=== PATIENT | female | born 2000 | race Caucasian/White ===

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

== ENCOUNTER 2022-02-03 18:27 | Inpatient (IN) | payer MEDICAID, SELFPAY ==
[2022-02-03 18:35] VITALS: BP 136/103; PULSE 111; RESP 18; O2SAT 98
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
[2022-02-03 18:37] VITALS: BP 136/103; PULSE 126; RESP 22; TEMP 36.6; O2SAT 97
[2022-02-03 18:43] LABS: Basophils # 0.1 10^3/uL (0.0-0.1); Basophils % 0.7 %; Eosinophils # 0.1 10^3/uL (0.0-0.8); Eosinophils % 0.7 %; Hematocrit 43.6 % (37.0-47.0); Hemoglobin 13.9 g/dL (11.5-15.3); Lymphocytes # 4.2 10^3/uL (1.5-6.5); Lymphocytes % 43.3 %; Mean Corpuscular HGB Conc 31.9 g/dL (30.0-36.0); Mean Platelet Volume 9.8 fL (7.4-10.4); Monocytes # 0.7 10^3/uL (0.2-0.9); Neutrophils # 4.66 10^3/uL (1.8-8.0); Nucleated Red Blood Cells % 0 %; Platelet Count 353 10^3/cmm (130-400); Red Blood Count 4.64 10^6/uL (4.1-5.3); Red Cell Distribution Width 12.3 % (12.1-15.1); White Blood Count 9.7 10^3/uL (4.5-13.0)
[2022-02-03] MEDS: LORazepam 2 mg Tablet PO (18:47)
[2022-02-03 19:09] LABS: Alanine Aminotransferase 17 U/L (0-33); Albumin Level 4.4 g/dL (3.5-5.2); Alkaline Phosphatase 91 U/L (35-105); Anion Gap 27.5 (5-19); Aspartate Amino Transferase 30 U/L (0-32); Blood Urea Nitrogen 15 mg/dL (6-20); Calcium 9.4 mg/dL (8.5-10.5); Carbon Dioxide 15 mmol/L (22-29); Chloride 94 mmol/L (98-107); Globulin 3.4 g/dL (1.3-4.6); Glomerular Filtration Rate 70.7 mL/min (90-130); Glucose 83 mg/dL (65-115); Osmolality Calculated 276 mOsm/kg (285-295); Potassium 3.5 mmol/L (3.5-5.1); Sodium 133 mmol/L (136-145); Total Bilirubin 0.3 mg/dL (0.15-1.2); Total Protein 7.8 g/dL (6.6-8.7)
[2022-02-03 19:15] LABS: HIV 1 & 2 Antibody Non-Reactive (Non-Reactiv); HIV 1 & 2 Antigen Non-Reactive (Non-Reactiv)
[2022-02-03 19:18] LABS: Acetaminophen < 5.0 ug/mL (10-30); Alcohol Level < 10 mg/dL (0-10); Salicylate < 0.3 mg/dL (3-10)
[2022-02-03 21:47] LABS: Amphetamines Screen Urine Positive (Negative); Barbiturates Screen Urine Negative (Negative); Benzodiazepines Screen Urine Negative (Negative); Cocaine Screen Urine Negative (Negative); Opiate Screen Urine Negative (Negative); PCP Screen Urine Negative (Negative); THC Screen Urine Positive (Negative)
[2022-02-03 22:02] LABS: Hepatitis A Antibody IgM Non-Reactive (Nonreactive); Hepatitis B Core AB, Total Non-Reactive (Nonreactive); Hepatitis B Surface AB 3.5 (11.5-1000); Hepatitis B Surface Antigen Non-Reactive (Nonreactive); Hepatitis C Virus Antibody Non-Reactive (Nonreactive)
[2022-02-03 22:04] VITALS: BP 136/103; PULSE 126; RESP 22; O2SAT 97
[2022-02-03 22:09] VITALS: BP 125/76; PULSE 104; RESP 19; TEMP 36.8; O2SAT 99
[2022-02-03] MEDS: hyDROXYzine 25 mg Capsule 50 MG PO (23:28)
[2022-02-03] MEDS: OLANZapine 5 mg ODT PO (23:28)
--- NOTE | 2022-02-03 23:55 | PC.NURSE ---
Vistaril 50mg PO given for amxiety; Zyprexa 5mg po given for Psychosis both with good result.
[2022-02-04 06:00] VITALS: BP 138/74; PULSE 110; RESP 18; TEMP 36.6; O2SAT 99
[2022-02-04 06:51] LABS: HCG Qualitative Urine. Negative (Negative)
[2022-02-04 14:00] VITALS: BP 111/62; PULSE 91; RESP 18; TEMP 36.6; O2SAT 97
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
[2022-02-04 20:25] VITALS: BP 119/70; PULSE 92; RESP 14; O2SAT 99
[2022-02-05 06:00] VITALS: BP 116/76; PULSE 93; RESP 18; O2SAT 99
--- NOTE | 2022-02-05 08:49 | W.PM.NPUPNS ---
Subjective NPU Subjective: Patient presents today being very irritable and angry. Every question she answered with some response that was related to not being willing to stay and cursing about the boat outboard engine mechanic. She reported that she would not take any medication and it is best for everyone if she was discharged. We discussed the hold process and the likelihood for an extended hold with her approach. Mental Status Exam MSE Comments: This is a slender, short white female in hospital scrubs with limited grooming and limited eye contact. No abnormal movements except for significant psychomotor agitation. Uncooperative with exam in extreme distress. Speech was increased rate and volume. Mood still not described, affect is irritable and angry. Thought process, linear. Thought content: patient still did not answer questions of lethality or perceptual disturbances but expressed irritability and anger towards anyone related to her being in hospital. she did not endorse delusional content but there was signs of paranoia and guardedness, but she did not appear to be attending to internal stimuli. Attention and concentration fair and memory was unreliable but none were formally tested. She is alert and oriented x3. insight, judgment and impulse control are impaired. Vitals/I&O/Wt Last Vital Signs Temp 97.8 F 02/04/22 14:00 Pulse 93 02/05/22 06:00 Resp 18 02/05/22 06:00 BP 116/76 02/05/22 06:00 Pulse Ox 99 02/05/22 06:00 O2 Del Method 02/04/22 06:00 Weight last 48 hrs Weight 54.431 kg Data NPU : 02/03/22 18:40 02/03/22 18:40 A&P Assessment and plan (1) Methamphetamine abuse: (2) Psychosis: Plan This is a 22year old white female who presents in on a 96 hour hold secondary to aggression and psychosis with positive UDS for cannabis and amphetamines with history of long stays to resolve the psychosis possibly needing guardianship and or placement. 1. We will obtain collateral information and restart medication with her permission but likely need to identify a long-acting injectable for her. If she functioned well on the Zyprexa we could do Zyprexa Relprevv, but something injectable for adherence is indicated. 2. Encourage individual, group and milieu therapy 3. Continue q-15 minute check for safety 4. Encourage sober living treatment after discharge at the highest level of care to which she is willing to commit. Involuntary Hold Information 96 Hour Hold: 96 Hour Involuntary Admission: Yes 96 Hour Hold Ending Date: 02/10/22 96 Hour Hold Ending Time: 19:17 Attestations NPU Medical Necessity Statement*: Inpatient hospitalization is medically necessary and the clinically appropriate intervention at this time. We will monitor medications and make changes as indicated. Likely length of stay is 10-14 days. Coding Level of Care Code Acute Residential Carpet Installer for Loulou Campos Diagnoses Methamphetamine abuse F15.10 Psychosis F29
[2022-02-05 14:00] VITALS: BP 122/76; PULSE 79; RESP 18; TEMP 36.7; O2SAT 98
[2022-02-05 20:12] VITALS: RESP 17
[2022-02-06 06:00] VITALS: BP 124/83; PULSE 80; RESP 16; O2SAT 98
[2022-02-06 14:00] VITALS: BP 113/88; PULSE 98; RESP 18; TEMP 36.9; O2SAT 97
--- NOTE | 2022-02-06 15:54 | P.NPUPN_ITS ---
Subjective NPU Subjective: Patient presents today continuing to be quite irritable and volatile. She endorsed being able to hear my thoughts and being able to tell that I was in fact schizophrenic and needing to be on medications. She reports that she does not have any issues and that the things that she told me yesterday I was in fact fabricating. He denied saying the things she said about the police. But she continues to say that she does not need to be here and that she would not take any medication. We discussed how that would likely lead towards a total day hold and the longer stay which only made her more angry Mental Status Exam MSE Comments: This is a slender, short white female in hospital scrubs with l imited grooming and limited eye contact. No abnormal movements except for significant psychomotor agitation. Uncooperative with exam in extreme distress. Speech was increased rate and volume. Mood still not described, affect is irritable and angry. Thought process, linear. Thought content: patient still did not answer questions of lethality or perceptual disturbances but expressed irritability and anger towards anyone related to her being in hospital. she did not endorse delusional content but there was signs of paranoia and guardedness, and she reports that she was able to read this automobile and property underwriter's mind and hear my thoughts, but she did not appear to be attending to internal stimuli. Attention and concentration were fair and memory was unreliable but none were formally tested. She is alert and oriented x3. insight, judgment and impulse control are impaired. Vitals/I&O/Wt Last Vital Signs Temp 98.0 F 02/05/22 14:00 Pulse 80 02/06/22 06:00 Resp 16 02/06/22 06:00 BP 124/83 02/06/22 06:00 Pulse Ox 98 02/06/22 06:00 O2 Del Method 02/05/22 14:00 Data NPU : 02/03/22 18:40 02/03/22 18:40 A&P Assessment and plan (1) Methamphetamine abuse: (2) Psychosis: Plan This is a 22year old white female who presents in on a 96 hour hold secondary to aggression and psychosis with positive UDS for cannabis and amphetamines with history of long stays to resolve the psychosis possibly needing guardianship and or placement. 1. We will obtain collateral information and restart medication with her permission but likely need to identify a long-acting injectable for her. If she functioned well on the Zyprexa we could do Zyprexa Relprevv, but something injectable for adherence is indicated. 2. Encourage individual, group and milieu therapy 3. Continue q-15 minute check for safety 4. Encourage sober living treatment after discharge at the highest level of care to which she is willing to commit. Involuntary Hold Information 96 Hour Hold: 96 Hour Involuntary Admission: Yes 96 Hour Hold Ending Date: 02/10/22 96 Hour Hold Ending Time: 19:17 Attestations NPU Medical Necessity Statement*: Inpatient hospitalization is medically necessary and the clinically appropriate intervention at this time. We will monitor medications and make changes as indicated. Likely length of stay is 10-14 days. Coding Level of Care Code Acute Trimmer Meat for Loulou Campos Diagnoses Methamphetamine abuse F15.10 Psychosis F29
[2022-02-06 20:07] VITALS: RESP 18
[2022-02-07 06:00] VITALS: RESP 16
--- NOTE | 2022-02-07 13:37 | W.PM.NPUPNS ---
Subjective NPU Subjective: Patient was in today with no significant changes and denying having any issues. She was unwilling to have any real conversation about her addiction, her psychosis or the circumstances that brought her to the hospital. She is maybe slightly less irritable and aggressive compared to yesterday but still reported that her plan was to try to get out as soon as possible. Mental Status Exam MSE Comments: This is a slender, short white female in hospital scrubs with limited grooming and limited eye contact. No abnormal movements except for significant psychomotor agitation. Uncooperative with exam in moderate distress. Speech was increased rate and volume. Mood still not described, affect is irritable and angry. Thought process, linear. Thought content: patient still did not answer questions of lethality or perceptual disturbances but expressed irritability and anger towards anyone related to her being in hospital. she did not endorse delusional content but there was signs of paranoia and guardedness, and she reports that she was able to read this parts data writer's mind and hear my thoughts, but she did not appear to be attending to internal stimuli. Attention and concentration were fair and memory was unreliable but none were formally tested. She is alert and oriented x3. insight, judgment and impulse control are impaired. Vitals/I&O/Wt Last Vital Signs Temp 98.4 F 02/06/22 14:00 Pulse 98 02/06/22 14:00 Resp 16 02/07/22 06:00 BP 113/88 02/06/22 14:00 Pulse Ox 97 02/06/22 14:00 O2 Del Method 02/06/22 14:00 Data NPU : 02/03/22 18:40 02/03/22 18:40 A&P Assessment and plan (1) Methamphetamine abuse: (2) Psychosis: Plan This is a 22year old white female who presents in on a 96 hour hold secondary to aggression and psychosis with positive UDS for cannabis and amphetamines with history of long stays to resolve the psychosis possibly needing guardianship and or placement. 1. We will obtain collateral information and restart medication with her permission but likely need to identify a long-acting injectable for her. If she functioned well on the Zyprexa we could do Zyprexa Relprevv, but something injectable for adherence is indicated. 2. Encourage individual, group and milieu therapy 3. Continue q-15 minute check for safety 4. Encourage sober living treatment after discharge at the highest level of care to which she is willing to commit. Involuntary Hold Information 96 Hour Hold: 96 Hour Involuntary Admission: Yes 96 Hour Hold Ending Date: 02/10/22 96 Hour Hold Ending Time: 19:17 Attestations NPU Medical Necessity Statement*: Inpatient hospitalization is medically necessary and the clinically appropriate intervention at this time. We will monitor medications and make changes as indicated. Likely length of stay is 10-14 days. Coding Level of Care Code Acute Senior Customer Service Representative for Loulou Campos Diagnoses Methamphetamine abuse F15.10 Psychosis F29
[2022-02-07 14:00] VITALS: BP 119/71; PULSE 102; RESP 18; TEMP 36.6; O2SAT 99
[2022-02-07 20:06] VITALS: BP 129/88; PULSE 73; RESP 16; TEMP 36.6; O2SAT 99
[2022-02-08 06:00] VITALS: RESP 17
[2022-02-08 14:00] VITALS: BP 113/77; PULSE 87; RESP 16; TEMP 36.6; O2SAT 100
--- NOTE | 2022-02-08 14:00 | W.PM.NPUPNS ---
Subjective NPU Subjective: Patient presents today continuing to have no interest in participating in treatment. She attempted to use the excuse of plan that she will go to her doctor estimate she is discharged and use medications that she has refills for etc. But cannot explain the why she did take medication that she is not interested in taking only after she is out the hospital. She promised that she would take it. We discussed her multiple hospitalizations with the same presentation that improves with medication but the impact of her methamphetamine addiction either eludes her or she denies for purpose. Mental Status Exam MSE Comments: This is a slender, short white female in hospital scrubs with limited grooming and limited eye contact. No abnormal movements except for decreasing blood present psychomotor agitation. Uncooperative with exam in moderate distress. Speech was increased rate and volume. Mood described as I am fine, affect is irritable and angry. Thought process, linear. Thought content: patient still did not answer questions of lethality or perceptual disturbances but expressed irritability and anger towards anyone related to her being in hospital. she did not endorse delusional content but there was signs of paranoia and guardedness, there were no auditory or visual hallucinations reported, but she did not appear to be attending to internal stimuli. Attention and concentration were fair and memory was unreliable but none were formally tested. She is alert and oriented x3. insight, judgment and impulse control are impaired. Vitals/I&O/Wt Last Vital Signs Temp 97.9 F 02/07/22 20:06 Pulse 73 02/07/22 20:06 Resp 17 02/08/22 06:00 BP 129/88 02/07/22 20:06 Pulse Ox 99 02/07/22 20:06 O2 Del Method 02/07/22 14:00 Data NPU : 02/03/22 18:40 02/03/22 18:40 A&P Assessment and plan (1) Methamphetamine abuse: (2) Psychosis: Plan This is a 22year old white female who presents in on a 96 hour hold secondary to aggression and psychosis with positive UDS for cannabis and amphetamines with history of long stays to resolve the psychosis possibly needing guardianship and or placement. 1. We will obtain collateral information and restart medication with her permission but likely need to identify a long-acting injectable for her. If she functioned well on the Zyprexa we could do Zyprexa Relprevv, but something injectable for adherence is indicated. 2. Encourage individual, group and milieu therapy 3. Continue q-15 minute check for safety 4. Encourage sober living treatment after discharge at the highest level of care to which she is willing to commit. 5. Resistance to treatment appears to be making a 21-day hold inevitable. Involuntary Hold Information 96 Hour Hold: 96 Hour Involuntary Admission: Yes 96 Hour Hold Ending Date: 02/10/22 96 Hour Hold Ending Time: 19:17 Attestations NPU Medical Necessity Statement*: Inpatient hospitalization is medically necessary and the clinically appropriate intervention at this time. We will monitor medications and make changes as indicated. Likely length of stay is 10-14 days. Coding Level of Care Code Acute Customer Solutions Coordinator for Loulou Campos Diagnoses Methamphetamine abuse F15.10 Psychosis F29
[2022-02-08] MEDS: neomycin-poly-bacitracin oint 28 gm 1 APPLIC TOPICAL (18:23)
[2022-02-08] MEDS: nicotine 2 mg Gum BUCCAL (18:35)
[2022-02-08 20:20] VITALS: RESP 18
[2022-02-09 06:00] VITALS: RESP 18
[2022-02-09] MEDS: nicotine 2 mg Gum BUCCAL ×2 (11:16→17:27)
[2022-02-09 14:00] VITALS: BP 116/78; PULSE 100; RESP 18; TEMP 36.9; O2SAT 100
--- NOTE | 2022-02-09 18:10 | P.NPUPN_ITS ---
Subjective NPU Subjective: Patient presents today continuing to be quite concrete and basically answering every question with some variation of can I go home. She is having no conversation about medication other than she will start the medication once she leaves. She had no conversation about her sobriety denying that her methamphetamine issue which is now back multiple years is an active issue and continues to be disorganized. Mental Status Exam MSE Comments: This is a slender, short white female in hospital scrubs with limited grooming and limited eye contact. No abnormal movements except for decreasing mild to moderate psychomotor agitation. Uncooperative with exam in mild to moderate distress. Speech was more normal rate and volume. Mood described as I am fine, affect is irritable. Thought process, linear with clear mild underlying disorganization. Thought content: patient denies suicidal or homicidal ideations, she did not endorse delusional content but there was signs of paranoia and guardedness, there were no auditory or visual hallucinations reported, and she did not appear to be attending to internal stimuli. Attention and concentration were fair and memory was unreliable but none were formally tested. She is alert and oriented x3. insight, judgment and impulse control are impaired. Vitals/I&O/Wt Last Vital Signs Temp 98.5 F 02/09/22 22:00 Pulse 89 02/09/22 22:00 Resp 16 02/09/22 22:00 BP 117/77 02/09/22 22:00 Pulse Ox 97 02/09/22 22:00 O2 Del Method 02/09/22 22:00 Data NPU 02/03/22 18:40 02/03/22 18:40 A&P Assessment and plan (1) Methamphetamine abuse: (2) Psychosis: Plan This is a 22year old white female who presents in on a 96 hour hold secondary to aggression and psychosis with positive UDS for cannabis and amphetamines with history of long stays to resolve the psychosis possibly needing guardianship and or placement. 1. We will obtain collateral information and restart medication with her permission but likely need to identify a long-acting injectable for her. If she functioned well on the Zyprexa we could do Zyprexa Relprevv, but something injectable for adherence is indicated. 2. Encourage individual, group and milieu therapy 3. Continue q-15 minute check for safety 4. Encourage sober living treatment after discharge at the highest level of care to which she is willing to commit. 5. Resistance to treatment appears to be making a 21-day hold inevitable. Involuntary Hold Information 96 Hour Hold: 96 Hour Involuntary Admission: Yes 96 Hour Hold Ending Date: 02/10/22 96 Hour Hold Ending Time: 19:17 Attestations NPU Medical Necessity Statement*: Inpatient hospitalization is medically necessary and the clinically appropriate intervention at this time. We will monitor medications and make changes as indicated. Likely length of stay is 10-14 days. Coding Level of Care Code Acute Software Implementation Specialist for Loulou Campos Diagnoses Methamphetamine abuse F15.10 Psychosis F29
[2022-02-09 22:00] VITALS: BP 117/77; PULSE 89; RESP 16; TEMP 36.9; O2SAT 97
[2022-02-10 06:00] VITALS: BP 104/72; PULSE 90; RESP 17; TEMP 36.8; O2SAT 99
--- NOTE | 2022-02-10 13:31 | W.PM.NPUPNS ---
Subjective NPU Subjective: Patient presents today continuing to show limited to no insight surrounding her situation, her condition, her family concerns and is either unaware or being deceitful in relation to her addiction and current use pattern. We discussed the submission of a 21 day hold which upset her, but due to her lack of insight she talked about being hopeful that she will be discharged tomorrow we discussed that she would need to restart medication and a period convalescence in the hospital before we feel she would be ready for discharge. Mental Status Exam MSE Comments: This is a slender, short white female in hospital scrubs with limited grooming and limited eye contact. No abnormal movements except for decreasing mild psychomotor agitation. Uncooperative with exam in mild to moderate distress. Speech was more normal rate and volume. Mood described as there is nothing wrong, affect is irritable. Thought process, linear with clear mild underlying disorganization. Thought content: patient denies suicidal or homicidal ideations, she did not endorse delusional content but there was signs of paranoia and guardedness, there were no auditory or visual hallucinations reported, and she did not appear to be attending to internal stimuli. Attention and concentration were fair and memory was unreliable but none were formally tested. She is alert and oriented x3. insight, judgment and impulse control are impaired. Vitals/I&O/Wt Last Vital Signs Temp 98.3 F 02/10/22 06:00 Pulse 90 02/10/22 06:00 Resp 17 02/10/22 06:00 BP 104/72 02/10/22 06:00 Pulse Ox 99 02/10/22 06:00 O2 Del Method 02/10/22 06:00 Data NPU 02/03/22 18:40 02/03/22 18:40 A&P Assessment and plan (1) Methamphetamine abuse: (2) Psychosis: Plan This is a 22year old white female who presents in on a 96 hour hold secondary to aggression and psychosis with positive UDS for cannabis and amphetamines with history of long stays to resolve the psychosis possibly needing guardianship and or placement. 1. We will obtain collateral information and restart medication with her permission but likely need to identify a long-acting injectable for her. If she functioned well on the Zyprexa we could do Zyprexa Relprevv, but something injectable for adherence is indicated. 2. Encourage individual, group and milieu therapy 3. Continue q-15 minute check for safety 4. Encourage sober living treatment after discharge at the highest level of care to which she is willing to commit. 5. 21-day hold paperwork filed. Involuntary Hold Information 96 Hour Hold: 96 Hour Involuntary Admission: Yes 96 Hour Hold Ending Date: 02/10/22 96 Hour Hold Ending Time: 19:17 Attestations NPU Medical Necessity Statement*: Inpatient hospitalization is medically necessary and the clinically appropriate intervention at this time. We will monitor medications and make changes as indicated. Likely length of stay is 10-14 days. Coding Level of Care Code Acute Processing Manager for [employer] Fwd Diagnoses Methamphetamine abuse F15.10 Psychosis F29
[2022-02-10 14:00] VITALS: BP 111/72; PULSE 94; RESP 16; TEMP 36.8; O2SAT 98
[2022-02-10] MEDS: nicotine 2 mg Gum BUCCAL (14:08)
[2022-02-10] MEDS: ibuprofen 600 mg Tablet PO (20:13)
[2022-02-10] MEDS: trazodone 50 mg Tablet PO (20:14)
[2022-02-10 22:00] VITALS: BP 139/69; PULSE 87; RESP 16; TEMP 36.8; O2SAT 97
[2022-02-11 06:00] VITALS: BP 96/60; PULSE 83; RESP 16; TEMP 36.8; O2SAT 96
[2022-02-11] MEDS: nicotine 2 mg Gum BUCCAL ×3 (10:51→19:46)
--- NOTE | 2022-02-11 11:34 | P.NPUPN_ITS ---
Subjective NPU Subjective: Patient presents today reporting that she is wanting to leave. We continued to have a conversation about her circumstances and the 21-day hold being filed. She will have a hearing on Monday. After significant conversation she was able to agree to restart Zyprexa at 10 mg p.o. nightly after discussion of risks, benefits and alternatives. Mental Status Exam MSE Comments: This is a slender, short white female in hospital scrubs with limited grooming and limited eye contact. No abnormal movements except for decreasing mild psychomotor agitation. Uncooperative with exam in mild to moderate distress. Speech was more normal rate and volume. Mood described as okay, affect is irritable. Thought process, linear with clear mild underlying disorganization. Thought content: patient denies suicidal or homicidal ideations, she did not endorse delusional content but there was signs of paranoia and guardedness, there were no auditory or visual hallucinations reported, and she did not appear to be attending to internal stimuli. Attention and concentration were fair and memory was unreliable but none were formally tested. She is alert and oriented x3. insight, judgment and impulse control are impaired. Vitals/I&O/Wt Last Vital Signs Temp 98.3 F 02/11/22 06:00 Pulse 83 02/11/22 06:00 Resp 16 02/11/22 06:00 BP 96/60 02/11/22 06:00 Pulse Ox 96 02/11/22 06:00 O2 Del Method 02/11/22 06:00 Data NPU 02/03/22 18:40 02/03/22 18:40 A&P Assessment and plan (1) Methamphetamine abuse: (2) Psychosis: Plan This is a 22year old white female who presents in on a 96 hour hold secondary to aggression and psychosis with positive UDS for cannabis and amphetamines with history of long stays to resolve the psychosis possibly needing guardianship and or placement. 1. We will obtain collateral information and restart medication with her permission but likely need to identify a long-acting injectable for her. If she functioned well on the Zyprexa we could do Zyprexa Relprevv, but starting Zyprexa 10 mg p.o. nightly. 2. Encourage individual, group and milieu therapy 3. Continue q-15 minute check for safety 4. Encourage sober living treatment after discharge at the highest level of care to which she is willing to commit. 5. 21-day hold hearing Monday at 3:00 PM. Involuntary Hold Information 96 Hour Hold: 96 Hour Involuntary Admission: Yes 96 Hour Hold Ending Date: 02/10/22 96 Hour Hold Ending Time: 19:17 Attestations NPU Medical Necessity Statement*: Inpatient hospitalization is medically necessary and the clinically appropriate intervention at this time. We will monitor medications and make changes as indicated. Likely length of stay is 10-14 days. Coding Level of Care Code Acute Paint Grinder [employer] for Loulou Campos Diagnoses Methamphetamine abuse F15.10 Psychosis F29
[2022-02-11 14:00] VITALS: BP 107/62; PULSE 90; RESP 18; TEMP 36.6; O2SAT 97
[2022-02-11] MEDS: trazodone 50 mg Tablet PO ×2 (19:43→21:06)
[2022-02-11] MEDS: OLANZapine 10 mg TABLET PO (19:43)
[2022-02-11 22:00] VITALS: BP 124/77; PULSE 88; RESP 18; TEMP 36.8; O2SAT 96
[2022-02-12 06:00] VITALS: BP 100/62; PULSE 76; RESP 16; TEMP 37; O2SAT 96
--- NOTE | 2022-02-12 13:49 | P.NPUPN_ITS ---
Subjective NPU Subjective: Patient presented today reporting that she did not from medication last night. She went on a rant about not believing in medication or putting things in her body reporting that that was not God's plan for people to have medication all the time. When asked how that relates to taking metha mphetamine she did not have an answer. Mental Status Exam MSE Comments: This is a slender, short white female in hospital scrubs with limited grooming and limited eye contact. No abnormal movements except for decreasing mild psychomotor agitation. Uncooperative with exam in mild to moderate distress. Speech was more normal rate and volume. Mood described as fine, affect is irritable. Thought process, linear with clear mild underlying disorganization. Thought content: patient denies suicidal or homicidal ideations, she did not endorse delusional content but there was signs of paranoia and guardedness, there were no auditory or visual hallucinations reported, and she did not appear to be attending to internal stimuli. Attention and concentration were fair and memory was unreliable but none were formally tested. She is alert and oriented x3. insight, judgment and impulse control are impaired. Vitals/I&O/Wt Last Vital Signs Temp 98.6 F 02/12/22 06:00 Pulse 76 02/12/22 06:00 Resp 16 02/12/22 06:00 BP 100/62 02/12/22 06:00 Pulse Ox 96 02/12/22 06:00 O2 Del Method 02/12/22 06:00 Data NPU 02/03/22 18:40 02/03/22 18:40 A&P Assessment and plan (1) Methamphetamine abuse: (2) Psychosis: Plan This is a 22year old white female who presents in on a 96 hour hold secondary to aggression and psychosis with positive UDS for cannabis and amphetamines with history of long stays to resolve the psychosis possibly needing guardianship and or placement. 1. We will obtain collateral information and restart medication with her permission but likely need to identify a long-acting injectable for her. If she functioned well on the Zyprexa we could do Zyprexa Relprevv, but started Zyprexa 10 mg p.o. nightly. 2. Encourage individual, group and milieu therapy 3. Continue q-15 minute check for safety 4. Encourage sober living treatment after discharge at the highest level of care to which she is willing to commit. 5. 21-day hold hearing Monday at 3:00 PM. Involuntary Hold Information 96 Hour Hold: 96 Hour Involuntary Admission: Yes 96 Hour Hold Ending Date: 02/10/22 96 Hour Hold Ending Time: 19:17 Attestations NPU Medical Necessity Statement*: Inpatient hospitalization is medically necessary and the clinically appropriate intervention at this time. We will monitor medications and make changes as indicated. Likely length of stay is 10-14 days. Coding Level of Care Code Acute Cement And Concrete Plant Worker for Loulou Campos Diagnoses Methamphetamine abuse F15.10 Psychosis F29
[2022-02-12 14:00] VITALS: BP 119/76; PULSE 86; RESP 17; TEMP 36.7; O2SAT 100
[2022-02-12] MEDS: nicotine 4 mg lozenge MUCOUS MEM ×3 (14:46→21:26)
[2022-02-12] MEDS: trazodone 50 mg Tablet PO ×2 (19:29→21:26)
[2022-02-12] MEDS: OLANZapine 10 mg TABLET PO (19:30)
[2022-02-12 21:11] VITALS: BP 121/78; PULSE 91; RESP 16; TEMP 36.6; O2SAT 100
[2022-02-13 02:45] LABS: Amphetamines Screen Urine Negative (Negative); Barbiturates Screen Urine Negative (Negative); Benzodiazepines Screen Urine Negative (Negative); Cocaine Screen Urine Negative (Negative); Opiate Screen Urine Negative (Negative); PCP Screen Urine Negative (Negative); THC Screen Urine Negative (Negative)
[2022-02-13 06:00] VITALS: BP 121/78; PULSE 91; RESP 16; TEMP 36.6; O2SAT 100; BMI 20.5
[2022-02-13 06:37] VITALS: BP 149/95; PULSE 69; RESP 16; TEMP 36.7; O2SAT 98
--- NOTE | 2022-02-13 10:41 | W.PM.NPUPNS ---
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 Patient had stated that she felt that she was ready to return home. She continued to minimize the behavior and the problems that had initially led to her being hospitalized. She firmly denied having attacked law officers when confronted with this today. She continued to isolate herself on the milieu. She had reported that she had felt that the previous medications had made her excessively sleepy in the past and she had stopped taking those medications when she was living at home. She again minimized the use of methamphetamine and stated that she did not have any problems with methamphetamine addiction. She again had reported that she did not believe it was God's will to have everyone on medications. Mental Status Exam MSE Comments: This is a slender, short white female in hospital scrubs with limited grooming and limited eye contact. No abnormal movements except for mild psychomotor agitation. She was minimally cooperative with the exam today. Speech was more normal rate and volume. Mood described as fine, affect is irritable and mood incongruent. Thought process appeared disorganized and nonlinear.. Thought content: patient denies suicidal or homicidal ideation, she did not endorse delusional content. She continued to appear paranoid and guarded. There were no auditory or visual hallucinations reported, and she did not appear to be attending to internal stimuli. Attention and concentration were fair and memory was unreliable but none were formally tested. She is alert and oriented x3. insight, judgment and impulse control are impaired. Vitals/I&O/Wt Last Vital Signs Temp 98.0 F 02/13/22 06:37 Pulse 69 02/13/22 06:37 Resp 16 02/13/22 06:37 BP 149/95 02/13/22 06:37 Pulse Ox 98 02/13/22 06:37 O2 Del Method 02/12/22 06:00 Weight last 48 hrs Weight 54.431 kg Data NPU 02/03/22 18:40 02/03/22 18:40 A&P Assessment and plan (1) Methamphetamine abuse: (2) Psychosis: Plan This is a 22 year old white female who presents in on a 96 hour hold secondary to aggression and psychosis with positive UDS for cannabis and amphetamines with history of long hospitalizations required to resolve the psychotic symptoms. She is possibly needing guardianship and or placement. 1. We will obtain collateral information and restart medication with her permission but likely need to identify a long-acting injectable for her. If she functioned well on the Zyprexa we could do Zyprexa Relprevv, but started Zyprexa 10 mg p.o. nightly. 2. Encourage individual, group and milieu therapy 3. Continue q-15 minute check for safety 4. Encourage sober living treatment after discharge at the highest level of care to which she is willing to commit. 5. 21-day hold hearing Monday at 3:00 PM. Involuntary Hold Information 96 Hour Hold: 96 Hour Involuntary Admission: Yes 96 Hour Hold Ending Date: 02/10/22 96 Hour Hold Ending Time: 19:17 Attestations NPU Medical Necessity Statement*: Inpatient hospitalization is medically necessary and the clinically appropriate intervention at this time. We will monitor medications and make changes as indicated. Likely length of stay is 10-14 days. Coding Level of Care Code Established Pt Acute Lawn Mower Sharpener for Loulou Campos Patient Type Established History Problem Focused Exam Problem Focused Medical Decision Making Straight Forward Diagnoses Methamphetamine abuse F15.10 Psychosis F29
[2022-02-13] MEDS: nicotine 2 mg Gum BUCCAL ×2 (13:25→16:10)
[2022-02-13 14:00] VITALS: BP 116/82; PULSE 126; RESP 18; O2SAT 95
[2022-02-13] MEDS: nicotine 4 mg lozenge MUCOUS MEM (18:51)
[2022-02-13 20:09] VITALS: BP 134/84; PULSE 91; RESP 16; TEMP 36.9; O2SAT 94
[2022-02-13] MEDS: OLANZapine 10 mg TABLET PO (20:10)
[2022-02-13] MEDS: trazodone 50 mg Tablet PO (20:10)
[2022-02-14 06:00] VITALS: BP 142/92; PULSE 64; RESP 18; TEMP 37; O2SAT 97
[2022-02-14] MEDS: nicotine 2 mg Gum BUCCAL ×4 (12:15→19:17)
[2022-02-14 14:00] VITALS: BP 111/75; PULSE 89; RESP 16; TEMP 37.2; O2SAT 99
--- NOTE | 2022-02-14 14:13 | P.NPUPN_ITS ---
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 Patient continued to minimize amphetamine abuse. She reports that she has the right to return home and she believes that the surveillance video will show that she did not do anything to hurt the police. Patient had reported that she did not wish to have any disagreements with anyone and was willing to continue to take her medications. Mental Status Exam MSE Comments: This is a slender, short white female in hospital scrubs with limited grooming and limited eye contact. No abnormal movements except for mild psychomotor agitation. She was minimally cooperative with the exam today. Speech was normal in volume and rate. Mood described as good., affect is irritable and mood incongruent. Thought process appeared disorganized and nonlinear. Thought content: patient denies suicidal or homicidal ideation, she did not endorse delusional content. She continued to appear paranoid and guarded. There were no auditory or visual hallucinations reported, and she did not appear to be attending to internal stimuli. Attention and concentration were fair and memory was unreliable but none were formally tested. She is alert and oriented x3. insight, judgment and impulse control are impaired. Vitals/I&O/Wt Last Vital Signs Temp 98.6 F 02/14/22 06:00 Pulse 64 02/14/22 06:00 Resp 18 02/14/22 06:00 BP 142/92 02/14/22 06:00 Pulse Ox 97 02/14/22 06:00 O2 Del Method 02/12/22 06:00 Weight last 48 hrs Weight 54.431 kg Data NPU 02/03/22 18:40 02/03/22 18:40 A&P Assessment and plan (1) Methamphetamine abuse: (2) Psychosis: Plan This is a 22 year old white female who presents in on a 96 hour hold secondary to aggression and psychosis with positive UDS for cannabis and amphetamines with history of long hospitalizations required to resolve the psychotic symptoms. She is possibly needing guardianship and or placement. 1. We will obtain collateral information and restart medication with her permission but likely need to identify a long-acting injectable for her. If she functioned well on the Zyprexa we could do Zyprexa Relprevv, but increase zyprexa to 12.5mg at night. 2. Encourage individual, group and milieu therapy 3. Continue q-15 minute check for safety 4. Encourage sober living treatment after discharge at the highest level of care to which she is willing to commit. 5. 21-day hold hearing today at 3 PM. Involuntary Hold Information 96 Hour Hold: 96 Hour Involuntary Admission: Yes 96 Hour Hold Ending Date: 02/10/22 96 Hour Hold Ending Time: 19:17 Attestations NPU Medical Necessity Statement*: Inpatient hospitalization is medically necessary and the clinically appropriate intervention at this time. We will monitor medications and make changes as indicated. Likely length of stay is 10-14 days. Coding Level of Care Code Established Pt Acute Equal Employment Opportunity Officer for [employer] F[employer] Patient Type Established History Problem Focused Exam Problem Focused Medical Decision Making Straight Forward Diagnoses Methamphetamine abuse F15.10 Psychosis F29
[2022-02-14] MEDS: nicotine 4 mg lozenge MUCOUS MEM ×2 (18:13→20:58)
[2022-02-14 20:02] VITALS: BP 122/76; PULSE 98; RESP 16; TEMP 36.7; O2SAT 98
[2022-02-14] MEDS: OLANZapine 5 mg TABLET 12.5 MG PO (20:28)
[2022-02-14] MEDS: trazodone 50 mg Tablet PO (20:28)
[2022-02-15 06:00] VITALS: BP 126/82; PULSE 92; RESP 16; TEMP 36.6; O2SAT 98
[2022-02-15 14:00] VITALS: BP 100/62; PULSE 73; RESP 18; TEMP 36.1; O2SAT 99
--- NOTE | 2022-02-15 16:02 | W.PM.NPUPNS ---
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 The patient was placed on a 21-day hold and continued to isolate herself on the milieu. The patient stated today that she did not wish to talk to the automatic typewriter inspector of this note stating that getting angry would not help me get out of here sooner. She had remained compliant to medications and continued to minimize the significant use of amphetamines. The patient reported that she was ready to go home but continued to show no evidence of meaningful interactions with other patients or staff on the unit. Patient continued to minimize amphetamine abuse. She admits to having been found lying in a ditch and stated that she had the right to remain in the ditch as she reported that the police had unlawfully moved her from the ditch and brought her to the hospital. Mental Status Exam MSE Comments: This is a slender, short white female in hospital scrubs with poor grooming and limited eye contact. No abnormal movements except for mild psychomotor agitation. She was minimally cooperative with the exam today. Speech was normal in volume and rate. Mood described as good., affect is irritable and mood incongruent. Thought process appeared disorganized and nonlinear. Thought content: patient denies suicidal or homicidal ideation, she did not endorse delusional content. She continued to appear paranoid and guarded. There were no auditory or visual hallucinations reported, and she did not appear to be attending to internal stimuli. Attention and concentration were fair and memory was unreliable but none were formally tested. She is alert and oriented to person and place and situation. Her insight, judgment and impulse control is poor. Vitals/I&O/Wt Last Vital Signs Temp 97.8 F 02/15/22 06:00 Pulse 92 02/15/22 06:00 Resp 16 02/15/22 06:00 BP 126/82 02/15/22 06:00 Pulse Ox 98 02/15/22 06:00 O2 Del Method 02/14/22 14:00 Data NPU 02/03/22 18:40 02/03/22 18:40 A&P Assessment and plan (1) Methamphetamine abuse: (2) Psychosis: Plan This is a 22 year old white female who presents in on a 96 hour hold secondary to aggression and psychosis with positive UDS for cannabis and amphetamines with history of long hospitalizations required to resolve the psychotic symptoms. She is possibly needing guardianship and or placement. 1. We will obtain collateral information and restart medication with her permission but likely need to identify a long-acting injectable for her. If she functioned well on the Zyprexa we could do Zyprexa Relprevv, but increase zyprexa to 12.5mg at night. 2. Encourage individual, group and milieu therapy 3. Continue q-15 minute check for safety 4. Encourage sober living treatment after discharge at the highest level of care to which she is willing to commit. 5. 21-day hold hearing today at 3 PM. Involuntary Hold Information 96 Hour Hold: 96 Hour Involuntary Admission: Yes 96 Hour Hold Ending Date: 02/10/22 96 Hour Hold Ending Time: 19:17 Attestations NPU Medical Necessity Statement*: Inpatient hospitalization is medically necessary and the clinically appropriate intervention at this time. We will monitor medications and make changes as indicated. Likely length of stay is 10-14 days. Coding Level of Care Code Established Pt Acute Oil Furnace Installer for Loulou Campos Patient Type Established History Problem Focused Exam Problem Focused Medical Decision Making Straight Forward Diagnoses Methamphetamine abuse F15.10 Psychosis F29
[2022-02-15] MEDS: nicotine 4 mg lozenge MUCOUS MEM ×2 (16:58→19:22)
[2022-02-15] MEDS: OLANZapine 5 mg TABLET 12.5 MG PO (20:22)
[2022-02-15] MEDS: nicotine 2 mg Gum BUCCAL (20:22)
[2022-02-15] MEDS: trazodone 50 mg Tablet PO ×2 (20:22→21:07)
[2022-02-15] MEDS: benzocaine 20% 7 gm 1 APPLIC MUCOUS MEM (21:43)
[2022-02-15 21:45] VITALS: BP 127/89; PULSE 86; RESP 18; O2SAT 91
[2022-02-15] MEDS: ibuprofen 600 mg Tablet PO (23:32)
[2022-02-16 06:00] VITALS: RESP 16
[2022-02-16] MEDS: nicotine 4 mg lozenge MUCOUS MEM ×4 (13:19→19:52)
[2022-02-16 14:00] VITALS: BP 118/83; PULSE 121; RESP 20; TEMP 36.2; O2SAT 96
[2022-02-16] MEDS: nicotine 2 mg Gum BUCCAL (14:49)
--- NOTE | 2022-02-16 15:33 | P.NPUPN_ITS ---
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 The patient was placed on a 21-day hold and continued to isolate herself on the milieu. She appeared minimally cooperative and was continuing to engage in somewhat unusual behavior and making strange statements on the unit. The patient had reported vaguely that her boyfriend had been somehow inserting pornographic thoughts into her head through his mind. The patient continued to require significant prompting for completion of activities of daily living. She again had minimized any possibility that her methamphetamine use was contr ibuting to her behaviors and her recent hospitalization. Mental Status Exam MSE Comments: This is a slender, short white female in hospital scrubs with poor grooming and limited eye contact. She was lying in bed with her head underneath the cover. She was superficial and disinterested. She was minimally cooperative with the exam today. Speech was normal in volume and diminished in rate. Mood described as fine ., affect was irritable and mood incongruent. Thought process appeared disorganized and nonlinear. Thought content: patient denies suicidal or homicidal ideation, delusions. There was the presence of active there were no auditory or visual hallucinations reported, and she did not appear to be attending to internal stimuli. Attention and concentration were fair and memory was unreliable but none were formally tested. She is alert and oriented to person and place and situation. Her insight, judgment and impulse control is poor. Vitals/I&O/Wt Last Vital Signs Temp 97.2 F L 02/16/22 14:00 Pulse 121 H 02/16/22 14:00 Resp 20 H 02/16/22 14:00 BP 118/83 02/16/22 14:00 Pulse Ox 96 02/16/22 14:00 O2 Del Method 02/14/22 14:00 Data NPU 02/03/22 18:40 02/03/22 18:40 A&P Assessment and plan (1) Methamphetamine abuse: (2) Psychosis: Plan This is a 22 year old white female who presents in on a 96 hour hold secondary to aggression and psychosis with positive UDS for cannabis and amphetamines with history of long hospitalizations required to resolve the psychotic symptoms. She is possibly needing guardianship and or placement. 1. We will obtain collateral information and restart medication with her permission but likely need to identify a long-acting injectable for her. If she functioned well on the Zyprexa we could do Zyprexa Relprevv, but continue zyprexa at 12.5mg at night. 2. Encourage individual, group and milieu therapy 3. Continue q-15 minute check for safety 4. Encourage sober living treatment after discharge at the highest level of care to which she is willing to commit. 5. 21-day hold hearing today at 3 PM. Involuntary Hold Information 96 Hour Hold: 96 Hour Involuntary Admission: Yes 96 Hour Hold Ending Date: 02/10/22 96 Hour Hold Ending Time: 19:17 Attestations NPU Medical Necessity Statement*: Inpatient hospitalization is medically necessary and the clinically appropriate intervention at this time. We will monitor medications and make changes as indicated. Likely length of stay is 10-14 days. Coding Level of Care Code Established Pt Acute Adult Family Home Program Manager for Loulou Campos Patient Type Established History Problem Focused Exam Problem Focused Medical Decision Making Straight Forward Diagnoses Methamphetamine abuse F15.10 Psychosis F29
[2022-02-16] MEDS: OLANZapine 5 mg TABLET 12.5 MG PO (19:51)
[2022-02-16 22:00] VITALS: BP 135/84; PULSE 104; RESP 17; TEMP 36.7; O2SAT 98
[2022-02-17 06:00] VITALS: BP 101/47; PULSE 66; RESP 17; TEMP 36.4; O2SAT 93
--- NOTE | 2022-02-17 13:11 | W.PM.NPUPNS ---
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 Patient continues to isolate on the milieu. She had refused to speak outside on the unit and remained under her sheets. She had eaten food but continued to make bizarre statements while on the unit. She had reported that she had freedom to use anything she wanted and to sleep with whoever she wants without the police being involved. She continued to deny that her substance use played any role in her current hospitalization stating that others that were jealous of me wanted me here. Mental Status Exam MSE Comments: This is a slender, short white female in hospital scrubs with poor grooming and limited eye contact. She was lying in bed with her head underneath the cover only to pull her head out of the covers briefly. She was superficial and disinterested on interview. She was minimally cooperative with the exam today. Speech was normal in volume and diminished in rate. Mood described as okay , Her affect was odd and subdued. Thought process appeared disorganized with continued derailment. Thought content: patient denies suicidal or homicidal ideation, delusions. There was the presence of active there were no auditory or visual hallucinations reported, and she did not appear to be attending to internal stimuli. Attention and concentration were fair and memory was unreliable but none were formally tested. She is alert and oriented to person and place and situation. Her insight, judgment and impulse control is poor. Vitals/I&O/Wt Last Vital Signs Temp 97.6 F 02/17/22 06:00 Pulse 66 02/17/22 06:00 Resp 17 02/17/22 06:00 BP 101/47 02/17/22 06:00 Pulse Ox 93 02/17/22 06:00 O2 Del Method 02/17/22 06:00 Data NPU 02/03/22 18:40 02/03/22 18:40 A&P Assessment and plan (1) Methamphetamine abuse: (2) Psychosis: Plan This is a 22 year old white female who presents in on a 96 hour hold secondary to aggression and psychosis with positive UDS for cannabis and amphetamines with history of long hospitalizations required to resolve the psychotic symptoms. She is possibly needing guardianship and or placement. 1. We will obtain collateral information and restart medication with her permission but likely need to identify a long-acting injectable for her. If she functioned well on the Zyprexa we could do Zyprexa Relprevv, but Will reduce zyprexa to 10mg at night due to excess sedation 2. Encourage individual, group and milieu therapy 3. Continue q-15 minute check for safety 4. Encourage sober living treatment after discharge at the highest level of care to which she is willing to commit. 5. 21-day hold hearing today at 3 PM. Involuntary Hold Information 96 Hour Hold: 96 Hour Involuntary Admission: Yes 96 Hour Hold Ending Date: 02/10/22 96 Hour Hold Ending Time: 19:17 Attestations NPU Medical Necessity Statement*: Inpatient hospitalization is medically necessary and the clinically appropriate intervention at this time. We will monitor medications and make changes as indicated. Likely length of stay is 10-14 days. Coding Level of Care Code Established Pt Acute Skirt Maker for Loulou Campos Patient Type Established History Problem Focused Exam Problem Focused Medical Decision Making Straight Forward Diagnoses Methamphetamine abuse F15.10 Psychosis F29
[2022-02-17 14:00] VITALS: BP 125/87; PULSE 90; RESP 18; TEMP 36.8; O2SAT 100
[2022-02-17] MEDS: nicotine 4 mg lozenge MUCOUS MEM ×3 (14:00→20:07)
[2022-02-17] MEDS: nicotine 2 mg Gum BUCCAL (15:16)
[2022-02-17 19:40] VITALS: BP 130/87; PULSE 100; RESP 16; TEMP 36.8; O2SAT 98
[2022-02-17] MEDS: neomycin-poly-bacitracin oint 28 gm 1 APPLIC TOPICAL (19:45)
[2022-02-17] MEDS: benzocaine 20% 7 gm 1 APPLIC MUCOUS MEM (19:53)
[2022-02-17] MEDS: OLANZapine 5 mg TABLET 10 MG PO (20:07)
[2022-02-18] MEDS: nicotine 2 mg Gum BUCCAL (04:34)
[2022-02-18 05:27] VITALS: BP 121/77; PULSE 73; RESP 16; TEMP 36.7; O2SAT 98
[2022-02-18] MEDS: nicotine 4 mg lozenge MUCOUS MEM ×4 (13:07→20:35)
[2022-02-18 13:59] VITALS: BP 135/88; PULSE 120; RESP 16; TEMP 36.6; O2SAT 98
--- NOTE | 2022-02-18 16:51 | P.NPUPN_ITS ---
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 The patient had continued to isolate on the milieu. She had stated that she wishes to leave the hospital and was agreeable to returning home. She continued to minimize the need for hospitalization and minimize the use of drugs. She had stated that she has been sleeping well. She continued to endorse that the police had somehow forced her into coming into the hospital and states that she will do whatever she has to do to stay out of the hospital but reported that she would probably discontinue her medications if she were to leave. Mental Status Exam MSE Comments: This is a slender, short white female in hospital scrubs with poor grooming and limited eye contact. She was lying in bed and again seemed disinterested in discussing the nature of her problems and what had brought her to the hospital. She was superficial and disinterested on interview. She was minimally cooperative with the exam today. Speech was normal in volume and diminished in rate. Mood described as fine , Her affect was odd and subdued. Thought process appeared disorganized with continued derailment. Thought content: patient denies suicidal or homicidal ideation, She continued to show evidence of paranoia. She did not appear to be responding to internal stimuli. Attention and concentration were fair and memory was unreliable but none were formally tested. She is alert and oriented to person and place and situation. Her insight, judgment and impulse control is poor. Vitals/I&O/Wt Last Vital Signs Temp 98 F 02/18/22 13:59 Pulse 120 H 02/18/22 13:59 Resp 16 02/18/22 13:59 BP 135/88 02/18/22 13:59 Pulse Ox 98 02/18/22 13:59 O2 Del Method 02/18/22 13:59 Data NPU 02/03/22 18:40 02/03/22 18:40 A&P Assessment and plan (1) Methamphetamine abuse: (2) Psychosis: Plan This is a 22 year old white female who presents in on a 96 hour hold secondary to aggression and psychosis with positive UDS for cannabis and amphetamines with history of long hospitalizations required to resolve the psychotic symptoms. She is possibly needing guardianship and or placement. 1. We will obtain collateral information and restart medication with her permission but likely need to identify a long-acting injectable for her. Continue zyprexa 10mg at night. 2. Encourage individual, group and milieu therapy 3. Continue q-15 minute check for safety 4. Encourage sober living treatment after discharge at the highest level of care to which she is willing to commit. 5. 21-day hold hearing today at 3 PM. Involuntary Hold Information 96 Hour Hold: 96 Hour Involuntary Admission: Yes 96 Hour Hold Ending Date: 02/10/22 96 Hour Hold Ending Time: 19:17 Attestations NPU Medical Necessity Statement*: Inpatient hospitalization is medically necessary and the clinically appropriate intervention at this time. We will monitor medications and make changes as indicated. Likely length of stay is 10-14 days. Coding Level of Care Code Established Pt Acute Signal Tower Operator for Loulou Campos Patient Type Established History Problem Focused Exam Problem Focused Medical Decision Making Straight Forward Diagnoses Methamphetamine abuse F15.10 Psychosis F29
[2022-02-18] MEDS: neomycin-poly-bacitracin oint 28 gm 1 APPLIC TOPICAL (20:18)
[2022-02-18] MEDS: benzocaine 20% 7 gm 1 APPLIC MUCOUS MEM (20:18)
[2022-02-18] MEDS: OLANZapine 5 mg TABLET 10 MG PO (20:35)
[2022-02-18 20:36] VITALS: BP 128/81; PULSE 109; RESP 18; TEMP 36.8; O2SAT 96
[2022-02-19] MEDS: nicotine 4 mg lozenge MUCOUS MEM ×3 (00:14→20:01)
[2022-02-19] MEDS: ibuprofen 600 mg Tablet PO (11:37)
[2022-02-19] MEDS: benzocaine 20% 7 gm 1 APPLIC MUCOUS MEM ×2 (11:38→21:00)
--- NOTE | 2022-02-19 12:40 | P.NPUPN_ITS ---
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 The patient had continued to isolate on the milieu. She had stated that she wishes to leave the hospital and was agreeable to returning home. She continues to leave her room only to eat and continued to struggle with completing other activities of daily living. She had reported feeling tired and continued to minimize any current problems. Staff notes the patient had been at times angry and irritable but redirectable. Mental Status Exam MSE Comments: This is a slender, short white female in hospital scrubs with poor grooming and limited eye contact. She had poor hygiene and showed evidence of apathy and a motivation. Her mood was described as she was minimally cooperative with the exam today. Speech was normal in volume and di minished in rate. Mood described as good , Her affect was odd and subdued. Thought process appeared less disorganized but still showed some derailment Thought content: patient denies suicidal or homicidal ideation, She continued to show evidence of paranoia. She did not appear to be responding to internal stimuli. Attention and concentration were fair and memory was unreliable but none were formally tested. She is alert and oriented to person and place and situation. Her insight, judgment and impulse control is poor. Vitals/I&O/Wt Last Vital Signs Temp 98.3 F 02/18/22 20:36 Pulse 109 H 02/18/22 20:36 Resp 18 02/18/22 20:36 BP 128/81 02/18/22 20:36 Pulse Ox 96 02/18/22 20:36 O2 Del Method 02/18/22 20:36 Data NPU 02/03/22 18:40 02/03/22 18:40 A&P Assessment and plan (1) Methamphetamine abuse: (2) Psychosis: Plan This is a 22 year old white female who presents in on a 96 hour hold secondary to aggression and psychosis with positive UDS for cannabis and amphetamines with history of long hospitalizations required to resolve the psychotic symptoms. She is possibly needing guardianship and or placement. 1. Continue zyprexa 10mg at night. 2. Encourage individual, group and milieu therapy 3. Continue q-15 minute check for safety 4. Encourage sober living treatment after discharge at the highest level of care to which she is willing to commit. 5. 21-day hold hearing today at 3 PM. Involuntary Hold Information 96 Hour Hold: 96 Hour Involuntary Admission: Yes 96 Hour Hold Ending Date: 02/10/22 96 Hour Hold Ending Time: 19:17 Attestations NPU Medical Necessity Statement*: Inpatient hospitalization is medically necessary and the clinically appropriate intervention at this time. We will monitor medications and make changes as indicated. Likely length of stay is 5-7 days. Coding Level of Care Code Established Pt Acute Instructor Psychiatric Aide for Chg Fwd Patient Type Established History Problem Focused Exam Problem Focused Medical Decision Making Straight Forward Diagnoses Methamphetamine abuse F15.10 Psychosis F29
[2022-02-19 14:00] VITALS: BP 112/72; PULSE 72; RESP 18; TEMP 36.4; O2SAT 97
[2022-02-19] MEDS: nicotine 2 mg Gum BUCCAL (17:18)
[2022-02-19] MEDS: OLANZapine 5 mg TABLET 10 MG PO (20:00)
[2022-02-19] MEDS: hyDROXYzine 25 mg Capsule 50 MG PO (20:01)
[2022-02-19 20:41] VITALS: BP 119/80; PULSE 89; RESP 17; TEMP 36.7; O2SAT 100
[2022-02-20] MEDS: acetaminophen 325 mg Tablet 650 MG PO (02:01)
[2022-02-20] MEDS: benzocaine 20% 7 gm 1 APPLIC MUCOUS MEM (02:16)
[2022-02-20 14:00] VITALS: BP 117/71; PULSE 109; RESP 16; O2SAT 95
[2022-02-20] MEDS: nicotine 2 mg Gum BUCCAL ×2 (15:52→20:29)
--- NOTE | 2022-02-20 17:48 | W.PM.NPUPNS ---
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 The patient had been less irritable today and had been outside of her room more. She had a visit with her father that the patient reports that going well. She states that she will continue to take her medications and would be willing to live with her father upon her discharge. She reported no side effects from her medication currently. The patient had again reported less concern about her use of methamphetamine which may have been contributing to her hospitalizations as she stated that she would not use methamphetamines after she is discharged. She states she would be agreeable to receiving outpatient treatment for substance abuse as well. Mental Status Exam MSE Comments: This is a slender, short white female in hospital scrubs with some improved grooming and improved eye contact. She had fair hygiene with less signs of apathy and amotivation. Her mood was described as good. Her affect appeared brighter today. Speech was normal in volume rate and rhythm. Thought process appeared more linear with no open derailment noted. Thought content: patient denies suicidal or homicidal ideation, She was less guarded today. She did not appear to be responding to internal stimuli. Attention and concentration were fair and memory was unreliable but none were formally tested. She is alert and oriented to person and place and situation. Her insight, judgment and impulse control is poor. Vitals/I&O/Wt Last Vital Signs Temp 98.0 F 02/19/22 20:41 Pulse 109 H 02/20/22 14:00 Resp 16 02/20/22 14:00 BP 117/71 02/20/22 14:00 Pulse Ox 95 02/20/22 14:00 O2 Del Method 02/20/22 14:00 Data NPU 02/03/22 18:40 02/03/22 18:40 A&P Assessment and plan (1) Methamphetamine abuse: (2) Psychosis: Plan This is a 22 year old white female who presents in on a 96 hour hold secondary to aggression and psychosis with positive UDS for cannabis and amphetamines with history of long hospitalizations required to resolve the psychotic symptoms. She is possibly needing guardianship and or placement. 1. Continue zyprexa 10mg at night. 2. Encourage individual, group and milieu therapy 3. Continue q-15 minute check for safety 4. Encourage sober living treatment after discharge at the highest level of care to which she is willing to commit. 5. Patient remains on a 21-day old, with likely discharge plan this patient appears to be showing improvement on Zyprexa at this time. Involuntary Hold Information 96 Hour Hold: 96 Hour Involuntary Admission: Yes 96 Hour Hold Ending Date: 02/10/22 96 Hour Hold Ending Time: 19:17 Attestations NPU Medical Necessity Statement*: Inpatient hospitalization is medically necessary and the clinically appropriate intervention at this time. We will monitor medications and make changes as indicated. Likely length of stay is 4-6 days. Coding Level of Care Code Established Pt Acute Decorator Lighting Fixtures for Ginag Fwd Patient Type Established History Problem Focused Exam Problem Focused Medical Decision Making Straight Forward Diagnoses Methamphetamine abuse F15.10 Psychosis F29
[2022-02-20 20:17] VITALS: BP 114/84; PULSE 84; RESP 16; TEMP 36.7; O2SAT 98
[2022-02-20] MEDS: OLANZapine 5 mg TABLET 10 MG PO (20:29)
[2022-02-20] MEDS: hyDROXYzine 25 mg Capsule 50 MG PO (20:31)
[2022-02-21 06:00] VITALS: BP 106/60; PULSE 73; RESP 16; TEMP 36.6; O2SAT 97
[2022-02-21] MEDS: nicotine 4 mg lozenge MUCOUS MEM (13:46)
[2022-02-21 14:00] VITALS: BP 110/84; PULSE 72; RESP 16; TEMP 36.9; O2SAT 96
--- NOTE | 2022-02-21 17:31 | P.NPUPN_ITS ---
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 Patient reported having a good visit with her father today. She has been outside on the unit more and has been more redirectable and less irritable. She had reported adequate sleep at night. She denied any thoughts of hurting herself or others. She states that she is also willing to consider living with her mother in [place] if she is unable to return to live with her father. The patient had reported that she had needed some trazodone at night to help her sleep. She had endorsed being more motivated to get a job and finish high [employer] [facility] [employer] [facility]. She had continued to minimize her substance abuse and had indicated that she did not feel that it was essential for her treatment when she left the hospital. Mental Status Exam MSE Comments: This is a slender, short white female in hospital scrubs with some improved grooming and improved eye contact. She had fair hygiene with less signs of apathy and amotivation. Her mood was described as okay.. Her affect appeared brighter today. Speech was normal in volume rate and rhythm. Thought process appeared more linear with no open derailment noted. Thought content: patient denies suicidal or homicidal ideation, She was less guarded today. She did not appear to be responding to internal stimuli. Attention and concentration were fair and memory was unreliable but none were formally tested. She is alert and oriented to person and place and situation. Her insight, judgment and impulse control remained poor. Vitals/I&O/Wt Last Vital Signs Temp 98.5 F 02/21/22 14:00 Pulse 72 02/21/22 14:00 Resp 16 02/21/22 14:00 BP 110/84 02/21/22 14:00 Pulse Ox 96 02/21/22 14:00 O2 Del Method 02/21/22 14:00 Data NPU 02/03/22 18:40 02/03/22 18:40 A&P Assessment and plan (1) Methamphetamine abuse: (2) Psychosis: Plan This is a 22 year old white female who presents in on a 96 hour hold secondary to aggression and psychosis with positive UDS for cannabis and amphetamines with history of long hospitalizations required to resolve the psychotic symptoms. 1. Continue zyprexa 10mg at night. 2. Encourage individual, group and milieu therapy 3. Continue q-15 minute check for safety 4. Encourage sober living treatment after discharge at the highest level of care to which she is willing to commit. 5. Patient remains on a 21-day old, with likely discharge plan soon. this patient appears to be showing improvement on Zyprexa at this time. Involuntary Hold Information 96 Hour Hold: 96 Hour Involuntary Admission: Yes 96 Hour Hold Ending Date: 02/10/22 96 Hour Hold Ending Time: 19:17 Attestations NPU Medical Necessity Statement*: Inpatient hospitalization is medically necessary and the clinically appropriate intervention at this time. We will monitor medications and make changes as indicated. Likely length of stay is 4-6 days. Coding Level of Care Code Acute Commercial Hvac Service Technician for Loulou Cunninghamd Diagnoses Methamphetamine abuse F15.10 Psychosis F29
[2022-02-21] MEDS: hyDROXYzine 25 mg Capsule 50 MG PO (19:50)
[2022-02-21] MEDS: trazodone 50 mg Tablet PO (19:50)
[2022-02-21] MEDS: OLANZapine 5 mg TABLET 10 MG PO (19:50)
[2022-02-21 21:01] VITALS: BP 116/76; PULSE 108; RESP 18; TEMP 37; O2SAT 96
[2022-02-22] MEDS: benzocaine 20% 7 gm 1 APPLIC MUCOUS MEM (11:33)
--- NOTE | 2022-02-22 13:13 | W.PM.NPUPNS ---
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 Continued to have minimal insight regarding the nature of her problems. She states that she is bored here and wishes to go home. She stated that she did not need to be put into the hospital. She reports that she does not need a guardianship and did report that her father had mentioned something about her needing guardianship. The patient had reported that she felt like she had made adequate decisions and that she could simply return home and take medications. The patient was reminded of her previous hospitalization where she had showed evidence of unusual behavior that had landed her on the psychiatric unit here a few months ago, she reports that she had done nothing wrong and that the police had been targeting her. Mental Status Exam MSE Comments: This is a slender, short white female in hospital scrubs with some improved grooming and improved eye contact. She appeared somewhat disinterested today. She had shown signs of significant lack of motivation and appeared disinterested while lying in her bed. Her mood was described as okay. Her affect appeared restricted today. Speech was normal in volume rate and rhythm. Thought process appeared was perseverating regarding wanting to go home. Thought content: patient denies suicidal or homicidal ideation, she was superficial on interview. She did not appear to be responding to internal stimuli. Attention and concentration were fair and memory was unreliable but none were formally tested. She is alert and oriented to person and place and situation. Her insight, judgment and impulse control remained poor. Vitals/I&O/Wt Last Vital Signs Temp 98.6 F 02/21/22 21:01 Pulse 108 H 02/21/22 21:01 Resp 18 02/21/22 21:01 BP 116/76 02/21/22 21:01 Pulse Ox 96 02/21/22 21:01 O2 Del Method 02/21/22 14:00 Data NPU 02/03/22 18:40 02/03/22 18:40 A&P Assessment and plan (1) Methamphetamine abuse: (2) Psychosis: Plan This is a 22 year old white female who presents in on a 96 hour hold secondary to aggression and psychosis with positive UDS for cannabis and amphetamines with history of long hospitalizations required to resolve the psychotic symptoms. 1. Continue zyprexa 10mg at night. 2. Encourage individual, group and milieu therapy 3. Continue q-15 minute check for safety 4. Encourage sober living treatment after discharge at the highest level of care to which she is willing to commit. 5. Patient remains on a 21-day old, with likely discharge plan soon. this patient appears to be showing improvement on Zyprexa at this time. Involuntary Hold Information 96 Hour Hold: 96 Hour Involuntary Admission: Yes 96 Hour Hold Ending Date: 02/10/22 96 Hour Hold Ending Time: 19:17 Attestations NPU Medical Necessity Statement*: Inpatient hospitalization is medically necessary and the clinically appropriate intervention at this time. We will monitor medications and make changes as indicated. Likely length of stay is 4-6 days. Coding Level of Care Code Established Pt Acute Park Maintainer for Loulou Campos Patient Type Established History Problem Focused Exam Problem Focused Medical Decision Making Straight Forward Diagnoses Methamphetamine abuse F15.10 Psychosis F29
[2022-02-22 13:39] VITALS: BP 112/74; PULSE 89; RESP 16; TEMP 36.6; O2SAT 97
[2022-02-22] MEDS: OLANZapine 5 mg TABLET 10 MG PO (20:15)
[2022-02-22] MEDS: acetaminophen 325 mg Tablet 650 MG PO (20:15)
[2022-02-22] MEDS: hyDROXYzine 25 mg Capsule 50 MG PO (20:16)
[2022-02-22 22:00] VITALS: BP 109/62; PULSE 97; RESP 16; TEMP 36.8; O2SAT 98
[2022-02-23 06:00] VITALS: BP 106/71; PULSE 78; RESP 16; TEMP 36.5; O2SAT 98
[2022-02-23] MEDS: benzocaine 20% 7 gm 1 APPLIC MUCOUS MEM (11:41)
[2022-02-23 14:00] VITALS: BP 131/93; PULSE 115; RESP 18; TEMP 36.6; O2SAT 98
[2022-02-23] MEDS: clindamycin 150 mg Capsule 300 MG PO ×2 (14:52→20:33)
--- NOTE | 2022-02-23 15:50 | P.NPUPN_ITS ---
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 The patient continued to state that she felt ready to return home. She states that if her father could not take care of her that she would consider going home to her mother who lives in [place]. The patient states that if she were to return home she would be able to take her medications and remain safe. She reported that she was not using any significant amounts of methamphetamine despite reports otherwise. Staff notes the patient continue isolate on the milieu. She had been more redirectable and pleasant and cooperative. She did r equire some prompting for activities of daily living. She had expressed some motivation with wanting to return back to school as she had not graduated as of yet. Mental Status Exam MSE Comments: This is a slender, short white female in hospital scrubs with some improved grooming and improved eye contact. She had shown signs of significant lack of motivation and appeared disinterested while lying in her bed initially hidden underneath her sheets. Her mood was described as good Her affect remained somewhat subdued. Speech was normal in volume rate and rhythm. Thought process appeared was perseverating regarding wanting to go home. Thought content: patient denies suicidal or homicidal ideation, she was superficial on interview. She did not appear to be responding to internal stimuli. Attention and concentration were fair and memory was unreliable but none were formally tested. She is alert and oriented to person and place, time and situation. Her insight, judgment and impulse control remained poor. Vitals/I&O/Wt Last Vital Signs Temp 97.8 F 02/23/22 14:00 Pulse 115 H 02/23/22 14:00 Resp 18 02/23/22 14:00 BP 131/93 02/23/22 14:00 Pulse Ox 98 02/23/22 14:00 O2 Del Method 02/22/22 22:00 Data NPU 02/03/22 18:40 02/03/22 18:40 A&P Assessment and plan (1) Methamphetamine abuse: (2) Psychosis: Plan This is a 22 year old white female who presents in on a 96 hour hold secondary to aggression and psychosis with positive UDS for cannabis and amphetamines with history of long hospitalizations required to resolve the psychotic symptoms. 1. Continue zyprexa 10mg at night. 2. Encourage individual, group and milieu therapy 3. Continue q-15 minute check for safety 4. Encourage sober living treatment after discharge at the highest level of care to which she is willing to commit. 5. Patient remains on a 21-day old, with likely discharge plan soon. this patient appears to be showing improvement on Zyprexa at this time. Will contact father, discuss safety planning and potential discharge with followup at [facility]. Involuntary Hold Information 96 Hour Hold: 96 Hour Involuntary Admission: Yes 96 Hour Hold Ending Date: 02/10/22 96 Hour Hold Ending Time: 19:17 Attestations NPU Medical Necessity Statement*: Inpatient hospitalization is medically necessary and the clinically appropriate intervention at this time. We will monitor medications and make changes as indicated. Likely length of stay is 2-3 days. Coding Level of Care Code Established Pt Acute Communications Billing Analyst for Loulou Campos Patient Type Established History Problem Focused Exam Problem Focused Medical Decision Making Straight Forward Diagnoses Methamphetamine abuse F15.10 Psychosis F29
[2022-02-23] MEDS: acetaminophen 325 mg Tablet 650 MG PO (16:55)
[2022-02-23] MEDS: nicotine 4 mg lozenge MUCOUS MEM (19:24)
[2022-02-23 20:25] VITALS: BP 120/85; PULSE 100; RESP 16; TEMP 37; O2SAT 100
[2022-02-23] MEDS: OLANZapine 5 mg TABLET 10 MG PO (20:33)
[2022-02-23] MEDS: hyDROXYzine 25 mg Capsule 50 MG PO (20:33)
[2022-02-23] MEDS: trazodone 50 mg Tablet PO (20:34)
[2022-02-23] MEDS: ibuprofen 600 mg Tablet PO (21:45)
[2022-02-23] MEDS: nicotine 2 mg Gum BUCCAL (23:26)
[2022-02-24] MEDS: trazodone 50 mg Tablet PO (00:16)
[2022-02-24] MEDS: nicotine 4 mg lozenge MUCOUS MEM ×3 (00:34→21:04)
[2022-02-24] MEDS: clindamycin 150 mg Capsule 300 MG PO ×4 (00:48→21:03)
[2022-02-24] MEDS: acetaminophen 325 mg Tablet 650 MG PO (00:48)
[2022-02-24 06:00] VITALS: BP 114/78; PULSE 71; RESP 18; TEMP 36.6; O2SAT 99
[2022-02-24 14:00] VITALS: BP 110/62; PULSE 68; RESP 16; TEMP 36.6; O2SAT 98
[2022-02-24] MEDS: nicotine 2 mg Gum BUCCAL ×2 (16:50→18:50)
--- NOTE | 2022-02-24 17:04 | P.NPUPN_ITS ---
Subjective NPU Subjective: Patient is in today reporting that she wanted to go home with her mother. She was fairly insistent that we had a conversation with her mother on the phone as she was talking to her in the hallway on the patient followed. She demonstrated very limited insight into her situation ultimately continuing to deny her addiction and reported that she was just there because of walking barefoot to the store. She did acknowledge that she was crying and that she told the officers that her boyfriend wanted to watch porn prior to them being intimate and maybe during. She had not previously shared that information. We talked about if that is accurate how her being hysterical, barefoot and acting erratically likely from the methamphetamine might lead to her coming here and that her lack of insight to discontinue major challenge is why she remains in the hospital. Mental Status Exam MSE Comments: This is a slender, short white female in hospital scrubs with some improved grooming and improved eye contact. She had shown signs of significant lack of motivation and appeared disinterested while lying in her bed initially hidden underneath her sheets, but today was more active and invested in conversation. No abnormal movements. Cooperative with exam in mild distress. Speech was normal in volume, rate and rhythm. Mood described as fine, affect flat. Thought process appeared more organized but was perseverating regarding wanting to go home. Thought content: patient denies suicidal or homicidal ideation, there are no delusions reported or noted, she did not appear to be responding to internal stimuli. Attention and concentration were fair and memory was unreliable but none were formally tested. She is alert and oriented to person and place, time and situation. Her insight, judgment and impulse control remained poor. Vitals/I&O/Wt Last Vital Signs Temp 98.3 F 02/24/22 20:02 Pulse 101 H 02/24/22 20:02 Resp 18 02/24/22 20:02 BP 126/79 02/24/22 20:02 Pulse Ox 100 02/24/22 20:02 O2 Del Method 02/24/22 14:00 Data NPU 02/03/22 18:40 02/03/22 18:40 A&P Assessment and plan (1) Methamphetamine abuse: (2) Psychosis: Plan This is a 22 year old white female who presents in on a 96 hour hold secondary to aggression and psychosis with positive UDS for cannabis and amphetamines with history of long hospitalizations required to resolve the psychotic symptoms. 1. Continue zyprexa 10mg at night. We will consider increasing Zyprexa. 2. Encourage individual, group and milieu therapy 3. Continue q-15 minute check for safety 4. Encourage sober living treatment after discharge at the highest level of care to which she is willing to commit. 5. Patient remains on a 21-day old, with likely discharge plan soon. this patient appears to be showing modest improvement on Zyprexa at this time. But she has significant limitations in her insight. Will contact father, discuss safety planning and potential discharge with followup at [facility]. As well as consideration of guardianship. Involuntary Hold Information 96 Hour Hold: 96 Hour Involuntary Admission: Yes 96 Hour Hold Ending Date: 02/10/22 96 Hour Hold Ending Time: 19:17 Attestations NPU Medical Necessity Statement*: Inpatient hospitalization is medically necessary and the clinically appropriate intervention at this time. We will monitor medications and make changes as indicated. Likely length of stay is 5-7 days. Coding Level of Care Code Acute Marketing Underwriter for Loulou Campos Diagnoses Methamphetamine abuse F15.10 Psychosis F29
[2022-02-24 20:02] VITALS: BP 126/79; PULSE 101; RESP 18; TEMP 36.8; O2SAT 100
[2022-02-24] MEDS: OLANZapine 5 mg TABLET 10 MG PO (20:35)
[2022-02-24] MEDS: hyDROXYzine 25 mg Capsule 50 MG PO (21:04)
[2022-02-25] MEDS: clindamycin 150 mg Capsule 300 MG PO ×4 (02:29→21:30)
[2022-02-25] MEDS: nicotine 2 mg Gum BUCCAL ×2 (03:18→11:52)
[2022-02-25 06:00] VITALS: BP 124/88; PULSE 76; RESP 18; TEMP 36.4; O2SAT 97
[2022-02-25] MEDS: nicotine 4 mg lozenge MUCOUS MEM ×5 (07:59→21:30)
[2022-02-25 14:00] VITALS: BP 113/70; PULSE 113; RESP 16; TEMP 36.8; O2SAT 99
--- NOTE | 2022-02-25 15:33 | W.PM.NPUPNS ---
Subjective NPU Subjective: Patient presents today continuing to struggle with acceptance about the plan with forward. He continues to try to cover the plan that gets her released in the next few days with almost a Jedi attitude as if she says it somehow I would just adopt her plan. And it is done in a very perseverative fashion repeating the same thought. I was thinking you could discharge me tomorrow. And no matter how many times I explained the process she repeats a similar statement. Mental Status Exam MSE Comments: This is a slender, short white female in hospital scrubs with some improved grooming and improved eye contact. She had shown signs of significant lack of motivation and appeared disinterested while lying in her bed initially hidden underneath her sheets, but today was more active and invested in conversation. No abnormal movements. Cooperative with exam in mild distress. Speech was normal in volume, rate and rhythm. Mood described as fine, affect flat. Thought process appeared more organized but was perseverating regarding wanting to go home. Thought content: patient denies suicidal or homicidal ideation, there are no delusions reported or noted, she did not appear to be responding to internal stimuli. Attention and concentration were fair and memory was unreliable but none were formally tested. She is alert and oriented to person and place, time and situation. Her insight, judgment and impulse control remained poor. Vitals/I&O/Wt Last Vital Signs Temp 97.5 F L 02/25/22 06:00 Pulse 76 02/25/22 06:00 Resp 18 02/25/22 06:00 BP 124/88 02/25/22 06:00 Pulse Ox 97 02/25/22 06:00 O2 Del Method 02/25/22 06:00 Data NPU 02/03/22 18:40 02/03/22 18:40 A&P Assessment and plan (1) Methamphetamine abuse: (2) Psychosis: Plan This is a 22 year old white female who presents in on a 96 hour hold secondary to aggression and psychosis with positive UDS for cannabis and amphetamines with history of long hospitalizations required to resolve the psychotic symptoms. 1. Continue zyprexa 10mg at night. We will increase Zyprexa to 15 mg p.o. nightly tomorrow. 2. Encourage individual, group and milieu therapy 3. Continue q-15 minute check for safety 4. Encourage sober living treatment after discharge at the highest level of care to which she is willing to commit. 5. Patient remains on a 21-day old, with likely discharge plan soon. this patient appears to be showing modest improvement on Zyprexa at this time. But she has significant limitations in her insight. Will contact father, discuss safety planning and potential discharge with followup at [facility]. As well as consideration of guardianship. Involuntary Hold Information 96 Hour Hold: 96 Hour Involuntary Admission: Yes 96 Hour Hold Ending Date: 02/10/22 96 Hour Hold Ending Time: 19:17 Attestations NPU Medical Necessity Statement*: Inpatient hospitalization is medically necessary and the clinically appropriate intervention at this time. We will monitor medications and make changes as indicated. Likely length of stay is 5-7 days. Coding Level of Care Code Acute Comb Machine Operator for Loulou Campos Diagnoses Methamphetamine abuse F15.10 Psychosis F29
[2022-02-25 19:57] VITALS: BP 116/82; PULSE 82; RESP 17; TEMP 36.9; O2SAT 100
[2022-02-25] MEDS: trazodone 50 mg Tablet PO (21:30)
[2022-02-25] MEDS: OLANZapine 5 mg TABLET 10 MG PO (21:30)
[2022-02-25] MEDS: hyDROXYzine 25 mg Capsule 50 MG PO (21:31)
[2022-02-26] MEDS: clindamycin 150 mg Capsule 300 MG PO ×4 (03:12→20:44)
[2022-02-26 06:00] VITALS: BP 100/62; PULSE 83; RESP 16; TEMP 36.7; O2SAT 98
[2022-02-26] MEDS: nicotine 4 mg lozenge MUCOUS MEM (08:50)
--- NOTE | 2022-02-26 13:50 | W.PM.NPUPNS ---
Subjective NPU Subjective: Patient returns today reporting that she is just waiting to be discharged. Her energy was much lower today and she seemed resigned to the fact the guardianship process was going to proceed. She expressed being hopeful that the emergency guardianship granted quickly so that she can get out of the hospital. We talked about increasing the Zyprexa. Mental Status Exam MSE Comments: This is a slender, short white female in hospital scrubs with some improved grooming and improved eye contact. She had shown signs of significant lack of motivation and appeared disinterested while lying in her bed initially hidden underneath her sheets, she did sit up and participate in a conversation. No abnormal movements except for mild psychomotor retardation. Cooperative with exam in mild distress. Speech was normal in volume, rate and rhythm. Mood described as fine, affect flat. Thought process appeared more organized. Thought content: patient denies suicidal or homicidal ideation, there are no delusions reported or noted, she did not appear to be responding to internal stimuli. Attention and concentration were fair and memory was unreliable but none were formally tested. She is alert and oriented to person and place, time and situation. Her insight, judgment and impulse control remained poor. Vitals/I&O/Wt Last Vital Signs Temp 98.0 F 02/26/22 06:00 Pulse 83 02/26/22 06:00 Resp 16 02/26/22 06:00 BP 100/62 02/26/22 06:00 Pulse Ox 98 02/26/22 06:00 O2 Del Method 02/26/22 06:00 Data NPU 02/03/22 18:40 02/03/22 18:40 A&P Assessment and plan (1) Methamphetamine abuse: (2) Psychosis: Plan This is a 22 year old white female who presents in on a 96 hour hold secondary to aggression and psychosis with positive UDS for cannabis and amphetamines with history of long hospitalizations required to resolve the psychotic symptoms. 1. Continue zyprexa 10mg at night. We will increase Zyprexa to 15 mg p.o. nightly tomorrow. 2. Encourage individual, group and milieu therapy 3. Continue q-15 minute check for safety 4. Encourage sober living treatment after discharge at the highest level of care to which she is willing to commit. 5. Patient remains on a 21-day old, with likely discharge plan soon. this patient appears to be showing modest improvement on Zyprexa at this time. But she has significant limitations in her insight. Will contact father, discuss safety planning and potential discharge with followup at [facility]. As well as consideration of guardianship. Involuntary Hold Information 96 Hour Hold: 96 Hour Involuntary Admission: Yes 96 Hour Hold Ending Date: 02/10/22 96 Hour Hold Ending Time: 19:17 Attestations NPU Medical Necessity Statement*: Inpatient hospitalization is medically necessary and the clinically appropriate intervention at this time. We will monitor medications and make changes as indicated. Likely length of stay is 5-7 days. Will be impacted by guardianship process. Coding Level of Care Code Acute Veterinary Livestock Inspector for Loulou Fwchristopher Diagnoses Methamphetamine abuse F15.10 Psychosis F29
[2022-02-26 14:00] VITALS: BP 112/71; PULSE 97; RESP 16; TEMP 36.6; O2SAT 97
[2022-02-26 19:42] VITALS: BP 111/62; PULSE 112; RESP 17; TEMP 36.6; O2SAT 93
[2022-02-26] MEDS: trazodone 50 mg Tablet PO (20:33)
[2022-02-26] MEDS: OLANZapine 5 mg TABLET 10 MG PO (20:33)
[2022-02-26] MEDS: nicotine 2 mg Gum BUCCAL (20:34)
[2022-02-27] MEDS: clindamycin 150 mg Capsule 300 MG PO ×4 (05:33→19:34)
[2022-02-27 06:00] VITALS: BP 115/76; PULSE 89; RESP 18; TEMP 36.6; O2SAT 97
--- NOTE | 2022-02-27 10:57 | P.NPUPN_ITS ---
Subjective NPU Subjective: Patient presented today lying in bed as usual but she did sit up for the conversation. We continued to discuss the plan moving forward including guardianship and thoughts about hopeful rehab. She was clear that she does not think anything is wrong with her and that there is no need for rehab or guardianship. We discussed the guardianship process and that we would continue to work with her daily in hopes of continued improvement. Mental Status Exam MSE Comments: This is a slender, short white female in hospital scrubs with some improved grooming and improved eye contact. She had shown signs of significant lack of motivation and appeared disinterested while lying in her bed initially hidden underneath her sheets, she did sit up and participate in a conversation. No abnormal movements except for mild psychomotor retardation. Cooperative with exam in mild distress. Speech was decreased volume, rate with normal rhythm. Mood described as okay, affect flat. Thought process appeared more organized. Thought content: patient denies suicidal or homicidal ideation, there are no delusions reported or noted, she did not appear to be responding to internal stimuli. Attention and concentration were fair and memory was unreliable but none were formally tested. She is alert and oriented to person and place, time and situation. Her insight, judgment and impulse control remained poor. Vitals/I&O/Wt Last Vital Signs Temp 97.8 F 02/27/22 06:00 Pulse 89 02/27/22 06:00 Resp 18 02/27/22 06:00 BP 115/76 02/27/22 06:00 Pulse Ox 97 02/27/22 06:00 O2 Del Method 02/27/22 06:00 Weight last 48 hrs Weight 56.88 kg Data NPU 02/03/22 18:40 02/03/22 18:40 A&P Assessment and plan (1) Methamphetamine abuse: (2) Psychosis: Plan This is a 22 year old white female who presents in on a 96 hour hold secondary to aggression and psychosis with positive UDS for cannabis and amphetamines with history of long hospitalizations required to resolve the psychotic symptoms. 1. Continue zyprexa 10mg at night. Increase Zyprexa to 15 mg p.o. nightly. 2. Encourage individual, group and milieu therapy 3. Continue q-15 minute check for safety 4. Encourage sober living treatment after discharge at the highest level of care to which she is willing to commit. 5. Patient remains on a 21-day old, with likely discharge plan soon. this patient appears to be showing modest improvement on Zyprexa at this time. But she has significant limitations in her insight. Will contact father, discuss safety planning as well as discharge planning. Father pursuing guardianship. Involuntary Hold Information 96 Hour Hold: 96 Hour Involuntary Admission: Yes 96 Hour Hold Ending Date: 02/10/22 96 Hour Hold Ending Time: 19:17 Attestations NPU Medical Necessity Statement*: Inpatient hospitalization is medically necessary and the clinically appropriate intervention at this time. We will monitor medications and make changes as indicated. Likely length of stay is 5-7 days. Will be impacted by guardianship process. Coding Level of Care Code Acute Art Department Head for Loulou Campos Diagnoses Methamphetamine abuse F15.10 Psychosis F29
[2022-02-27 14:00] VITALS: BP 110/70; PULSE 77; RESP 16; TEMP 36.6; O2SAT 97
[2022-02-27] MEDS: acetaminophen 325 mg Tablet 650 MG PO (14:35)
[2022-02-27] MEDS: nicotine 4 mg lozenge MUCOUS MEM ×2 (14:35→16:39)
[2022-02-27] MEDS: hyDROXYzine 25 mg Capsule 50 MG PO (19:34)
[2022-02-27] MEDS: OLANZapine 5 mg TABLET 15 MG PO (19:34)
[2022-02-27 20:43] VITALS: BP 113/80; PULSE 98; RESP 16; TEMP 36.8; O2SAT 100
[2022-02-28] MEDS: clindamycin 150 mg Capsule 300 MG PO ×4 (03:53→20:27)
[2022-02-28 06:00] VITALS: BP 104/71; PULSE 75; RESP 16; TEMP 36.7; O2SAT 99
--- NOTE | 2022-02-28 13:29 | P.NPUPN_ITS ---
Subjective NPU Subjective: Patient presented today with the first rumor that she might get better. She seemed more calm and identified feeling better after the Zyprexa was increased to 15 mg p.o. nightly though she did not recall what the change was on reported feeling better and knowing that she had different pills last night. She was less perseverative about discharge though was able to reasonably discuss the possibility. Mental Status Exam MSE Comments: This is a slender, short white female in hospital scrubs with s ome improved grooming and improved eye contact. She had notable increase in engagement and apparent motivation as she was out of her room and started out of bed. No abnormal movements except for mild psychomotor retardation. Cooperative with exam in no acute distress. Speech was more spontaneous and more normal volume, rate and prosody. Mood described as feeling better, affect congruent and less flat. Thought process appeared more organized. Thought content: patient denies suicidal or homicidal ideation, there are no delusions reported or noted, she did not appear to be responding to internal stimuli. Attention and concentration were improving and memory was more reliable but none were formally tested. She is alert and oriented to person and place, time and situation. Her insight, judgment and impulse control appeared improving. Vitals/I&O/Wt Last Vital Signs Temp 98.0 F 02/28/22 06:00 Pulse 75 02/28/22 06:00 Resp 16 02/28/22 06:00 BP 104/71 02/28/22 06:00 Pulse Ox 99 02/28/22 06:00 O2 Del Method 02/27/22 14:00 Weight last 48 hrs Weight 56.88 kg Data NPU 02/03/22 18:40 02/03/22 18:40 A&P Assessment and plan (1) Methamphetamine abuse: (2) Psychosis: Plan This is a 22 year old white female who presents in on a 96 hour hold secondary to aggression and psychosis with positive UDS for cannabis and amphetamines with history of long hospitalizations required to resolve the psychotic symptoms. 1. Continue current medication. Increased Zyprexa to 15 mg p.o. nightly. With signs of clear improvement may want to reexplore Zyprexa Relprevv. 2. Encourage individual, group and milieu therapy 3. Continue q-15 minute check for safety 4. Encourage sober living treatment after discharge at the [facility] level of care to which she is willing to commit. 5. Patient remains on a 21-day old, with likely discharge plan soon. this patient appears to be showing modest improvement on Zyprexa at this time. But she has significant limitations in her insight. Will contact father, discuss safety planning as well as discharge planning. Father pursuing guardianship. Involuntary Hold Information 96 Hour Hold: 96 Hour Involuntary Admission: Yes 96 Hour Hold Ending Date: 02/10/22 96 Hour Hold Ending Time: 19:17 Attestations NPU Medical Necessity Statement*: Inpatient hospitalization is medically necessary and the clinically appropriate intervention at this time. We will monitor medications and make changes as indicated. Likely length of stay is 5-7 days. Will be impacted by guardianship process. Coding Level of Care Code Acute Hassock Maker for Loulou Campos Diagnoses Methamphetamine abuse F15.10 Psychosis F29
[2022-02-28 14:00] VITALS: BP 107/64; PULSE 110; RESP 18; O2SAT 96
[2022-02-28] MEDS: nicotine 2 mg Gum BUCCAL (14:08)
[2022-02-28] MEDS: nicotine 4 mg lozenge MUCOUS MEM ×4 (16:18→22:55)
[2022-02-28 20:14] VITALS: BP 116/82; PULSE 110; RESP 16; TEMP 36.8; O2SAT 100
[2022-02-28] MEDS: OLANZapine 5 mg TABLET 15 MG PO (20:27)
[2022-03-01 00:18] VITALS: BP 114/76; PULSE 101; RESP 18; TEMP 36.6; O2SAT 97
[2022-03-01] MEDS: clindamycin 150 mg Capsule 300 MG PO ×4 (01:43→18:49)
[2022-03-01] MEDS: hyDROXYzine 25 mg Capsule 50 MG PO (01:43)
[2022-03-01 06:00] VITALS: BP 103/70; PULSE 99; RESP 16; TEMP 36.5; O2SAT 98
[2022-03-01] MEDS: nicotine 4 mg lozenge MUCOUS MEM (13:48)
[2022-03-01 14:00] VITALS: BP 111/80; PULSE 110; RESP 17; TEMP 36.6; O2SAT 99
--- NOTE | 2022-03-01 18:03 | P.NPUPN_ITS ---
Subjective NPU Subjective: Patient presented today continuing to show improvement slowly. She is more focused on discharge today with no perseveration. We continue to discuss the guardianship process as she continues to be hopeful that she can get out of hospital sooner. Mental Status Exam MSE Comments: This is a slender, short white female in hospital scrubs with some improved grooming and improved eye contact. She had notable increase in engagement and apparent motivation as she was out of her room and started out of bed. No abnormal movements except for mild psychomotor retardation. Cooperative with exam in no acute distress. Speech was more spontaneous and more normal volume, rate and prosody. Mood described as feeling better, affect congruent and less flat. Thought process appeared more organized. Thought content: patient denies suicidal or homicidal ideation, there are no delusions reported or noted, she did not appear to be responding to internal stimuli. Attention and concentration were improving and memory was more reliable but none were formally tested. She is alert and oriented to person and place, time and situation. Her insight, judgment and impulse control appeared improving. Vitals/I&O/Wt Last Vital Signs Temp 98.2 F 03/01/22 22:00 Pulse 94 03/01/22 22:00 Resp 18 03/01/22 22:00 BP 126/87 03/01/22 22:00 Pulse Ox 100 03/01/22 22:00 O2 Del Method 03/01/22 22:00 Data NPU 02/03/22 18:40 02/03/22 18:40 A&P Assessment and plan (1) Methamphetamine abuse: (2) Psychosis: Plan This is a 22 year old white female who presents in on a 96 hour hold secondary to aggression and psychosis with positive UDS for cannabis and amphetamines with history of long hospitalizations required to resolve the psychotic symptoms. 1. Continue current medication. Increased Zyprexa to 15 mg p.o. nightly. With signs of clear improvement may want to reexplore Zyprexa Relprevv. 2. Encourage individual, group and milieu therapy 3. Continue q-15 minute check for safety 4. Encourage sober living treatment after discharge at the highest level of care to which she is willing to commit. 5. Patient remains on a 21-day old, with likely discharge plan soon. this patient appears to be showing modest improvement on Zyprexa at this time. But she has significant limitations in her insight. Will contact father, discuss safety planning as well as discharge planning. Father pursuing g uardianship. Involuntary Hold Information 96 Hour Hold: 96 Hour Involuntary Admission: Yes 96 Hour Hold Ending Date: 02/10/22 96 Hour Hold Ending Time: 19:17 Attestations NPU Medical Necessity Statement*: Inpatient hospitalization is medically necessary and the clinically appropriate intervention at this time. We will monitor medications and make changes as indicated. Likely length of stay is 10-14 days. Will be impacted by guardianship process. Coding Level of Care Code Acute Graphic Design Intern for Loulou Campos Diagnoses Methamphetamine abuse F15.10 Psychosis F29
[2022-03-01] MEDS: nicotine 2 mg Gum BUCCAL (18:49)
[2022-03-01] MEDS: OLANZapine 5 mg TABLET 15 MG PO (18:49)
[2022-03-01 22:00] VITALS: BP 126/87; PULSE 94; RESP 18; TEMP 36.8; O2SAT 100
[2022-03-02] MEDS: clindamycin 150 mg Capsule 300 MG PO ×2 (02:18→08:25)
[2022-03-02 06:00] VITALS: BP 109/74; PULSE 85; RESP 15; TEMP 36.4; O2SAT 97
--- NOTE | 2022-03-02 11:51 | W.PM.NPUPNS ---
Subjective NPU Subjective: Patient presents today reporting that she would like to leave as soon as possible. She seems to be getting anxious about the idea that she may still be here on [place]. We discussed the importance of her continue to take her medication and us trying to make sure that the process is smooth and as quick as possible. We continue to discuss the guardianship process. Mental Status Exam MSE Comments: This is a slender, short white female in hospital scrubs with some improved grooming and improved eye contact. She had notable increase in engagement and apparent motivation as she was out of her room and started out of bed. No abnormal movements except for mild psychomotor retardation. Cooperative with exam in no acute distress. Speech was more spontaneous and more normal volume, rate and prosody. Mood described as okay, affect congruent and less flat. Thought process appeared more organized. Thought content: patient denies suicidal or homicidal ideation, there are no delusions reported or noted, she did not appear to be responding to internal stimuli. Attention and concentration were improving and memory was more reliable but none were formally tested. She is alert and oriented to person and place, time and situation. Her insight, judgment and impulse control appeared improving. Vitals/I&O/Wt Last Vital Signs Temp 97.6 F 03/02/22 06:00 Pulse 85 03/02/22 06:00 Resp 15 03/02/22 06:00 BP 109/74 03/02/22 06:00 Pulse Ox 97 03/02/22 06:00 O2 Del Method 03/02/22 06:00 Data NPU 02/03/22 18:40 02/03/22 18:40 A&P Assessment and plan (1) Methamphetamine abuse: (2) Psychosis: Plan This is a 22 year old white female who presents in on a 96 hour hold secondary to aggression and psychosis with positive UDS for cannabis and amphetamines with history of long hospitalizations required to resolve the psychotic symptoms. 1. Continue current medication. Increased Zyprexa to 15 mg p.o. nightly. With signs of clear improvement may want to reexplore Zyprexa Relprevv. 2. Encourage individual, group and milieu therapy 3. Continue q-15 minute check for safety 4. Encourage sober living treatment after discharge at the highest level of care to which she is willing to commit. 5. Patient remains on a 21-day old, with likely discharge plan soon. this patient appears to be showing modest improvement on Zyprexa at this time. But she has significant limitations in her insight. Will contact father, discuss safety planning as well as discharge planning. Father pursuing guardianship. Involuntary Hold Information 96 Hour Hold: 96 Hour Involuntary Admission: Yes 96 Hour Hold Ending Date: 02/10/22 96 Hour Hold Ending Time: 19:17 Attestations NPU Medical Necessity Statement*: Inpatient hospitalization is medically necessary and the clinically appropriate intervention at this time. We will monitor medications and make changes as indicated. Likely length of stay is 10-14 days. Will be impacted by guardianship process. Coding Level of Care Code Acute Army Helicopter Pilot for Loulou Fwd Diagnoses Methamphetamine abuse F15.10 Psychosis F29
[2022-03-02 14:00] VITALS: BP 148/90; PULSE 102; RESP 18; TEMP 36.6; O2SAT 100
[2022-03-02] MEDS: nicotine 2 mg Gum BUCCAL (14:58)
[2022-03-02] MEDS: nicotine 4 mg lozenge MUCOUS MEM ×5 (16:28→22:04)
[2022-03-02] MEDS: trazodone 50 mg Tablet PO (20:01)
[2022-03-02] MEDS: OLANZapine 5 mg TABLET 15 MG PO (20:01)
[2022-03-02 20:21] VITALS: BP 122/84; PULSE 112; RESP 16; TEMP 37.1; O2SAT 99
[2022-03-02] MEDS: hyDROXYzine 25 mg Capsule 50 MG PO (23:37)
[2022-03-03 06:00] VITALS: BP 118/78; PULSE 81; RESP 16; TEMP 36.9; O2SAT 98
[2022-03-03 14:00] VITALS: BP 110/64; PULSE 104; RESP 18; O2SAT 97
[2022-03-03] MEDS: nicotine 4 mg lozenge MUCOUS MEM ×3 (15:26→20:34)
--- NOTE | 2022-03-03 18:14 | P.NPUPN_ITS ---
Subjective NPU Subjective: Patient presented today continuing to feel some angst about the possibility of being here on [facility]. We continued to discuss the fact that our goals are for her entire future and not for the next several weeks. We discussed the likelihood of initiating a 90-day hold before Monday as her father is appointment with a shredding specialist to initiate a guardianship hold would not be for 2 weeks unless there is a cancellation. She was not very receptive to that information. Mental Status Exam MSE Comments: This is a slender, short white female in hospital scrubs with some improved grooming and improved eye contact. No abnormal movements except for mild psychomotor retardation. Cooperative with exam in mild distress. Speech was more spontaneous and more normal volume, rate and prosody. Mood described as better, affect congruent and less flat, but flat nonetheless. Thought process appeared more organized. Thought content: patient denies suicidal or homicidal ideation, there are no delusions reported or noted, she did not appear to be responding to internal stimuli. Attention and concentrat ion were improving and memory was more reliable but none were formally tested. She is alert and oriented to person and place, time and situation. Her insight, judgment and impulse control appeared improving but still impaired. Vitals/I&O/Wt Last Vital Signs Temp 98.1 F 03/03/22 20:12 Pulse 99 03/03/22 20:12 Resp 18 03/03/22 20:12 BP 115/81 03/03/22 20:12 Pulse Ox 99 03/03/22 20:12 O2 Del Method 03/03/22 06:00 Data NPU 02/03/22 18:40 02/03/22 18:40 A&P Assessment and plan (1) Methamphetamine abuse: (2) Psychosis: Plan This is a 22 year old white female who presents in on a 96 hour hold secondary to aggression and psychosis with positive UDS for cannabis and amphetamines with history of long hospitalizations required to resolve the psychotic symptoms. 1. Continue current medication. Increased Zyprexa to 15 mg p.o. nightly. With signs of clear improvement may want to reexplore Zyprexa Relprevv. 2. Encourage individual, group and milieu therapy 3. Continue q-15 minute check for safety 4. Encourage sober living treatment after discharge at the highest level of care to which she is willing to commit. 5. Patient remains on a 21-day old, with likely discharge plan s oon. this patient appears to be showing modest improvement on Zyprexa at this time. But she has significant limitations in her insight. Will contact father, discuss safety planning as well as discharge planning. Father pursuing guardianship. Involuntary Hold Information 96 Hour Hold: 96 Hour Involuntary Admission: Yes 96 Hour Hold Ending Date: 02/10/22 96 Hour Hold Ending Time: 19:17 Attestations NPU Medical Necessity Statement*: Inpatient hospitalization is medically necessary and the clinically appropriate intervention at this time. We will monitor medications and make changes as indicated. Likely length of stay is 10-14 days. Will be impacted by guardianship process. Coding Level of Care Code Acute Engineer Specialist for Loulou Fwd Diagnoses Methamphetamine abuse F15.10 Psychosis F29
[2022-03-03 20:12] VITALS: BP 115/81; PULSE 99; RESP 18; TEMP 36.7; O2SAT 99
[2022-03-03] MEDS: OLANZapine 5 mg TABLET 15 MG PO (20:33)
[2022-03-03] MEDS: hyDROXYzine 25 mg Capsule 50 MG PO (20:33)
[2022-03-04 06:00] VITALS: RESP 16
--- NOTE | 2022-03-04 12:59 | P.NPUPN_ITS ---
Subjective NPU Subjective: Patient presented today clearly gaining irritability about still being in the hospital. The entirety of the conversation hands upon discharge and why is she still there, and when will the hearing to be and why will not we call the set up / operator to have the hearing date changed. She denies understanding of the explanation about why guardianship is needed and the process. Mental Status Exam MSE Comments: This is a slender, short white female in hospital scrubs with some improved grooming and improved eye contact. No abnormal movements except for mild psychomotor retardation. Cooperative with exam in mild to moderate distress. Speech was more spontaneous and more normal volume, rate and prosody. Mood described as upset, affect congruent, irritable but less flat, but flat nonetheless. Thought process appeared more organized. Thought content: patient denies suicidal or homicidal ideation, there are no delusions reported or noted, she did not appear to be responding to internal stimuli. Attention and concentration were improving and memory was more reliable but none were formally tested. She is alert and oriented to person and place, time and situation. Her insight, judgment and impulse control appeared improving but still impaired. Vitals/I&O/Wt Last Vital Signs Temp 98.1 F 03/03/22 20:12 Pulse 99 03/03/22 20:12 Resp 16 03/04/22 06:00 BP 115/81 03/03/22 20:12 Pulse Ox 99 03/03/22 20:12 O2 Del Method 03/03/22 06:00 Data NPU 02/03/22 18:40 02/03/22 18:40 A&P Assessment and plan (1) Methamphetamine abuse: (2) Psychosis: Plan This is a 22 year old white female who presents in on a 96 hour hold secondary to aggression and psychosis with positive UDS for cannabis and amphetamines with history of long hospitalizations required to resolve the psychotic symptoms. 1. Continue current medication. Increased Zyprexa to 15 mg p.o. nightly. With signs of clear improvement may want to reexplore Zyprexa Relprevv. 2. Encourage individual, group and milieu therapy 3. Continue q-15 minute check for safety 4. Encourage sober living treatment after discharge at the highest level of care to which she is willing to commit. 5. Patient remains on a 21-day old, with likely discharge plan soon. this patient appears to be showing modest improvement on Zyprexa at this time. But she has significant limitations in her insight. Will contact father, discuss safety planning as well as discharge planning. Father pursuing guardianship. Involuntary Hold Information 96 Hour Hold: 96 Hour Involuntary Admission: Yes 96 Hour Hold Ending Date: 02/10/22 96 Hour Hold Ending Time: 19:17 Attestations NPU Medical Necessity Statement*: Inpatient hospitalization is medically necessary and the clinically appropriate intervention at this time. We will monitor medications and make changes as indicated. Likely length of stay is 10-14 days. Will be impacted by guardianship process. Coding Level of Care Code Acute Butt Trimmer for [employer] Fwd Diagnoses Methamphetamine abuse F15.10 Psychosis F29
[2022-03-04 14:00] VITALS: BP 104/68; PULSE 85; RESP 16; TEMP 36.7; O2SAT 97
[2022-03-04] MEDS: nicotine 2 mg Gum BUCCAL ×2 (15:44→20:05)
[2022-03-04] MEDS: OLANZapine 5 mg TABLET 15 MG PO (20:36)
[2022-03-04] MEDS: hyDROXYzine 25 mg Capsule 50 MG PO (20:37)
[2022-03-04 20:56] VITALS: BP 118/71; PULSE 83; RESP 14; O2SAT 99
[2022-03-05 06:00] VITALS: RESP 15
--- NOTE | 2022-03-05 13:39 | P.NPUPN_ITS ---
Subjective NPU Subjective: Patient presented today reporting that things are going okay. We discussed the improvement that she felt when we had increased her medication for and we discussed the risks, benefits and alternatives of increasing her Zyprexa to 20 mg p.o. every morning and she understood and agreed to proceed as is documented in this note. Otherwise we talked about her nutrition and her wanting to avoid any dairy as well as a couple of other items which were passed along to the nurse. Mental Status Exam MSE Comments: This is a slender, short white female in hospital scrubs with some improved grooming and improved eye contact. No abnormal movements except for mild psychomotor retardation. Cooperative with exam in mild to distress. Speech was more spontaneous and more normal volume, rate and prosody. Mood described as a little better, affect congruent, irritable but less flat, but flat nonetheless. Thought process appeared more organized. Thought content: patient denies suicidal or homicidal ideation, there are no delusions reported or noted, she did not appear to be responding to internal stimuli. Attention and concentration were improving and memory was more reliable but none were formally tested. She is alert and oriented to person and place, time and situation. Her insight, judgment and impulse control appeared improving but still impaired. Vitals/I&O/Wt Last Vital Signs Temp 98.1 F 03/04/22 14:00 Pulse 83 03/04/22 20:56 Resp 15 03/05/22 06:00 BP 118/71 03/04/22 20:56 Pulse Ox 99 03/04/22 20:56 O2 Del Method 03/04/22 14:00 Data NPU 02/03/22 18:40 02/03/22 18:40 A&P Assessment and plan (1) Methamphetamine abuse: (2) Psychosis: Plan This is a 22 year old white female who presents in on a 96 hour hold secondary to aggression and psychosis with positive UDS for cannabis and amphetamines with history of long hospitalizations required to resolve the psychotic symptoms. 1. Continue current medication. Increased Zyprexa to 20 mg p.o. nightly. With signs of clear improvement may want to reexplore Zyprexa Relprevv. 2. Encourage individual, group and milieu therapy 3. Continue q-15 minute check for safety 4. Encourage sober living treatment after discharge at the [facility] to which she is willing to commit. 5. Patient remains on a 21-day old, with likely discharge plan soon. this patient appears to be showing modest improvement on Zyprexa at this time. But she has significant limitations in her insight. Will contact father, discuss safety planning as well as discharge planning. Father pursuing guardianship. Involuntary Hold Information 96 Hour Hold: 96 Hour Involuntary Admission: Yes 96 Hour Hold Ending Date: 02/10/22 96 Hour Hold Ending Time: 19:17 Attestations NPU Medical Necessity Statement*: Inpatient hospitalization is medically necessary and the clinically appropriate intervention at this time. We will monitor medications and make changes as indicated. Likely length of stay is 10-14 days. Will be impacted by guardianship process. Coding Level of Care Code Acute Internet Salesperson for Loulou Campos Diagnoses Methamphetamine abuse F15.10 Psychosis F29
[2022-03-05 14:00] VITALS: BP 108/68; PULSE 86; RESP 16; TEMP 36.6; O2SAT 98
[2022-03-05] MEDS: nicotine 2 mg Gum BUCCAL (18:19)
[2022-03-05 21:08] VITALS: BP 109/69; PULSE 101; RESP 16; TEMP 36.3; O2SAT 100
[2022-03-05] MEDS: OLANZapine 10 mg TABLET 20 MG PO (21:13)
[2022-03-05] MEDS: nicotine 4 mg lozenge MUCOUS MEM (22:34)
[2022-03-06 06:00] VITALS: RESP 16; BMI 21.5
--- NOTE | 2022-03-06 08:48 | PC.NURSE ---
SHIFT ASSESSMENT DENIES SI/HI/AVH CURRENTLY. PLEASANT WITH STAFF INTERACTION, PT REFUSED TO EAT BREAKFAST AT THIS TIME
--- NOTE | 2022-03-06 11:09 | P.NPUPN_ITS ---
Subjective NPU Subjective: Patient presented today reporting that she is feeling better after the increase in her Zyprexa last night. The notable decrease in her irritability was significant. She endorsed feeling better and we talked about possibly adding a daytime dose in the morning in the next few days to see if she tolerates that or whether it makes her too sleepy which she reports she does not think it well. Otherwise we talked about her desire to get out of here before [facility] and that we would do everything in our power to release her in accordance with the guardianship hearing which is the rate limiting step. Mental Status Exam MSE Comments: This is a slender, short white female in hospital scrubs with i mproved grooming and eye contact. No abnormal movements except for mild psychomotor retardation. Cooperative with exam in no acute distress. Speech was more spontaneous and more normal volume, rate and prosody. Mood described as a little better, affect congruent and less flat. Thought process appeared more organized. Thought content: patient denies suicidal or homicidal ideation, there are no delusions reported or noted, she did not appear to be responding to internal stimuli. Attention and concentration were improving and memory was more reliable but none were formally tested. She is alert and oriented to person and place, time and situation. Her insight, judgment and impulse control appeared improving. Vitals/I&O/Wt Last Vital Signs Temp 97.4 F L 03/05/22 21:08 Pulse 101 H 03/05/22 21:08 Resp 16 03/06/22 06:00 BP 109/69 03/05/22 21:08 Pulse Ox 100 03/05/22 21:08 O2 Del Method 03/05/22 14:00 Weight last 48 hrs Weight 56.88 kg Data NPU 02/03/22 18:40 02/03/22 18:40 A&P Assessment and plan (1) Methamphetamine abuse: (2) Psychosis: Plan This is a 22 year old white female who presents in on a 96 hour hold secondary to aggression and psychosis with positive UDS for cannabis and amphetamines with history of long hospitalizations required to resolve the psychotic symptoms. 1. Continue current medication. Increased Zyprexa to 20 mg p.o. nightly. With signs of clear improvement may want to reexplore Zyprexa Relprevv. We will consider morning dose of Zyprexa in the next few days. 2. Encourage individual, group and milieu therapy 3. Continue q-15 minute check for safety 4. Encourage sober living treatment after discharge at the highest level of care to which she is willing to commit. 5. Patient remains on a 21-day old, with likely discharge plan soon. this patient appears to be showing modest improvement on Zyprexa at this time. But she has significant limitations in her insight. Will contact father, discuss safety planning as well as discharge planning. Father pursuing guardianship. Involuntary Hold Information 96 Hour Hold: 96 Hour Involuntary Admission: Yes 96 Hour Hold Ending Date: 02/10/22 96 Hour Hold Ending Time: 19:17 Attestations NPU Medical Necessity Statement*: Inpatient hospitalization is medically necessary and the clinically appropriate intervention at this time. We will monitor medications and make changes as indicated. Likely length of stay is 10-14 days. Will be impacted by guardianship process. Coding Level of Care Code Acute Food Safety Scientist for Loulou Campos Diagnoses Methamphetamine abuse F15.10 Psychosis F29
[2022-03-06 14:00] VITALS: BP 115/73; PULSE 111; RESP 16; TEMP 36.6; O2SAT 96
[2022-03-06] MEDS: nicotine 4 mg lozenge MUCOUS MEM ×4 (16:00→23:19)
[2022-03-06] MEDS: OLANZapine 10 mg TABLET 20 MG PO (20:51)
[2022-03-06 21:17] VITALS: BP 132/76; PULSE 100; RESP 16; TEMP 36.9; O2SAT 98
[2022-03-07 06:00] VITALS: RESP 16
--- NOTE | 2022-03-07 08:18 | PC.NURSE ---
SHIFT ASSESSMENT LIMITED ASSESSMENT PERFORMED, PT RESTING IN BED, REFUSED TO GET UP AND EAT BREAKFAST, SHOOK HEAD NO TO QUESTIONS ASKED OF HER....DENIES SI/HI/AVH CURRENTLY...RESP EVEN ET UNLABORED, NO S/S OF DISTRESS NOTED
[2022-03-07 14:00] VITALS: BP 116/54; PULSE 106; RESP 17; TEMP 36.8; O2SAT 98
[2022-03-07] MEDS: nicotine 4 mg lozenge MUCOUS MEM ×3 (16:02→20:14)
--- NOTE | 2022-03-07 16:59 | W.PM.NPUPNS ---
Subjective NPU Subjective: Patient presents today reporting that she is feeling okay. We discussed the fact that there were no reports from the court about any guardianship hearings or announcements. She reports that her dad visited and had seemed to suggest that he did not think guardianship was necessary. We agreed that we will reach out to come and make sure there is no confusion about his position and its alignment with our position. We discussed the risk benefits alternatives of starting a 5 mg dose of Zyprexa in the morning. And she understood and agreed proceed as documented in this note. Mental Status Exam MSE Comments: This is a slender, short white female in hospital scrubs with improved grooming and eye contact. No abnormal movements except for mild psychomotor retardation. Cooperative with exam in no acute distress. Speech was more spontaneous and more normal volume, rate and prosody. Mood described as a little better, affect congruent and less flat. Thought process appeared more organized. Thought content: patient denies suicidal or homicidal ideation, there are no delusions reported or noted, she did not appear to be responding to internal stimuli. Attention and concentration were improving and memory was more reliable but none were formally tested. She is alert and oriented to person and place, time and situation. Her insight, judgment and impulse control appeared improving. Vitals/I&O/Wt Last Vital Signs Temp 98.0 F 03/07/22 20:43 Pulse 99 03/07/22 20:43 Resp 16 03/07/22 20:43 BP 126/81 03/07/22 20:43 Pulse Ox 98 03/07/22 20:43 O2 Del Method 03/06/22 21:17 Data NPU 02/03/22 18:40 02/03/22 18:40 A&P Assessment and plan (1) Methamphetamine abuse: (2) Psychosis: Plan This is a 22 year old white female who presents in on a 96 hour hold secondary to aggression and psychosis with positive UDS for cannabis and amphetamines with history of long hospitalizations required to resolve the psychotic symptoms. 1. Continue current medication. Increased Zyprexa to 20 mg p.o. nightly. With signs of clear improvement may want to reexplore Zyprexa Relprevv. We will consider morning dose of 5 mg Zyprexa. 2. Encourage individual, group and milieu therapy 3. Continue q-15 minute check for safety 4. Encourage sober living treatment after discharge at the highest level of care to which she is willing to commit. 5. Patient remains on a 21-day old, with likely discharge plan soon. this patient appears to be showing modest improvement on Zyprexa at this time. But she has significant limitations in her insight. Will contact father, discuss safety planning as well as discharge planning. Father pursuing guardianship. Involuntary Hold Information 96 Hour Hold: 96 Hour Involuntary Admission: Yes 96 Hour Hold Ending Date: 02/10/22 96 Hour Hold Ending Time: 19:17 Attestations NPU Medical Necessity Statement*: Inpatient hospitalization is medically necessary and the clinically appropriate intervention at this time. We will monitor medications and make changes as indicated. Likely length of stay is 10-14 days. Will be impacted by guardianship process. Coding Level of Care Code Acute Recreation Therapy Aides Teacher for Loulou Campos Diagnoses Methamphetamine abuse F15.10 Psychosis F29
[2022-03-07] MEDS: OLANZapine 10 mg TABLET 20 MG PO (20:13)
[2022-03-07 20:43] VITALS: BP 126/81; PULSE 99; RESP 16; TEMP 36.7; O2SAT 98
[2022-03-08 06:00] VITALS: RESP 16
[2022-03-08] MEDS: OLANZapine 5 mg TABLET PO (09:11)
[2022-03-08 14:00] VITALS: BP 116/76; PULSE 104; RESP 16; TEMP 36.6; O2SAT 96
--- NOTE | 2022-03-08 14:48 | P.NPUPN_ITS ---
Subjective NPU Subjective: Patient presented today continuing to report that she is doing fine and that her dad does not want to do guardianship. Agree conversation with the treatment team has identified that he does have some reticence to at least the timing. Discussed with Emmy a plan to possibly have a family meeting if possible before her hearing is scheduled to make sure we are on the same page given the great efforts are being made to keep her safe. She reports some adjustment to the morning Zyprexa dose. We agreed to try for few days and consider moving to nighttime if she cannot adjust. Mental Status Exam MSE Comments: This is a slender, short white female in hospital scrubs with improved grooming and eye contact. No abnormal movements except for mild psychomotor retardation. Cooperative with exam in no acute distress. Speech was more spontaneous and more normal volume, rate and prosody. Mood described as a little better, affect congruent and less flat. Thought process appeared more organized. Thought content: patient denies suicidal or homicidal ideation, there are no delusions reported or noted, she did not appear to be responding to internal stimuli. Attention and concentration were improving and memory was more reliable but none were formally tested. She is alert and oriented to person and place, time and situation. Her insight, judgment and impulse control appeared improving. Vitals/I&O/Wt Last Vital Signs Temp 97.8 F 03/08/22 14:00 Pulse 104 H 03/08/22 14:00 Resp 16 03/08/22 14:00 BP 116/76 03/08/22 14:00 Pulse Ox 96 03/08/22 14:00 O2 Del Method 03/08/22 14:00 Data NPU 02/03/22 18:40 02/03/22 18:40 A&P Assessment and plan (1) Methamphetamine abuse: (2) Psychosis: Plan This is a 22 year old white female who presents in on a 96 hour hold secondary to aggression and psychosis with positive UDS for cannabis and amphetamines with history of long hospitalizations required to resolve the psychotic symptoms. 1. Continue current medication. Increased Zyprexa to 20 mg p.o. nightly. W ith signs of clear improvement may want to reexplore Zyprexa Relprevv. We initiated a morning dose of 5 mg Zyprexa. 2. Encourage individual, group and milieu therapy 3. Continue q-15 minute check for safety 4. Encourage sober living treatment after discharge at the highest level of care to which she is willing to commit. 5. Patient remains on a 21-day old, with likely discharge plan soon. this patient appears to be showing modest improvement on Zyprexa at this time. But she has significant limitations in her insight. Will contact father, discuss safety planning as well as discharge planning. Father pursuing guardianship. We will have a meeting to ensure we are still the same page. Involuntary Hold Information 96 Hour Hold: 96 Hour Involuntary Admission: Yes 96 Hour Hold Ending Date: 02/10/22 96 Hour Hold Ending Time: 19:17 Attestations NPU Medical Necessity Statement*: Inpatient hospitalization is medically necessary and the clinically appropriate intervention at this time. We will monitor medications and make changes as indicated. Likely length of stay is 10-14 days. Will be impacted by guardianship process. Coding Level of Care Code Acute Rn Coronary Care Unit for Loulou Campos Diagnoses Methamphetamine abuse F15.10 Psychosis F29
[2022-03-08] MEDS: nicotine 4 mg lozenge MUCOUS MEM ×3 (17:28→22:41)
[2022-03-08] MEDS: OLANZapine 10 mg TABLET 20 MG PO (20:29)
[2022-03-08 22:00] VITALS: BP 110/71; PULSE 106; RESP 18; TEMP 36.7; O2SAT 98
[2022-03-08] MEDS: hyDROXYzine 25 mg Capsule 50 MG PO (22:19)
[2022-03-08] MEDS: trazodone 50 mg Tablet PO (23:17)
[2022-03-09 06:00] VITALS: BP 110/73; PULSE 98; RESP 18; TEMP 36.7; O2SAT 100
[2022-03-09] MEDS: OLANZapine 5 mg TABLET PO (08:13)
[2022-03-09 14:00] VITALS: BP 110/70; PULSE 74; RESP 16; TEMP 36.6; O2SAT 98
--- NOTE | 2022-03-09 15:13 | P.NPUPN_ITS ---
Subjective NPU Subjective: Patient presented today still somewhat frustrated about the situation here and not wanting to be here on [facility] and not believing she needs a guardian and not believing she has any real problems. We had opportunity to speak to her father who is prescribing prescription and were able to clarify his concerns and he is in absolutely treatment with the treatment team about her needs and the dangers exists if she were to be left for independent decision-making. She denied any problems with the Zyprexa morning dose today feeling that she is adjusted to it. Mental Status Exam MSE Comments: This is a slender, short white female in hospital scrubs with improved grooming and eye contact. No abnormal movements except for mild psychomotor retardation. Cooperative with exam in mild distress. Speech was more spontaneous and more normal volume, rate and prosody. Mood described as a little better, affect congruent and less flat. Thought process appeared more organized. Thought content: patient denies suicidal or homicidal ideation, there are no delusions reported or noted, she did not appear to be responding to internal stimuli. Attention and concentration were improving and memory was more reliable but none were formally tested. She is alert and oriented to person and place, time and situation. Her insight, judgment and impulse control appeared improving, but very limited. Vitals/I&O/Wt Last Vital Signs Temp 98 F 03/09/22 14:00 Pulse 74 03/09/22 14:00 Resp 16 03/09/22 14:00 BP 110/70 03/09/22 14:00 Pulse Ox 98 03/09/22 14:00 O2 Del Method 03/09/22 14:00 Data NPU 02/03/22 18:40 02/03/22 18:40 A&P Assessment and plan (1) Methamphetamine abuse: (2) Psychosis: Plan This is a 22 year old white female who presents in on a 96 hour hold secondary to aggression and psychosis with positive UDS for cannabis and amphetamines with history of long hospitalizations required to resolve the psychotic symptoms. 1. Continue current medication. Increased Zyprexa to 20 mg p.o. nightly. With signs of clear improvement may want to reexplore Zyprexa Relprevv. We initiated a morning dose of 5 mg Zyprexa. 2. Encourage individual, group and milieu therapy 3. Continue q-15 minute check for safety 4. Encourage sober living treatment after discharge at the highest level of care to which she is willing to commit. 5. Patient remains on a 21-day old, with 90-day hold hearing tomorrow at 3 PM. Father pursuing guardianship. Involuntary Hold Information 96 Hour Hold: 96 Hour Involuntary Admission: Yes 96 Hour Hold Ending Date: 02/10/22 96 Hour Hold Ending Time: 19:17 Attestations NPU Medical Necessity Statement*: Inpatient hospitalization is medically necessary and the clinically appropriate intervention at this time. We will monitor medications and make changes as indicated. Likely length of stay is 10-14 days. Will be impacted by guardianship process. Coding Level of Care Code Acute Lighting Engineering Technician for Loulou Campos Diagnoses Methamphetamine abuse F15.10 Psychosis F29
[2022-03-09] MEDS: nicotine 4 mg lozenge MUCOUS MEM (20:11)
[2022-03-09] MEDS: hyDROXYzine 25 mg Capsule 50 MG PO (20:12)
[2022-03-09] MEDS: OLANZapine 10 mg TABLET 20 MG PO (20:12)
[2022-03-09 22:00] VITALS: BP 107/73; PULSE 73; RESP 18; TEMP 36.6; O2SAT 97
[2022-03-10 06:00] VITALS: BP 116/75; PULSE 88; RESP 18; TEMP 36.8; O2SAT 97
[2022-03-10] MEDS: OLANZapine 5 mg TABLET PO (08:12)
--- NOTE | 2022-03-10 10:10 | PC.NURSE ---
discussed anxiety and zyprexa with pt at time med given. Pt denied anxiety, depression, anger, pain, SI/HI/AVH. Said her sleep and appetite were okay. Pt typically sleeps in the AM but was awake when staff entered the pt's room. Asked pt if her bowels had moved recently, she indicated they had. When asked if it was yesterday, she responded, Whatever. Staff asked pt to clarify as it seem like the pt was simply giving an answer she thought the staff wanted to hear. Pt said yesterday. Affect remains guarded. discussed pt's complaint about not getting enough food she can eat. Offered to have dietary come talk to her. Pt has food interances. She declined this saying she was getting enough food.
--- NOTE | 2022-03-10 13:24 | W.PM.NPUPNS ---
Subjective NPU Subjective: Patient presented today reporting that she is wanting to go to the hearing. She reports that her dad is supportive of the idea of her being discharged, not needing a rehab or treatment and not needing a guardian. We discussed the fact that she has had 3 hospitalizations this year each worsening in her difficulties coming out of the psychosis. She continued to focus on wanting to be out by [facility]. Mental Status Exam MSE Comments: This is a slender, short white female in hospital scrubs with improved grooming and eye contact. No abnormal movements except for mild psychomotor retardation. Cooperative with exam in mild distress. Speech was more spontaneous and more normal volume, rate and prosody. Mood described as fine, want to leave, affect congruent and less flat. Thought process appeared more organized. Thought content: patient denies suicidal or homicidal ideation, there are no delusions reported or noted, she did not appear to be responding to internal stimuli. Attention and concentration were improving and memory was more reliable but none were formally tested. She is alert and oriented to person and place, time and situation. Her insight, judgment and impulse control appeared improving, but very limited. Vitals/I&O/Wt Last Vital Signs Temp 98.2 F 03/10/22 06:00 Pulse 88 03/10/22 06:00 Resp 18 03/10/22 06:00 BP 116/75 03/10/22 06:00 Pulse Ox 97 03/10/22 06:00 O2 Del Method 03/09/22 22:00 Data NPU 02/03/22 18:40 02/03/22 18:40 A&P Assessment and plan (1) Methamphetamine abuse: (2) Psychosis: Plan This is a 22 year old white female who presents in on a 96 hour hold secondary to aggression and psychosis with positive UDS for cannabis and amphetamines with history of long hospitalizations required to resolve the psychotic symptoms. 1. Continue current medication. Increased Zyprexa to 20 mg p.o. nightly. With signs of clear improvement may want to reexplore Zyprexa Relprevv. We initiated a morning dose of 5 mg Zyprexa. 2. Encourage individual, group and milieu therapy 3. Continue q-15 minute check for safety 4. Encourage sober living treatment after discharge at the highest level of care to which she is willing to commit. 5. Patient remains on a 21-day old, with 90-day hold hearing today at 3 PM. Father pursuing guardianship. Involuntary Hold Information 96 Hour Hold: 96 Hour Involuntary Admission: Yes 96 Hour Hold Ending Date: 02/10/22 96 Hour Hold Ending Time: 19:17 Attestations NPU Medical Necessity Statement*: Inpatient hospitalization is medically necessary and the clinically appropriate intervention at this time. We will monitor medications and make changes as indicated. Likely length of stay is 10-14 days. Will be impacted by guardianship process. Coding Level of Care Code Acute Storage Management Consultant for Loulou Cunninghamd Diagnoses Methamphetamine abuse F15.10 Psychosis F29
[2022-03-10 14:00] VITALS: BP 113/74; PULSE 109; RESP 18; TEMP 36.6; O2SAT 97
[2022-03-10] MEDS: nicotine 4 mg lozenge MUCOUS MEM ×3 (14:33→21:17)
[2022-03-10] MEDS: acetaminophen 325 mg Tablet 650 MG PO (14:47)
--- NOTE | 2022-03-10 15:06 | PC.NURSE ---
Pt left the facility under police escort for hearing. Left at 1455. Pt offered blanket to use for warmth as pt reported she didn't have a coat. Pt declined to use it and left the unit in her scrubs.
--- NOTE | 2022-03-10 16:04 | PC.NURSE ---
Pt returned from hearing escorted by law enforcement. Pt stated her back pain had improved.
[2022-03-10] MEDS: OLANZapine 10 mg TABLET 20 MG PO (21:17)
[2022-03-10 22:00] VITALS: BP 121/84; PULSE 99; RESP 18; TEMP 36.8; O2SAT 98
[2022-03-11 06:00] VITALS: BP 108/74; PULSE 100; RESP 18; TEMP 36.8; O2SAT 98
[2022-03-11] MEDS: nicotine 4 mg lozenge MUCOUS MEM ×2 (08:50→20:55)
[2022-03-11] MEDS: OLANZapine 5 mg TABLET PO (08:50)
--- NOTE | 2022-03-11 13:35 | P.NPUPN_ITS ---
Subjective NPU Subjective: Patient presented today reported being frustrated at yesterday's hearing. We discussed the treatment team's concern about her safety and wellbeing and her continued resistant to the idea that she even has a problem. She denies any issue with the medication and continues to discuss hopes of d ischarge sooner rather than later. Mental Status Exam MSE Comments: This is a slender, short white female in hospital scrubs with improved grooming and eye contact. No abnormal movements except for mild psychomotor retardation. Cooperative with exam in mild distress. Speech was more spontaneous and more normal volume, rate and prosody. Mood described as fine, I just want to leave, affect irritable. Thought process appeared more organized. Thought content: patient denies suicidal or homicidal ideation, there are no delusions reported or noted, she did not appear to be responding to internal stimuli. Attention and concentration were improving and memory was more reliable but none were formally tested. She is alert and oriented to person and place, time and situation. Her insight, judgment and impulse control appeared improving, but very limited. Vitals/I&O/Wt Last Vital Signs Temp 98.2 F 03/11/22 06:00 Pulse 100 03/11/22 06:00 Resp 18 03/11/22 06:00 BP 108/74 03/11/22 06:00 Pulse Ox 98 03/11/22 06:00 O2 Del Method 03/11/22 06:00 Data NPU 02/03/22 18:40 02/03/22 18:40 A&P Assessment and plan (1) Methamphetamine abuse: (2) Psychosis: Plan This is a 22 year old white female who presents in on a 96 hour hold secondary to aggression and psychosis with positive UDS for cannabis and amphetamines with history of long hospitalizations required to resolve the psychotic symptoms. 1. Continue current medication. Increased Zyprexa to 20 mg p.o. nightly. With signs of clear improvement may want to reexplore Zyprexa Relprevv. We initiated a morning dose of 5 mg Zyprexa. 2. Encourage individual, group and milieu therapy 3. Continue q-15 minute check for safety 4. Encourage sober living treatment after discharge at the highest level of care to which she is willing to commit. 5. Patient now on a 90-day hold and secondary to father's inconsistency we will pursue guardianship. Involuntary Hold Information 96 Hour Hold: 96 Hour Involuntary Admission: Yes 96 Hour Hold Ending Date: 02/10/22 96 Hour Hold Ending Time: 19:17 Attestations NPU Medical Necessity Statement*: Inpatient hospitalization is medically necessary and the clinically appropriate intervention at this time. We will monitor medications and make changes as indicated. Likely length of stay is 10-14 days. Will be impacted by guardianship process. Coding Level of Care Code Acute Acrylic Fabricator for Loulou Campos Diagnoses Methamphetamine abuse F15.10 Psychosis F29
[2022-03-11 14:00] VITALS: BP 107/72; PULSE 107; RESP 20; TEMP 36.6; O2SAT 98
[2022-03-11 19:35] VITALS: BP 113/76; PULSE 63; RESP 17; TEMP 36.9; O2SAT 97
[2022-03-11] MEDS: OLANZapine 10 mg TABLET 20 MG PO (20:55)
[2022-03-11] MEDS: nicotine 2 mg Gum BUCCAL (22:13)
[2022-03-11] MEDS: hyDROXYzine 25 mg Capsule 50 MG PO (23:51)
[2022-03-12 05:59] VITALS: BP 118/82; PULSE 116; RESP 17; TEMP 36.9; O2SAT 96
--- NOTE | 2022-03-12 07:30 | W.PM.NPUPNS ---
Subjective NPU Subjective: Patient presented today still appearing frustrated about the 90 day hold hearing. We continued to discuss safety concerns and she continued to resist the idea that she even has a problem. She denies any issue with the medication and continues to discuss hopes of discharge sooner rather than later.She fermin not feel intensive drug and alcohol treatment is necessary. Mental Status Exam MSE Comments: This is a slender, short white female in hospital scrubs with improved grooming and eye contact. No abnormal movements except for mild psychomotor retardation. Cooperative with exam in mild distress. Speech was more spontaneous and more normal volume, rate and prosody. Mood described as fine, affect irritable. Thought process appeared more organized. Thought content: patient denies suicidal or homicidal ideation, there are no delusions reported or noted, she did not appear to be responding to internal stimuli. Attention and concentration were improving and memory was more reliable but none were formally tested. She is alert and oriented to person and place, time and situation. Her insight, judgment and impulse control appeared improving, but very limited. Vitals/I&O/Wt Last Vital Signs Temp 98.4 F 03/12/22 05:59 Pulse 116 H 03/12/22 05:59 Resp 17 03/12/22 05:59 BP 118/82 03/12/22 05:59 Pulse Ox 96 03/12/22 05:59 O2 Del Method 03/12/22 05:59 Data NPU 02/03/22 18:40 02/03/22 18:40 A&P Assessment and plan (1) Methamphetamine abuse: (2) Psychosis: Plan This is a 22 year old white female who presents in on a 96 hour hold secondary to aggression and psychosis with positive UDS for cannabis and amphetamines with history of long hospitalizations required to resolve the psychotic symptoms. 1. Continue current medication. Increased Zyprexa to 20 mg p.o. nightly. With signs of clear improvement we should initiate Zyprexa Relprevv. We initiated a morning dose of 5 mg Zyprexa. 2. Encourage individual, group and milieu therapy 3. Continue q-15 minute check for safety 4. Encourage sober living treatment after discharge at the highest level of care to which she is willing to commit. 5. Patient now on a 90-day hold and secondary to father's inconsistency we will pursue guardianship. Involuntary Hold Information 96 Hour Hold: 96 Hour Involuntary Admission: Yes 96 Hour Hold Ending Date: 02/10/22 96 Hour Hold Ending Time: 19:17 Attestations NPU Medical Necessity Statement*: Inpatient hospitalization is medically necessary and the clinically appropriate intervention at this time. We will monitor medications and make changes as indicated. Likely length of stay is 10-14 days. Will be impacted by guardianship process. Coding Level of Care Code Acute Electrician Helper Automotive for Loulou Fwd Diagnoses Methamphetamine abuse F15.10 Psychosis F29
[2022-03-12] MEDS: OLANZapine 5 mg TABLET PO (08:46)
[2022-03-12] MEDS: nicotine 4 mg lozenge MUCOUS MEM (08:46)
[2022-03-12 14:00] VITALS: BP 117/73; PULSE 94; RESP 20; TEMP 36.7; O2SAT 96
[2022-03-12 20:03] VITALS: BP 111/79; PULSE 106; RESP 17; TEMP 36.9; O2SAT 99
[2022-03-12] MEDS: OLANZapine 10 mg TABLET 20 MG PO (20:24)
[2022-03-12] MEDS: nicotine 2 mg Gum BUCCAL (23:28)
[2022-03-13 06:00] VITALS: BP 94/76; PULSE 98; RESP 16; TEMP 36.5; O2SAT 98
[2022-03-13] MEDS: OLANZapine 5 mg TABLET PO (07:59)
[2022-03-13 14:00] VITALS: BP 103/70; PULSE 62; RESP 16; TEMP 36.6; O2SAT 98
[2022-03-13] MEDS: nicotine 2 mg Gum BUCCAL (16:07)
--- NOTE | 2022-03-13 17:10 | W.PM.NPUPNS ---
Subjective NPU Subjective: Patient is a 22-year-old single white female with a history of psychosis likely exacerbated by continued amphetamine abuse currently involuntarily hospitalized on Zyprexa. Continue to report frustration with having to be hospitalized and was informed that guardianship was being pursued at this time. She continued to minimize any need for acquiring outpatient substance abuse treatment. She had hoped that she could be discharged sooner but appeared to show little ability to acknowledge having problems that had led to her previous hospitalizations. She continued to isolate herself on the mileu. Mental Status Exam MSE Comments: This is a slender, short white female in hospital scrubs with improved grooming and eye contact. No abnormal movements except for mild psychomotor retardation. Cooperative with exam in mild distress. Speech was spontaneous and with normal volume, rate and prosody. Mood described as okay, Her affect was irritable. Thought process appeared superficial but fairly organized. Thought content: patient denies suicidal or homicidal ideation, there are no delusions reported or noted, she did not appear to be responding to internal stimuli. Attention and concentration were improving and memory was more reliable but none were formally tested. She is alert and oriented to person and place, time and situation. Her insight was poor. Her judgment and impulse control appeared limited. Vitals/I&O/Wt Last Vital Signs Temp 98 F 03/13/22 14:00 Pulse 62 03/13/22 14:00 Resp 16 03/13/22 14:00 BP 103/70 03/13/22 14:00 Pulse Ox 98 03/13/22 14:00 O2 Del Method 03/13/22 14:00 Weight last 48 hrs Weight 56.518 kg Data NPU 02/03/22 18:40 02/03/22 18:40 A&P Assessment and plan (1) Psychosis: (2) Methamphetamine abuse: Plan This is a 22 year old white female who presents in on a 96 hour hold secondary to aggression and psychosis with positive UDS for cannabis and amphetamines with history of long hospitalizations required to resolve the psychotic symptoms. 1. Continue current medication. Continue Zyprexa to 20mg in pm, 5mg at am. . With signs of clear improvement we should initiate Zyprexa Relprevv. 2. Encourage individual, group and milieu therapy 3. Continue q-15 minute check for safety 4. Encourage sober living treatment after discharge at the highest level of care to which she is willing to commit. 5. Patient now on a 90-day hold and secondary to father's inconsistency we will pursue guardianship. Involuntary Hold Information 96 Hour Hold: 96 Hour Involuntary Admission: Yes 96 Hour Hold Ending Date: 02/10/22 96 Hour Hold Ending Time: 19:17 Attestations NPU Medical Necessity Statement*: Inpatient hospitalization is medically necessary and the clinically appropriate intervention at this time. We will monitor medications and make changes as indicated. Likely length of stay is 10-14 days. Will be impacted by guardianship process. Coding Level of Care Code Established Pt Acute Pot Lining Supervisor for Ginag Fwd Patient Type Established History Problem Focused Exam Problem Focused Medical Decision Making Straight Forward Diagnoses Psychosis F29 Methamphetamine abuse F15.10
[2022-03-13 20:12] VITALS: BP 107/75; PULSE 101; RESP 16; TEMP 36.8; O2SAT 99
[2022-03-13] MEDS: OLANZapine 10 mg TABLET 20 MG PO (20:17)
[2022-03-13] MEDS: hyDROXYzine 25 mg Capsule 50 MG PO (22:18)
--- NOTE | 2022-03-13 22:18 | PC.NURSE ---
Pt came to desk requesting my vistaril . when pt was asked what had her anxiety up, pt stated i don't know . Vistaril 50mg po given.
[2022-03-13] MEDS: trazodone 50 mg Tablet PO (23:09)
[2022-03-14] MEDS: OLANZapine 5 mg TABLET PO (07:59)
[2022-03-14 14:00] VITALS: BP 115/73; PULSE 99; RESP 18; TEMP 36.8; O2SAT 99
[2022-03-14] MEDS: nicotine 2 mg Gum BUCCAL (16:47)
[2022-03-14] MEDS: nicotine 4 mg lozenge MUCOUS MEM (18:39)
--- NOTE | 2022-03-14 19:25 | P.NPUPN_ITS ---
Subjective NPU Subjective: Patient is a 22-year-old single white female with a history of psychosis likely exacerbated by continued amphetamine abuse currently involuntarily hospitalized on Zyprexa. She had minimized any problems that led to her hospitalization and stated that her father had indicated to her that she did not need guardianship. Patient was informed that the state would be pursuing guardianship given her lack of good decision-making and potentially lethal use of illicit substances that had been continuing to exacerbate her psychosis over the past year. Patient was able to attend groups on the basis. She was able to engage in appropriate self-care. Mental Status Exam MSE Comments: This is a slender, short white female in hospital scrubs with improved grooming and eye contact. No abnormal movements except for mild psychomotor retardation. Cooperative with exam in mild distress. Speech was spontaneous and with normal volume, rate and prosody. Mood described as all right., Her affect was restricted in range. Thought process appeared superficial but fairly organized. Thought content: patient denies suicidal or homicidal ideation, there are no delusions reported or noted, she did not appear to be responding to internal stimuli. Attention and concentration were improving and memory was more reliable but none were formally tested. She is alert and oriented to person and place, time and situation. Her insight was poor. Her judgment and impulse control appeared limited. Vitals/I&O/Wt Last Vital Signs Temp 98.2 F 03/14/22 14:00 Pulse 99 03/14/22 14:00 Resp 18 03/14/22 14:00 BP 115/73 03/14/22 14:00 Pulse Ox 99 03/14/22 14:00 O2 Del Method 03/13/22 14:00 Weight last 48 hrs Weight 56.518 kg Data NPU 02/03/22 18:40 02/03/22 18:40 A&P Assessment and plan (1) Psychosis: (2) Methamphetamine abuse: Plan This is a 22 year old white female who presents in on a 96 hour hold secondary to aggression and psychosis with positive UDS for cannabis and amphetamines with history of long hospitalizations required to resolve the psychotic symptoms. 1. Continue current medication. Continue Zyprexa to 20mg in pm, 5mg at am. 2. Encourage individual, group and milieu therapy 3. Continue q-15 minute check for safety 4. Encourage sober living treatment after discharge at the highest level of care to which she is willing to commit. 5. Patient now on a 90-day hold and secondary to father's inconsistency we will pursue guardianship. Involuntary Hold Information 96 Hour Hold: 96 Hour Involuntary Admission: Yes 96 Hour Hold Ending Date: 02/10/22 96 Hour Hold Ending Time: 19:17 Attestations NPU Medical Necessity Statement*: Inpatient hospitalization is medically necessary and the clinically appropriate intervention at this time. We will monitor medications and make changes as indicated. Likely length of stay is 10-14 days. Will be impacted by guardianship process. Coding Level of Care Code Established Pt Acute Director Global Development for Ginag Fwd Patient Type Established History Problem Focused Exam Problem Focused Medical Decision Making Straight Forward Diagnoses Psychosis F29 Methamphetamine abuse F15.10
[2022-03-14] MEDS: hyDROXYzine 25 mg Capsule 50 MG PO (20:02)
[2022-03-14] MEDS: OLANZapine 10 mg TABLET 20 MG PO (20:02)
[2022-03-14 20:55] VITALS: BP 115/73; PULSE 99; RESP 16; TEMP 36.8; O2SAT 95
[2022-03-15 05:54] VITALS: RESP 16
[2022-03-15] MEDS: magnesium hydroxide 30 mL UDC PO (08:17)
[2022-03-15] MEDS: OLANZapine 5 mg TABLET PO (08:17)
[2022-03-15] MEDS: nicotine 2 mg Gum BUCCAL ×2 (13:33→20:28)
[2022-03-15 13:36] VITALS: BP 116/66; PULSE 93; RESP 18; TEMP 36.4; O2SAT 99
--- NOTE | 2022-03-15 15:23 | P.NPUPN_ITS ---
Subjective NPU Subjective: Patient is a 22-year-old single white female with a history of psychosis likely exacerbated by continued amphetamine abuse currently involuntarily hospitalized on Zyprexa. She had engaged in appropriate self-care on the milieu. She continued to report that she did not need guardianship at th is time despite her having clear evidence of being unable to manage her mental health needs appropriately in the external environment. She continued to show little understanding regarding the significance of her drug use leading to her psychotic symptoms and potentially dangerous behavior requiring acute stabilization for multiple weeks inside a hospital facility. Mental Status Exam MSE Comments: This is a slender, short white female in hospital scrubs with improved grooming and eye contact. No abnormal movements except for mild psychomotor retardation. Cooperative with exam in mild distress. Speech was spontaneous and with normal volume, rate and prosody. Mood described as fine. Her affect was subdued. Thought process appeared superficial but fairly organized. Thought content: patient denies suicidal or homicidal ideation. there are no delusions reported or noted, she did not appear to be responding to internal stimuli. Attention and concentration were improving and memory was more reliable but none were formally tested. She is alert and oriented to person and place, time and situation. Her insight was poor. Her judgment and impulse control appeared limited. Vitals/I&O/Wt Last Vital Signs Temp 97.6 F 03/15/22 13:36 Pulse 93 03/15/22 13:36 Resp 18 03/15/22 13:36 BP 116/66 03/15/22 13:36 Pulse Ox 99 03/15/22 13:36 O2 Del Method 03/13/22 14:00 Data NPU 02/03/22 18:40 02/03/22 18:40 A&P Assessment and plan (1) Psychosis: (2) Methamphetamine abuse: Plan This is a 22 year old white female who presents in on a 96 hour hold secondary to aggression and psychosis with positive UDS for cannabis and amphetamines with history of long hospitalizations required to resolve the psychotic symptoms. 1. Continue current medication. Move zyprexa to strictly nighttime dosing secondary to sedation. 2. Encourage individual, group and milieu therapy 3. Continue q-15 minute check for safety 4. Encourage sober living treatment after discharge at the highest level of care to which she is willing to commit. 5. Patient now on a 90-day hold and secondary to father's inconsistency we will pursue guardianship. Involuntary Hold Information 96 Hour Hold: 96 Hour Involuntary Admission: Yes 96 Hour Hold Ending Date: 02/10/22 96 Hour Hold Ending Time: 19:17 Attestations NPU Medical Necessity Statement*: Inpatient hospitalization is medically necessary and the clinically appropriate intervention at this time. We will monitor medications and make changes as indicated. Likely length of stay is 10-14 days. Will be impacted by guardianship process. 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
[2022-03-15] MEDS: nicotine 4 mg lozenge MUCOUS MEM ×2 (15:27→17:52)
[2022-03-15] MEDS: OLANZapine 10 mg TABLET 20 MG PO (19:45)
[2022-03-15] MEDS: hyDROXYzine 25 mg Capsule 50 MG PO (19:46)
[2022-03-15 20:45] VITALS: BP 120/81; PULSE 100; RESP 16; O2SAT 100
[2022-03-16 06:00] VITALS: RESP 15
[2022-03-16 14:00] VITALS: BP 118/84; PULSE 100; RESP 16; TEMP 36.8; O2SAT 98
[2022-03-16] MEDS: benzocaine 20% 7 gm 1 APPLIC MUCOUS MEM (17:03)
--- NOTE | 2022-03-16 17:07 | P.NPUPN_ITS ---
Subjective NPU Subjective: Patient is a 22-year-old single white female with a history of psychosis likely exacerbated by continued amphetamine abuse currently involuntarily hospitalized on Zyprexa. The patient had appeared less sedated after the Zyprexa was moved to a nighttime dose. She reported no side effects from her medication. The patient had reported that her mother wished to be considered for guardianship of her. The patient reports that she feels that she does not need guardianship despite the poor decisions that she has made leading to multiple inpatient hospitalizations. She continue to minimize any significance to stimulant abuse as to how it may be contributing to her mental illness. She was compliant on the milieu and was able to attend groups today without issues. Mental Status Exam MSE Comments: This is a slender, short white female in hospital scrubs with improved grooming and eye contact. No abnormal movements except for mild psychomotor retardation. Cooperative with exam in mild distress. Speech was spontaneous and with normal volume, rate and prosody. Mood described as okay. Her affect was subdued and mood incongruent. Thought process appeared linear but superficial. Thought content: patient denies suicidal or homicidal ideation. there are no delusions reported or noted, she did not appear to be responding to internal stimuli. Attention and concentration were improving and memory was more reliable but none were formally tested. She is alert and oriented to person and place, time and situation. Her insight was poor. Her judgment and impulse control appeared limited. Vitals/I&O/Wt Last Vital Signs Temp 98.3 F 03/16/22 14:00 Pulse 100 03/16/22 14:00 Resp 16 03/16/22 14:00 BP 118/84 03/16/22 14:00 Pulse Ox 98 03/16/22 14:00 O2 Del Method 03/16/22 14:00 Data NPU 02/03/22 18:40 02/03/22 18:40 A&P Assessment and plan (1) Psychosis: (2) Methamphetamine abuse: Plan This is a 22 year old white female who presents in on a 96 hour hold secondary to aggression and psychosis with positive UDS for cannabis and amphetamines with history of long hospitalizations required to resolve the psychotic symptoms. 1. Zyprexa 25mg at night. 2. Encourage individual, group and milieu therapy 3. Continue q-15 minute check for safety 4. Encourage sober living treatment after discharge at the highest level of care to which she is willing to commit. 5. Patient now on a 90-day hold and secondary to father's inconsistency we will pursue guardianship. Involuntary Hold Information 96 Hour Hold: 96 Hour Involuntary Admission: Yes 96 Hour Hold Ending Date: 02/10/22 96 Hour Hold Ending Time: 19:17 Attestations NPU Medical Necessity Statement*: Inpatient hospitalization is medically necessary and the clinically appropriate intervention at this time. We will monitor medications and make changes as indicated. Likely length of stay is 10-14 days. Will be impacted by guardianship process. 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
[2022-03-16 20:05] VITALS: BP 116/75; PULSE 88; RESP 14; O2SAT 98
[2022-03-16] MEDS: OLANZapine 10 mg TABLET 20 MG PO (20:27)
[2022-03-16] MEDS: OLANZapine 5 mg TABLET PO (20:27)
[2022-03-17 06:00] VITALS: RESP 14
[2022-03-17 14:00] VITALS: RESP 18
[2022-03-17] MEDS: magnesium hydroxide 30 mL UDC PO (14:32)
--- NOTE | 2022-03-17 17:26 | P.NPUPN_ITS ---
Subjective NPU Subjective: Patient is a 22-year-old single white female with a history of psychosis likely exacerbated by continued amphetamine abuse currently involuntarily hospitalized on Zyprexa. The patient reported feeling less tired on the milieu when taking her Zyprexa at night. She reported no auditory or visual hallucinations. She continued to minimize the need for acute hospitalization as she stated that she would be safe if she were to return home. The patient reported that she felt that she did not need to be receiving help through her legal guardianship. She minimized any consequences of her substance use and the continued reason for her multiple hospitalizations. She had acknowledged a history of noncompliance with her psychotropic medications. Mental Status Exam MSE Comments: This is a slender, short white female in hospital scrubs with improved grooming and eye contact. No abnormal movements except for mild psychomotor retardation. Cooperative with exam in no acute distress. Speech w as spontaneous and with normal volume, rate and prosody. Mood described as okay. Her affect was subdued and mood incongruent. Thought process appeared linear but superficial. Thought content: patient denies suicidal or homicidal ideation. there are no delusions reported or noted, she did not appear to be responding to internal stimuli. Attention and concentration were improving and memory was more reliable but none were formally tested. She is alert and oriented to person and place, time and situation. Her insight was poor. Her judgment and impulse control appeared limited. Vitals/I&O/Wt Last Vital Signs Temp 98.3 F 03/16/22 14:00 Pulse 88 03/16/22 20:05 Resp 14 03/17/22 06:00 BP 116/75 03/16/22 20:05 Pulse Ox 98 03/16/22 20:05 O2 Del Method 03/16/22 14:00 Data NPU 02/03/22 18:40 02/03/22 18:40 A&P Assessment and plan (1) Psychosis: (2) Methamphetamine abuse: Plan This is a 22 year old white female who presents in on a 96 hour hold secondary to aggression and psychosis with positive UDS for cannabis and amphetamines with history of long hospitalizations required to resolve the psychotic symptoms. 1. Zyprexa 25mg at night. 2. Encourage individual, group and milieu therapy 3. Continue q-15 minute check for safety 4. Encourage sober living treatment after discharge at the highest level of care to which she is willing to commit. 5. Patient now on a 90-day hold and secondary to father's inconsistency we will pursue guardianship. Involuntary Hold Information 96 Hour Hold: 96 Hour Involuntary Admission: Yes 96 Hour Hold Ending Date: 02/10/22 96 Hour Hold Ending Time: 19:17 Attestations NPU Medical Necessity Statement*: Inpatient hospitalization is medically necessary and the clinically appropriate intervention at this time. We will monitor medications and make changes as indicated. Likely length of stay is 10-14 days. Will be impacted by guardianship process. 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
[2022-03-17] MEDS: acetaminophen 325 mg Tablet 650 MG PO (19:14)
[2022-03-17] MEDS: OLANZapine 10 mg TABLET 20 MG PO (19:15)
[2022-03-17] MEDS: OLANZapine 5 mg TABLET PO (19:16)
[2022-03-17 19:53] VITALS: BP 117/80; PULSE 95; RESP 16; TEMP 36.6; O2SAT 93
[2022-03-18 14:00] VITALS: RESP 18
[2022-03-18 16:34] LABS: Glucose Point of Care 91 mg/dL (70-110)
--- NOTE | 2022-03-18 18:03 | P.NPUPN_ITS ---
Subjective NPU Subjective: Patient is a 22-year-old single white female with a history of psychosis likely exacerbated by continued amphetamine abuse currently involuntarily hospitalized on Zyprexa. The patient had reported feeling better today. She was seen on the milieu engaging with others. She reported no auditory or visual hallucinations. She reports that her mother will be coming to visit soon. Staff notes the patient had been able to attend groups today. She reported no side effects from her medications. She reported no cravings for any illicit drugs or alcohol. Mental Status Exam MSE Comments: This is a slender, short white female in hospital scrubs with improved grooming and eye contact. No abnormal movements except for mild psychomotor retardation. Cooperative with exam in no acute distress. Speech was spontaneous and with normal volume, rate and prosody. Mood described as allright. Her affect was subdued and mood incongruent. Thought process appeared linear but superficial. Thought content: patient denies suicidal or homicidal ideation. there were no delusions reported noted. She did not appear to be responding to internal stimuli. Attention and concentration were improving and memory was more reliable but none were formally tested. She is alert and oriented to person and place, time and situation. Her insight was poor. Her judgment and impulse control appeared limited. Vitals/I&O/Wt Last Vital Signs Temp 97.9 F 03/17/22 19:53 Pulse 95 03/17/22 19:53 Resp 16 03/17/22 19:53 BP 117/80 03/17/22 19:53 Pulse Ox 93 03/17/22 19:53 O2 Del Method 03/17/22 19:53 Data NPU 02/03/22 18:40 02/03/22 18:40 A&P Assessment and plan (1) Psychosis: (2) Methamphetamine abuse: Plan This is a 22 year old white female who presents in on a 96 hour hold secondary to aggression and psychosis with positive UDS for cannabis and amphetamines with history of long hospitalizations required to resolve the psychotic symptoms. 1. Zyprexa 25mg at night. 2. Encourage individual, group and milieu therapy 3. Continue q-15 minute check for safety 4. Encourage sober living treatment after discharge at the highest level of care to which she is willing to commit. 5. Patient now on a 90-day hold and secondary to father's inconsistency we will pursue guardianship. 6. Interrogatory completed today regarding guardianship. Involuntary Hold Information 96 Hour Hold: 96 Hour Involuntary Admission: Yes 96 Hour Hold Ending Date: 02/10/22 96 Hour Hold Ending Time: 19:17 Attestations NPU Medical Necessity Statement*: Inpatient hospitalization is medically necessary and the clinically appropriate intervention at this time. We will monitor medications and make changes as indicated. Likely length of stay is 10-14 days. Will be impacted by guardianship process. 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
[2022-03-18 20:28] VITALS: BP 122/85; PULSE 101; RESP 16; TEMP 36.8; O2SAT 99
[2022-03-18] MEDS: OLANZapine 10 mg TABLET 20 MG PO (20:29)
[2022-03-18] MEDS: OLANZapine 5 mg TABLET PO (20:29)
[2022-03-19 06:00] VITALS: BP 108/69; PULSE 89; RESP 16; TEMP 36.4; O2SAT 96
[2022-03-19 14:00] VITALS: TEMP 36.7
[2022-03-19] MEDS: blistex lip oint 7 gm Tube 1 APPLIC TOPICAL (16:17)
--- NOTE | 2022-03-19 19:36 | W.PM.NPUPNS ---
Subjective NPU Subjective: Patient presented today continuing to try to calculate how to get discharge sooner rather than later. She is very focused on if she completed her currently application if she could be discharged by [facility]. We discussed the fact that [facility] was in less than 24 hours. She then turned her focus to next week before . She began discussing the possibility of moving to [place] with her mother and signing up for food stamps. Mental Status Exam MSE Comments: This is a slender, short white female in hospital scrubs with improved grooming and eye contact. No abnormal movements except for mild psychomotor retardation. Cooperative with exam in no acute distress. Speech was spontaneous and with normal rate and volume. Mood described as fine. Her affect was subdued and less irritable thought process appeared linear but superficial. Thought content: patient denies suicidal or homicidal ideation. there were no delusions reported noted. She did not appear to be responding to internal stimuli. She denied auditory or visual hallucinations. She continues to be highly focused on when she can discharge with inability to appreciate the circumstances related to guardianship and discharge. Attention and concentration were improving and memory was more reliable but none were formally tested. She is alert and oriented to person and place, time and situation. Her insight was poor. Her judgment and impulse control appeared limited. Vitals/I&O/Wt Last Vital Signs Temp 98.6 F 03/19/22 20:12 Pulse 115 H 03/19/22 20:12 Resp 18 03/19/22 20:12 BP 122/75 03/19/22 20:12 Pulse Ox 96 03/19/22 20:12 O2 Del Method 03/19/22 20:12 Weight last 48 hrs Weight 56.971 kg Data NPU 02/03/22 18:40 02/03/22 18:40 A&P Assessment and plan (1) Psychosis: (2) Methamphetamine abuse: Plan This is a 22 year old white female who presents in on a 96 hour hold secondary to aggression and psychosis with positive UDS for cannabis and amphetamines with history of long hospitalizations required to resolve the psychotic symptoms. 1. Zyprexa 25mg at night. 2. Encourage individual, group and milieu therapy 3. Continue q-15 minute check for safety 4. Encourage sober living treatment after discharge at the highest level of care to which she is willing to commit. 5. Patient now on a 90-day hold and secondary to father's inconsistency we will pursue guardianship. 6. Interrogatory completed. Involuntary Hold Information 96 Hour Hold: 96 Hour Involuntary Admission: Yes 96 Hour Hold Ending Date: 02/10/22 96 Hour Hold Ending Time: 19:17 Attestations NPU Medical Necessity Statement*: Inpatient hospitalization is medically necessary and the clinically appropriate intervention at this time. We will monitor medications and make changes as indicated. Likely length of stay is 10-14 days. Will be impacted by guardianship process. 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
[2022-03-19 20:12] VITALS: BP 122/75; PULSE 115; RESP 18; TEMP 37; O2SAT 96
[2022-03-19] MEDS: OLANZapine 10 mg TABLET 20 MG PO (21:22)
[2022-03-19] MEDS: OLANZapine 5 mg TABLET PO (21:22)
[2022-03-20 06:00] VITALS: RESP 16
--- NOTE | 2022-03-20 11:51 | W.PM.NPUPNS ---
Subjective NPU Subjective: Patient presented today with some clear frustration, but holding it together. She certainly conversed about her mother in [place] and the possibility of going there. She was accepting of the fact that today was [place] that she was not leaving, but that did not make her happy. We continued to discuss the guardianship process and the need for that to manifest prior to her going to what ever is next. Mental Status Exam MSE Comments: This is a slender, short white female in hospital scrubs with improved grooming and eye contact. No abnormal movements except for mild psychomotor retardation. Cooperative with exam in no acute distress. Speech was spontaneous and with normal rate and volume. Mood described as fine. Her affect was subdued and less irritable thought process appeared linear but superficial. Thought content: patient denies suicidal or homicidal ideation. there were no delusions reported or noted. She did not appear to be responding to internal stimuli. She denied auditory or visual hallucinations. She continues to be highly focused on when she can discharge with inability to appreciate the circumstances related to guardianship and discharge. Attention and concentration were improving and memory was more reliable but none were formally tested. She is alert and oriented to person and place, time and situation. Her insight was poor. Her judgment and impulse control appeared limited. Vitals/I&O/Wt Last Vital Signs Temp 98.6 F 03/19/22 20:12 Pulse 115 H 03/19/22 20:12 Resp 16 03/20/22 06:00 BP 122/75 03/19/22 20:12 Pulse Ox 96 03/19/22 20:12 O2 Del Method 03/19/22 20:12 Weight last 48 hrs Weight 56.971 kg Data NPU 02/03/22 18:40 02/03/22 18:40 A&P Assessment and plan (1) Psychosis: (2) Methamphetamine abuse: Plan This is a 22 year old white female who presents in on a 96 hour hold secondary to aggression and psychosis with positive UDS for cannabis and amphetamines with history of long hospitalizations required to resolve the psychotic symptoms. 1. Zyprexa 25mg at night. 2. Encourage individual, group and milieu therapy 3. Continue q-15 minute check for safety 4. Encourage sober living treatment after discharge at the highest level of care to which she is willing to commit. 5. Patient now on a 90-day hold and secondary to father's inconsistency we will pursue guardianship. 6. Interrogatory completed. Involuntary Hold Information 96 Hour Hold: 96 Hour Involuntary Admission: Yes 96 Hour Hold Ending Date: 02/10/22 96 Hour Hold Ending Time: 19:17 Attestations NPU Medical Necessity Statement*: Inpatient hospitalization is medically necessary and the clinically appropriate intervention at this time. We will monitor medications and make changes as indicated. Likely length of stay is 10-14 days. Will be impacted by guardianship process. 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
[2022-03-20 14:00] VITALS: BP 108/74; PULSE 96; RESP 16; TEMP 37.2; O2SAT 97
[2022-03-20] MEDS: OLANZapine 5 mg TABLET PO (19:41)
[2022-03-20] MEDS: OLANZapine 10 mg TABLET 20 MG PO (19:41)
[2022-03-20 19:57] VITALS: BP 117/86; PULSE 100; RESP 16; TEMP 36.9; O2SAT 95
[2022-03-20] MEDS: nicotine 4 mg lozenge MUCOUS MEM (21:44)
[2022-03-21 06:00] VITALS: BP 117/76; PULSE 96; RESP 16; TEMP 36.6; O2SAT 97
[2022-03-21 14:00] VITALS: BP 124/78; PULSE 87; RESP 17; TEMP 36.4; O2SAT 100
--- NOTE | 2022-03-21 17:00 | W.PM.NPUPNS ---
Subjective NPU Subjective: Patient presented today with continued frustration about being here. She has begun to focus on a reported emisis episode wherein she heard something pop. She endorses feeling something leaking. We discussed following her symptoms and getting some imaging or a consult if symptoms persist. We continued to discuss the guardianship process and the need for that to manifest prior to her going to what ever is next. Mental Status Exam MSE Comments: This is a slender, short white female in hospital scrubs with improved grooming and eye contact. No abnormal movements except for mild psychomotor retardation. Cooperative with exam in no acute distress. Speech was spontaneous and with normal rate and volume. Mood described as fine. Her affect was subdued and less irritable thought process appeared linear but superficial. Thought content: patient denies suicidal or homicidal ideation. there were no delusions reported or noted. She did not appear to be responding to internal stimuli. She denied auditory or visual hallucinations. She continues to be highly focused on when she can discharge with inability to appreciate the circumstances related to guardianship and discharge. Also seems to be perseverating on possible GI issue. Attention and concentration were improving and memory was more reliable but none were formally tested. She is alert and oriented to person and place, time and situation. Her insight was poor. Her judgment and impulse control appeared limited. Vitals/I&O/Wt Last Vital Signs Temp 97.4 F L 03/21/22 20:27 Pulse 88 03/21/22 20:27 Resp 18 03/21/22 20:27 BP 113/79 03/21/22 20:27 Pulse Ox 100 03/21/22 20:27 O2 Del Method 03/20/22 14:00 Data NPU 02/03/22 18:40 02/03/22 18:40 A&P Assessment and plan (1) Psychosis: (2) Methamphetamine abuse: Plan This is a 22 year old white female who presents in on a 96 hour hold secondary to aggression and psychosis with positive UDS for cannabis and amphetamines with history of long hospitalizations required to resolve the psychotic symptoms. 1. Zyprexa 25mg at night. 2. Encourage individual, group and milieu therapy 3. Continue q-15 minute check for safety 4. Encourage sober living treatment after discharge at the highest level of care to which she is willing to commit. 5. Patient now on a 90-day hold and secondary to father's inconsistency we will pursue guardianship. 6. Interrogatory completed. Involuntary Hold Information 96 Hour Hold: 96 Hour Involuntary Admission: Yes 96 Hour Hold Ending Date: 02/10/22 96 Hour Hold Ending Time: 19:17 Attestations NPU Medical Necessity Statement*: Inpatient hospitalization is medically necessary and the clinically appropriate intervention at this time. We will monitor medications and make changes as indicated. Likely length of stay is 10-14 days. Will be impacted by guardianship process. 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
[2022-03-21] MEDS: OLANZapine 10 mg TABLET 20 MG PO (19:13)
[2022-03-21] MEDS: OLANZapine 5 mg TABLET PO (19:14)
[2022-03-21 20:27] VITALS: BP 113/79; PULSE 88; RESP 18; TEMP 36.3; O2SAT 100
[2022-03-21] MEDS: magnesium hydroxide 30 mL UDC PO (20:55)
[2022-03-22 06:00] VITALS: RESP 16
--- NOTE | 2022-03-22 12:38 | PC.NURSE ---
Addendum entered by Marielena Guajardo RN 03/22/22 12:42: Bowel sounds were present throughout pt's abdomen. Original Note: Pt awake for lunch. Pt still believes something popped in her abdomen the other day and said she thought she needed to be evaluated. She denied having a bowel movement recently and denies passing flatus. Pt was assessed with her permission. Her lungs were clear; abdomen is soft, slightly rounded. Pt offered no complaints of discomfort when staff palpated her abdomen. Pt's affect flat and pt guarded with her interactions with staff.
--- NOTE | 2022-03-22 13:11 | US_ITS ---
WS: [id number] Gallbladder and right upper quadrant ultrasound, 03/22/2022 Clinical Data: abdominal popping; discomfort Comparison: None. Findings: The gallbladder shows no sludge or stone. The wall measures 0.2 cm with no pericholecystic fluid. The common bile duct is 0.5 cm and there are no intrahepatic ductal abnormalities. Liver shows no cysts, masses or dilated intrahepatic ducts. The portal vein shows normal flow. The li gokul measures 13.37 cm with normal echotexture. The pancreas is not obscured by overlying bowel gas and no cyst, pseudocyst, or evidence of pancreati tis is noted. The pancreatic head measures 2.28 cm, the body 1.23 cm and the tail 1.16 cm. Right kidney measures 10.9 cm and no cyst, masses or hydronephrosis can be seen. The aorta measures 1.83 cm in largest diameter and the inferior vena cava measures 1.14 cm. US/US abdomen limited [id number] Impression: Negative right upper quadrant ultrasound.
--- NOTE | 2022-03-22 13:19 | PC.NURSE ---
Received order from for US of pt's abdomen. Contacted US and pt is to be NPO x 6 hours. Pt informed of this and verbalized her understanding. Staff also informed.
[2022-03-22 14:00] VITALS: BP 116/75; PULSE 99; RESP 17; TEMP 36.8; O2SAT 98
--- NOTE | 2022-03-22 15:09 | PC.NURSE ---
Pt requesting nicotine lozenge. Contacted US to clarify. Permission given for pt to have lozenge. US staff said she would need a bed that can move up or down. Will have her use bed in room 151.
[2022-03-22] MEDS: nicotine 4 mg lozenge MUCOUS MEM ×4 (15:11→22:13)
--- NOTE | 2022-03-22 18:17 | W.PM.NPUPNS ---
Subjective NPU Subjective: Patient is a 22-year-old white female with a history of psychotic disorder unspecified along with polysubstance abuse. She continued to report having issues with constipation and stated that her stomach was in pain. She reports that she had vomited yesterday and had felt that her intestines had exploded shortly afterwards. She continued to report no problems here despite the evidence that she reported to remain here due to her inability to the able to make good decisions on the outside leading to extended stays here in the hospital. Patient reported no suicidal thoughts. She continued to isolate herself on the milieu. Mental Status Exam MSE Comments: This is a slender, short white female in hospital scrubs with improved grooming and eye contact. No abnormal movements except for mild psychomotor retardation. Cooperative with exam in no acute distress. Speech was spontaneous and with normal rate and volume. Mood described as fine. Her affect was subdued and mood incongruent. Her thought process appeared linear but superficial. Thought content: patient denies suicidal or homicidal ideation. there were no delusions reported or noted. She did not appear to be responding to internal stimuli. She denied auditory or visual hallucinations. She continues to be highly focused on when she can discharge with inability to appreciate the circumstances related to guardianship and discharge. Also seems to be perseverating on possible GI issue. Attention and concentration were improving and memory was more reliable but none were formally tested. She is alert and oriented to person and place, time and situation. Her insight was poor. Her judgment and impulse control appeared limited. Vitals/I&O/Wt Last Vital Signs Temp 98.3 F 03/22/22 14:00 Pulse 99 03/22/22 14:00 Resp 17 03/22/22 14:00 BP 116/75 03/22/22 14:00 Pulse Ox 98 03/22/22 14:00 O2 Del Method 03/20/22 14:00 Data NPU 02/03/22 18:40 02/03/22 18:40 A&P Assessment and plan (1) Psychosis: (2) Methamphetamine abuse: Plan This is a 22 year old white female who presents in on a 96 hour hold secondary to aggression and psychosis with positive UDS for cannabis and amphetamines with history of long hospitalizations required to resolve the psychotic symptoms. 1. Zyprexa 25mg at night., Ultrasound ordered of abdomen. 2. Encourage individual, group and milieu therapy 3. Continue q-15 minute check for safety 4. Encourage sober living treatment after discharge at the highest level of care to which she is willing to commit. 5. Patient now on a 90-day hold and secondary to father's inconsistency we will pursue guardianship. 6. Interrogatory completed. Involuntary Hold Information 96 Hour Hold: 96 Hour Involuntary Admission: Yes 96 Hour Hold Ending Date: 02/10/22 96 Hour Hold Ending Time: 19:17 Attestations NPU Medical Necessity Statement*: Inpatient hospitalization is medically necessary and the clinically appropriate intervention at this time. We will monitor medications and make changes as indicated. Likely length of stay is 10-14 days. Will be impacted by guardianship process. Coding Level of Care Code Established Pt Acute Manager Exchange for Loulou Campos Patient Type Established History Problem Focused Exam Problem Focused Medical Decision Making Straight Forward Diagnoses Psychosis F29 Methamphetamine abuse F15.10
[2022-03-22] MEDS: OLANZapine 10 mg TABLET 20 MG PO (19:40)
[2022-03-22] MEDS: OLANZapine 5 mg TABLET PO (19:40)
--- NOTE | 2022-03-22 19:45 | PC.NURSE ---
Contacted US as had not arrived yet. Emergency Veterinary Assistant said they just finished a case and there was one more ahead of her, and they'd be up. Staff and pt informed.
[2022-03-22 20:25] VITALS: BP 105/71; PULSE 87; RESP 16; TEMP 36.7; O2SAT 100
[2022-03-23 06:00] VITALS: RESP 18
[2022-03-23] MEDS: nicotine 2 mg Gum BUCCAL ×2 (13:21→19:21)
[2022-03-23 14:00] VITALS: BP 123/82; PULSE 93; RESP 18; TEMP 36.9; O2SAT 99
[2022-03-23] MEDS: saline nasal spray 44mL Btl 1 SPRAY NASAL ×3 (14:37→21:19)
[2022-03-23] MEDS: magnesium hydroxide 30 mL UDC PO (14:50)
--- NOTE | 2022-03-23 14:57 | W.PM.NPUPNS ---
Subjective NPU Subjective: Patient is a 22-year-old white female with a history of psychotic disorder unspecified along with polysubstance abuse. The patient had endorsed feeling more tired with low energy. She reports that she wishes to simply consider outpatient treatment instead of being under someone else's guardianship. She continued to minimize any possibility that the substance use could have been causing her symptoms that had led to extended hospitalizations here at the neuropsychiatric unit. She had reported low motivation and stated that she felt tired throughout much of the day. Staff notes the patient has been somewhat isolative on the milieu. She reports no feelings of hopelessness or worthlessness. She did not report any somatic complaints today. Mental Status Exam MSE Comments: This is a slender, short white female in hospital scrubs with improved grooming and eye contact. No abnormal movements except for mild psychomotor retardation. Cooperative with exam in no acute distress. Speech was spontaneous and with normal rate and volume. Mood described as tired Her affect was subdued and blunted. Her thought process appeared linear but superficial. Thought content: patient denies suicidal or homicidal ideation. There were no delusions reported or noted. She did not appear to be responding to internal stimuli. She denied auditory or visual hallucinations. She continues to be highly focused on when she can discharge with inability to appreciate the circumstances related to guardianship and discharge. Also seems to be perseverating on possible GI issue. Attention and concentration were improving and memory was more reliable but none were formally tested. She is alert and oriented to person and place, time and situation. Her insight was poor. Her judgment and impulse control appeared limited. Vitals/I&O/Wt Last Vital Signs Temp 98.0 F 03/22/22 20:25 Pulse 87 03/22/22 20:25 Resp 18 03/23/22 06:00 BP 105/71 03/22/22 20:25 Pulse Ox 100 03/22/22 20:25 O2 Del Method 03/20/22 14:00 Data NPU 02/03/22 18:40 02/03/22 18:40 A&P Assessment and plan (1) Psychosis: (2) Methamphetamine abuse: Plan This is a 22 year old white female who presents in on a 96 hour hold secondary to aggression and psychosis with positive UDS for cannabis and amphetamines with history of long hospitalizations required to resolve the psychotic symptoms. 1. Reduce Zyprexa to 20mg at night., Add Wellbutrin xl 150mg in am 2. Encourage individual, group and milieu therapy 3. Continue q-15 minute check for safety 4. Encourage sober living treatment after discharge at the highest level of care to which she is willing to commit. 5. Patient now on a 90-day hold and secondary to father's inconsistency we will pursue guardianship. 6. Interrogatory completed. Involuntary Hold Information 96 Hour Hold: 96 Hour Involuntary Admission: Yes 96 Hour Hold Ending Date: 02/10/22 96 Hour Hold Ending Time: 19:17 Attestations NPU Medical Necessity Statement*: Inpatient hospitalization is medically necessary and the clinically appropriate intervention at this time. We will monitor medications and make changes as indicated. Likely length of stay is 10-14 days. Will be impacted by guardianship process. Coding Level of Care Code Established Pt Acute Dip Guider Stoves for Loulou Campos Patient Type Established History Problem Focused Exam Problem Focused Medical Decision Making Straight Forward Diagnoses Psychosis F29 Methamphetamine abuse F15.10
[2022-03-23] MEDS: nicotine 4 mg lozenge MUCOUS MEM ×2 (15:20→17:21)
--- NOTE | 2022-03-23 19:22 | PC.NURSE ---
Pt asked for nicotine gum rather than a lozenge. Clarified with pt if she was chewing gum and using lozenges. Pt admitted she had been. Pt instructed not to do this as she could get too much nicotine and it could make her sick. Reviewed with pt some of the side effects of having too much nicotine. Pt verbalized her understanding.
[2022-03-23] MEDS: OLANZapine 10 mg TABLET 20 MG PO (20:13)
[2022-03-23] MEDS: benzocaine 20% 7 gm 1 APPLIC MUCOUS MEM (21:19)
[2022-03-23 22:00] VITALS: BP 120/86; PULSE 89; RESP 17; TEMP 36.6; O2SAT 100
[2022-03-24] MEDS: acetaminophen 325 mg Tablet 650 MG PO (01:30)
[2022-03-24] MEDS: benzocaine 20% 7 gm 1 APPLIC MUCOUS MEM (01:37)
[2022-03-24 06:00] VITALS: RESP 18
[2022-03-24] MEDS: buPROPion XL (24 HR) 150 mg Tablet PO (10:04)
[2022-03-24] MEDS: nicotine 2 mg Gum BUCCAL ×2 (12:56→16:38)
[2022-03-24 14:00] VITALS: RESP 18
[2022-03-24] MEDS: ibuprofen 600 mg Tablet PO (15:39)
--- NOTE | 2022-03-24 16:33 | P.NPUPN_ITS ---
Subjective NPU Subjective: Patient is a 22-year-old white female with a history of psychotic disorder unspecified along with polysubstance abuse. The patient had been less isolative on the milieu. She reported no side effects from her medication. She reported that she simply wished to return home. She reported that she felt the guardianship was unnecessary. The patient continued to appear minimally involved on the milieu although she had been attending groups. She did not endorse any somatic complaints today. Mental Status Exam MSE Comments: This is a slender, short white female in hospital scrubs with improved grooming and eye contact. No abnormal movements except for mild psychomotor retardation. Cooperative with exam in no acute distress. Speech was spontaneous and with normal rate and volume. Mood described as okay Her affect was subdued and blunted. Her thought process appeared linear but superficial. Thought content: patient denies suicidal or homicidal ideation. There were no delusions reported or noted. She did not appear to be responding to internal stimuli. She denied auditory or visual hallucinations. She continues to be highly focused on when she can discharge with inability to appreciate the circumstances related to guardianship and discharge. She was less somatic today. Attention and concentration were improving and memory was more reliable but none were formally tested. She is alert and oriented to person and place, time and situation. Her insight was poor. Her judgment and impulse control appeared limited. Vitals/I&O/Wt Last Vital Signs Temp 97.9 F 03/23/22 22:00 Pulse 89 03/23/22 22:00 Resp 18 03/24/22 14:00 BP 120/86 03/23/22 22:00 Pulse Ox 100 03/23/22 22:00 O2 Del Method 03/23/22 22:00 Data NPU 02/03/22 18:40 02/03/22 18:40 A&P Assessment and plan (1) Psychosis: (2) Methamphetamine abuse: Plan This is a 22 year old white female who presents in on a 96 hour hold secondary to aggression and psychosis with positive UDS for cannabis and amphetamines with history of long hospitalizations required to resolve the psychotic symptoms. 1. continue Zyprexa at 20mg at night., Contnue Wellbutrin xl 150mg in am 2. Encourage individual, group and milieu therapy 3. Continue q-15 minute check for safety 4. Encourage sober living treatment after discharge at the highest level of care to which she is willing to commit. 5. Patient now on a 90-day hold and secondary to father's inconsistency we will pursue guardianship. 6. Interrogatory completed. Involuntary Hold Information 96 Hour Hold: 96 Hour Involuntary Admission: Yes 96 Hour Hold Ending Date: 02/10/22 96 Hour Hold Ending Time: 19:17 Attestations NPU Medical Necessity Statement*: Inpatient hospitalization is medically necessary and the clinically appropriate intervention at this time. We will monitor medications and make changes as indicated. Likely length of stay is 10-14 days. Will be impacted by guardianship process. 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
[2022-03-24] MEDS: OLANZapine 10 mg TABLET 20 MG PO (20:13)
[2022-03-24] MEDS: magnesium hydroxide 30 mL UDC PO (20:55)
[2022-03-24] MEDS: saline nasal spray 44mL Btl 1 SPRAY NASAL (21:19)
[2022-03-24 22:00] VITALS: BP 119/86; PULSE 115; RESP 18; TEMP 36.7; O2SAT 97
[2022-03-25 06:00] VITALS: BP 112/83; PULSE 105; RESP 16; TEMP 36.6; O2SAT 95
[2022-03-25] MEDS: buPROPion XL (24 HR) 150 mg Tablet PO (09:17)
--- NOTE | 2022-03-25 12:58 | PC.NURSE ---
Pt discussed at IDT meeting. said pt reporting no bowel movement for several days. Received order for Miralax daily. He later agreed for pt to try probiotics as that is reportedly effective for lactose intolerant people. Pt refused Miralax because it has lemon flavoring and she can't have any fruit. She verbalized she knew what probiotics were and she declined to take that as well. Pt is of the belief her bowels aren't moving because there is something wrong with her since she experienced a pop in her abdomen. Pt had an US of her abdomen, RUQ, on 03/22/22 and it was negative. Pt said she would just continue taking milk of magnesia. Pt reminded it didn't seem to be working. She continued to decline offered meds. informed.
[2022-03-25 14:00] VITALS: BP 112/83; PULSE 105; RESP 16; TEMP 36.6; O2SAT 95
[2022-03-25] MEDS: nicotine 4 mg lozenge MUCOUS MEM ×2 (14:25→18:00)
--- NOTE | 2022-03-25 17:28 | P.NPUPN_ITS ---
Subjective NPU Subjective: Patient is a 22-year-old white female with a history of psychotic disorder unspecified along with polysubstance abuse. The patient had reported that she is hopeful about going back to the care of her mother even if it meant that her mother would be the guardian. She continued to show minimal insight in regards to her problems as she had isolated herself on the milieu and stated that she felt bored and tired. The patient had again showed limited ability to consider that her poor choices including active stimulant abuse had contributed to her problems with her thoughts. Patient had once again asked if she could return home but stated having no particular plans of how to maintain sobriety or any desire to continue to take medications to target her symptoms of psychotic symptoms. She reports constant and chronic constipation but reports that she was allergic to any fruits or citrus products she had reported some abdominal discomfort today. Mental Status Exam MSE Comments: This is a slender, short white female in hospital scrubs with improved grooming and eye contact. No abnormal movements except for mild psychomotor retardation. Cooperative with exam in no acute distress. Speech was spontaneous and with normal rate and volume. Mood described as good Her affect was subdued and blunted. Her thought process appeared linear but superficial. Thought content: patient denies suicidal or homicidal ideation. There were no delusions reported or noted. She did not appear to be responding to internal stimuli. She denied auditory or visual hallucinations. She continues to be highly focused on when she can discharge with inability to appreciate the circumstances related to guardianship and discharge. She reported abdominal discomfort. Attention and concentration were improving and memory was more reliable but none were formally tested. She is alert and oriented to person and place, time and situation. Her insight was poor. Her judgment and impulse control appeared limited. Vitals/I&O/Wt Last Vital Signs Temp 97.9 F 03/25/22 14:00 Pulse 105 H 03/25/22 14:00 Resp 16 03/25/22 14:00 BP 112/83 03/25/22 14:00 Pulse Ox 95 03/25/22 14:00 O2 Del Method 03/25/22 14:00 Data NPU 02/03/22 18:40 02/03/22 18:40 A&P Assessment and plan (1) Psychosis: (2) Methamphetamine abuse: Plan This is a 22 year old white female who presents in on a 96 hour hold secondary to aggression and psychosis with positive UDS for cannabis and amphetamines with history of long hospitalizations required to resolve the psychotic symptoms. 1. continue Zyprexa at 20mg at night., Contnue Wellbutrin xl 150mg in am 2. Encourage individual, group and milieu therapy 3. Continue q-15 minute check for safety 4. Encourage sober living treatment after discharge at the highest level of care to which she is willing to commit. 5. Patient now on a 90-day hold and secondary to father's inconsistency we will pursue guardianship. 6. Interrogatory completed. Involuntary Hold Information 96 Hour Hold: 96 Hour Involuntary Admission: Yes 96 Hour Hold Ending Date: 02/10/22 96 Hour Hold Ending Time: 19:17 Attestations NPU Medical Necessity Statement*: Inpatient hospitalization is medically necessary and the clinically appropriate intervention at this time. We will monitor medications and make changes as indicated. Likely length of stay is 10-14 days. Will be impacted by guardianship process. Coding Level of Care Code Established Pt Acute Soda Dialyzer for Luolou Campos Patient Type Established History Problem Focused Exam Problem Focused Medical Decision Making Straight Forward Diagnoses Psychosis F29 Methamphetamine abuse F15.10
[2022-03-25] MEDS: sennosides-docusate Tablet 2 TAB PO (19:41)
[2022-03-25] MEDS: OLANZapine 10 mg TABLET 20 MG PO (19:41)
[2022-03-25] MEDS: magnesium hydroxide 30 mL UDC PO (19:42)
[2022-03-25 21:40] VITALS: BP 118/79; PULSE 104; RESP 17; TEMP 36.5; O2SAT 99
[2022-03-26 06:00] VITALS: RESP 16
[2022-03-26] MEDS: buPROPion XL (24 HR) 150 mg Tablet PO (09:43)
[2022-03-26] MEDS: nicotine 4 mg lozenge MUCOUS MEM ×5 (12:53→22:03)
[2022-03-26] MEDS: saline nasal spray 44mL Btl 1 SPRAY NASAL ×3 (12:55→22:14)
[2022-03-26 14:00] VITALS: BP 128/74; PULSE 89; RESP 17; TEMP 36.8; O2SAT 99
--- NOTE | 2022-03-26 14:40 | W.PM.NPUPNS ---
Subjective NPU Subjective: Patient is a 22-year-old white female with a history of psychotic disorder unspecified along with polysubstance abuse. The patient reported some abdominal pain at this time and continue to report constipation. She was agreeable to taking medications for constipation but later refused these. Patient remained somewhat apathetic in regards to her treatment as she stated that she simply needed to go home. On interview, she continued to endorse her problems using drugs unrelated to her current mood symptoms.. Mental Status Exam MSE Comments: This is a slender, short white female in hospital scrubs with improved grooming and eye contact. No abnormal movements except for mild psychomotor retardation. Cooperative with exam in no acute distress. Speech was spontaneous and with normal rate and diminished volume today. Mood described as okay Her affect was subdued. Her thought process appeared linear but superficial. Thought content: patient denies suicidal or homicidal ideation. There were no delusions reported or noted. She did not appear to be responding to internal stimuli. She denied auditory or visual hallucinations. She continues to be highly focused on when she can discharge with inability to appreciate the circumstances related to guardianship and discharge. She reported abdominal discomfort again today. Attention and concentration were improving and memory was more reliable but none were formally tested. She is alert and oriented to person and place, time and situation. Her insight was poor. Her judgment and impulse control appeared limited. Vitals/I&O/Wt Last Vital Signs Temp 98.2 F 03/26/22 14:00 Pulse 89 03/26/22 14:00 Resp 17 03/26/22 14:00 BP 128/74 03/26/22 14:00 Pulse Ox 99 03/26/22 14:00 O2 Del Method 03/25/22 21:40 Data NPU 02/03/22 18:40 02/03/22 18:40 A&P Assessment and plan (1) Psychosis: (2) Methamphetamine abuse: Plan This is a 22 year old white female who presents in on a 96 hour hold secondary to aggression and psychosis with positive UDS for cannabis and amphetamines with history of long hospitalizations required to resolve the psychotic symptoms. 1. continue Zyprexa at 20mg at night., Contnue Wellbutrin xl 150mg in am 2. Encourage individual, group and milieu therapy 3. Continue q-15 minute check for safety 4. Encourage sober living treatment after discharge at the highest level of care to which she is willing to commit. 5. Patient now on a 90-day hold and secondary to father's inconsistency we will pursue guardianship. 6. Interrogatory completed. Involuntary Hold Information 96 Hour Hold: 96 Hour Involuntary Admission: Yes 96 Hour Hold Ending Date: 02/10/22 96 Hour Hold Ending Time: 19:17 Attestations NPU Medical Necessity Statement*: Inpatient hospitalization is medically necessary and the clinically appropriate intervention at this time. We will monitor medications and make changes as indicated. Likely length of stay is 10-14 days. Will be impacted by guardianship process. 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
[2022-03-26] MEDS: sennosides-docusate Tablet 2 TAB PO (19:50)
[2022-03-26] MEDS: OLANZapine 10 mg TABLET 20 MG PO (19:51)
[2022-03-26 20:00] VITALS: BP 124/74; PULSE 114; RESP 18; TEMP 37.1; O2SAT 100
[2022-03-27] MEDS: nicotine 4 mg lozenge MUCOUS MEM ×3 (00:19→21:16)
[2022-03-27] MEDS: buPROPion XL (24 HR) 150 mg Tablet PO (08:24)
--- NOTE | 2022-03-27 13:55 | PC.NURSE ---
contacted dietary to let them know pt was reporting she was allergic to fruit. Entered citrus into the computer and informed dietary what the pt had said. Fruit is too broad of a selection for the system. Pt also reported she was allergic to peanuts. Will consult with MD about use of Ibuprofen as notice came up.
[2022-03-27 14:00] VITALS: BP 120/76; PULSE 81; RESP 18; TEMP 36.8; O2SAT 100
--- NOTE | 2022-03-27 14:06 | PC.NURSE ---
When entering pt's reported allergy to peanuts, an alert presented about a conflict with ibuprofen. The MD said to discontinue the order for iburprofen. This was done.
--- NOTE | 2022-03-27 17:02 | W.PM.NPUPNS ---
Subjective NPU Subjective: Patient is a 22-year-old white female with a history of psychotic disorder unspecified along with polysubstance abuse. Patient had remained in her room throughout much of the day. She continued to report having no bowel movements in several days. She had made complaints about being allergic to all fruits and now peanuts that were not at clearly substantiated particularly regarding peanuts. Patient had reported that she did not need to be during the hospital. She continue to minimize the significance of her substance use that had led to her repeated hospitalizations this year. Mental Status Exam MSE Comments: This is a slender, short white female in hospital scrubs with adequate grooming and fair eye contact. No abnormal movements except for mild psychomotor retardation. Cooperative with exam in no acute distress. Speech was spontaneous and with normal rate and diminished volume today. Mood described as okay Her affect was subdued and mood incongruent. Her thought process appeared linear but superficial. Thought content: patient denies suicidal or homicidal ideation. There were no delusions reported or noted. She did not appear to be responding to internal stimuli. She denied auditory or visual hallucinations. She continues to be highly focused on when she can discharge with inability to appreciate the circumstances related to guardianship and discharge. She reported abdominal discomfort again today. Attention and concentration were improving and memory was more reliable but none were formally tested. She is alert and oriented to person and place, time and situation. Her insight was poor. Her judgment and impulse control appeared limited. Continued evidence of APATHY and AMOTIVATION Vitals/I&O/Wt Last Vital Signs Temp 98.7 F 03/26/22 20:00 Pulse 114 H 03/26/22 20:00 Resp 18 03/26/22 20:00 BP 124/74 03/26/22 20:00 Pulse Ox 100 03/26/22 20:00 O2 Del Method 03/25/22 21:40 Data NPU 02/03/22 18:40 02/03/22 18:40 A&P Assessment and plan (1) Psychosis: (2) Methamphetamine abuse: Plan This is a 22 year old white female who presents in on a 96 hour hold secondary to aggression and psychosis with positive UDS for cannabis and amphetamines with history of long hospitalizations required to resolve the psychotic symptoms. 1. continue Zyprexa at 20mg at night., Contnue Wellbutrin xl 150mg in am 2. Encourage individual, group and milieu therapy 3. Continue q-15 minute check for safety 4. Encourage sober living treatment after discharge at the highest level of care to which she is willing to commit. 5. Patient now on a 90-day hold and secondary to father's inconsistency we will pursue guardianship. 6. Interrogatory completed. Involuntary Hold Information 96 Hour Hold: 96 Hour Involuntary Admission: Yes 96 Hour Hold Ending Date: 02/10/22 96 Hour Hold Ending Time: 19:17 Attestations NPU Medical Necessity Statement*: Inpatient hospitalization is medically necessary and the clinically appropriate intervention at this time. We will monitor medications and make changes as indicated. Likely length of stay is 10-14 days. Will be impacted by guardianship process. 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
[2022-03-27] MEDS: sennosides-docusate Tablet 2 TAB PO (19:58)
[2022-03-27] MEDS: OLANZapine 10 mg TABLET 20 MG PO (19:58)
[2022-03-27 20:28] VITALS: BP 115/77; PULSE 129; RESP 16; TEMP 36.9; O2SAT 96
[2022-03-28] MEDS: nicotine 4 mg lozenge MUCOUS MEM ×2 (00:02→18:36)
[2022-03-28 05:49] VITALS: BP 98/68; PULSE 67; RESP 16; TEMP 36.5; O2SAT 99
[2022-03-28] MEDS: buPROPion XL (24 HR) 150 mg Tablet PO (09:37)
--- NOTE | 2022-03-28 12:28 | P.NPUPN_ITS ---
Subjective NPU Subjective: Patient presented today continuing to focus on the guardianship process suggesting that her mother and her father were now still discussing in getting guardianship. We discussed the fact that given their interaction we are proceeding forward and the machine oiler likely have to determine who gets appointed. She reports that she does not feel as functional on less of the Zyprexa and requested it be returned to 25 mg at night. Mental Status Exam MSE Comments: This is a slender, short white female in hospital scrubs with adequate grooming and fair eye contact. No abnormal movements except for mild psychomotor retardation. Cooperative with exam in no acute distress. Speech was spontaneous and with normal rate and diminished volume remained monotone with limited prosody. Mood described as okay Her affect was subdued and flat. Her thought process appeared linear but superficial. Thought content: patient denies suicidal or homicidal ideation. There were no delusions reported or noted. She did not appear to be responding to internal stimuli. She denied auditory or visual hallucinations. She continues to be highly focused on when she can discharge with inability to appreciate the circumstances related to guardianship and discharge. Attention and concentration were improving and memory was more reliable but none were formally tested. She is alert and oriented to person and place, time and situation. Her insight was poor. Her judgment and impulse control appeared limited. Continued evidence of APATHY and AMOTIVATION Vitals/I&O/Wt Last Vital Signs Temp 97.7 F 03/28/22 05:49 Pulse 67 03/28/22 05:49 Resp 16 03/28/22 05:49 BP 98/68 03/28/22 05:49 Pulse Ox 99 03/28/22 05:49 O2 Del Method 03/25/22 21:40 Weight last 48 hrs Weight 57.425 kg Data NPU 02/03/22 18:40 02/03/22 18:40 A&P Assessment and plan (1) Psychosis: (2) Methamphetamine abuse: Plan This is a 22 year old white female who presents in on a 96 hour hold secondary to aggression and psychosis with positive UDS for cannabis and amphetamines with history of long hospitalizations required to resolve the psychotic symptoms. 1. Increase Zyprexa back to 25mg at night., Contnue Wellbutrin xl 150mg in am 2. Encourage individual, group and milieu therapy 3. Continue q-15 minute check for safety 4. Encourage sober living treatment after discharge at the highest level of care to which she is willing to commit. 5. Patient now on a 90-day hold and secondary to father's inconsistency we will pursue guardianship. 6. Interrogatory completed. And paperwork submitted for guardianship. Involuntary Hold Information 96 Hour Hold: 96 Hour Involuntary Admission: Yes 96 Hour Hold Ending Date: 02/10/22 96 Hour Hold Ending Time: 19:17 Attestations NPU Medical Necessity Statement*: Inpatient hospitalization is medically necessary and the clinically appropriate intervention at this time. We will monitor medications and make changes as indicated. Likely length of stay is 10-14 days. Will be impacted by guardianship process. Coding Level of Care Code Acute Metal Mine Inspector for Loulou Campos Diagnoses Psychosis F29 Methamphetamine abuse F15.10
[2022-03-28 14:00] VITALS: RESP 18
[2022-03-28] MEDS: nicotine 2 mg Gum BUCCAL ×2 (14:10→16:31)
[2022-03-28 19:34] VITALS: BP 104/70; PULSE 84; RESP 16; TEMP 36.6; O2SAT 100
[2022-03-28] MEDS: OLANZapine 10 mg TABLET 25 MG PO (20:08)
[2022-03-28] MEDS: sennosides-docusate Tablet 2 TAB PO (20:08)
[2022-03-28] MEDS: hyDROXYzine 25 mg Capsule 50 MG PO (22:38)
[2022-03-29 06:00] VITALS: BP 101/57; PULSE 81; RESP 14; TEMP 36.6; O2SAT 97
[2022-03-29] MEDS: buPROPion XL (24 HR) 150 mg Tablet PO (10:31)
[2022-03-29] MEDS: nicotine 4 mg lozenge MUCOUS MEM ×3 (13:32→22:54)
[2022-03-29 14:00] VITALS: RESP 17
--- NOTE | 2022-03-29 15:31 | P.NPUPN_ITS ---
Subjective NPU Subjective: Patient presented today reporting that she feels like she does better on the higher dose of Zyprexa. We discussed the risks, benefits and alternatives of increasing Zyprexa to 30 mg p.o. nightly and she understood and agreed to proceed as is documented in this note. We also discussed increasing her Wellbutrin XL to 300 mg p.o. every morning in the morning. She continued to be focused on the possibility discharge sooner rather than later and we discussed where we are in the guardianship process. Mental Status Exam MSE Comments: This is a slender, short white female in hospital scrubs with a dequate grooming and fair eye contact. No abnormal movements except for mild psychomotor retardation. Cooperative with exam in no acute distress. Speech was spontaneous and with normal rate and diminished volume remained monotone with limited prosody. Mood described as okay Her affect was subdued and flat. Her thought process appeared linear but superficial. Thought content: patient denies suicidal or homicidal ideation. There were no delusions reported or noted. She did not appear to be responding to internal stimuli. She denied auditory or visual hallucinations. She continues to be highly focused on when she can discharge with inability to appreciate the circumstances related to guardianship and discharge. Attention and concentration were improving and memory was more reliable but none were formally tested. She is alert and oriented to person and place, time and situation. Her insight was poor. Her judgment and impulse control appeared limited. Continued evidence of APATHY and AMOTIVATION Vitals/I&O/Wt Last Vital Signs Temp 99.1 F 03/29/22 22:00 Pulse 112 H 03/29/22 22:00 Resp 20 H 03/29/22 22:00 BP 117/81 03/29/22 22:00 Pulse Ox 98 03/29/22 22:00 O2 Del Method 03/29/22 22:00 Data NPU 02/03/22 18:40 02/03/22 18:40 A&P Assessment and plan (1) Psychosis: (2) Methamphetamine abuse: Plan This is a 22 year old white female who presents in on a 96 hour hold secondary to aggression and psychosis with positive UDS for cannabis and amphetamines with history of long hospitalizations required to resolve the psychotic symptoms. 1. Continue current medication. Except increase Zyprexa to 30mg at night, and increase Wellbutrin xl to 300mg in am 2. Encourage individual, group and milieu therapy 3. Continue q-15 minute check for safety 4. Encourage sober living treatment after discharge at the highest level of care to which she is willing to commit. 5. Patient now on a 90-day hold and secondary to father's inconsistency we will pursue guardianship. 6. Interrogatory completed. And paperwork submitted for guardianship. Involuntary Hold Information 96 Hour Hold: 96 Hour Involuntary Admission: Yes 96 Hour Hold Ending Date: 02/10/22 96 Hour Hold Ending Time: 19:17 Attestations NPU Medical Necessity Statement*: Inpatient hospitalization is medically necessary and the clinically appropriate intervention at this time. We will monitor medications and make changes as indicated. Likely length of stay is 10-14 days. Will be impacted by guardianship process. Coding Level of Care Code Acute Cut To Length Operator for Loulou Campos Diagnoses Psychosis F29 Methamphetamine abuse F15.10
[2022-03-29] MEDS: acetaminophen 325 mg Tablet 650 MG PO (18:30)
[2022-03-29] MEDS: benzocaine 20% 7 gm 1 APPLIC MUCOUS MEM (18:31)
[2022-03-29] MEDS: OLANZapine 10 mg TABLET 30 MG PO (19:24)
[2022-03-29] MEDS: sennosides-docusate Tablet 2 TAB PO (19:25)
[2022-03-29] MEDS: hyDROXYzine 25 mg Capsule 50 MG PO (20:37)
[2022-03-29 22:00] VITALS: BP 117/81; PULSE 112; RESP 20; TEMP 37.3; O2SAT 98
[2022-03-29] MEDS: trazodone 50 mg Tablet PO (22:30)
[2022-03-30 06:00] VITALS: RESP 18
[2022-03-30] MEDS: buPROPion XL (24 HR) 300 mg Tablet PO (08:08)
[2022-03-30] MEDS: acetaminophen 325 mg Tablet 650 MG PO ×2 (13:44→17:47)
[2022-03-30 14:00] VITALS: BP 114/73; PULSE 88; RESP 16; TEMP 36.6; O2SAT 98
--- NOTE | 2022-03-30 17:10 | P.NPUPN_ITS ---
Subjective NPU Subjective: Patient presented today reporting that she felt it was possible that Wellbutrin was making her feel more depressed. She is agreeable however to give it a couple more days to make sure that she was not being premature and her choice. We continued to talk about guardianship and the fact that a day for the hearing had not been given. We did identify however that her mother had submitted her paperwork. Mental Status Exam MSE Comments: This is a slender, short white female in hospital scrubs with adequate grooming and fair eye contact. No abnormal movements except for mild psychomotor retardation. Cooperative with exam in no acute distress. Speech was spontaneous and with normal rate and diminished volume remained monotone with limited prosody. Mood described as okay, I am just ready to get out of here. Her affect was subdued and flat. Her thought process appeared linear but superficial. Thought content: patient denies suicidal or homicidal ideation. There were no delusions reported or noted. She did not appear to be responding to internal stimuli. She denied auditory or visual hallucinations. She continues to be highly focused on when she can discharge with inability to appreciate the circumstances related to guardianship and discharge. Attention and concentration were improving and memory was more reliable but none were formally tested. She is alert and oriented to person and place, time and situation. Her insight was poor. Her judgment and impulse control appeared limited. Continued evidence of APATHY and AMOTIVATION Vitals/I&O/Wt Last Vital Signs Temp 98.9 F 03/30/22 19:51 Pulse 91 03/30/22 19:51 Resp 17 03/30/22 19:51 BP 129/84 03/30/22 19:51 Pulse Ox 97 03/30/22 19:51 O2 Del Method 03/30/22 19:51 Data NPU 02/03/22 18:40 02/03/22 18:40 A&P Assessment and plan (1) Psychosis: (2) Methamphetamine abuse: Plan This is a 22 year old white female who presents in on a 96 hour hold secondary to aggression and psychosis with positive UDS for cannabis and amphetamines with history of long hospitalizations required to resolve the psychotic symptoms. 1. Continue current medication. Except increased Zyprexa to 30mg at night, and Wellbutrin xl to 300mg in am 2. Encourage individual, group and milieu therapy 3. Continue q-15 minute check for safety 4. Encourage sober living treatment after discharge at the highest level of care to which she is willing to commit. 5. Patient now on a 90-day hold and secondary to father's in consistency we will pursue guardianship. 6. Interrogatory completed. And paperwork submitted for guardianship. Involuntary Hold Information 96 Hour Hold: 96 Hour Involuntary Admission: Yes 96 Hour Hold Ending Date: 02/10/22 96 Hour Hold Ending Time: 19:17 Attestations NPU Medical Necessity Statement*: Inpatient hospitalization is medically necessary and the clinically appropriate intervention at this time. We will monitor medications and make changes as indicated. Likely length of stay is 10-14 days. Will be impacted by guardianship process. Coding Level of Care Code Acute Senior Branch Manager for Loulou Fwd Diagnoses Psychosis F29 Methamphetamine abuse F15.10
[2022-03-30 19:51] VITALS: BP 129/84; PULSE 91; RESP 17; TEMP 37.2; O2SAT 97
[2022-03-30] MEDS: sennosides-docusate Tablet 2 TAB PO (21:06)
[2022-03-30] MEDS: OLANZapine 10 mg TABLET 30 MG PO (21:06)
[2022-03-30] MEDS: nicotine 4 mg lozenge MUCOUS MEM (21:07)
[2022-03-31] MEDS: buPROPion XL (24 HR) 300 mg Tablet PO (08:41)
[2022-03-31 14:00] VITALS: BP 100/74; PULSE 72; RESP 16; TEMP 36.9; O2SAT 98
[2022-03-31] MEDS: magnesium hydroxide 30 mL UDC PO (15:31)
[2022-03-31] MEDS: saline nasal spray 44mL Btl 1 SPRAY NASAL (15:32)
[2022-03-31] MEDS: ondansetron 4 MG Tablet PO (17:53)
[2022-03-31] MEDS: nicotine 4 mg lozenge MUCOUS MEM ×2 (18:22→20:54)
--- NOTE | 2022-03-31 19:39 | P.NPUPN_ITS ---
Subjective NPU Subjective: Patient presented today continuing to suggest that she possibly feels worse since the addition of the Wellbutrin. We agreed to give it 1 more day and then consider discontinuation. Otherwise she continues to be focused on her guardianship situation. We identify that her mother had submitted her documentation and that we continue to wait for court date. We discussed the fact that once the court date occurs that things should move quite swiftly. Overall she seemed more pleasant and less pressured from a discharge standpoint. She denied any problems with her medication otherwise. Mental Status Exam MSE Comments: This is a slender, short white female in hospital scrubs with adequate grooming and fair eye contact. No abnormal movements except for mild psychomotor retardation. Cooperative with exam in no acute distress. Speech was spontaneous and with normal rate and diminished volume and remained monotone with limited prosody. Mood described as I am okay and her affect was less subdued and flat. Her thought process appeared linear but superficial. Thought content: patient denies suicidal or homicidal ideation. There were no delusions reported or noted. She did not appear to be responding to internal stimuli. She denied auditory or visual hallucinations. She continues to be highly focused on when she can discharge with inability to appreciate the circumstances related to guardianship and discharge but seemed less annoyed by that. Attention and concentration were improving and memory was more reliable but none were formally tested. She is alert and oriented to person and place, time and situation. Her insight was poor. Her judgment and impulse control drew eared limited. Continued evidence of APATHY and AMOTIVATION Vitals/I&O/Wt Last Vital Signs Temp 98.5 F 03/31/22 14:00 Pulse 72 03/31/22 14:00 Resp 16 03/31/22 14:00 BP 100/74 03/31/22 14:00 Pulse Ox 98 03/31/22 14:00 O2 Del Method 03/31/22 14:00 Data NPU 02/03/22 18:40 02/03/22 18:40 A&P Assessment and plan (1) Psychosis: (2) Methamphetamine abuse: Plan This is a 22 year old white female who presents in on a 96 hour hold secondary to aggression and psychosis with positive UDS for cannabis and amphetamines with history of long hospitalizations required to resolve the psychotic symptoms. 1. Continue current medication. Except increased Zyprexa to 30mg at night, and we will decrease Wellbutrin XL to 150 mg every morning and consider discontinuation if she continues to report feeling worse. 2. Encourage individual, group and milieu therapy 3. Continue q-15 minute check for safety 4. Encourage sober living treatment after discharge at the highest level of care to which she is willing to commit. 5. Patient now on a 90-day hold and secondary to father's inconsistency we will pursue guardianship. 6. Interrogatory completed. And paperwork submitted for guardianship. Involuntary Hold Information 96 Hour Hold: 96 Hour Involuntary Admission: Yes 96 Hour Hold Ending Date: 02/10/22 96 Hour Hold Ending Time: 19:17 Attestations NPU Medical Necessity Statement*: Inpatient hospitalization is medically necessary and the clinically appropriate intervention at this time. We will monitor medications and make changes as indicated. Likely length of stay is 10-14 days. Will be impacted by guardianship process. Coding Level of Care Code Acute Planning Management It Specialist for Loulou Campos Diagnoses Psychosis F29 Methamphetamine abuse F15.10
[2022-03-31 20:12] VITALS: BP 123/84; PULSE 87; RESP 16; TEMP 36.8; O2SAT 99
[2022-03-31] MEDS: OLANZapine 10 mg TABLET 30 MG PO (20:52)
[2022-03-31] MEDS: sennosides-docusate Tablet 2 TAB PO (20:52)
[2022-04-01] MEDS: hyDROXYzine 25 mg Capsule 50 MG PO (00:02)
[2022-04-01] MEDS: nicotine 2 mg Gum BUCCAL ×3 (00:02→23:22)
[2022-04-01 06:00] VITALS: RESP 18
[2022-04-01] MEDS: buPROPion XL (24 HR) 300 mg Tablet PO (09:32)
--- NOTE | 2022-04-01 13:35 | P.NPUPN_ITS ---
Subjective NPU Subjective: Today reporting that she is doing okay with the decreased Wellbutrin and her other medications. She was ecstatic at the idea that her guardianship hearing is likely going to be on of next week. We discussed the possibilities for what discharge might look like after the guardianship hearing which she also was happy about. Otherwise she had no concerns. Mental Status Exam MSE Comments: This is a slender, short white female in hospital scrubs with adequate grooming and fair eye contact. No abnormal movements except for mild psychomotor retardation. Cooperative with exam in no acute distress. Speech was spontaneous and with normal rate and diminished volume and remained monotone with limited prosody. Mood described as happy I have a likely court date and her affect was congruent. Her thought process appeared linear but superficial. Thought content: patient denies suicidal or homicidal ideation. There were no delusions reported or noted. She did not appear to be responding to internal stimuli. She denied auditory or visual hallucinations. She continues to be highly focused on when she can discharge with inability to appreciate the circumstances related to guardianship and discharge but seemed less annoyed by that. Attention and concentration were improving and memory was more reliable but none were formally tested. She is alert and oriented to person and place, time and situation. Her insight was poor. Her judgment and impulse control appeared limited. Continued evidence of APATHY and AMOTIVATION Vitals/I&O/Wt Last Vital Signs Temp 98.2 F 03/31/22 20:12 Pulse 87 03/31/22 20:12 Resp 16 03/31/22 20:12 BP 123/84 03/31/22 20:12 Pulse Ox 99 03/31/22 20:12 O2 Del Method 03/31/22 14:00 Data NPU 02/03/22 18:40 02/03/22 18:40 A&P Assessment and plan (1) Psychosis: (2) Methamphetamine abuse: Plan This is a 22 year old white female who presents in on a 96 hour hold secondary to aggression and psychosis with positive UDS for cannabis and amphetamines with history of long hospitalizations required to resolve the psychotic symptoms. 1. Continue current medication. Except increased Zyprexa to 30mg at night, and we decreased Wellbutrin XL to 150 mg every morning and consider discontinuation if she continues to report feeling worse. 2. Encourage individual, group and milieu therapy 3. Continue q-15 minute check for safety 4. Encourage sober living treatment after discharge at the highest level of care to which she is willing to commit. 5. Patient now on a 90-day hold and secondary to father's inconsistency we will pursue guardianship. 6. Interrogatory completed. And paperwork submitted for guardianship. Involuntary Hold Information 96 Hour Hold: 96 Hour Involuntary Admission: Yes 96 Hour Hold Ending Date: 02/10/22 96 Hour Hold Ending Time: 19:17 Attestations NPU Medical Necessity Statement*: Inpatient hospitalization is medically necessary and the clinically appropriate intervention at this time. We will monitor medications and make changes as indicated. Likely length of stay is 6 to 8 days. Will be impacted by guardianship process. Coding Level of Care Code Acute Dredge Operator Supervisor for [facility] Fwd Diagnoses Psychosis F29 Methamphetamine abuse F15.10
[2022-04-01 14:00] VITALS: BP 120/83; PULSE 68; RESP 16; TEMP 36.6; O2SAT 99
[2022-04-01] MEDS: nicotine 4 mg lozenge MUCOUS MEM (17:59)
[2022-04-01] MEDS: acetaminophen 325 mg Tablet 650 MG PO (18:52)
[2022-04-01 20:01] VITALS: BP 117/84; PULSE 112; RESP 17; TEMP 36.9; O2SAT 97
[2022-04-01] MEDS: sennosides-docusate Tablet 2 TAB PO (20:02)
[2022-04-01] MEDS: OLANZapine 10 mg TABLET 30 MG PO (20:02)
[2022-04-01] MEDS: trazodone 50 mg Tablet PO (23:30)
[2022-04-02] MEDS: acetaminophen 325 mg Tablet 650 MG PO ×3 (01:13→12:36)
[2022-04-02] MEDS: buPROPion XL (24 HR) 150 mg Tablet PO (08:29)
[2022-04-02] MEDS: saline nasal spray 44mL Btl 1 SPRAY NASAL ×2 (08:30→17:59)
[2022-04-02] MEDS: nicotine 2 mg Gum BUCCAL (10:27)
[2022-04-02] MEDS: benzocaine 20% 7 gm 1 APPLIC MUCOUS MEM ×2 (12:37→13:14)
--- NOTE | 2022-04-02 12:50 | W.PM.NPUPNS ---
Subjective NPU Subjective: Patient presented today reporting that she still does not feel great on the Wellbutrin. We agreed to discontinue the medication and give her a few days before considering something for her depression. We talked about how her mother might be able to participate in the hearing on hopefully in person but whether a virtual feed could be arranged. Otherwise she is optimistic about this likely being over soon. Mental Status Exam MSE Comments: This is a slender, short white female in hospital scrubs with adequate grooming and fair eye contact. No abnormal movements except for mild psychomotor retardation. Cooperative with exam in no acute distress. Speech was spontaneous and with normal rate and diminished volume and remained monotone with limited prosody. Mood described as a little depressed on the medication but glad I have a likely court date and her affect was congruent. Her thought process appeared linear but superficial. Thought content: patient denies suicidal or homicidal ideation. There were no delusions reported or noted. She did not appear to be responding to internal stimuli. She denied auditory or visual hallucinations. She continues to be highly focused on when she can discharge with inability to appreciate the circumstances related to guardianship and discharge but seemed less annoyed by that. Attention and concentration were improving and memory was more reliable but none were formally tested. She is alert and oriented to person and place, time and situation. Her insight was poor. Her judgment and impulse control appeared limited. Continued evidence of APATHY and AMOTIVATION Vitals/I&O/Wt Last Vital Signs Temp 98.5 F 04/01/22 20:01 Pulse 112 H 04/01/22 20:01 Resp 17 04/01/22 20:01 BP 117/84 04/01/22 20:01 Pulse Ox 97 04/01/22 20:01 O2 Del Method 04/01/22 14:00 Data NPU 02/03/22 18:40 02/03/22 18:40 A&P Assessment and plan (1) Psychosis: (2) Methamphetamine abuse: Plan This is a 22 year old white female who presents in on a 96 hour hold secondary to aggression and psychosis with positive UDS for cannabis and amphetamines with history of long hospitalizations required to resolve the psychotic symptoms. 1. Continue current medication. Except increased Zyprexa to 30mg at night, and discontinued Wellbutrin XL. 2. Encourage individual, group and milieu therapy 3. Continue q-15 minute check for safety 4. Encourage sober living treatment after discharge at the highest level of care to which she is willing to commit. 5. Patient now on a 90-day hold and secondary to father's inconsistency we will pursue guardianship. 6. Interrogatory completed. And paperwork submitted for guardianship. Involuntary Hold Information 96 Hour Hold: 96 Hour Involuntary Admission: Yes 96 Hour Hold Ending Date: 02/10/22 96 Hour Hold Ending Time: 19:17 Attestations NPU Medical Necessity Statement*: Inpatient hospitalization is medically necessary and the clinically appropriate intervention at this time. We will monitor medications and make changes as indicated. Likely length of stay is 5-7 days. Will be impacted by guardianship process. Coding Level of Care Code Acute Manager Massage Department for Loulou Cunninghamd Diagnoses Psychosis F29 Methamphetamine abuse F15.10
[2022-04-02 13:59] VITALS: BP 112/78; PULSE 70; RESP 16; TEMP 36.6; O2SAT 99
[2022-04-02] MEDS: nicotine 4 mg lozenge MUCOUS MEM ×2 (14:39→21:31)
[2022-04-02] MEDS: sennosides-docusate Tablet 2 TAB PO (20:34)
[2022-04-02] MEDS: OLANZapine 10 mg TABLET 30 MG PO (20:34)
[2022-04-02 20:35] VITALS: BP 132/92; PULSE 85; RESP 17; O2SAT 100
--- NOTE | 2022-04-03 09:31 | P.NPUPN_ITS ---
Subjective NPU Subjective: Patient presents today reporting that she still feels a little down. She denies any problems with the discontinuation. We discussed waiting a couple days before starting something new. We continued to review the hearing on and her desire that her mother be present in some form. We discussed connecting with the court to make sure a virtual option was available if her mother could not come to [place]. Mental Status Exam MSE Comments: This is a slender, short white female in hospital scrubs with adequate grooming and fair eye contact. No abnormal movements except for mild psychomotor retardation. Cooperative with exam in no acute distress. Speech was spontaneous and with normal rate and diminished volume and remained monotone with limited prosody. Mood described as a little depressed on the medication but glad I have a likely court date and her affect was congruent. Her thought process appeared linear but superficial. Thought content: patient denies suicidal or homicidal ideation. There were no delusions reported or noted. She did not appear to be responding to internal stimuli. She denied auditory or visual hallucinations. She continues to be highly focused on when she can discharge with inability to appreciate the circumstances related to guardianship and discharge but seemed less annoyed by that. Attention and concentration were improving and memory was more reliable but none were formally tested. She is alert and oriented to person and place, time and situation. Her insight was poor. Her judgment and impulse control appeared limited. Continued evidence of APATHY and AMOTIVATION Vitals/I&O/Wt Last Vital Signs Temp 98 F 04/02/22 13:59 Pulse 85 04/02/22 20:35 Resp 17 04/02/22 20:35 BP 132/92 04/02/22 20:35 Pulse Ox 100 04/02/22 20:35 O2 Del Method 04/02/22 13:59 Weight last 48 hrs Weight 58.423 kg Data NPU 02/03/22 18:40 02/03/22 18:40 A&P Assessment and plan (1) Psychosis: (2) Methamphetamine abuse: Plan This is a 22 year old white female who presents in on a 96 hour hold secondary to aggression and psychosis with positive UDS for cannabis and amphetamines with history of long hospitalizations required to resolve the psychotic symptoms. 1. Continue current medication. Except increased Zyprexa to 30mg at night, and discontinued Wellbutrin XL. We will consider alternative antidepressant 2. Encourage individual, group and milieu therapy 3. Continue q-15 minute check for safety 4. Encourage sober living treatment after discharge at the highest level of care to which she is willing to commit. 5. Patient now on a 90-day hold and secondary to father's inconsistency we will pursue guardianship. 6. Court date for guardianship , 04/07/2022. Involuntary Hold Information 96 Hour Hold: 96 Hour Involuntary Admission: Yes 96 Hour Hold Ending Date: 02/10/22 96 Hour Hold Ending Time: 19:17 Attestations NPU Medical Necessity Statement*: Inpatient hospitalization is medically necessary and the clinically appropriate intervention at this time. We will monitor medications and make changes as indicated. Likely length of stay is 4-6 days. Will be impacted by guardianship process. Coding Level of Care Code Acute Fine Grade Bulldozer Operator for Loulou Campos Diagnoses Psychosis F29 Methamphetamine abuse F15.10
[2022-04-03 14:00] VITALS: BP 104/68; PULSE 106; RESP 18; TEMP 36.9; O2SAT 97
[2022-04-03] MEDS: nicotine 4 mg lozenge MUCOUS MEM ×3 (17:01→20:28)
[2022-04-03] MEDS: OLANZapine 10 mg TABLET 30 MG PO (19:25)
[2022-04-03] MEDS: sennosides-docusate Tablet 2 TAB PO (19:26)
[2022-04-03 19:27] VITALS: BP 114/75; PULSE 111; RESP 16; TEMP 36.7; O2SAT 98
[2022-04-04 06:00] VITALS: RESP 16
[2022-04-04 14:00] VITALS: BP 112/80; PULSE 130; RESP 17; TEMP 37.7; O2SAT 96
[2022-04-04] MEDS: nicotine 4 mg lozenge MUCOUS MEM ×4 (14:37→22:11)
--- NOTE | 2022-04-04 18:59 | P.NPUPN_ITS ---
Subjective NPU Subjective: Patient presented today reporting that she is still feeling a little depressed. We continued to discuss the possibility of adding an antidepressant but agreed we would wait a day or so to allow the Wellbutrin to begin to clear. She continues to be focused on whether her mother will be present or not and the possibility of virtual attendance at the guardianship. Though she wants to be present in person. She denied any other issues. Mental Status Exam MSE Comments: This is a slender, short white female in hospital scrubs with adequate grooming and fair eye contact. No abnormal movements except for mild psychomotor retardation. Cooperative with exam in no acute distress. Speech was spontaneous and with normal rate and diminished volume and remained monotone with limited prosody. Mood described as a little depressed and her affect was congruent. Her thought process appeared linear but superficial. Thought content: patient denies suicidal or homicidal ideation. There were no delusions reported or noted. She did not appear to be responding to internal stimuli. She denied auditory or visual hallucinations. Attention and concentration were improving and memory was more reliable but none were formally tested. She is alert and oriented to person and place, time and situation. Her insight was poor. Her judgment and impulse control appeared limited. Continued evidence of APATHY and AMOTIVATION Vitals/I&O/Wt Last Vital Signs Temp 97.9 F 04/04/22 20:44 Pulse 86 04/04/22 20:44 Resp 16 04/04/22 20:44 BP 110/78 04/04/22 20:44 Pulse Ox 97 04/04/22 20:44 O2 Del Method 04/02/22 13:59 Data NPU 02/03/22 18:40 02/03/22 18:40 A&P Assessment and plan (1) Psychosis: (2) Methamphetamine abuse: Plan This is a 22 year old white female who presents in on a 96 hour hold secondary to aggression and psychosis with positive UDS for cannabis and amphetamines with history of long hospitalizations required to resolve the psychotic symptoms. 1. Continue current medication. Except increased Zyprexa to 30mg at night, and discontinued Wellbutrin XL. We will consider alternative antidepressant 2. Encourage individual, group and milieu therapy 3. Continue q-15 minute check for safety 4. Encourage sober living treatment after discharge at the highest level of care to which she is willing to commit. 5. Patient now on a 90-day hold and secondary to father's incons istency we will pursue guardianship. 6. Court date for guardianship , 04/07/2022. Involuntary Hold Information 96 Hour Hold: 96 Hour Involuntary Admission: Yes 96 Hour Hold Ending Date: 02/10/22 96 Hour Hold Ending Time: 19:17 Attestations NPU Medical Necessity Statement*: Inpatient hospitalization is medically necessary and the clinically appropriate intervention at this time. We will monitor medications and make changes as indicated. Likely length of stay is 3-5 days. Coding Level of Care Code Acute Geology Faculty Member for [facility] Fwd Diagnoses Psychosis F29 Methamphetamine abuse F15.10
[2022-04-04] MEDS: sennosides-docusate Tablet 2 TAB PO (19:47)
[2022-04-04] MEDS: OLANZapine 10 mg TABLET 30 MG PO (19:47)
[2022-04-04 20:44] VITALS: BP 110/78; PULSE 86; RESP 16; TEMP 36.6; O2SAT 97
[2022-04-04] MEDS: hyDROXYzine 25 mg Capsule 50 MG PO (22:20)
[2022-04-04] MEDS: trazodone 50 mg Tablet PO (22:51)
[2022-04-05 05:58] VITALS: RESP 18
[2022-04-05] MEDS: neomycin-poly-bacitracin oint 28 gm 1 APPLIC TOPICAL (13:15)
[2022-04-05] MEDS: nicotine 2 mg Gum BUCCAL (13:24)
[2022-04-05] MEDS: magnesium hydroxide 30 mL UDC PO (13:56)
[2022-04-05 14:00] VITALS: BP 109/72; PULSE 103; RESP 16; TEMP 36.6; O2SAT 97
--- NOTE | 2022-04-05 14:56 | P.NPUPN_ITS ---
Subjective NPU Subjective: Patient presented today reporting that things are going okay. She reports still feeling some depression and we discussed the risks, benefits and alternatives of initiating Prozac or some other SSRI and she understood and agreed to consider that addition. She reports feeling excited about her guardianship hearing on and the likelihood of discharge on or Monday. She thinks the idea of going to [place] is a great chance for her to have a fresh start. She denies any side effects to her other medications and is eating and sleeping well. Mental Status Exam MSE Comments: This is a slender, short white female in hospital scrubs with adequate grooming and fair eye contact. No abnormal movements except for mild psychomotor retardation. Cooperative with exam in no acute distress. Speech was spontaneous and with normal rate and diminished volume and remained monotone with limited prosody. Mood described as a little depressed and her affect was congruent. Her thought process appeared linear but superficial. Thought content: patient denies suicidal or homicidal ideation. There were no delusions reported or noted. She did not appear to be responding to internal stimuli. She denied auditory or visual hallucinations. Attention and concentration were improving and memory was more reliable but none were formally tested. She is alert and oriented to person and place, time and situation. Her insight was poor. Her judgment and impulse control appeared limited. Continued evidence of APATHY and AMOTIVATION Vitals/I&O/Wt Last Vital Signs Temp 98 F 04/05/22 14:00 Pulse 103 H 04/05/22 14:00 Resp 16 04/05/22 14:00 BP 109/72 04/05/22 14:00 Pulse Ox 97 04/05/22 14:00 O2 Del Method 04/05/22 14:00 Data NPU 02/03/22 18:40 02/03/22 18:40 A&P Assessment and plan (1) Psychosis: (2) Methamphetamine abuse: Plan This is a 22 year old white female who presents in on a 96 hour hold secondary to aggression and psychosis with positive UDS for cannabis and amphetamines with history of long hospitalizations required to resolve the psychotic symptoms. 1. Continue current medication. Except increased Zyprexa to 30mg at night, and discontinued Wellbutrin XL. We will consider alternative antidepressant 2. Encourage individual, group and milieu therapy 3. Continue q-15 minute check for safety 4. Encourage sober living treatment after discharge at the highest level of care to which she is willing to commit. 5. Patient now on a 90-day hold and secondary to father's inconsistency we will pursue guardianship. 6. Court date for guardianship , 04/07/2022. Involuntary Hold Information 96 Hour Hold: 96 Hour Involuntary Admission: Yes 96 Hour Hold Ending Date: 02/10/22 96 Hour Hold Ending Time: 19:17 Attestations NPU Medical Necessity Statement*: Inpatient hospitalization is medically necessary and the clinically appropriate intervention at this time. We will monitor medications and make changes as indicated. Likely length of stay is 2-3 days. Coding Level of Care Code Acute Microcomputer Support Specialist for [facility] Campos Diagnoses Psychosis F29 Methamphetamine abuse F15.10
[2022-04-05] MEDS: nicotine 4 mg lozenge MUCOUS MEM ×4 (17:30→23:49)
[2022-04-05 20:19] VITALS: BP 118/77; PULSE 105; RESP 17; TEMP 36.8; O2SAT 98
[2022-04-05] MEDS: OLANZapine 10 mg TABLET 30 MG PO (20:43)
[2022-04-05] MEDS: sennosides-docusate Tablet 2 TAB PO (20:43)
[2022-04-05] MEDS: hyDROXYzine 25 mg Capsule 50 MG PO (21:05)
[2022-04-05] MEDS: trazodone 50 mg Tablet PO ×2 (22:29→23:49)
[2022-04-06 06:00] VITALS: RESP 16
[2022-04-06] MEDS: nicotine 4 mg lozenge MUCOUS MEM ×4 (11:44→23:42)
[2022-04-06 14:00] VITALS: BP 112/78; PULSE 103; RESP 16; TEMP 36.6; O2SAT 98
--- NOTE | 2022-04-06 18:22 | P.NPUPN_ITS ---
Subjective NPU Subjective: Patient presented today reporting that she is getting more excited about the prospect of going to [place] with her mother. She is reporting anxiety that things are going to get messed up somehow. Her hearing is tomorrow and we agreed that we would be preparing for her mother to come pick her up on Monday if all goes as we believe it will. She reports having a little depression still but not being necessarily ready to start something else continue to talk about different antidepressants for her to consider. Mental Status Exam MSE Comments: This is a slender, short white female in hospital scrubs with adequate grooming and fair eye contact. No abnormal movements except for mild psychomotor retardation. Cooperative with exam in no acute distress. Speech was spontaneous and with normal rate and diminished volume and remained monotone with limited prosody. Mood described as a little depressed and her affect was congruent. Her thought process appeared linear but superficial. Thought content: patient denies suicidal or homicidal ideation. There were no delusions reported or noted. She did not appear to be responding to internal stimuli. She denied auditory or visual hallucinations. Attention and concentration were improving and memory was more reliable but none were formally tested. She is alert and oriented to person and place, time and situation. Her insight was poor. Her judgment and impulse control appeared limited. Continued evidence of APATHY and AMOTIVATION Vitals/I&O/Wt Last Vital Signs Temp 97.6 F 04/06/22 22:00 Pulse 97 04/06/22 22:00 Resp 16 04/06/22 22:00 BP 108/77 04/06/22 22:00 Pulse Ox 93 04/06/22 22:00 O2 Del Method 04/06/22 22:00 Data NPU 02/03/22 18:40 02/03/22 18:40 A&P Assessment and plan (1) Psychosis: (2) Methamphetamine abuse: Plan This is a 22 year old white female who presents in on a 96 hour hold secondary to aggression and psychosis with positive UDS for cannabis and amphetamines with history of long hospitalizations required to resolve the psychotic symptoms. 1. Continue current medication. Except increased Zyprexa to 30mg at night, and discontinued Wellbutrin XL. We will consider alternative antidepressant 2. Encourage individual, group and milieu therapy 3. Continue q-15 minute check for safety 4. Encourage sober living treatment after discharge at the highest level of care to which she is willing to commit. 5. Patient now on a 90-day hold and secondary to father's inconsistency we will pursue guardianship. 6. Court date for guardianship tomorrow, 04/07/2022. Involuntary Hold Information 96 Hour Hold: 96 Hour Involuntary Admission: Yes 96 Hour Hold Ending Date: 02/10/22 96 Hour Hold Ending Time: 19:17 Attestations NPU Medical Necessity Statement*: Inpatient hospitalization is medically necessary and the clinically appropriate intervention at this time. We will monitor medications and make changes as indicated. Likely length of stay is 1-2 days. Coding Level of Care Code Acute Powertrain Design Engineer for [facility] F[facility] Diagnoses Psychosis F29 Methamphetamine abuse F15.10
[2022-04-06] MEDS: sennosides-docusate Tablet 2 TAB PO (20:15)
[2022-04-06] MEDS: OLANZapine 10 mg TABLET 30 MG PO (20:16)
[2022-04-06] MEDS: trazodone 50 mg Tablet PO (21:45)
[2022-04-06 22:00] VITALS: BP 108/77; PULSE 97; RESP 16; TEMP 36.4; O2SAT 93
[2022-04-07 06:00] VITALS: RESP 16
--- NOTE | 2022-04-07 08:25 | W.PM.NPUPNS ---
Subjective NPU Subjective: Patient presents today excited about guardianship hearing later today and with a tentative plan to be discharged with her mother tomorrow. She continues to report that she feels optimistic about going to [place] and having a fresh start. We discussed the importance of her taking her medication. We discussed the possibility of the Zyprexa Relprevv but not knowing what her insurance situation will be we agreed that the shots should be worked out by her new providers. Mental Status Exam MSE Comments: This is a slender, short white female in hospital scrubs with adequate grooming and fair eye contact. No abnormal movements except for mild psychomotor retardation. Cooperative with exam in no acute distress. Speech was spontaneous and with normal rate and diminished volume and remained monotone with limited prosody. Mood described as happy to be leaving hopefully, and her affect was congruent. Her thought process appeared linear but superficial. Thought content: patient denies suicidal or homicidal ideation. There were no delusions reported or noted. She did not appear to be responding to internal stimuli. She denied auditory or visual hallucinations. Attention and concentration were improving and memory was more reliable but none were formally tested. She is alert and oriented to person and place, time and situation. Her insight was poor. Her judgment and impulse control appeared limited. Continued evidence of APATHY and AMOTIVATION Vitals/I&O/Wt Last Vital Signs Temp 97.6 F 04/06/22 22:00 Pulse 97 04/06/22 22:00 Resp 16 04/07/22 06:00 BP 108/77 04/06/22 22:00 Pulse Ox 93 04/06/22 22:00 O2 Del Method 04/06/22 22:00 Data NPU 02/03/22 18:40 02/03/22 18:40 A&P Assessment and plan (1) Psychosis: (2) Methamphetamine abuse: Plan This is a 22 year old white female who presents in on a 96 hour hold secondary to aggression and psychosis with positive UDS for cannabis and amphetamines with history of long hospitalizations required to resolve the psychotic symptoms. 1. Continue current medication. Except increased Zyprexa to 30mg at night, and discontinued Wellbutrin XL. We will consider alternative antidepressant 2. Encourage individual, group and milieu therapy 3. Continue q-15 minute check for safety 4. Encourage sober living treatment after discharge at the highest level of care to which she is willing to commit. 5. Patient now on a 90-day hold and secondary to father's inconsistency we will pursue guardianship. 6. Court date for guardianship later today Involuntary Hold Information 96 Hour Hold: 96 Hour Involuntary Admission: Yes 96 Hour Hold Ending Date: 02/10/22 96 Hour Hold Ending Time: 19:17 Attestations NPU Medical Necessity Statement*: Inpatient hospitalization is medically necessary and the clinically appropriate intervention at this time. We will monitor medications and make changes as indicated. Likely length of stay is 1-2 days. Coding Level of Care Code Acute Code for g Fwd Diagnoses Psychosis F29 Methamphetamine abuse F15.10
[2022-04-07] MEDS: nicotine 4 mg lozenge MUCOUS MEM ×6 (10:59→23:10)
[2022-04-07 14:00] VITALS: BP 113/75; PULSE 95; RESP 16; TEMP 36.6; O2SAT 99
[2022-04-07] MEDS: hyDROXYzine 25 mg Capsule 50 MG PO (21:04)
[2022-04-07] MEDS: sennosides-docusate Tablet 2 TAB PO (21:04)
[2022-04-07] MEDS: OLANZapine 10 mg TABLET 30 MG PO (21:04)
[2022-04-07 22:00] VITALS: BP 118/74; PULSE 97; RESP 16; TEMP 36.8; O2SAT 99
[2022-04-07] MEDS: trazodone 50 mg Tablet PO (23:10)
[2022-04-08] MEDS: acetaminophen 325 mg Tablet 650 MG PO (00:25)
[2022-04-08] MEDS: trazodone 50 mg Tablet PO (00:25)
[2022-04-08] MEDS: nicotine 4 mg lozenge MUCOUS MEM ×2 (01:17→12:42)
[2022-04-08 06:00] VITALS: RESP 16
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
[2022-04-08 12:26] VITALS: BP 106/69; PULSE 96; RESP 16; TEMP 36.6; O2SAT 96
== END 2022-04-08 13:27 | disposition home or self-care (01) | DRG 885 ==
LOC: ER 18:40 → NP 19:46
PROVIDERS: Admitting Provider Psychiatry & Neurology Psychiatry; Emergency Provider Emergency Medicine; PCP Family Medicine; Visit Provider Psychiatry & Neurology Psychiatry
DX: F20.9 Schizophrenia, unspecified (principal); R45.851 Suicidal ideations; F15.10 Other stimulant abuse, uncomplicated; F12.90 Cannabis use, unspecified, uncomplicated; F17.200 Nicotine dependence, unspecified, uncomplicated; K59.00 Constipation, unspecified; R10.11 Right upper quadrant pain
CPT/HCPCS: 36416; 76700; 76705; 80053; 80306; 80307; 81025; 82962; 85025; 86705; 86706; 86709; 86803; 87340; 87806; 97150; 97165; 99285; Q0162

== ENCOUNTER 2022-08-04 20:52 | Emergency (ER) | payer MEDICAID, SELFPAY ==
[2022-08-04 20:58] VITALS: BP 123/79; PULSE 101; RESP 18; TEMP 36.7; O2SAT 98
--- NOTE | 2022-08-04 21:11 | ED.C_ITS ---
HPI - Psych General: Chief Complaint: Psychiatric Symptoms Stated Complaint: MHE Time Seen by Provider: 08/04/22 20:56 Source: patient Mode of arrival: ambulatory Limitations: no limitations History of Present Illness: 22-year-old female states that she has been under a lot of stress lately having some anxiety she states she had difficulty sleeping and is feels like she just needs to rest she denies any suicidal thoughts denies any suicidality or homicidality. She states she is to see [facility] but she has not been seeing them and has not been taking her meds. She does not want any refills at this time. She states she feels like she does need something to sleep for the night. Associated symptoms: Deny depression, homicidal ideation or suicidal ideation Review of Systems Const: Denies: fever(s) ENMT: Denies: throat pain Card: Denies: chest pain Resp: Denies: dyspnea GI: Denies: abdominal pain Musc: Denies: back pain Skin/Breast: Denies: rash Neuro: Denies: headache(s) Psych: Reports: anxiety and sleeping less; Denies: depression, suicidal ideation or homicidal ideation [facility] ED PFSH: Medical History Depression with suicidal ideation Methamphetamine abuse Psychiatric care Surgical History History of placement of ear tubes No significant past surgical history Family History (Updated 07/13/22 @ 13:48 by Campbell Barillas) Father Cancer brain Diabetes Grandfather Diabetes paternal Mother Hypertension Heart disease Grandmother Ovarian cancer maternal Other Dementia Lung disease Psychiatric illness Denies family history of Colon cancer Breast cancer Uterine cancer Thyroid disease Stroke Social History Substance/Drug Use: former Physical Exam Const: COMMON NORMALS: no acute distress and patient oriented x3 HENMT: COMMON NORMALS: normocephalic and atraumatic HEAD & SCALP: normocephalic and atraumatic Eye: COMMON NORMALS: conjunctivae normal CONJUNCTIVA: Yes conjunctivae normal Chest: COMMONS NORMALS: normal inspection of the chest Resp: COMMON NORMALS: normal respiratory effort Cardio: COMMON NORMALS: regular rate RATE: regular rate GI: INSPECTION: Yes normal to inspection Extremity: COMMON NORMALS: normal to inspection Neuro: COMMON NORMALS: patient oriented x3 Psych: ATTITUDE: Yes calm and No Withdrawn affect present MOOD & AFFECT: No depressed mood THOUGHT CONTENT: No Suicidality present and No Homicidality present Course Vital Signs: Vital signs: Vital Signs Temperature 98.1 F 08/04/22 20:58 Pulse Rate 101 H 08/04/22 20:58 Respiratory Rate 18 08/04/22 20:58 Blood Pressure 123/79 08/04/22 20:58 Pulse Oximetry 98 08/04/22 20:58 Oxygen Delivery Me thod Room Air 08/04/22 20:58 MDM - Psych Medical Decision Making Patient presents here with stress and anxiety she is adamant she is not suicidal or homicidal she states that she feels like she does need something to help her sleep tonight she has not been seeing behavioral health has not been taking her meds she does not require inpatient admission she is not a threat to herself or others and is not suicidal or homicidal we will give her Ativan here prescribe her hydroxyzine and get her referral back into behavioral health she is return if worsening she understands agrees plan. Discharge Plan Discharge Patient Disposition: Home Clinical Impression: Acute anxiety Condition: Stable Prescriptions: New hydroxyzine HCl 25 mg tablet 25 mg PO TID PRN (Reason: anxiety) Qty: 20 0RF No Action albuterol sulfate 90 mcg/actuation HFA aerosol inhaler 1 inh inhalation QID PRN (Reason: shortness of breath or wheezing) Qty: 8.5 0RF epinephrine 0.1 mg/0.1 mL auto-injector 0.1 ml IM ONCE PRN (Reason: hypersensitivity reaction) Qty: 2 0RF trazodone 50 mg Tablet 50 mg PO BEDTIME PRN (Reason: Sleep) 30 Days Qty: 30 1RF olanzapine 20 mg tablet 30 mg PO BEDTIME 30 Days Qty: 45 1RF hydroxyzine pamoate 25 mg Capsule 50 mg PO Q6H PRN (Reason: Anxiety) 30 Days Qty: 120 1RF Discharge Orders: Discharge ED (Routine); Ordered 08/04/22 Ordered By: Michael Kennedy Referrals[facility], [Staff Physician] - 1-3 days Discharge Diet: Advance as tolerated Discharge Activity: Resume usual activity Patient Instructions: Anxiety (ED) Coding Level of Care Code ED Local Sales Associate for Loulou Campso
--- NOTE | 2022-08-05 11:33 | PC.NURSE ---
Patient seen in the ED on 08/04/22. Patient referred for [facility] follow up. She was admitted to [facility] on 08/05/22 no needs from ED CM at this time.
--- NOTE | 2022-08-12 08:00 | DCPLANNER ---
TCM called patient due to no primary care physician - no answer at this time.
== END 2022-08-04 21:33 | disposition home or self-care (01) ==
PROVIDERS: Emergency Provider Emergency Medicine
DX: F41.9 Anxiety disorder, unspecified (principal)
CPT/HCPCS: 99283

== ENCOUNTER 2022-08-04 22:11 | Inpatient (IN) | payer MEDICAID, SELFPAY ==
[2022-08-04 22:15] VITALS: BP 120/78; PULSE 102; RESP 16; TEMP 36.8; O2SAT 97; BMI 21.1
[2022-08-04 22:32] VITALS: BP 130/85; PULSE 100; RESP 16; O2SAT 97
--- NOTE | 2022-08-04 22:32 | ED.C_ITS ---
HPI - Psych General: Chief Complaint: Psychiatric Symptoms Stated Complaint: Hasnt slep in Days, MHE Time Seen by Provider: 08/04/22 22:18 Source: patient Mode of arrival: ambulatory Limitations: no limitations History of Present Illness: 22-year-old female who was just seen here earlier tonight for stress she refused to take the Ativan she has been refusing to take all her meds at home she checked back and she states that she just needs to relax try to question her further she will not really give me any answers she denies being SI or HI denies any worsening improving factors. Associated symptoms: Deny depression, homicidal ideation or suicidal ideation Review of Systems Const: Denies: fever(s), chills, body aches or change in appetite ENMT: Denies: throat pain or dental pain Card: Denies: chest pain Resp: Denies: dyspnea GI: Denies: abdominal pain, nausea, vomiting or diarrhea : Denies: dysuria Musc: Denies: neck pain or back pain Skin/Breast: Denies: rash Neuro: Denies: headache(s) Psych: Denies: depression, suicidal ideation or homicidal ideation Carlos/Lymph: Denies: easy bruising All/Imm: Denies: urticaria PFSH ED PFSH: Medical History Depression with suicidal ideation Methamphetamine abuse Psychiatric care Surgical History History of placement of ear tubes No significant past surgical history Family History Father Cancer brain Diabetes Grandfather Diabetes paternal Mother Hypertension Heart disease Grandmother Ovarian cancer maternal Other Dementia Lung disease Psychiatric illness Denies family history of Colon cancer Breast cancer Uterine cancer Thyroid disease Stroke Social History Substance/Drug Use: former Physical Exam Const: COMMON NORMALS: no acute distress, patient oriented x3 and healthy appearing HENMT: COMMON NORMALS: normocephalic and atraumatic HEAD & SCALP: normocephalic and atraumatic Eye: COMMON NORMALS: Equal, round and reactive pupils present and EOMs intact bilaterally PUPIL: Yes Equal, round and reactive pupils present Neck/C-Spine: COMMON NORMALS: full ROM and supple Chest: COMMONS NORMALS: normal inspection of the chest and normal palpation of entire chest wall Resp: COMMON NORMALS: normal respiratory effort, No retractions, No use of accessory muscles and clear to auscultation bilaterally AUSCULTATION: clear to auscultation bilaterally Cardio: COMMON NORMALS: regular rate, regular rhythm and No murmurs present (Cardio) RATE: regular rate RHYTHM: regular rhythm GI: COMMON NORMALS: Normal to inspection, nondistended, normoactive bowel sounds present, Soft to palpation, non-tender and no masses PALPATION: Yes Soft to palpation Extremity: COMMON NORMALS: normal to inspection and full ROM Neuro: COMMON NORMALS: patient oriented x3, moves all extremities and no focal motor deficits Psych: COMMON NORMALS: mental status grossly normal, Normal thought process present and cooperative THOUGHT PROCESS: Normal thought process present Skin: COMMON NORMALS: no rashes or lesions noted and no wounds GENERAL SKIN EXAM: no rashes or lesions noted Course Vital Signs: Vital signs: Vital Signs Temperature 98.3 F 08/04/22 22:15 Pulse Rate 100 08/04/22 22:32 Respiratory Rate 16 08/04/22 22:32 Blood Pressure 130/85 08/04/22 22:32 Pulse Oximetry 97 08/04/22 22:32 Oxygen Delivery Me thod Room Air 08/04/22 22:32 MDM - Psych Medical Decision Making Patient presents here with acute anxiety patient was evaluated Dr. Muller and she agrees to be admitted voluntarily at this time for anxiety she is not suicidal not homicidal she is not on a 96-hour hold. Medical Records I reviewed the patient's medical records. Lab Data I reviewed the patient's lab results. 08/05/22 00:28 08/05/22 00:28 Laboratory Results HCG, Qual Negative (Negative) 08/04/22 23:41 Urine Opiates Screen Negative ng/mL (Negative) 08/04/22 23:41 Ur Barbiturates Screen Negative ng/mL (Negative) 08/04/22 23:41 Ur Phencyclidine Scrn Negative ng/mL (Negative) 08/04/22 23:41 Ur Amphetamines Screen Negative ng/mL (Negative) 08/04/22 23:41 U Benzodiazepines Scrn Negative ng/mL (Negative) 05/11/23 23:41 Urine Cocaine Screen Negative ng/mL (Negative) 08/04/22 23:41 U Marijuana (THC) Screen Positive ng/mL (Negative) H 08/04/22 23:41 Discharge Plan Discharge Patient Disposition: Admitted As Inpatient Admit Provider: Michael Muller Clinical Impression: Acute anxiety Condition: Stable Coding Level of Care Code ED Criminal Intelligence Analyst for Loulou Campos
[2022-08-04 23:57] LABS: HCG Qualitative Urine. Negative (Negative)
[2022-08-05 00:33] LABS: Basophils # 0.1 10^3/uL (0.0-0.1); Basophils % 0.9 %; Eosinophils # 0.1 10^3/uL (0.0-0.8); Eosinophils % 1.3 %; Hematocrit 42.3 % (37.0-47.0); Hemoglobin 13.7 g/dL (11.5-15.3); Lymphocytes # 2.3 10^3/uL (1.5-6.5); Lymphocytes % 27.2 %; Mean Corpuscular HGB Conc 32.4 g/dL (30.0-36.0); Mean Corpuscular Hemoglobin 29.4 pg (28.0-34.0); Mean Corpuscular Volume 90.8 fl (81-99); Mean Platelet Volume 10.3 fL (7.4-10.4); Monocytes # 0.7 10^3/uL (0.2-0.9); Monocytes % 7.9 %; Neutrophils # 5.29 10^3/uL (1.8-8.0); Neutrophils % 62.5 %; Nucleated Red Blood Cells % 0 %; Platelet Count 301 10^3/cmm (130-400); Red Blood Count 4.66 10^6/uL (4.1-5.3); Red Cell Distribution Width 12.8 % (12.1-15.1); White Blood Count 8.5 10^3/uL (4.5-13.0)
[2022-08-05 00:55] LABS: Alanine Aminotransferase 15 U/L (0-33); Albumin Level 4.3 g/dL (3.5-5.2); Alkaline Phosphatase 79 U/L (35-105); Anion Gap 14.9 (5-19); Aspartate Amino Transferase 16 U/L (0-32); Blood Urea Nitrogen 5 mg/dL (6-20); Calcium 9.2 mg/dL (8.5-10.5); Carbon Dioxide 24 mmol/L (22-29); Chloride 100 mmol/L (98-107); Globulin 2.9 g/dL (1.3-4.6); Glomerular Filtration Rate 106.7 mL/min (90-130); Glucose 100 mg/dL (65-115); Osmolality Calculated 277 mOsm/kg (285-295); Potassium 3.9 mmol/L (3.5-5.1); Sodium 135 mmol/L (136-145); Total Bilirubin 0.3 mg/dL (0.15-1.2); Total Protein 7.2 g/dL (6.6-8.7)
[2022-08-05 00:58] LABS: Acetaminophen < 5.0 ug/mL (10-30); Alcohol Level < 10 mg/dL (0-10); Salicylate < 0.3 mg/dL (3-10)
[2022-08-05 01:22] LABS: Amphetamines Screen Urine Negative (Negative); Barbiturates Screen Urine Negative (Negative); Benzodiazepines Screen Urine Negative (Negative); Cocaine Screen Urine Negative (Negative); Opiate Screen Urine Negative (Negative); PCP Screen Urine Negative (Negative); THC Screen Urine Positive (Negative)
[2022-08-05 01:26] VITALS: BP 125/88; PULSE 101; RESP 16; TEMP 36.4; O2SAT 100
[2022-08-05 06:00] VITALS: RESP 14
[2022-08-05 06:20] LABS: Amphetamines Screen Urine Negative (Negative); Barbiturates Screen Urine Negative (Negative); Benzodiazepines Screen Urine Negative (Negative); Cocaine Screen Urine Negative (Negative); Opiate Screen Urine Negative (Negative); PCP Screen Urine Negative (Negative); THC Screen Urine Positive (Negative)
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
[2022-08-05 14:00] VITALS: BP 100/72; PULSE 92; RESP 16; TEMP 36.6; O2SAT 95
--- NOTE | 2022-08-05 16:35 | PC.NURSE ---
Pt has been pacing the halls alot today, nurse felt that pt was watching the doors open and close. Pt was moved to the [facility] for possible elopement issues.
--- NOTE | 2022-08-05 23:41 | PC.NURSE ---
Patient presented to nurses desk asking to leave. Dr Klein notified, patient informed she would need to speak with AM for assessment or be placed on a hold. Patient agreed to wait until the morning. patient appears annoyed, short, juliana, answers. Asked if she would like something to help her sleep and she declined
--- NOTE | 2022-08-06 14:07 | P.NPUPN_ITS ---
Subjective NPU Subjective: 22-year-old white female with a history of polysubstance dependence and psychotic disorder not otherwise specified. She was admitted through the emergency department stating that she needed to get rest for a few days. 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 Patient stated that she had a place to live and stated that she had a loan. She had been eating and showering on the unit appropriately. She had remained isolative but did not engage in any unusual behavior or any dangerous behavior here. She had refused her Zyprexa yesterday and stated that she had not taken her medications in several months. The pat johnny had reported adequate sleep and had not been noted to have abnormal sleep either on the unit. Mental Status Exam MSE Comments: This is a slender, short white female in hospital scrubs with fair grooming today and fleeting eye contact. There is no evidence of any abnormal involuntary motor movements tics or tremors appreciated. She was alert and oriented to person place and month and year along with situation. She was superficial in regards to conversation with no evidence of any bizarre thinking. Her mood was described as good. Her affect was mood incongruent and somewhat blunted. She denied any homicidal or suicidal ideation. She did at times appear to be responding to internal stimuli although she denied any auditory or visual hallucinations. Her insight remained poor. Her judgment appeared adequate. Her impulse control appeared at baseline. Vitals/I&O/Wt Last Vital Signs Temp 98 F 08/05/22 14:00 Pulse 92 08/05/22 14:00 Resp 16 08/05/22 14:00 BP 100/72 08/05/22 14:00 Pulse Ox 95 08/05/22 14:00 O2 Del Method Room Air 08/05/22 14:00 Weight last 48 hrs Weight 55.792 kg Data NPU 08/05/22 00:28 08/05/22 00:28 A&P Assessment and plan (1) Psychosis: (2) Methamphetamine abuse: Plan This is a 22 year old white female who presents voluntarily with positive UDS for cannabis and who has been noncompliant with psychotropic medications with evidence of continued psychosis. The patient is wishing to leave AGAINST MEDICAL ADVICE. She does not appear to be engaging in any kind of behavior that would lend itself to placing the patient on an involuntary hold at this time. She has been refusing her psychotropic medications but will be allowed to leave AMA.. Involuntary Hold Information 96 Hour Hold: 96 Hour Involuntary Admission: No 96 Hour Hold Ending Date: 02/10/22 96 Hour Hold Ending Time: 19:17 Attestations NPU Medical Necessity Statement*: AMA discharge. Coding Level of Care Code Acute Code for g Fwd Diagnoses Psychosis F29 Methamphetamine abuse F15.10
--- NOTE | 2022-08-06 14:20 | PC.NURSE ---
AMA Patient requesting to leave AMA. This RN discussed in detail with the doctor about the patient's status. Dr. Orona and this RN could not identify any factors that would constitute filing paperwork for a 96 hour hold on the patient as there was no evidence that she was a threat to herself or anyone else. Dr. Orona requested this nurse fill out AMA paperwork with the patient. tufting supervisor was also notified.
[2022-08-06 14:30] VITALS: BP 100/72; PULSE 92; RESP 16; TEMP 36.6; O2SAT 95
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
== END 2022-08-06 14:25 | disposition left against medical advice (07) | DRG 885 ==
LOC: ER 22:35 → NP 08-05 00:09
PROVIDERS: Psychiatry & Neurology Psychiatry; Admitting Provider Psychiatry & Neurology Psychiatry; Emergency Provider Emergency Medicine; Visit Provider Psychiatry & Neurology Psychiatry
DX: F29 Unspecified psychosis not due to a substance or known physiological condition (principal); F20.81 Schizophreniform disorder; F15.10 Other stimulant abuse, uncomplicated; F41.9 Anxiety disorder, unspecified; T43.596A Underdosing of other antipsychotics and neuroleptics, initial encounter; Z91.148 Patient's other noncompliance with medication regimen for other reason; Z53.29 Procedure and treatment not carried out because of patient's decision for other reasons; Z87.891 Personal history of nicotine dependence; Z65.3 Problems related to other legal circumstances; Y92.019 Unspecified place in single-family (private) house as the place of occurrence of the external cause
CPT/HCPCS: 36415; 80053; 80306; 80307; 81025; 85025; 97165; 99238; 99285

== ENCOUNTER 2022-08-11 23:28 | Emergency (ER) | payer MEDICAID, SELFPAY ==
[2022-08-11 23:30] VITALS: BP 121/85; PULSE 77; RESP 15; TEMP 36.6; O2SAT 99
[2022-08-11 23:31] VITALS: PULSE 80; RESP 14; O2SAT 99
[2022-08-12] MEDS: hydrocortisone 1% cream 28 gm 1 APPLIC TOPICAL (00:01)
--- NOTE | 2022-08-12 00:14 | ED_ITS ---
HPI - Skin/Abscess/Foreign Bdy General: Chief complaint: Skin/Abscess/Foreign Body Stated complaint: poison sy Time Seen by Provider: 08/11/22 23:33 History of Present Illness: Patient is in today for poison sy. Patient is a poor historian. States that she has had itching on both hands, her hips, back for couple of weeks and she thinks the poison sy is under her skin staining the area. She denies any possibility of . She denies any shortness of breath or other symptoms. Associated symptoms: Deny chills, fever(s), nausea or vomiting Review of Systems Const: Denies: fever(s) or chills Card: Denies: chest pain or palpitations Resp: Denies: dyspnea, productive cough, non-productive cough or wheezing GI: Denies: abdominal pain, nausea or vomiting Skin/Breast: Reports: rash and pruritus PFS ED PFSH: Medical History Depression with suicidal ideation Methamphetamine abuse Psychiatric care Surgical History History of placement of ear tubes No significant past surgical history Family History Father Cancer brain Diabetes Grandfather Diabetes paternal Mother Hypertension Heart disease Grandmother Ovarian cancer maternal Other Dementia Lung disease Psychiatric illness Denies family history of Colon cancer Breast cancer Uterine cancer Thyroid disease Stroke Social History Substance/Drug Use: former Physical Exam Const: OTHER: She is in no acute distress. She is sitting in the bed. thought processes appear slow. When asked her question she is slow to respond, but does respond appropriately. Patient appears to be under the influence of drugs or alcohol. Eye: COMMON NORMALS: Equal, round and reactive pupils present PUPIL: Yes Equal, round and reactive pupils present Neck/C-Spine: COMMON NORMALS: no JVD Resp: COMMON NORMALS: normal respiratory effort, No use of accessory muscles and clear to auscultation bilaterally AUSCULTATION: clear to auscultation bilaterally Cardio: COMMON NORMALS: no JVD, regular rate, regular rhythm, S1 normal heart sound present and S2 normal heart sound present RATE: regular rate RHYTHM: regular rhythm HEART SOUNDS: S1 normal heart sound present and S2 normal heart sound present Skin: NARRATIVE SKIN EXAM: Red chapping skin across the knuckles bilateral hands slight red chapping skin on the left hip. Patient is scratching at these areas continuously. Skin changes are consistent with dermatitis likely atopic dermatitis Course Vital Signs: Vital signs: Vital Signs Temperature 97.9 F 08/11/22 23:30 Pulse Rate 77 08/11/22 23:30 Respiratory Rate 15 08/11/22 23:30 Blood Pressure 121/85 08/11/22 23:30 Pulse Oximetry 99 08/11/22 23:30 Oxygen Delivery Me thod Room Air 08/11/22 23:30 MDM - Skin/Abscess/Foreign Bdy Medicial Decision Making Patient is in today for poison sy. She reports that poison ys has been staining under her skin for the past 2 to 3 weeks. It is just on her hands and her left hip. She is using poison sy cream with no benefit. Patient is alert and oriented x3; however, she is slow to respond and answer questions. She acts as if she is under the influence of drugs and/or alcohol. She is minimally willing to answer HPI questioning. Patient is unsure of status. Topical hydrocortisone cream given. Advised patient to follow-up with primary care provider. Return to the ER as needed for new or worsening symptoms Discharge Plan Discharge Patient Disposition: Home Clinical Impression: Dermatitis Condition: Stable Prescriptions: New hydrocortisone 1 % cream 1 applic topical BID PRN (Reason: itching) 4 Days Qty: 28.35 0RF Rx Instructions: Do not apply to the face No Action hydroxyzine HCl 25 mg tablet 25 mg PO TID PRN (Reason: anxiety) Qty: 20 0RF trazodone 50 mg Tablet 50 mg PO BEDTIME PRN (Reason: Sleep) 30 Days Qty: 30 1RF ProAir HFA 90 mcg/actuation HFA aerosol inhaler 1 inh inhalation QID PRN (Reason: shortness of breath or wheezing) Vistaril 25 mg capsule 50 mg PO Q6H PRN (Reason: Anxiety) Zyprexa 20 mg tablet 30 mg PO BEDTIME Discharge Orders: Discharge ED (Routine); Ordered 08/11/22 Ordered By: Pamela Keith Discharge Diet: Usual diet Discharge Activity: Resume usual activity Patient Instructions: Dermatitis (ED) Activity Restrictions/Additional Instructions: Use hydrocortisone as needed to the hands. Do not apply to the face. Follow-up with your primary care provider as needed. Return to the ER for new or worsening symptoms Coding Level of Care Code ED Communications Instructor for Loulou Campos
[2022-08-12 00:37] VITALS: PULSE 75; RESP 14; O2SAT 99
== END 2022-08-12 00:04 | disposition home or self-care (01) ==
LOC: ER 23:52
PROVIDERS: Emergency Provider Nurse Practitioner Family
DX: L30.9 Dermatitis, unspecified (principal)
CPT/HCPCS: 99282

== ENCOUNTER 2022-08-15 18:59 | Inpatient (IN) | payer MEDICAID, SELFPAY ==
[2022-08-15 19:07] VITALS: BMI 21.2
[2022-08-15 19:09] VITALS: BP 114/76; PULSE 77; RESP 16; TEMP 37.1; O2SAT 98
--- NOTE | 2022-08-15 19:14 | ED.C_ITS ---
HPI - Psych General: Chief Complaint: Psychiatric Symptoms Stated Complaint: 96 HOUR HOLD Time Seen by Provider: 08/15/22 19:01 Source: police Mode of arrival: other (police) Limitations: no limitations History of Present Illness: 22-year-old female has a history of schizophrenia patient is brought in 96-hour hold by police her cousin filled a 96-hour states she has not been acting herself she been extremely paranoid refusing to go home she feels like people are out to get her states that she is just been wandering the streets. Here patient does have flight of ideas very difficult to get a real history from her due to her flight of ideas she denies SI or HI. Associated symptoms: Deny depression Review of Systems Const: Denies: fever(s), chills or body aches ENMT: Denies: throat pain or dental pain Card: Denies: chest pain Resp: Denies: dyspnea GI: Denies: abdominal pain, nausea, vomiting or diarrhea : Denies: dysuria Musc: Denies: neck pain or back pain Skin/Breast: Denies: rash Neuro: Denies: headache(s) Psych: Reports: paranoia; Denies: depression PFSH ED PFSH: Medical History Depression with suicidal ideation Methamphetamine abuse Psychiatric care Surgical History History of placement of ear tubes No significant past surgical history Family History Father Cancer brain Diabetes Grandfather Diabetes paternal Mother Hypertension Heart disease Grandmother Ovarian cancer maternal Other Dementia Lung disease Psychiatric illness Denies family history of Colon cancer Breast cancer Uterine cancer Thyroid disease Stroke Social History Substance/Drug Use: former Physical Exam Const: COMMON NORMALS: no acute distress, patient oriented x3 and healthy appearing HENMT: COMMON NORMALS: normocephalic and atraumatic HEAD & SCALP: normocephalic and atraumatic Eye: COMMON NORMALS: conjunctivae normal CONJUNCTIVA: Yes conjunctivae normal Neck/C-Spine: COMMON NORMALS: full ROM and supple Chest: COMMONS NORMALS: normal inspection of the chest Resp: COMMON NORMALS: normal respiratory effort Cardio: COMMON NORMALS: regular rate, regular rhythm and No murmurs present (Cardio) RATE: regular rate RHYTHM: regular rhythm GI: INSPECTION: Yes normal to inspection Extremity: COMMON NORMALS: normal to inspection and full ROM Neuro: COMMON NORMALS: patient oriented x3, moves all extremities and no focal motor deficits Psych: COMMON NORMALS: mental status grossly normal and cooperative ATTITUDE: Yes bizarre THOUGHT PROCESS: Circumstantial thought process present and disorganized Skin: COMMON NORMALS: no rashes or lesions noted and no wounds GENERAL SKIN EXAM: no rashes or lesions noted MDM - Psych Medical Decision Making Patient presents here with acute psychosis she has paranoia here she is under 96-hour hold I spoke to Dr. Muller and will admit at this time. Discharge Plan Discharge Patient Disposition: Admitted As Inpatient Clinical Impression: Acute psychosis Condition: Stable Prescriptions: No Action hydroxyzine HCl 25 mg tablet 25 mg PO TID PRN (Reason: anxiety) Qty: 20 0RF trazodone 50 mg Tablet 50 mg PO BEDTIME PRN (Reason: Sleep) 30 Days Qty: 30 1RF ProAir HFA 90 mcg/actuation HFA aerosol inhaler 1 inh inhalation QID PRN (Reason: shortness of breath or wheezing) Vistaril 25 mg capsule 50 mg PO Q6H PRN (Reason: Anxiety) Zyprexa 20 mg tablet 30 mg PO BEDTIME Coding Level of Care Code ED Validation Consultant for Loulou Campos
[2022-08-15 19:35] LABS: HCG Qualitative Urine. Negative (Negative)
[2022-08-15 20:31] LABS: Basophils # 0.1 10^3/uL (0.0-0.1); Basophils % 0.8 %; Eosinophils # 0.2 10^3/uL (0.0-0.8); Eosinophils % 1.8 %; Hematocrit 42.9 % (37.0-47.0); Hemoglobin 13.8 g/dL (11.5-15.3); Lymphocytes # 3.2 10^3/uL (1.5-6.5); Lymphocytes % 34.1 %; Mean Corpuscular HGB Conc 32.2 g/dL (30.0-36.0); Mean Corpuscular Hemoglobin 29.5 pg (28.0-34.0); Mean Corpuscular Volume 91.7 fl (81-99); Mean Platelet Volume 10.1 fL (7.4-10.4); Monocytes # 0.6 10^3/uL (0.2-0.9); Monocytes % 6.4 %; Neutrophils # 5.26 10^3/uL (1.8-8.0); Neutrophils % 56.8 %; Nucleated Red Blood Cells % 0 %; Platelet Count 301 10^3/cmm (130-400); Red Blood Count 4.68 10^6/uL (4.1-5.3); Red Cell Distribution Width 13.1 % (12.1-15.1); White Blood Count 9.3 10^3/uL (4.5-13.0)
[2022-08-15 20:49] LABS: Alanine Aminotransferase 30 U/L (0-33); Albumin Level 4.4 g/dL (3.5-5.2); Alkaline Phosphatase 74 U/L (35-105); Aspartate Amino Transferase 27 U/L (0-32); Blood Urea Nitrogen 9 mg/dL (6-20); Calcium 9.1 mg/dL (8.5-10.5); Carbon Dioxide 21 mmol/L (22-29); Chloride 101 mmol/L (98-107); Globulin 3.1 g/dL (1.3-4.6); Glomerular Filtration Rate 127.5 mL/min (90-130); Glucose 76 mg/dL (65-115); Osmolality Calculated 281 mOsm/kg (285-295); Sodium 137 mmol/L (136-145); Total Bilirubin 0.4 mg/dL (0.15-1.2); Total Protein 7.5 g/dL (6.6-8.7)
[2022-08-15 20:52] LABS: Acetaminophen < 5.0 ug/mL (10-30); Alcohol Level < 10 mg/dL (0-10); Salicylate < 0.3 mg/dL (3-10)
[2022-08-15 20:53] LABS: Anion Gap 19.2 (5-19); Potassium 4.2 mmol/L (3.5-5.1)
[2022-08-15 21:04] LABS: Amphetamines Screen Urine Positive (Negative); Barbiturates Screen Urine Negative (Negative); Benzodiazepines Screen Urine Negative (Negative); Cocaine Screen Urine Negative (Negative); Opiate Screen Urine Negative (Negative); PCP Screen Urine Negative (Negative); THC Screen Urine Positive (Negative)
[2022-08-15 21:07] VITALS: BP 121/83; PULSE 97; RESP 18; TEMP 36.8; O2SAT 100
[2022-08-15 22:00] VITALS: BP 121/83; PULSE 97; RESP 18; TEMP 36.8; O2SAT 100
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
[2022-08-16 14:00] VITALS: BP 104/62; PULSE 74; RESP 16; TEMP 36.8; O2SAT 98
[2022-08-16 19:56] VITALS: BP 116/73; PULSE 68; RESP 16; TEMP 36.2; O2SAT 100
--- NOTE | 2022-08-17 07:30 | W.PM.NPUPNS ---
Subjective NPU Subjective: Patient presented today reporting that she is doing okay. She tried to downplay her need to be here and deny drug use but we discussed that her urine drug screen was positive. We discussed the previous discharge in March leading to her going to [place] and how that did not carter out. She tried to endorse that she had been taking her medications but then identified that she had not but reported she was not interested in medications at this time. We discussed the fact that we would probably expedite the process and move towards a hold as well as guardianship proceedings. Mental Status Exam MSE Comments: This is a slender, short white female in hospital scrubs with poor grooming and limited eye contact with eyes rolling back as she tries to stay awake. No abnormal movements except for psychomotor retardation. Somewhat cooperative with exam in mild to moderate distress. Speech was limited with decreased rate and diminished volume remained monotone with limited prosody. Mood described as okay Her affect was subdued and flat, but multiple moments of inappropriate smiles and laughter with no explanation. Her thought process appeared linear. Thought content: patient denies suicidal or homicidal ideation. There were no delusions reported but she seemed guarded. She did not appear to be responding to internal stimuli. She was focused on discharge and not needing to be in the hospital. Attention, concentration and memory were impaired, but none were formally tested. She is alert and oriented to person and place. Her insight was poor. Her judgment and impulse control appeared impaired. Vitals/I&O/Wt Last Vital Signs Temp 97.2 F L 08/16/22 19:56 Pulse 68 08/16/22 19:56 Resp 16 08/16/22 19:56 BP 116/73 08/16/22 19:56 Pulse Ox 100 08/16/22 19:56 O2 Del Method Room Air 08/16/22 19:56 Weight last 48 hrs Weight 54.431 kg Data NPU 08/15/22 20:24 08/15/22 20:24 A&P Assessment and plan (1) Psychosis: (2) Methamphetamine abuse: Plan This is a 22 year old white female who presents in on a 96 hour hold secondary to psychosis with positive UDS fo amphetamines with history of long hospitalizations required to resolve the psychotic symptoms. 1. Restart previous medications with a plan to get on long-acting injectable. 2. Encourage individual, group and milieu therapy 3. Continue q-15 minute check for safety 4. Encourage sober living treatment after discharge at the highest level of care to which she is willing to commit. 5. We will plan for long stay. Involuntary Hold Information 96 Hour Hold: 96 Hour Involuntary Admission: Yes 96 Hour Hold Ending Date: 08/19/22 96 Hour Hold Ending Time: 19:13 Attestations NPU Medical Necessity Statement*: Inpatient hospitalization is medically necessary and the clinically appropriate intervention at this time. We will monitor medications and make changes as indicated. Likely length of stay is 10-14 days. Coding Level of Care Code Acute Code for g Fwd Diagnoses Psychosis F29 Methamphetamine abuse F15.10
--- NOTE | 2022-08-17 09:18 | PC.NURSE ---
KOJO came to me stating that pt was throwing up in the sink. pt requested her toothbrush after eating. when asked if pt wasnt feeling well pt responded with im fine. this nurse asked why pt was vomiting if she felt fine pt stated who said that im fine. will continue to monitor situation and monitor pt with tooth brush.
[2022-08-17 14:00] VITALS: BP 129/73; PULSE 76; RESP 16; TEMP 36.7; O2SAT 100
--- NOTE | 2022-08-17 17:42 | PC.NURSE ---
PT HAD aircraft machinist helper WITH HER FOR 30 MINUTES AFTER LUNCH. PT DID NOT ATTEMPT TO FORCE HERSELF TO VOMIT DURING THIS TIME. PT HANDLED MEAL WELL.
--- NOTE | 2022-08-17 18:20 | PC.NURSE ---
[employer] DEVELOPER MONITORED PT FOR 30 MINUTES AFTER MEAL. PT TOLERATED MEAL WELL.
[2022-08-17 21:14] VITALS: BP 117/84; PULSE 85; RESP 17; TEMP 37; O2SAT 97
[2022-08-18 06:00] VITALS: RESP 15
[2022-08-18 14:00] VITALS: BP 112/73; PULSE 84; RESP 18; TEMP 36.6; O2SAT 97
--- NOTE | 2022-08-18 17:50 | P.NPUPN_ITS ---
Subjective NPU Subjective: Patient presented today reporting that she is doing okay but continues to demonstrate limited insight into the fact that she has returned back to a place of significant psychiatric impairment. When her father visited today she kept pacing around away from him reporting she did not know what to say seeming internally preoccupied at times but getting very anxious even to sit down with him. She cannot explain what was going on or was going through her mind and continue to report that she was okay. We discussed the fact that we were going to proceed with 21-day hold and the guardianship process. Mental Status Exam MSE Comments: This is a slender, short white female in hospital scrubs with poor grooming and limited eye contact. No abnormal movements except for resolving psychomotor retardation. Somewhat cooperative with exam in mild to moderate distress. Speech was limited with decreased rate and diminished volume remainimg monotone with limited prosody. Mood described as fine, her affect was subdued and flat, but multiple moments of inappropriate smiles and laughter with no explanation. Her thought process appeared linear. Thought content: patient denies suicidal or homicidal ideation. There were no delusions reported but she seemed guarded. She occasionally appeared to be responding to internal stimuli. Attention, concentration and memory were impaired, but none were formally tested. She is alert and oriented to person and place. Her insight was poor. Her judgment and impulse control appeared impaired. Vitals/I&O/Wt Last Vital Signs Temp 98.7 F 08/18/22 20:29 Pulse 85 08/18/22 20:29 Resp 18 08/18/22 20:29 BP 116/78 08/18/22 20:29 Pulse Ox 97 08/18/22 20:29 O2 Del Method Room Air 08/18/22 20:29 Data NPU 08/15/22 20:24 08/15/22 20:24 A&P Assessment and plan (1) Psychosis: (2) Methamphetamine abuse: Plan This is a 22 year old white female who presents in on a 96 hour hold secondary to psychosis with positive UDS fo amphetamines with history of long hospitalizat ions required to resolve the psychotic symptoms. 1. Restart previous medications with a plan to get on long-acting injectable. Start Zyprexa 10 mg p.o. nightly. 2. Encourage individual, group and milieu therapy 3. Continue q-15 minute check for safety 4. Encourage sober living treatment after discharge at the highest level of care to which she is willing to commit. 5. We will plan for long stay. Initiated 21-day hold paperwork. Involuntary Hold Information 96 Hour Hold: 96 Hour Involuntary Admission: Yes 96 Hour Hold Ending Date: 08/19/22 96 Hour Hold Ending Time: 19:13 Attestations NPU Medical Necessity Statement*: Inpatient hospitalization is medically necessary and the clinically appropriate intervention at this time. We will monitor medications and make changes as indicated. Likely length of stay is 10-14 days. Coding Level of Care Code Acute Code for g Fwd Diagnoses Psychosis F29 Methamphetamine abuse F15.10
[2022-08-18] MEDS: OLANZapine 10 mg TABLET PO (20:19)
[2022-08-18 20:29] VITALS: BP 116/78; PULSE 85; RESP 18; TEMP 37.1; O2SAT 97
[2022-08-19 06:00] VITALS: RESP 16
--- NOTE | 2022-08-19 12:53 | W.PM.NPUPNS ---
Subjective NPU Subjective: Patient presented today reporting that she is doing okay. She continued to seem fairly dull and with limited spontaneity of affect and behavior. She went to the court house for the 21-day hold hearing and did not interact or talk essentially at all. She was seeming lethargic and somewhat nodding during that time. She did not seem to react to any of the issues discussed on the stand. She was placed on a 21-day hold. We also discussed guardianship and filing by Monday given Monday is a holiday. Mental Status Exam MSE Comments: This is a slender, short white female in hospital scrubs with poor grooming and limited eye contact. No abnormal movements except for psychomotor retardation. Somewhat cooperative with exam in mild to moderate distress. Speech was limited with decreased rate and diminished volume remaining monotone with limited prosody. Mood described as I am fine , her affect was subdued and flat. Her thought process appeared linear and disorganized. Thought content: patient denies suicidal or homicidal ideation. There were no delusions reported but she seemed guarded. She occasionally appeared to be responding to internal stimuli. Attention, concentration and memory were impaired, but none were formally tested. She is alert and oriented to person and place. Her insight was poor. Her judgment and impulse control appeared impaired. Vitals/I&O/Wt Last Vital Signs Temp 98.7 F 08/18/22 20:29 Pulse 85 08/18/22 20:29 Resp 16 08/19/22 06:00 BP 116/78 08/18/22 20:29 Pulse Ox 97 08/18/22 20:29 O2 Del Method Room Air 08/18/22 20:29 Data NPU 08/15/22 20:24 08/15/22 20:24 A&P Assessment and plan (1) Psychosis: (2) Methamphetamine abuse: Plan This is a 22 year old white female who presents in on a 96 hour hold secondary to psychosis with positive UDS fo amphetamines with history of long hospitalizations required to resolve the psychotic symptoms. 1. Restart previous medications with a plan to get on long-acting injectable. Started Zyprexa 10 mg p.o. nightly. 2. Encourage individual, group and milieu therapy 3. Continue q-15 minute check for safety 4. Encourage sober living treatment after discharge at the highest level of care to which she is willing to commit. 5. 21-day hold started today 08/19/2022. Involuntary Hold Information 96 Hour Hold: 96 Hour Involuntary Admission: Yes 96 Hour Hold Ending Date: 08/19/22 96 Hour Hold Ending Time: 19:13 Attestations NPU Medical Necessity Statement*: Inpatient hospitalization is medically necessary and the clinically appropriate intervention at this time. We will monitor medications and make changes as indicated. Likely length of stay is 10-14 days. Coding Level of Care Code Acute Code for [facility] Fwd Diagnoses Psychosis F29 Methamphetamine abuse F15.10
[2022-08-19 14:00] VITALS: BP 115/78; PULSE 93; RESP 16; TEMP 36.3; O2SAT 92
[2022-08-19] MEDS: OLANZapine 10 mg TABLET PO (21:17)
[2022-08-19 22:00] VITALS: BP 129/80; PULSE 93; RESP 18; O2SAT 98
[2022-08-20 06:00] VITALS: BP 136/78; PULSE 85; RESP 18; O2SAT 99
--- NOTE | 2022-08-20 09:18 | W.PM.NPUPNS ---
Subjective NPU Subjective: Patient presented today back on a very common theme for her hospitalizations which is that she just be allowed to go home. We notified that she had no sick place to go and that her drug use puts her in a very precarious situation and now with psychosis discharge will be challenging. We talked about the 21-day hold and guardianship. Mental Status Exam MSE Comments: This is a slender, short white female in hospital scrubs with poor grooming and limited eye contact. No abnormal movements except for psychomotor retardation. Somewhat cooperative with exam in mild to moderate distress. Speech was limited with decreased rate and diminished volume remaining monotone with limited prosody. Mood described as I am fine , her affect was subdued and flat. Her thought process appeared linear and disorganized. Thought content: patient denies suicidal or homicidal ideation. There were no delusions reported but she seemed guarded. She occasionally appeared to be responding to internal stimuli. Attention, concentration and memory were impaired, but none were formally tested. She is alert and oriented to person and place. Her insight was poor. Her judgment and impulse control appeared impaired. Vitals/I&O/Wt Last Vital Signs Temp 97.4 F L 08/19/22 14:00 Pulse 85 08/20/22 06:00 Resp 18 08/20/22 06:00 BP 136/78 08/20/22 06:00 Pulse Ox 99 08/20/22 06:00 O2 Del Method Room Air 08/20/22 06:00 Data NPU 08/15/22 20:24 08/15/22 20:24 A&P Assessment and plan (1) Psychosis: (2) Methamphetamine abuse: Plan This is a 22 year old white female who presents in on a 96 hour hold secondary to psychosis with positive UDS fo amphetamines with history of long hospitalizations required to resolve the psychotic symptoms. 1. Restart previous medications with a plan to get on long-acting injectable. Started Zyprexa 10 mg p.o. nightly. 2. Encourage individual, group and milieu therapy 3. Continue q-15 minute check for safety 4. Encourage sober living treatment after discharge at the highest level of care to which she is willing to commit. 5. 21-day hold started 08/19/2022. Involuntary Hold Information 96 Hour Hold: 96 Hour Involuntary Admission: Yes 96 Hour Hold Ending Date: 05/26/23 96 Hour Hold Ending Time: 19:13 Attestations NPU Medical Necessity Statement*: Inpatient hospitalization is medically necessary and the clinically appropriate intervention at this time. We will monitor medications and make changes as indicated. Likely length of stay is 10-14 days. Coding Level of Care Code Acute Code for [facility] Fwd Diagnoses Psychosis F29 Methamphetamine abuse F15.10
[2022-08-20 14:00] VITALS: BP 117/80; PULSE 105; RESP 20; TEMP 36.8; O2SAT 97
--- NOTE | 2022-08-20 18:11 | PC.NURSE ---
PT WAS MONITORED AFTER LUNCH AND DINNER FOR 30 MINUTES. PT TOLERATED MEALS WELL.
[2022-08-20] MEDS: OLANZapine 10 mg TABLET PO (20:10)
[2022-08-20 22:00] VITALS: BP 122/82; PULSE 75; RESP 16; TEMP 36.6; O2SAT 99
[2022-08-21 05:58] VITALS: RESP 18
[2022-08-21 06:00] VITALS: BMI 21.2
--- NOTE | 2022-08-21 08:41 | P.NPUPN_ITS ---
Subjective NPU Subjective: Patient presented today unchanged. She continues to exhibit no insight in relation to her current situation. Suggested that she not sure why she needs to stay in line we can just discharged her. She displays somewhat laissez-faire attitude about the discussion of guardianship. Though she does voice that she is not wanting to have guardianship but she has no answer to how she is going to avoid the challenges that have plagued her for the last year and a half or so. She continues to deny drug use in the face of the positive UDS. Mental Status Exam MSE Comments: This is a slender, short white female in hospital scrubs with poor grooming and limited eye contact. No abnormal movements except for psychomotor retardation. Somewhat cooperative with exam in mild distress. At times having a fairly laissez-faire attitude about her drug use etc. Speech was more spontaneous with more normal rate and volume. Mood described as I am fine , her affect was subdued and flat. Her thought process appeared linear and disorganized. Thought content: patient denies suicidal or homicidal ideation. There were no delusions reported but she seemed guarded. She occasionally appeared to be r esponding to internal stimuli. Attention, concentration and memory were impaired, but none were formally tested. She is alert and oriented to person and place. Her insight was poor. Her judgment and impulse control appeared impaired. Vitals/I&O/Wt Last Vital Signs Temp 97.8 F 08/20/22 22:00 Pulse 75 08/20/22 22:00 Resp 18 08/21/22 05:58 BP 122/82 08/20/22 22:00 Pulse Ox 99 08/20/22 22:00 O2 Del Method Room Air 08/20/22 22:00 Data NPU 08/15/22 20:24 08/15/22 20:24 A&P Assessment and plan (1) Psychosis: (2) Methamphetamine abuse: Plan This is a 22 year old white female who presents in on a 96 hour hold secondary to psychosis with positive UDS fo amphetamines with history of long hospitalizations required to resolve the psychotic symptoms. 1. Restart previous medications with a plan to get on long-acting injectable. Started Zyprexa 10 mg p.o. nightly. 2. Encourage individual, group and milieu therapy 3. Continue q-15 minute check for safety 4. Encourage sober living treatment after discharge at the highest level of care to which she is willing to commit. 5. 21-day hold started 08/19/2022. Involuntary Hold Information 96 Hour Hold: 96 Hour Involuntary Admission: Yes 96 Hour Hold Ending Date: 08/19/22 96 Hour Hold Ending Time: 19:13 Attestations NPU Medical Necessity Statement*: Inpatient hospitalization is medically necessary and the clinically appropriate intervention at this time. We will monitor medications and make changes as indicated. Likely length of stay is 10-14 days. Coding Level of Care Code Acute Code for [facility] Fwd Diagnoses Psychosis F29 Methamphetamine abuse F15.10
[2022-08-21 14:00] VITALS: BP 117/79; PULSE 80; RESP 16; TEMP 36.6; O2SAT 100
[2022-08-21 20:15] VITALS: BP 113/74; PULSE 83; RESP 16; TEMP 36.8; O2SAT 99
[2022-08-21] MEDS: OLANZapine 10 mg TABLET PO (20:19)
--- NOTE | 2022-08-22 08:28 | W.PM.NPUPNS ---
Subjective NPU Subjective: Patient presented today reporting that she feels that she is fine. 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 She reported that she felt she is got housing and got her food stamps back that she would be fine. She had no answer for the solution to her drug use which generally drives all the difficulties. Mental Status Exam MSE Comments: This is a slender, short white female in hospital scrubs with poor grooming and limited eye contact. No abnormal movements except for psychomotor retardation. Somewhat cooperative with exam in mild distress. At times having a fairly laissez-faire attitude about her drug use etc. Speech was more spontaneous with more normal rate and volume. Mood described as I am fine , her affect was subdued and flat. Her thought process appeared linear and less disorganized. Thought content: patient denies suicidal or homicidal ideation. There were no delusions reported but she seemed guarded. She occasionally appeared to be responding to internal stimuli. Attention, concentration and memory were impaired, but none were formally tested. She is alert and oriented to person and place. Her insight was poor. Her judgment and impulse control appeared impaired. Vitals/I&O/Wt Last Vital Signs Temp 98.2 F 08/21/22 20:15 Pulse 83 08/21/22 20:15 Resp 16 08/21/22 20:15 BP 113/74 08/21/22 20:15 Pulse Ox 99 08/21/22 20:15 O2 Del Method Room Air 08/21/22 20:15 Weight last 48 hrs Weight 54.431 kg Data NPU 08/15/22 20:24 08/15/22 20:24 A&P Assessment and plan (1) Psychosis: (2) Methamphetamine abuse: Plan This is a 22 year old white female who presents in on a 96 hour hold secondary to psychosis with positive UDS fo amphetamines with history of long hospitalizations required to resolve the psychotic symptoms. 1. Restart previous medications with a plan to get on long-acting injectable. Started Zyprexa 10 mg p.o. nightly. 2. Encourage individual, group and milieu therapy 3. Continue q-15 minute check for safety 4. Encourage sober living treatment after discharge at the highest level of care to which she is willing to commit. 5. 21-day hold started 08/19/2022. Involuntary Hold Information 96 Hour Hold: 96 Hour Involuntary Admission: Yes 96 Hour Hold Ending Date: 08/19/22 96 Hour Hold Ending Time: 19:13 Attestations NPU Medical Necessity Statement*: Inpatient hospitalization is medically necessary and the clinically appropriate intervention at this time. We will monitor medications and make changes as indicated. Likely length of stay is 10-14 days. Coding Level of Care Code Acute Code for [facility] Fwd Diagnoses Psychosis F29 Methamphetamine abuse F15.10
[2022-08-22 14:00] VITALS: BP 122/76; PULSE 97; RESP 16; TEMP 36.8; O2SAT 97
[2022-08-22 20:31] VITALS: BP 125/83; PULSE 83; RESP 16; TEMP 36.8; O2SAT 97
[2022-08-22] MEDS: OLANZapine 10 mg TABLET PO (21:08)
[2022-08-23 14:00] VITALS: BP 111/72; PULSE 96; RESP 16; TEMP 37.1; O2SAT 95
--- NOTE | 2022-08-23 14:33 | W.PM.NPUPNS ---
Subjective NPU Subjective: Patient presents today continuing to struggle with her insight relating to her situation here. We continue to discussed the likelihood of guardianship and she continues to believe that addiction and need for oversight are not true needs or issues. She denies any issues with the medication and continues to be quite isolative. Mental Status Exam MSE Comments: This is a slender, short white female in hospital scrubs with poor grooming and limited eye contact. No abnormal movements except for psychomotor retardation. Somewhat cooperative with exam in mild distress. At times having a fairly laissez-faire attitude about her drug use etc. Speech was more spontaneous with more normal rate and volume. Mood described as I am fine , her affect was subdued and flat. Her thought process appeared linear and less disorganized. Thought content: patient denies suicidal or homicidal ideation. There were no delusions reported but she seemed guarded. She occasionally appeared to be responding to internal stimuli. Attention, concentration and memory were impaired, but none were formally tested. She is alert and oriented to person and place. Her insight was poor. Her judgment and impulse control appeared impaired. Vitals/I&O/Wt Last Vital Signs Temp 98.7 F 08/23/22 14:00 Pulse 96 08/23/22 14:00 Resp 16 08/23/22 14:00 BP 111/72 08/23/22 14:00 Pulse Ox 95 08/23/22 14:00 O2 Del Method Room Air 08/23/22 14:00 Data NPU 08/15/22 20:24 08/15/22 20:24 A&P Assessment and plan (1) Psychosis: (2) Methamphetamine abuse: Plan This is a 22 year old white female who presents in on a 96 hour hold secondary to psychosis with positive UDS fo amphetamines with history of long hospitalizations required to resolve the psychotic symptoms. 1. Restart previous medications with a plan to get on long-acting injectable. Started Zyprexa 10 mg p.o. nightly. 2. Encourage individual, group and milieu therapy 3. Continue q-15 minute check for safety 4. Encourage sober living treatment after discharge at the highest level of care to which she is willing to commit. 5. 21-day hold started 08/19/2022. Involuntary Hold Information 96 Hour Hold: 96 Hour Involuntary Admission: Yes 96 Hour Hold Ending Date: 08/19/22 96 Hour Hold Ending Time: 19:13 Attestations NPU Medical Necessity Statement*: Inpatient hospitalization is medically necessary and the clinically appropriate intervention at this time. We will monitor medications and make changes as indicated. Likely length of stay is 10-14 days. Coding Level of Care Code Acute Code for [facility] Fwd Diagnoses Psychosis F29 Methamphetamine abuse F15.10
[2022-08-23] MEDS: OLANZapine 10 mg TABLET PO (20:24)
[2022-08-23 22:00] VITALS: BP 121/88; PULSE 82; RESP 16; O2SAT 96
[2022-08-24 06:00] VITALS: BP 117/74; PULSE 86; RESP 16; TEMP 36.5; O2SAT 96
--- NOTE | 2022-08-24 11:46 | W.PM.NPUPNS ---
Subjective NPU Subjective: Patient presented today reporting that she is doing fine. She continues to be isolative on the unit often sitting in 1 spot staring off into space without movement or action. She continues to report that she is fine but in conversation it is unclear if she is not reporting how she feels or is having significant negative symptoms which is most likely. We discussed that we should continue to move the dose of her Zyprexa up in keeping with the dose that had success in previous stays. We continue to discuss a plan to explore guardianship. Mental Status Exam MSE Comments: This is a slender, short white female in hospital scrubs with poor grooming and limited eye contact. No abnormal movements except for psychomotor retardation. Somewhat cooperative with exam in mild distress. At times having a fairly laissez-faire attitude about her drug use etc. Speech was more spontaneous with more normal rate and volume. Mood described as I am fine , her affect was subdued and flat. Her thought process appeared linear and less disorganized. Thought content: patient denies suicidal or homicidal ideation. There were no delusions reported but she seemed guarded. She occasionally appeared to be responding to internal stimuli. Attention, concentration and memory were impaired, but none were formally tested. She is alert and oriented to person and place. Her insight was poor. Her judgment and impulse control appeared impaired. Vitals/I&O/Wt Last Vital Signs Temp 97.7 F 08/24/22 06:00 Pulse 86 08/24/22 06:00 Resp 16 08/24/22 06:00 BP 117/74 08/24/22 06:00 Pulse Ox 96 08/24/22 06:00 O2 Del Method Room Air 08/24/22 06:00 Data NPU 08/15/22 20:24 08/15/22 20:24 A&P Assessment and plan (1) Psychosis: (2) Methamphetamine abuse: Plan This is a 22 year old white female who presents in on a 96 hour hold secondary to psychosis with positive UDS fo amphetamines with history of long hospitalizations required to resolve the psychotic symptoms. 1. Restart previous medications with a plan to get on long-acting injectable. Started Zyprexa 10 mg p.o. nightly. Increase to 15 mg p.o. nightly 2. Encourage individual, group and milieu therapy 3. Continue q-15 minute check for safety 4. Encourage sober living treatment after discharge at the highest level of care to which she is willing to commit. 5. 21-day hold started 08/19/2022. Involuntary Hold Information 96 Hour Hold: 96 Hour Involuntary Admission: Yes 96 Hour Hold Ending Date: 08/19/22 96 Hour Hold Ending Time: 19:13 Attestations NPU Medical Necessity Statement*: Inpatient hospitalization is medically necessary and the clinically appropriate intervention at this time. We will monitor medications and make changes as indicated. Likely length of stay is 10-14 days. Coding Level of Care Code Acute Code for [facility] Fwd Diagnoses Psychosis F29 Methamphetamine abuse F15.10
[2022-08-24 14:00] VITALS: BP 113/79; PULSE 98; RESP 16; TEMP 36.6; O2SAT 97
--- NOTE | 2022-08-24 18:22 | PC.NURSE ---
PT HAS BEEN MONITORED FOR 30 MINUTES AFTER EACH MEAL. PT TOLERATED MEAL WELL AND HAS NOT HAD TROUBLES WITH [facility].
[2022-08-24] MEDS: OLANZapine 10 mg TABLET PO (20:17)
[2022-08-24 21:40] VITALS: BP 123/83; PULSE 91; RESP 18; TEMP 36.9; O2SAT 98
[2022-08-25 06:00] VITALS: BP 113/64; PULSE 76; RESP 16; TEMP 36.4; O2SAT 95
[2022-08-25 14:00] VITALS: BP 113/78; PULSE 95; RESP 16; TEMP 36.6; O2SAT 99
--- NOTE | 2022-08-25 15:15 | P.NPUPN_ITS ---
Subjective NPU Subjective: Patient presented today reporting that she was doing okay. We had a conversation about her vision for going to get housing etc. For moment she seems to have some insight into how something more structured like [facility] might be helpful. But then she really started focusing on believing she can get a job and be good at a job and became very focused on when discharge would occur. Mental Status Exam MSE Comments: This is a slender, short white female in hospital scrubs with poor grooming and limited eye contact. No abnormal movements except for psychomotor retardation. Somewhat cooperative with exam in mild distress. At times having a fairly laissez-faire attitude about her drug use etc. Speech was more spontaneous with more normal rate and volume. Mood described as I am fine , her affect was subdued and flat. Her thought process appeared linear and less disorganized. Thought content: patient denies suicidal or homicidal ideation. There were no delusions reported but she seemed guarded. She occasionally appeared to be responding to internal stimuli. Attention, concentration and memory were impaired, but none were formally tested. She is alert and oriented to person a nd place. Her insight was poor. Her judgment and impulse control appeared impaired. Vitals/I&O/Wt Last Vital Signs Temp 98 F 08/25/22 14:00 Pulse 95 08/25/22 14:00 Resp 16 08/25/22 14:00 BP 113/78 08/25/22 14:00 Pulse Ox 99 08/25/22 14:00 O2 Del Method Room Air 08/25/22 14:00 Data NPU 08/15/22 20:24 08/15/22 20:24 A&P Assessment and plan (1) Psychosis: (2) Methamphetamine abuse: Plan This is a 22 year old white female who presents in on a 96 hour hold secondary to psychosis with positive UDS fo amphetamines with history of long hospitalizations required to resolve the psychotic symptoms. 1. Restart previous medications with a plan to get on long-acting injectable. Started Zyprexa 10 mg p.o. nightly. Increase to 15 mg p.o. nightly. We discussed the long-acting injectable and we will pursue what it would take to get it available. 2. Encourage individual, group and milieu therapy 3. Continue q-15 minute check for safety 4. Encourage sober living treatment after discharge at the [facility] level of care to which she is willing to commit. 5. 21-day hold started 08/19/2022. We will submit interrogatories for guardianship tomorrow. Involuntary Hold Information 96 Hour Hold: 96 Hour Involuntary Admission: Yes 96 Hour Hold Ending Date: 08/19/22 96 Hour Hold Ending Time: 19:13 Attestations NPU Medical Necessity Statement*: Inpatient hospitalization is medically necessary and the clinically appropriate intervention at this time. We will monitor medications and make changes as indicated. Likely length of stay is 10-14 days. Coding Level of Care Code Acute Code for [facility] Fwd Diagnoses Psychosis F29 Methamphetamine abuse F15.10
[2022-08-25] MEDS: OLANZapine 10 mg TABLET PO (22:00)
[2022-08-25 22:29] VITALS: BP 124/84; PULSE 73; RESP 16; TEMP 37.1; O2SAT 100
[2022-08-26 06:15] VITALS: BP 114/79; PULSE 110; RESP 14; TEMP 36.4; O2SAT 98
[2022-08-26 14:00] VITALS: BP 120/75; PULSE 115; RESP 20; TEMP 36.9; O2SAT 95
--- NOTE | 2022-08-26 17:50 | P.NPUPN_ITS ---
Subjective NPU Subjective: Patient presented today appearing more pleasant. We discussed her recovery moving quickly and our plan to proceed with guardianship to assist her in stabilization in the community. She continues to be resistant to the idea of needing continued services here. We discussed taking the long view of the situation and is wanting to create a situation where she can flourish not just something that allows her to make a quick decision now. Mental Status Exam MSE Comments: This is a slender, short white female in hospital scrubs with poor grooming and limited eye contact. No abnormal movements except for psychomotor retardation. Somewhat cooperative with exam in mild distress. At times having a fairly laissez-faire attitude about her drug use etc. Speech was more spontaneous with more normal rate and volume. Mood described as I am fine , her affect was subdued and flat. Her thought process appeared linear and less disorganized. Thought content: patient denies suicidal or homicidal ideation. There were no delusions reported but she seemed guarded. She occasionally appeared to be responding to internal stimuli. Attention, concentration and memory were impaired, but none were formally tested. She is alert and oriented to person and place. Her insight was poor. Her judgment and impulse control appeared impaired. Vitals/I&O/Wt Last Vital Signs Temp 98 F 08/26/22 20:18 Pulse 82 08/26/22 20:18 Resp 18 08/26/22 20:18 BP 122/75 08/26/22 20:18 Pulse Ox 100 08/26/22 20:18 O2 Del Method Room Air 08/26/22 20:18 Data NPU 08/15/22 20:24 08/15/22 20:24 A&P Assessment and plan (1) Psychosis: (2) Methamphetamine abuse: Plan This is a 22 year old white female who presents in on a 96 hour hold secondary to psychosis with positive UDS fo amphetamines with history of long hospitalizations required to resolve the psychotic symptoms. 1. Restart previous medications with a plan to get on long-acting injectable. Started Zyprexa 10 mg p.o. nightly. Increased to 15 mg p.o. nightly. We di scussed the long-acting injectable and we will pursue what it would take to get it available. 2. Encourage individual, group and milieu therapy 3. Continue q-15 minute check for safety 4. Encourage sober living treatment after discharge at the highest level of care to which she is willing to commit. 5. 21-day hold started 08/19/2022. We will submit interrogatories for guardianship tomorrow. Involuntary Hold Information 96 Hour Hold: 96 Hour Involuntary Admission: Yes 96 Hour Hold Ending Date: 08/19/22 96 Hour Hold Ending Time: 19:13 Attestations NPU Medical Necessity Statement*: Inpatient hospitalization is medically necessary and the clinically appropriate intervention at this time. We will monitor medications and make changes as indicated. Likely length of stay is 9-13 days. Coding Level of Care Code Acute Code for [facility] Fwd Diagnoses Psychosis F29 Methamphetamine abuse F15.10
[2022-08-26 20:18] VITALS: BP 122/75; PULSE 82; RESP 18; TEMP 36.6; O2SAT 100
[2022-08-26] MEDS: OLANZapine 5 mg TABLET 15 MG PO (21:04)
--- NOTE | 2022-08-27 05:57 | P.NPUPN_ITS ---
Subjective NPU Subjective: Patient presents this morning reporting that she is doing okay. She denies any issues overnight or any issues with the increase in the Zyprexa. We discussed Dr. Orona return tomorrow and making decisions about the guardianship likely progressing. Mental Status Exam MSE Comments: This is a slender, short white female in hospital scrubs with poor grooming and limited eye contact. No abnormal movements except for psychomotor retardation. Somewhat cooperative with exam in mild distress. At times having a fairly laissez-faire attitude about her drug use etc. Speech was more spontaneous with more normal rate and volume. Mood described as I am fine , her affect was subdued and flat. Her thought process appeared linear and less disorganized. Thought content: patient denies suicidal or homicidal ideation. There were no delusions reported but she seemed guarded. She occasionally appeared to be responding to internal stimuli. Attention, concentration and memory were impaired, but none were formally tested. She is alert and oriented to person and place. Her insight was poor. Her judgment and impulse control appeared impaired. Vitals/I&O/Wt Last Vital Signs Temp 98 F 08/26/22 20:18 Pulse 82 08/26/22 20:18 Resp 18 08/26/22 20:18 BP 122/75 08/26/22 20:18 Pulse Ox 100 08/26/22 20:18 O2 Del Method Room Air 08/26/22 20:18 Data NPU 08/15/22 20:24 08/15/22 20:24 A&P Assessment and plan (1) Psychosis: (2) Methamphetamine abuse: Plan This is a 22 year old white female who presents in on a 96 hour hold secondary to psychosis with positive UDS fo amphetamines with history of long hospital izations required to resolve the psychotic symptoms. 1. Restart previous medications with a plan to get on long-acting injectable. Started Zyprexa 10 mg p.o. nightly. Increased to 15 mg p.o. nightly. We discussed the long-acting injectable and we will pursue what it would take to get it available. 2. Encourage individual, group and milieu therapy 3. Continue q-15 minute check for safety 4. Encourage sober living treatment after discharge at the highest level of care to which she is willing to commit. 5. 21-day hold started 08/19/2022. [facility]. Involuntary Hold Information 96 Hour Hold: 96 Hour Involuntary Admission: Yes 96 Hour Hold Ending Date: 08/19/22 96 Hour Hold Ending Time: 19:13 Attestations NPU Medical Necessity Statement*: Inpatient hospitalization is medically necessary and the clinically appropriate intervention at this time. We will monitor medications and make changes as indicated. Likely length of stay is 9-13 days. Coding Level of Care Code Acute Code for [facility] Fwd Diagnoses Psychosis F29 Methamphetamine abuse F15.10
[2022-08-27 06:34] VITALS: RESP 17
[2022-08-27 14:00] VITALS: BP 117/82; PULSE 93; RESP 16; O2SAT 98
[2022-08-27] MEDS: OLANZapine 5 mg TABLET 15 MG PO (20:44)
[2022-08-27 20:52] VITALS: BP 118/82; PULSE 84; RESP 16; TEMP 36.8; O2SAT 97
[2022-08-28 06:00] VITALS: BP 106/69; PULSE 86; RESP 16; TEMP 36.5; O2SAT 97
[2022-08-28] MEDS: blistex lip oint 7 gm Tube 1 APPLIC TOPICAL (12:40)
[2022-08-28 13:51] VITALS: BP 119/81; PULSE 80; RESP 16; TEMP 36.9; O2SAT 98
[2022-08-28] MEDS: docusate sodium 100 mg Capsule PO (14:24)
--- NOTE | 2022-08-28 17:31 | P.NPUPN_ITS ---
Subjective NPU Subjective: Patient is a 22-year-old white female with a history of psychotic disorder not otherwise specified along with methamphetamine abuse. Patient continued to appear minimally insightful regarding her hospitalization. She states that she is here just to get some rest. She had reported being uncertain as to why she had been placed in the hospital. She reported that she was planning on returni ng home to live with her father. She had required less prompting for completion of activities of daily living. She had reported that she would not likely need medication when she returned home. Mental Status Exam MSE Comments: This is a slender, short white female in hospital scrubs with poor grooming and limited eye contact. No abnormal movements except for psychomotor retardation. She was superficially cooperative with exam in no acute distress. Speech was more spontaneous with more normal rate and volume. Mood described as good , her affect was subdued and mood incongruent. Her thought process appeared linear and less disorganized. Thought content: patient denies suicidal or ho micidal ideation. There were no delusions reported but she seemed guarded. She occasionally appeared to be responding to internal stimuli. Attention, concentration and memory were impaired, but none were formally tested. She is alert and oriented to person and place. Her insight was poor. Her judgment and impulse control appeared impaired. Vitals/I&O/Wt Last Vital Signs Temp 98.4 F 08/28/22 13:51 Pulse 80 08/28/22 13:51 Resp 16 08/28/22 13:51 BP 119/81 08/28/22 13:51 Pulse Ox 98 08/28/22 13:51 O2 Del Method Room Air 08/28/22 06:00 Weight last 48 hrs Weight 59.511 kg Data NPU 08/15/22 20:24 08/15/22 20:24 A&P Assessment and plan (1) Psychosis: (2) Methamphetamine abuse: Plan This is a 22 year old white female who presents in on a 96 hour hold secondary to psychosis with positive UDS fo amphetamines with history of long h ospitalizations required to resolve the psychotic symptoms. 1. Restart previous medications with a plan to get on long-acting injectable. Continue zyprexa 15mg at night. Long acting zyprexa IM? 2. Encourage individual, group and milieu therapy 3. Continue q-15 minute check for safety 4. Encourage sober living treatment after discharge at the highest level of care to which she is willing to commit. 5. 21-day hold started 08/19/2022. We will submit callie brar for guardianship tomorrow. Involuntary Hold Information 96 Hour Hold: 96 Hour Involuntary Admission: Yes 96 Hour Hold Ending Date: 08/19/22 96 Hour Hold Ending Time: 19:13 Attestations NPU Medical Necessity Statement*: Inpatient hospitalization is medically necessary and the clinically appropriate intervention at this time. We will monitor medications and make changes as indicated. Likely length of stay is 9-13 days. Coding Level of Care Code Acute Code for [facility] Fwd Diagnoses Psychosis F29 Methamphetamine abuse F15.10
[2022-08-28] MEDS: OLANZapine 5 mg TABLET 15 MG PO (20:27)
[2022-08-28 22:00] VITALS: BP 115/77; PULSE 92; RESP 16; TEMP 36.4; O2SAT 97
[2022-08-29 06:00] VITALS: BP 116/73; PULSE 72; RESP 16; TEMP 36.6; O2SAT 98
[2022-08-29 14:00] VITALS: BP 122/81; PULSE 78; RESP 16; TEMP 36.5; O2SAT 96
--- NOTE | 2022-08-29 19:32 | W.PM.NPUPNS ---
Subjective NPU Subjective: Patient is a 22-year-old white female with a history of psychotic disorder not otherwise specified along with methamphetamine abuse. Patient had reported that she had never been informed about the plan for the hospital to proceed with guardianship. She reported that she is could simply go home. She continued to minimize the multiple episodes and inability for the patient to currently make good decisions regarding her own care. She had minimized the effects of her drug use on her state of mind. She continued to superficially attend groups with minimal cooperation and interaction with her peers. She reported that she was doing well. Mental Status Exam MSE Comments: This is a slender, short white female in hospital scrubs with poor grooming and limited eye contact. No abnormal movements except for psychomotor retardation. She was superficially cooperative with exam in no acute distress. Speech was more spontaneous with more normal rate and volume. Mood described as good , her affect was subdued and mood incongruent. Her thought process appeared linear and less disorganized. Thought content: patient denies suicidal or homicidal ideation. There were no delusions reported but she seemed guarded. She occasionally appeared to be responding to internal stimuli. Attention, concentration and memory were impaired, but none were formally tested. She is alert and oriented to person and place. Her insight is feeble. Her judgment is poor and impulse control appeared impaired. Vitals/I&O/Wt Last Vital Signs Temp 97.7 F 08/29/22 14:00 Pulse 78 08/29/22 14:00 Resp 16 08/29/22 14:00 BP 122/81 08/29/22 14:00 Pulse Ox 96 08/29/22 14:00 O2 Del Method Room Air 08/28/22 22:00 Weight last 48 hrs Weight 59.511 kg Data NPU 08/15/22 20:24 08/15/22 20:24 A&P Assessment and plan (1) Psychosis: (2) Methamphetamine abuse: Plan This is a 22 year old white female who presents in on a 96 hour hold secondary to psychosis with positive UDS fo amphetamines with history of long hospitalizations required to resolve the psychotic symptoms. 1. Restart previous medications with a plan to get on long-acting injectable. Continue zyprexa 15mg at night. Long acting zyprexa IM? 2. Encourage individual, group and milieu therapy 3. Continue q-15 minute check for safety 4. Encourage sober living treatment after discharge at the highest level of care to which she is willing to commit. 5. Interrogatories submitted for guardianship tomorrow. Involuntary Hold Information 96 Hour Hold: 96 Hour Involuntary Admission: Yes 96 Hour Hold Ending Date: 08/19/22 96 Hour Hold Ending Time: 19:13 Attestations NPU Medical Necessity Statement*: Inpatient hospitalization is medically necessary and the clinically appropriate intervention at this time. We will monitor medications and make changes as indicated. Likely length of stay is likely dependent upon her guardianship hearing as we will begin seeking placement for patient. Coding Level of Care Code Acute Code for [facility] Fwd Diagnoses Psychosis F29 Methamphetamine abuse F15.10
[2022-08-29] MEDS: OLANZapine 5 mg TABLET 15 MG PO (20:17)
[2022-08-29 20:47] VITALS: BP 115/75; PULSE 94; RESP 16; TEMP 36.7; O2SAT 97
[2022-08-29] MEDS: docusate sodium 100 mg Capsule PO (22:10)
[2022-08-30 06:00] VITALS: BP 107/70; PULSE 78; RESP 16; TEMP 36.7; O2SAT 97
[2022-08-30 13:33] VITALS: BP 199/78; PULSE 77; RESP 12; TEMP 36.7; O2SAT 98
--- NOTE | 2022-08-30 19:05 | W.PM.NPUPNS ---
Subjective NPU Subjective: Patient is a 22-year-old white female with a history of psychotic disorder not otherwise specified along with methamphetamine abuse. Patient continued to have limited interactions with her peers. She had stated that she was feeling fine. Patient was informed once again that she was being placed under guardianship due to repeated problems and failure to remain safe outside of the hospital. She continued to minimize the significance of her substance use. She reported that she had been sleeping well with the olanzapine with no reported side effects. Mental Status Exam MSE Comments: This is a slender, short white female in hospital scrubs with poor grooming and limited eye contact. No abnormal movements except for psychomotor retardation. She was superficially cooperative with exam in no acute distress. Speech was more spontaneous with more normal rate and volume. Mood described as fine , her affect was subdued and mood incongruent. Her thought process appeared linear and but superficial. Thought content: patient denies suicidal or homicidal ideation. There were no delusions reported but she seemed guarded. She occasionally appeared to be responding to internal stimuli. Attention, concentration and memory were impaired, but none were formally tested. She is alert and oriented to person and place. Her insight is feeble. Her judgment is poor and impulse control appeared impaired. Vitals/I&O/Wt Last Vital Signs Temp 98.1 F 08/30/22 13:33 Pulse 77 08/30/22 13:33 Resp 12 08/30/22 13:33 BP 199/78 08/30/22 13:33 Pulse Ox 98 08/30/22 13:33 O2 Del Method Room Air 08/30/22 13:33 Data NPU 08/15/22 20:24 08/15/22 20:24 A&P Assessment and plan (1) Psychosis: (2) Methamphetamine abuse: Plan This is a 22 year old white female who presents in on a 96 hour hold secondary to psychosis with positive UDS fo amphetamines with history of long hospitalizations required to resolve the psychotic symptoms. 1. Will obtain authorization for Zyprexa Relprevv Continue zyprexa 15mg at night. 2. Encourage individual, group and milieu therapy 3. Continue q-15 minute check for safety 4. Encourage sober living treatment after discharge at the highest level of care to which she is willing to commit. 5. Guardianship filed. Involuntary Hold Information 96 Hour Hold: 96 Hour Involuntary Admission: Yes 96 Hour Hold Ending Date: 08/19/22 96 Hour Hold Ending Time: 19:13 Attestations NPU Medical Necessity Statement*: Inpatient hospitalization is medically necessary and the clinically appropriate intervention at this time. We will monitor medications and make changes as indicated. Likely length of stay is likely dependent upon her guardianship hearing as we will begin seeking placement for patient. Length of stay 10-15 days. Coding Level of Care Code Acute Code for [facility] Fwd Diagnoses Psychosis F29 Methamphetamine abuse F15.10
[2022-08-30] MEDS: OLANZapine 5 mg TABLET 15 MG PO (20:04)
[2022-08-30 22:00] VITALS: BP 116/78; PULSE 85; RESP 17; TEMP 36.7; O2SAT 98
[2022-08-31 06:00] VITALS: BP 107/70; PULSE 84; RESP 18; TEMP 36.7; O2SAT 96
--- NOTE | 2022-08-31 12:05 | W.PM.NPUPNS ---
Subjective NPU Subjective: Patient is a 22-year-old white female with a history of psychotic disorder not otherwise specified along with methamphetamine abuse. Patient remains isolative on the unit. Patient continued to report no side effects from medication. She continued to stay in room, reporting everything is fine. She reports no mood symptoms Mental Status Exam MSE Comments: This is a slender, short white female in hospital scrubs with poor grooming and limited eye contact. No abnormal movements except for psychomotor retardation. She was superficially cooperative with exam in no acute distress. Speech was more spontaneous with more normal rate and volume. Mood described as fine , her affect was subdued and mood incongruent. Her thought process appeared linear and but superficial. Thought content: patient denies suicidal or homicidal ideation. There were no delusions reported but she seemed guarded. She did appear to be responding to internal stimuli. Continued evidence of apathy and avolition. Attention, concentration and memory were impaired, but none were formally tested. She is alert and oriented to person and place. Her insight is feeble. Her judgment is poor and impulse control appeared impaired. Vitals/I&O/Wt Last Vital Signs Temp 98.3 F 09/21/22 12:51 Pulse 90 09/21/22 12:51 Resp 18 09/21/22 12:51 BP 97/63 09/21/22 12:51 Pulse Ox 97 09/21/22 12:51 O2 Del Method Room Air 09/21/22 06:00 Data NPU 08/15/22 20:24 08/15/22 20:24 A&P Assessment and plan (1) Psychosis: (2) Methamphetamine abuse: Plan This is a 22 year old white female who presents in on a 96 hour hold secondary to psychosis with positive UDS fo amphetamines with history of long hospitalizations required to resolve the psychotic symptoms. 1. Will obtain authorization for Zyprexa Relprevv Continue zyprexa 15mg at night. 2. Encourage individual, group and milieu therapy 3. Continue q-15 minute check for safety 4. Encourage sober living treatment after discharge at the highest level of care to which she is willing to commit. 5. Guardianship filed. Date pending. Involuntary Hold Information 96 Hour Hold: 96 Hour Involuntary Admission: Yes 96 Hour Hold Ending Date: 08/19/22 96 Hour Hold Ending Time: 19:13 Attestations NPU Medical Necessity Statement*: Inpatient hospitalization is medically necessary and the clinically appropriate intervention at this time. We will monitor medications and make changes as indicated. Likely length of stay is likely dependent upon her guardianship hearing as we will begin seeking placement for patient. Her likely length of stay 7-10 days. Will discharge as soon as placement obtained. Coding Level of Care Code Acute Code for [facility] Fwd Diagnoses Psychosis F29 Methamphetamine abuse F15.10
[2022-08-31 14:00] VITALS: BP 111/78; PULSE 104; RESP 16; TEMP 36.7; O2SAT 96
[2022-08-31] MEDS: OLANZapine 5 mg TABLET 15 MG PO (20:22)
[2022-08-31 20:59] VITALS: BP 113/74; PULSE 91; RESP 16; TEMP 36.7; O2SAT 96
[2022-08-31] MEDS: docusate sodium 100 mg Capsule PO (21:53)
[2022-09-01] MEDS: trazodone 50 mg Tablet PO ×2 (01:01→20:25)
[2022-09-01 06:00] VITALS: RESP 16
[2022-09-01 14:00] VITALS: BP 123/83; PULSE 81; RESP 16; TEMP 36.3; O2SAT 99
--- NOTE | 2022-09-01 15:49 | P.NPUPN_ITS ---
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 She continued to show evidence of lack of motivation. She had been walking on the unit and reported feeling bored. She had little desire to engage in any activit ies as she avoided attending group. She had reported no side effects from her medication. Staff notes the patient had been minimally cooperative but had been attending some basic groups but remained quiet. She had reported normal appetite. She had stated that she was fine and again was unable to describe anything that had led to her stay at the NPU. She had reported having visits with her father. Mental Status Exam MSE Comments: This is a slender, short white female in hospital scrubs with poor grooming and limited eye contact. No abnormal movements except for psychomotor retardation with avolition and anhedonia noted. She was superficially cooperative with exam in no acute distress. Speech was more spontaneous with more normal rate and volume. Mood described as good , her affect was subdued and mood incongruent. Her thought process appeared linear and but superficial. Thought content: patient denies suicidal or homicidal ideation. There were no delusions reported but she seemed guarded. She occasionally appeared to be responding to internal stimuli. Attention, concentration and memory were impaired, but none were formally tested. She is alert and oriented to person and place. Her insight is feeble. Her judgment is poor and impulse control appeared impaired. Vitals/I&O/Wt Last Vital Signs Temp 97.3 F L 09/01/22 14:00 Pulse 81 09/01/22 14:00 Resp 16 09/01/22 14:00 BP 123/83 09/01/22 14:00 Pulse Ox 99 09/01/22 14:00 O2 Del Method Room Air 09/01/22 14:00 Data NPU 08/15/22 20:24 08/15/22 20:24 A&P Assessment and plan (1) Psychosis: (2) Methamphetamine abuse: Plan This is a 22 year old white female who presents in on a 96 hour hold secondary to psychosis with positive UDS fo amphetamines with history of long hospitalizations required to resolve the psychotic symptoms. 1. Continue zyprexa 15mg at night. 2. Encourage individual, group and milieu therapy 3. Continue q-15 minute check for safety 4. Encourage sober living treatment after discharge at the highest level of care to which she is willing to commit. 5. Guardianship filed. Involuntary Hold Information 96 Hour Hold: 96 Hour Involuntary Admission: Yes 96 Hour Hold Ending Date: 08/19/22 96 Hour Hold Ending Time: 19:13 Attestations NPU Medical Necessity Statement*: Inpatient hospitalization is medically necessary and the clinically appropriate intervention at this time. We will monitor medications and make changes as indicated. Likely length of stay is likely dependent upon her guardianship hearing as we will begin seeking placement for patient. Her likely length of stay 10-15 days. Coding Level of Care Code Acute Code for [facility] Fwd Diagnoses Psychosis F29 Methamphetamine abuse F15.10
[2022-09-01] MEDS: OLANZapine 5 mg TABLET 15 MG PO (20:25)
[2022-09-01] MEDS: docusate sodium 100 mg Capsule PO (20:26)
[2022-09-01 22:00] VITALS: BP 133/86; PULSE 88; RESP 17; TEMP 36.4; O2SAT 98
[2022-09-02 14:00] VITALS: BP 119/86; PULSE 101; RESP 20; TEMP 36.5; O2SAT 97
--- NOTE | 2022-09-02 14:28 | W.PM.NPUPNS ---
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 The patient had continued to show relative apathy on the unit. She had minimal attendance in groups. She had engaged in some appropriate self-care including showering recently. She had continued to report that she needed to go home. She had no clear plan of how to successfully manage her situation as she had informed the residential mortgage underwriter that she was uncertain as to where she would live if she were to leave the hospital. She had acknowledged past history of substance use but again showed minimal insight into how it may have affected her wellbeing. She had reported improved sleep. Mental Status Exam MSE Comments: This is a slender, short white female in hospital scrubs with poor grooming and limited eye contact. No abnormal movements except for psychomotor retardation with avolition and anhedonia noted. She was superficially cooperative with exam in no acute distress. Speech was more spontaneous but still impoverished regarding content with more normal rate and volume. Mood described as fine , her affect was subdued and mood incongruent. Her thought process appeared linear and but superficial. Thought content: patient denies suicidal or homicidal ideation. There were no delusions reported but she seemed guarded. She occasionally appeared to be responding to internal stimuli. Attention, concentration and memory were impaired, but none were formally tested. She is alert and oriented to person and place. Her insight is feeble. Her judgment is poor and impulse control appeared impaired. Vitals/I&O/Wt Last Vital Signs Temp 97.7 F 09/02/22 14:00 Pulse 101 H 09/02/22 14:00 Resp 20 H 09/02/22 14:00 BP 119/86 09/02/22 14:00 Pulse Ox 97 09/02/22 14:00 O2 Del Method Room Air 09/01/22 22:00 Data NPU 08/15/22 20:24 08/15/22 20:24 A&P Assessment and plan (1) Psychosis: (2) Methamphetamine abuse: Plan This is a 22 year old white female who presents in on a 96 hour hold secondary to psychosis with positive UDS fo amphetamines with history of long hospitalizations required to resolve the psychotic symptoms. 1. Reduce zyprexa to 10mg at night and begin Invega oral 3mg at night with plan for IM invega once stabilized (will taper zyprexa as well) 2. Encourage individual, group and milieu therapy 3. Continue q-15 minute check for safety 4. Encourage sober living treatment after discharge at the highest level of care to which she is willing to commit. 5. Guardianship filed, awaiting court date..Seeking placement. Involuntary Hold Information 96 Hour Hold: 96 Hour Involuntary Admission: Yes 96 Hour Hold Ending Date: 08/19/22 96 Hour Hold Ending Time: 19:13 Attestations NPU Medical Necessity Statement*: Inpatient hospitalization is medically necessary and the clinically appropriate intervention at this time. We will monitor medications and make changes as indicated. Likely length of stay is likely dependent upon her guardianship hearing as we will begin seeking placement for patient. Her likely length of stay 10-15 days. Coding Level of Care Code Acute Code for [facility] Fwd Diagnoses Psychosis F29 Methamphetamine abuse F15.10
[2022-09-02] MEDS: docusate sodium 100 mg Capsule PO (16:53)
[2022-09-02 21:09] VITALS: BP 131/89; PULSE 81; RESP 15; TEMP 36.5; O2SAT 99
[2022-09-02] MEDS: paliperidone ER 3 mg Tablet PO (21:11)
[2022-09-02] MEDS: OLANZapine 10 mg TABLET PO (21:11)
[2022-09-03 06:00] VITALS: BP 122/83; PULSE 100; RESP 16; TEMP 36.5; O2SAT 98
--- NOTE | 2022-09-03 12:19 | P.NPUPN_ITS ---
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 She continues to show evidence of paranoia and remained unmotivated with significant lack of self-care and desire to engage with others. She continued to show rel ative apathy on the unit. She had minimal attendance in groups. She had completed some activities of daily living with prompting. She continued to report everything as being fine . She had reiterated to me that she did not need a guardian. She had reported visits from family members. She had reported feeling less sedated with the reduction in olanzapine and the initiation of Invega. Mental Status Exam MSE Comments: This is a slender, short white female in hospital scrubs with poor grooming and limited eye contact. No abnormal movements except for psychomotor retardation with avolition and anhedonia noted. She was minimally cooperative with exam in no acute distress. Speech was more spontaneous but still impoverished regarding content with more normal rate and volume. Mood described as fine , her affect was subdued and mood incongruent. Her thought process appeared linear and but superficial. Thought content: patient denies suicidal or homicidal ideation. There were no delusions reported but she seemed guarded. She occasionally appeared to be responding to internal stimuli. Attention, concentration and memory were impaired, but none were formally tested. She is alert and oriented to person and place. Her insight is feeble. Her judgment is poor and impulse control appeared impaired. Vitals/I&O/Wt Last Vital Signs Temp 97.7 F 09/03/22 06:00 Pulse 100 09/03/22 06:00 Resp 16 09/03/22 06:00 BP 122/83 09/03/22 06:00 Pulse Ox 98 09/03/22 06:00 O2 Del Method Room Air 09/01/22 22:00 Data NPU 08/15/22 20:24 08/15/22 20:24 A&P Assessment and plan (1) Psychosis: (2) Methamphetamine abuse: Plan This is a 22 year old white female who presents in on a 96 hour hold secondary to psychosis with positive UDS fo amphetamines with history of long hospitalizations required to resolve the psychotic symptoms. 1. Will reduce zyprexa to 5mg at night tommorow and increase Invega oral to 6mg at night with plan for IM invega once stabilized (will taper zyprexa as well) 2. Encourage individual, group and milieu therapy 3. Continue q-15 minute check for safety 4. Encourage sober living treatment after discharge at the highest level of care to which she is willing to commit. 5. Guardianship filed, awaiting court date..Seeking placement. Involuntary Hold Information 96 Hour Hold: 96 Hour Involuntary Admission: Yes 96 Hour Hold Ending Date: 08/19/22 96 Hour Hold Ending Time: 19:13 Attestations NPU Medical Necessity Statement*: Inpatient hospitalization is medically necessary and the clinically appropriate intervention at this time. We will monitor medications and make changes as indicated. Likely length of stay is likely dependent upon her guardianship hearing as we will begin seeking placement for patient. Her likely length of stay 10-15 days. Coding Level of Care Code Acute Code for g Fwd Diagnoses Psychosis F29 Methamphetamine abuse F15.10
[2022-09-03 14:00] VITALS: BP 110/75; PULSE 100; RESP 16; TEMP 36.6; O2SAT 99
[2022-09-03] MEDS: docusate sodium 100 mg Capsule PO (14:35)
[2022-09-03] MEDS: acetaminophen 325 mg Tablet 650 MG PO (17:56)
[2022-09-03] MEDS: paliperidone ER 3 mg Tablet PO (19:23)
[2022-09-03] MEDS: OLANZapine 10 mg TABLET PO (19:23)
[2022-09-03 20:14] VITALS: BP 110/77; PULSE 92; RESP 18; TEMP 36.7; O2SAT 96
--- NOTE | 2022-09-03 22:45 | PC.NURSE ---
pt up to desk at approximately 2345 to get snack. bag of cheetoes given. pt came back to desk 5 minutes later got a straw from the desk area and went back to her room. pt was then noted to be in the bathroom vomiting. pt came to desk several times after asking for food and drink, but pt was told that since her vomiting episode, she needed to wait for breakfast. pt stated but i'm hungry . pt was then told if she was able to not make herself vomit after eating, she wouldn't be hungry.
[2022-09-04] MEDS: acetaminophen 325 mg Tablet 650 MG PO ×3 (03:47→22:20)
[2022-09-04 06:00] VITALS: BP 109/69; PULSE 90; RESP 16; TEMP 36.6; O2SAT 98
--- NOTE | 2022-09-04 12:15 | W.PM.NPUPNS ---
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 She continues to show a lack of motivation on the milieu. She had required some redirection for completion of activities of daily living. She reported no change in sleep. She had continue to spend extensive amount of time in her bed. She had shown evidence of lack of motivation and lack of desire to complete anything. She had required prompting to attend groups on a limited basis. She had reported no difficulties with falling asleep. Mental Status Exam MSE Comments: This is a slender, short white female in hospital scrubs with poor grooming and limited eye contact. No abnormal movements except for psychomotor retardation with avolition and anhedonia noted. She was superficially cooperative with exam in no acute distress. Speech was was sporadic and normal in regards to volume and prosody but diminished in regards to rate. Her mood described as good. , her affect was subdued and mood incongruent. Her thought process appeared linear and but superficial. Thought content: patient denies suicidal or homicidal ideation. There were no delusions reported but she seemed guarded. She occasionally appeared to be responding to internal stimuli. Recent and remote memory appeared at baseline. She is alert and oriented to person and place and time. Her insight is feeble. Her judgment is poor and impulse control appeared impaired. Vitals/I&O/Wt Last Vital Signs Temp 97.9 F 09/04/22 06:00 Pulse 90 09/04/22 06:00 Resp 16 09/04/22 06:00 BP 109/69 09/04/22 06:00 Pulse Ox 98 09/04/22 06:00 O2 Del Method Room Air 09/04/22 06:00 Weight last 48 hrs Weight 60.146 kg Data NPU 08/15/22 20:24 08/15/22 20:24 A&P Assessment and plan (1) Psychosis: (2) Methamphetamine abuse: Plan This is a 22 year old white female who presents in on a 96 hour hold secondary to psychosis with positive UDS fo amphetamines with history of long hospitalizations required to resolve the psychotic symptoms. 1. Will reduce zyprexa to 2.5mg at night and continue Invega oral to 6mg at night with plan for IM invega once stabilized (will taper and d/c zyprexa as well) 2. Encourage individual, group and milieu therapy 3. Continue q-15 minute check for safety 4. Encourage sober living treatment after discharge at the highest level of care to which she is willing to commit. 5. Guardianship filed, awaiting court date..Seeking placement. 6. Neno's evaluation of living skills-OT assessment sought. Involuntary Hold Information 96 Hour Hold: 96 Hour Involuntary Admission: Yes 96 Hour Hold Ending Date: 08/19/22 96 Hour Hold Ending Time: 19:13 Attestations NPU Medical Necessity Statement*: Inpatient hospitalization is medically necessary and the clinically appropriate intervention at this time. We will monitor medications and make changes as indicated. Likely length of stay is likely dependent upon her guardianship hearing as we will begin seeking placement for patient. Her likely length of stay 10-15 days. Coding Level of Care Code Acute Code for g Fwd Diagnoses Psychosis F29 Methamphetamine abuse F15.10
[2022-09-04 14:00] VITALS: BP 96/68; PULSE 96; RESP 16; TEMP 37; O2SAT 97
--- NOTE | 2022-09-04 16:10 | PC.NURSE ---
Pt slamming bathroom doors x3 very loudly, after visit from pt's father. Staff inquired what was wrong and pt just replied that the door slipped. Pt was encouraged to please stop slamming doors.
[2022-09-04] MEDS: OLANZapine 5 mg TABLET 2.5 MG PO (19:48)
[2022-09-04] MEDS: cetylpyridinium Lozenge 1 EACH MUCOUS MEM (19:48)
[2022-09-04] MEDS: paliperidone ER 6 mg Tablet PO (19:48)
[2022-09-04] MEDS: docusate sodium 100 mg Capsule PO (19:48)
[2022-09-04 20:57] VITALS: BP 111/79; PULSE 100; RESP 18; TEMP 37.1; O2SAT 97
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
[2022-09-04] MEDS: trazodone 50 mg Tablet PO (22:19)
[2022-09-05 06:00] VITALS: RESP 16
[2022-09-05 09:00] VITALS: BP 102/66; PULSE 99; RESP 16; TEMP 36.7; O2SAT 96
[2022-09-05 13:08] VITALS: BP 106/70; PULSE 106; RESP 16; TEMP 36.8; O2SAT 95
[2022-09-05] MEDS: acetaminophen 325 mg Tablet 650 MG PO (15:23)
--- NOTE | 2022-09-05 16:20 | W.PM.NPUPNS ---
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 Patient had reported some improvement in energy. She had reported that she felt better on this medication. Staff notes the patient was more social. She appeared to show increased anxiety including daily activities. She stated that she was less tired on reported no sleep continuity disruption in the absence of taking her previous dose of olanzapine. She reported having a good visit with her family members. She had stated that she has been hopeful about continuing to eventually return home although she did not confirm her living situation and understands that temporary guardianship was being sought. Mental Status Exam MSE Comments: This is a slender, short white female in hospital scrubs with poor grooming and limited eye contact. No abnormal involuntary motor movements with decrease in psychomotor retardation noted. She was more cooperative with exam in no acute distress. Speech was more productive and spontaneous while normal in regards to volume and prosody. Her mood was described as better. , her affect was brighter. Her thought process appeared linear and logical. Thought content: patient denies suicidal or homicidal ideation. There was no evidence of delusional thinking. She did not appear to be responding to internal stimuli. Recent and remote memory appeared at baseline. She is alert and oriented to person and place and time. Her insight is poor. Her judgment is poor and impulse control appeared impaired. Vitals/I&O/Wt Last Vital Signs Temp 98.3 F 09/05/22 13:08 Pulse 106 H 09/05/22 13:08 Resp 16 09/05/22 13:08 BP 106/70 09/05/22 13:08 Pulse Ox 95 09/05/22 13:08 O2 Del Method Room Air 09/04/22 14:00 Weight last 48 hrs Weight 60.146 kg Data NPU 08/15/22 20:24 08/15/22 20:24 A&P Assessment and plan (1) Psychosis: (2) Methamphetamine abuse: Plan This is a 22 year old white female who presents in on a 96 hour hold secondary to psychosis with positive UDS fo amphetamines with history of long hospitalizations required to resolve the psychotic symptoms. 1. D/C Zyprexa and continue Invega oral to 6mg at night with plan for IM invega once stabilized. 2. Encourage individual, group and milieu therapy 3. Continue q-15 minute check for safety 4. Encourage sober living treatment after discharge at the highest level of care to which she is willing to commit. 5. Guardianship filed, awaiting court date..Seeking placement. 6. Neno's evaluation of living skills-OT assessment sought. Involuntary Hold Information 96 Hour Hold: 96 Hour Involuntary Admission: Yes 96 Hour Hold Ending Date: 08/19/22 96 Hour Hold Ending Time: 19:13 Attestations NPU Medical Necessity Statement*: Inpatient hospitalization is medically necessary and the clinically appropriate intervention at this time. We will monitor medications and make changes as indicated. Likely length of stay is likely dependent upon her guardianship hearing as we will begin seeking placement for patient. Her likely length of stay 10-15 days. Seeking placement currently. Coding Level of Care Code Acute Code for Chg Fwd Diagnoses Psychosis F29 Methamphetamine abuse F15.10
[2022-09-05] MEDS: blistex lip oint 7 gm Tube 1 APPLIC TOPICAL ×2 (16:30→18:13)
[2022-09-05] MEDS: docusate sodium 100 mg Capsule PO (16:30)
[2022-09-05] MEDS: cetylpyridinium Lozenge 1 EACH MUCOUS MEM (18:11)
[2022-09-05] MEDS: trazodone 50 mg Tablet PO (20:20)
[2022-09-05] MEDS: paliperidone ER 6 mg Tablet PO (20:20)
[2022-09-05 20:29] VITALS: BP 105/72; PULSE 102; RESP 16; TEMP 36.8; O2SAT 94
[2022-09-05] MEDS: magnesium hydroxide 30 mL UDC PO (21:52)
[2022-09-06 06:00] VITALS: BP 106/77; PULSE 93; RESP 16; TEMP 36.3; O2SAT 97
[2022-09-06] MEDS: cetylpyridinium Lozenge 1 EACH MUCOUS MEM ×2 (12:11→18:31)
[2022-09-06 14:00] VITALS: BP 103/69; PULSE 106; RESP 16; TEMP 36.8; O2SAT 97
--- NOTE | 2022-09-06 15:06 | W.PM.NPUPNS ---
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 The patient had appeared more interactive on the milieu. She had reported some difficulties falling asleep but stated that she had received trazodone which had been helpful. She reported no side effects from her Invega at this time. She reported adequate motivation and stated that she was hopeful about going home but appeared to understand that guardianship was being sought due to her unsafe behavior that is led to repeated hospitalizations with emerging psychosis. Patient had not required prompting for showering today. She had stated feeling a little tired. Mental Status Exam MSE Comments: This is a slender, short white female in hospital scrubs with poor grooming and limited eye contact. No abnormal involuntary motor movements with decrease in psychomotor retardation noted. She was more cooperative with exam in no acute distress. Speech was more productive and spontaneous while normal in regards to volume and prosody. Her mood was described as allright , her affect was blunted with some roberts affect appreciated. Her thought process appeared linear and logical. Thought content: patient denies suicidal or homicidal ideation. There was no evidence of delusional thinking. She did not appear to be responding to internal stimuli. Recent and remote memory appeared at baseline. She is alert and oriented to person and place and time. Her insight is poor. Her judgment is poor and impulse control appeared impaired. Vitals/I&O/Wt Last Vital Signs Temp 98.3 F 09/06/22 14:00 Pulse 106 H 09/06/22 14:00 Resp 16 09/06/22 14:00 BP 103/69 09/06/22 14:00 Pulse Ox 97 09/06/22 14:00 O2 Del Method Room Air 09/06/22 14:00 Data NPU 08/15/22 20:24 08/15/22 20:24 A&P Assessment and plan (1) Psychosis: (2) Methamphetamine abuse: Plan This is a 22 year old white female who presents in on a 96 hour hold secondary to psychosis with positive UDS fo amphetamines with history of long hospitalizations required to resolve the psychotic symptoms. 1. continue Invega oral to 6mg at night with plan for IM invega once stabilized. 2. Encourage individual, group and milieu therapy 3. Continue q-15 minute check for safety 4. Encourage sober living treatment after discharge at the highest level of care to which she is willing to commit. 5. Guardianship filed, awaiting court date..Seeking placement. 6. Neno's evaluation of living skills-OT assessment sought. Involuntary Hold Information 96 Hour Hold: 96 Hour Involuntary Admission: Yes 96 Hour Hold Ending Date: 08/19/22 96 Hour Hold Ending Time: 19:13 Attestations NPU Medical Necessity Statement*: Inpatient hospitalization is medically necessary and the clinically appropriate intervention at this time. We will monitor medications and make changes as indicated. Likely length of stay is likely dependent upon her guardianship hearing as we will begin seeking placement for patient. Her likely length of stay 10-15 days. Seeking placement currently. Coding Level of Care Code Acute Code for g Fwd Diagnoses Psychosis F29 Methamphetamine abuse F15.10
[2022-09-06] MEDS: OLANZapine 5 mg ODT PO (18:14)
[2022-09-06] MEDS: paliperidone ER 6 mg Tablet PO (20:30)
[2022-09-06 21:08] VITALS: BP 115/85; PULSE 104; RESP 16; TEMP 36.4; O2SAT 100
[2022-09-07 06:00] VITALS: RESP 17
[2022-09-07] MEDS: cetylpyridinium Lozenge 1 EACH MUCOUS MEM ×4 (11:09→19:10)
--- NOTE | 2022-09-07 11:11 | PC.NURSE ---
administered cepacol lozenge to patient for sore throat. patient rates discomfort at 1/10.
[2022-09-07 14:00] VITALS: BP 115/80; PULSE 97; RESP 15; TEMP 36.6; O2SAT 100
--- NOTE | 2022-09-07 14:18 | P.NPUPN_ITS ---
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 Patient had continue to report feeling bored. She had reported that she did not ask for any medications for sleep and did have some difficulties with falling asleep in the absence of medication. She had reported that she had been feeling better. She had been isolative in her room. She reported continued plan to work when she returned home. She had shown evidence with struggling with planning and execution as per Occupational Therapy evaluation. She had continued to express the idea that she would be able to find a place to live and be able to manage her self-care. She had minimized the concern of reemerging herself into continued drug use particularly methamphetamines and stated that it would not happen this time. Mental Status Exam MSE Comments: This is a slender, short white female in hospital scrubs with poor grooming and limited eye contact. No abnormal involuntary motor movements with mild psychomotor retardation appreciated. She was more cooperative with exam in no acute distress. Speech was more productive and spontaneous while normal in regards to volume and prosody. Her mood was described as allright , her affect remained blunted today. Her thought process appeared linear and logical. Thought content: patient denies suicidal or homicidal ideation. There was no evidence of delusional thinking. She did not appear to be responding to internal stimuli. Recent and remote memory appeared at baseline. She is alert and oriented to person and place and time. Her insight is poor. Her judgment is poor and impulse control appeared impaired. Vitals/I&O/Wt Last Vital Signs Temp 97.6 F 09/06/22 21:08 Pulse 104 H 09/06/22 21:08 Resp 17 09/07/22 06:00 BP 115/85 09/06/22 21:08 Pulse Ox 100 09/06/22 21:08 O2 Del Method Room Air 09/06/22 21:08 Data NPU 08/15/22 20:24 08/15/22 20:24 A&P Assessment and plan (1) Psychosis: (2) Methamphetamine abuse: Plan This is a 22 year old white female who presents in on a 96 hour hold secondary t o psychosis with positive UDS fo amphetamines with history of long hospitalizations required to resolve the psychotic symptoms. 1. continue Invega oral to 6mg at night with initiation of Invega IM 234mg tommorow. 2. Encourage individual, group and milieu therapy 3. Continue q-15 minute check for safety 4. Encourage sober living treatment after discharge at the highest level of care to which she is willing to commit. 5. Guardianship filed, awaiting court date scheduled for 09/09/22. 6. OT evaluation from 08/29/22 suggested continued needs in several areas of managing her home environment independently. Involuntary Hold Information 96 Hour Hold: 96 Hour Involuntary Admission: Yes 96 Hour Hold Ending Date: 08/19/22 96 Hour Hold Ending Time: 19:13 Attestations NPU Medical Necessity Statement*: Inpatient hospitalization is medically necessary and the clinically appropriate intervention at this time. We will monitor medications and make changes as indicated. Likely length of stay is likely dependent upon her guardianship hearing as we will begin seeking placement for patient. Her likely length of stay 10-15 days. Seeking placement currently. Coding Level of Care Code Acute Code for [facility] Fwd Diagnoses Psychosis F29 Methamphetamine abuse F15.10
[2022-09-07] MEDS: paliperidone palmitate 234 mg Syringe IM (16:16)
--- NOTE | 2022-09-07 16:26 | PC.NURSE ---
Administered Invega sustenna injection to patient's right deltoid muscle. No distress noted. 234mg/1.5mL. EXP: 12/18 Lot: [id number]
[2022-09-07] MEDS: paliperidone ER 6 mg Tablet PO (20:06)
[2022-09-07] MEDS: docusate sodium 100 mg Capsule PO (20:49)
[2022-09-07 21:19] VITALS: BP 121/78; PULSE 84; RESP 16; TEMP 36.4; O2SAT 98
[2022-09-07] MEDS: trazodone 100 mg Tablet PO (22:33)
[2022-09-08 06:00] VITALS: BP 111/77; PULSE 99; RESP 15; TEMP 36.4; O2SAT 97
[2022-09-08] MEDS: cetylpyridinium Lozenge 1 EACH MUCOUS MEM ×4 (12:55→21:23)
[2022-09-08 14:00] VITALS: BP 123/85; PULSE 111; RESP 18; TEMP 36.7; O2SAT 99
--- NOTE | 2022-09-08 15:48 | W.PM.NPUPNS ---
Subjective NPU Subjective: Patient presented today reporting that she was doing okay. She was aware of her meeting tomorrow which is her guardianship hearing. We had a lengthy discussion about the paperwork she received and guardianship versus conservatorship. We also discussed her possible living arrangements after the hearing tomorrow is probably at noon. She seemed to be thoughtful about what the possibilities were and we also talked about disability and different adjacent issues. Mental Status Exam MSE Comments: This is a slender, short white female in hospital scrubs with limited grooming and improving eye contact. No abnormal involuntary motor movements with resolving mild psychomotor retardation appreciated. She was cooperative with exam in no acute distress. Speech was more productive and spontaneous while normal in regards to rate, volume and prosody. Her mood was described as pretty good, her affect remained blunted today, though appearing more bright. Her thought process appeared linear and logical. Thought content: patient denies suicidal or homicidal ideation. There was no evidence of delusional thinking. She did not appear to be responding to internal stimuli. Recent and remote memory appeared at baseline. She is alert and oriented to person and place and time. Her insight is improving but limited. Her judgment is limited and impulse control appeared limited. Vitals/I&O/Wt Last Vital Signs Temp 98.1 F 09/08/22 14:00 Pulse 111 H 09/08/22 14:00 Resp 18 09/08/22 14:00 BP 123/85 09/08/22 14:00 Pulse Ox 99 09/08/22 14:00 O2 Del Method Room Air 09/08/22 06:00 Data NPU 08/15/22 20:24 08/15/22 20:24 A&P Assessment and plan (1) Psychosis: (2) Methamphetamine abuse: Plan This is a 22 year old white female who presents in on a 96 hour hold secondary to psychosis with positive UDS fo amphetamines with history of long hospitalizations required to resolve the psychotic symptoms. 1. continue Invega oral to 6mg at night with initiation of Invega IM 234mg, loading dose, given 09/07/2022. 2. Encourage individual, group and milieu therapy 3. Continue q-15 minute check for safety 4. Encourage sober living treatment after discharge at the highest level of care to which she is willing to commit. 5. Guardianship filed, awaiting court date scheduled for 09/09/22. 6. OT evaluation from 08/29/22 [place] suggested continued needs in several areas of managing her home environment independently. Involuntary Hold Information 96 Hour Hold: 96 Hour Involuntary Admission: Yes 96 Hour Hold Ending Date: 08/19/22 96 Hour Hold Ending Time: 19:13 Attestations NPU Medical Necessity Statement*: Inpatient hospitalization is medically necessary and the clinically appropriate intervention at this time. We will monitor medications and make changes as indicated. Likely length of stay is likely dependent upon her guardianship hearing as we will begin seeking placement for patient. Her likely length of stay 10-15 days. Coding Level of Care Code Acute Code for g Fwd Diagnoses Psychosis F29 Methamphetamine abuse F15.10
[2022-09-08] MEDS: blistex lip oint 7 gm Tube 1 APPLIC TOPICAL (16:47)
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
[2022-09-08] MEDS: paliperidone ER 6 mg Tablet PO (19:51)
[2022-09-08 21:44] VITALS: BP 114/78; PULSE 105; RESP 16; TEMP 36.6; O2SAT 99
[2022-09-09 06:00] VITALS: BP 114/75; PULSE 95; RESP 16; O2SAT 97
[2022-09-09] MEDS: docusate sodium 100 mg Capsule PO (08:16)
[2022-09-09] MEDS: cetylpyridinium Lozenge 1 EACH MUCOUS MEM ×6 (08:16→20:55)
[2022-09-09] MEDS: acetaminophen 325 mg Tablet 650 MG PO ×2 (13:40→17:47)
--- NOTE | 2022-09-09 13:52 | P.NPUPN_ITS ---
Subjective NPU Subjective: Patient presented today reporting that she was doing fine. Had hearing and says guardianship was assigned. Mostly had questions about placement and how quickly it could happen. We discussed her needing Level II interview before someone will take her and hoping that this could be done in the beginning of next week. No problems with medications or other issues reported. Mental Status Exam MSE Comments: This is a slender, short white female in hospital scrubs with limited grooming and improving eye contact. No abnormal involuntary motor movements with resolving mild psychomotor retardation appreciated. She was cooperative with exam in no acute distress. Speech was more productive and spontaneous while normal in regards to rate, volume and prosody. Her mood was described as pretty good, her affect remained blunted today, though appearing more bright. Her thought process appeared linear and logical. Thought content: patient denies suicidal or homicidal ideation. There was no evidence of delusional thinking. She did not appear to be responding to internal stimuli. Recent and remote memory appeared at baseline. She is alert and oriented to person and place and time. Her insight is improving but limited. Her judgment is limited and impulse control appeared limited. Vitals/I&O/Wt Last Vital Signs Temp 97.9 F 09/08/22 21:44 Pulse 95 09/09/22 06:00 Resp 16 09/09/22 06:00 BP 114/75 09/09/22 06:00 Pulse Ox 97 09/09/22 06:00 O2 Del Method Room Air 09/09/22 06:00 Data NPU 08/15/22 20:24 08/15/22 20:24 A&P Assessment and plan (1) Psychosis: (2) Methamphetamine abuse: Plan This is a 22 year old white female who presents in on a 96 hour hold secondary to psychosis with positive UDS fo amphetamines with history of long hospitalizations required to resolve the psychotic symptoms. 1. continue Invega oral to 6mg at night with initiation of Invega IM 234mg, loading dose, given 09/07/2022. 2. Encourage individual, group and milieu therapy 3. Continue q-15 minute check for safety 4. Encourage sober living treatment after discharge at the highest level of care to which she is willing to commit. 5. Guardianship filed, court date, today, 09/09/22. Will await the doll wigs hackler decree. 6. OT evaluation from 08/29/22 Flynn suggested continued needs in several areas of managing her home environment independently. Involuntary Hold Information 96 Hour Hold: 96 Hour Involuntary Admission: Yes 96 Hour Hold Ending Date: 08/19/22 96 Hour Hold Ending Time: 19:13 Attestations NPU Medical Necessity Statement*: Inpatient hospitalization is medically necessary and the clinically appropriate intervention at this time. We will monitor medications and make changes as indicated. Likely length of stay is likely dependent upon her guardianship hearing as we will begin seeking placement for patient. Her likely length of stay 3-7 days. Coding Level of Care Code Acute Code for [facility] Fwd Diagnoses Psychosis F29 Methamphetamine abuse F15.10
[2022-09-09 14:00] VITALS: BP 119/82; PULSE 103; RESP 16; TEMP 36.6; O2SAT 97
[2022-09-09 19:04] LABS: HIV 1 & 2 Antibody Non-Reactive (Non-Reactiv); HIV 1 & 2 Antigen Non-Reactive (Non-Reactiv)
[2022-09-09] MEDS: magnesium hydroxide 30 mL UDC PO (19:27)
[2022-09-09] MEDS: paliperidone ER 6 mg Tablet PO (20:43)
[2022-09-09 21:04] VITALS: BP 123/87; PULSE 112; RESP 18; TEMP 36.7; O2SAT 99
[2022-09-10 06:00] VITALS: BP 104/70; PULSE 105; RESP 15; TEMP 36.6; O2SAT 98
--- NOTE | 2022-09-10 11:46 | P.NPUPN_ITS ---
Subjective NPU Subjective: Patient presented today reporting that she was feeling okay. There was some report of burning with urination and it is unclear whether this is some somatic focus or clear symptoms STD panel was run. She continues to be excited about things moving forward next week and denies any side effects of the medication. Mental Status Exam MSE Comments: This is a slender, short white female in hospital scrubs with limited grooming and improving eye contact. No abnormal involuntary motor movements with resolving mild psychomotor retardation appreciated. She was cooperative with exam in no acute distress. Speech was more productive and spontaneous while normal in regards to rate, volume and prosody. Her mood was described as pretty good, her affect remained blunted today, though appearing more bright. Her thought process appeared linear and logical. Thought content: patient denies suicidal or homicidal ideation. There was no evidence of delusional thinking. She did not appear to be responding to internal stimuli. Recent and remote memory appeared at baseline. She is alert and oriented to person and place and time. Her insight is improving but limited. Her judgment is limited and impulse control appeared limited. Vitals/I&O/Wt Last Vital Signs Temp 97.8 F 09/10/22 06:00 Pulse 105 H 09/10/22 06:00 Resp 15 09/10/22 06:00 BP 104/70 09/10/22 06:00 Pulse Ox 98 09/10/22 06:00 O2 Del Method Room Air 09/10/22 06:00 Data NPU 08/15/22 20:24 08/15/22 20:24 A&P Assessment and plan (1) Psychosis: (2) Methamphetamine abuse: Plan This is a 22 year old white female who presents in on a 96 hour hold secondary to psychosis with positive UDS fo amphetamines with history of long hospitalizations required to resolve the psychotic symptoms. 1. continue Invega oral to 6mg at night with initiation of Invega IM 234mg, loading dose, given 09/07/2022. 2. Encourage individual, group and milieu therapy 3. Continue q-15 minute check for safety 4. Encourage sober living treatment after discharge at the highest level of care to which she is willing to commit. 5. Guardianship filed, court date, 09/09/22. Will await the optical engineering technician decree, but guardianship was granted. 6. OT evaluation from 08/29/22 Flynn suggested continued needs in several areas of managing her home environment independently. Involuntary Hold Information 96 Hour Hold: 96 Hour Involuntary Admission: Yes 96 Hour Hold Ending Date: 08/19/22 96 Hour Hold Ending Time: 19:13 Attestations NPU Medical Necessity Statement*: Inpatient hospitalization is medically necessary and the clinically appropriate intervention at this time. We will monitor medications and make changes as indicated. Likely length of stay is likely dependent upon her guardianship hearing as we will begin seeking placement for patient. Her likely length of stay 3-7 days. Coding Level of Care Code Acute Code for g Fwd Diagnoses Psychosis F29 Methamphetamine abuse F15.10
[2022-09-10 14:00] VITALS: BP 105/71; PULSE 100; RESP 18; TEMP 36.7; O2SAT 98
[2022-09-10] MEDS: acetaminophen 325 mg Tablet 650 MG PO (14:35)
[2022-09-10 15:38] LABS: Bilirubin Urine Neg (Negative); Blood Urine Neg (Negative); Glucose Urine UA Norm (Normal); Ketones Urine Negative (Negative); Leukocyte Esterase Urine Negative (Negative); Nitrate Urine Negative (Negative); Protein Urine Neg (Negative); RBC Urine 0-4 /hpf (0-2); Specific Gravity, Urine 1.005 (1.005-1.030); Urine Appearance Clear (CLEAR); Urine Color Yellow (Yellow); Urobilinogen Urine Norm (Negative); pH Urine 7 (5-7)
[2022-09-10 15:39] LABS: Add Urine Culture? No; Bacteria Urine TRACE /hpf; Squamous Epithelial Cell Urine 0-4 /hpf (0-5); WBC Urine 0-4 /hpf (0-5)
[2022-09-10 20:08] VITALS: BP 112/76; PULSE 96; RESP 18; TEMP 36.7; O2SAT 97
[2022-09-10] MEDS: paliperidone ER 6 mg Tablet PO (20:28)
[2022-09-10] MEDS: hydrocortisone 1% cream 28 gm 1 APPLIC TOPICAL (21:11)
[2022-09-10] MEDS: trazodone 100 mg Tablet PO (23:04)
[2022-09-11 06:00] VITALS: BP 107/73; PULSE 109; RESP 16; TEMP 36.7; O2SAT 95
--- NOTE | 2022-09-11 11:25 | P.NPUPN_ITS ---
Subjective NPU Subjective: Patient presented today reporting that she is feeling focused on discharging soon as possible. We will again reviewed the process of getting her level to hearing. She is also somewhat somatically preoccupied and surprised by the fact that thus far her STD panel was negative. We discussed her urinalysis and the possibility of considering antibiotic treatment. Awaiting results. Otherwise she denies side effects of the medication and reports looking forward to the next leg of her journey. Mental Status Exam MSE Comments: This is a slender, short white female in hospital scrubs with limited grooming and improving eye contact. No abnormal involuntary motor movements with resolving mild psychomotor retardation appreciated. She was cooperative with exam in no acute distress. Speech was more productive and spontaneous while normal in regards to rate, volume and prosody. Her mood was described as pretty good, her affect remained blunted today, though appearing more bright. Her thought process appeared linear and logical. Thought content: patient denies suicidal or homicidal ideation. There was no evidence of delusional thinking. She did not appear to be responding to internal stimuli. Recent and remote memory appeared at baseline. She is alert and oriented to person and place and time. Her insight is improving but limited. Her judgment is limited and impulse control appeared limited. Vitals/I&O/Wt Last Vital Signs Temp 98.1 F 09/11/22 06:00 Pulse 109 H 09/11/22 06:00 Resp 16 09/11/22 06:00 BP 107/73 09/11/22 06:00 Pulse Ox 95 09/11/22 06:00 O2 Del Method Room Air 09/11/22 06:00 Weight last 48 hrs Weight 60.6 kg Data NPU 08/15/22 20:24 08/15/22 20:24 Micro: Microbiology 09/09/22 18:36 Chlamydia trachomatis (GRACIELA) - Final Urine Random Neisseria gonorrhoeae (GRACIELA) - Final Trichomonas vaginalis (GRACIELA - Final Microbiology 09/09/22 18:36 Urine Random Chlamydia trachomatis (GRACIELA) - Final 09/09/22 18:36 Urine Random Neisseria gonorrhoeae (GRACIELA) - Final 09/09/22 18:36 Urine Random Trichomonas vaginalis (GRACIELA - Final A&P Assessment and plan (1) Psychosis: (2) Methamphetamine abuse: Plan This is a 22 year old white female who presents in on a 96 hour hold secondary to psychosis with positive UDS fo amphetamines with history of long hospitalizations required to resolve the psychotic symptoms. 1. continue Invega oral to 6mg at night with initiation of Invega IM 234mg, loading dose, given 09/07/2022. 2. Encourage individual, group and milieu therapy 3. Continue q-15 minute check for safety 4. Encourage sober living treatment after discharge at the highest level of care to which she is willing to commit. 5. Guardianship filed, court date, 09/09/22. Will await the conservator artifacts decree, but guardianship was granted. 6. OT evaluation from 08/29/22 Flynn suggested continued needs in several areas of managing her home environment independently. Involuntary Hold Information 96 Hour Hold: 96 Hour Involuntary Admission: Yes 96 Hour Hold Ending Date: 08/19/22 96 Hour Hold Ending Time: 19:13 Attestations NPU Medical Necessity Statement*: Inpatient hospitalization is medically necessary and the clinically appropriate intervention at this time. We will monitor medications and make changes as indicated. Likely length of stay is likely dependent upon her guardianship hearing as we will begin seeking placement for patient. Her likely length of stay 2-6 days. Coding Level of Care Code Acute Code for [facility] Fwd Diagnoses Psychosis F29 Methamphetamine abuse F15.10
[2022-09-11] MEDS: docusate sodium 100 mg Capsule PO (13:19)
--- NOTE | 2022-09-11 13:19 | PC.NURSE ---
PRN COLACE 100 MG GIVEN PO PER PT C/O CONSTIPATION
[2022-09-11] MEDS: cetylpyridinium Lozenge 1 EACH MUCOUS MEM ×3 (13:32→20:52)
--- NOTE | 2022-09-11 13:33 | PC.NURSE ---
PRN CEPACOL 1 LOZENGE GIVEN PO PER PT C/O COUGH/SORE THROAT
[2022-09-11 14:00] VITALS: BP 122/83; PULSE 99; RESP 18; TEMP 36.6; O2SAT 98
[2022-09-11] MEDS: paliperidone ER 6 mg Tablet PO (20:52)
[2022-09-11 21:00] VITALS: BP 122/83; PULSE 101; RESP 18; TEMP 36.8; O2SAT 94
[2022-09-11] MEDS: acetaminophen 325 mg Tablet 650 MG PO (21:21)
[2022-09-11] MEDS: trazodone 100 mg Tablet PO (23:40)
[2022-09-12 06:00] VITALS: BP 96/71; PULSE 88; RESP 16; TEMP 36.7; O2SAT 96
--- NOTE | 2022-09-12 11:59 | W.PM.NPUPNS ---
Subjective NPU Subjective: Patient presented today reporting that she is still having some kind of congestion issue. It is unclear whether this is actual symptom or she is being somatically preoccupied right now. We discussed her not having her interview for level 2 today likely because of the holiday and that the social work team will work on the possibility of that hearing the next 2 days. Otherwise she is tolerating the medication without side effects. Mental Status Exam MSE Comments: This is a slender, short white female in hospital scrubs with limited grooming and improving eye contact. No abnormal involuntary motor movements with resolving mild psychomotor retardation appreciated. She was cooperative with exam in no acute distress. Speech was more productive and spontaneous while normal in regards to rate, volume and prosody. Her mood was described as pretty good, her affect remained blunted today, though appearing more bright during engagement. Her thought process appeared linear and logical. Thought content: patient denies suicidal or homicidal ideation. There was no evidence of delusional thinking. She did not appear to be responding to internal stimuli. Recent and remote memory appeared at baseline. She is alert and oriented to person and place and time. Her insight is improving but limited. Her judgment is limited and impulse control appeared limited. Vitals/I&O/Wt Last Vital Signs Temp 98.1 F 09/12/22 06:00 Pulse 88 09/12/22 06:00 Resp 16 09/12/22 06:00 BP 96/71 09/12/22 06:00 Pulse Ox 96 09/12/22 06:00 O2 Del Method Room Air 09/11/22 21:00 Weight last 48 hrs Weight 60.6 kg Data NPU 08/15/22 20:24 08/15/22 20:24 A&P Assessment and plan (1) Psychosis: (2) Methamphetamine abuse: Plan This is a 22 year old white female who presents in on a 96 hour hold secondary to psychosis with positive UDS fo amphetamines with history of long hospitalizations required to resolve the psychotic symptoms. 1. continue Invega oral to 6mg at night with initiation of Invega IM 234mg, loading dose, given 09/07/2022. 2. Encourage individual, group and milieu therapy 3. Continue q-15 minute check for safety 4. Encourage sober living treatment after discharge at the highest level of care to which she is willing to commit. 5. Guardianship filed, court date, 09/09/22. Will await the emergency management system director decree, but guardianship was granted. 6. OT evaluation from 08/29/22 Flynn suggested continued needs in several areas of managing her home environment independently. Involuntary Hold Information 96 Hour Hold: 96 Hour Involuntary Admission: Yes 96 Hour Hold Ending Date: 08/19/22 96 Hour Hold Ending Time: 19:13 Attestations NPU Medical Necessity Statement*: Inpatient hospitalization is medically necessary and the clinically appropriate intervention at this time. We will monitor medications and make changes as indicated. Likely length of stay is likely dependent upon her guardianship hearing as we will begin seeking placement for patient. Her likely length of stay 2-5 days. Coding Level of Care Code Acute Code for [facility] Fwd Diagnoses Psychosis F29 Methamphetamine abuse F15.10
[2022-09-12] MEDS: docusate sodium 100 mg Capsule PO (12:31)
[2022-09-12 14:00] VITALS: BP 113/76; PULSE 101; RESP 17; TEMP 36.4; O2SAT 98
[2022-09-12] MEDS: hydrocortisone 1% cream 28 gm 1 APPLIC TOPICAL (16:23)
[2022-09-12] MEDS: nicotine 2 mg Gum BUCCAL ×3 (18:11→22:59)
[2022-09-12] MEDS: acetaminophen 325 mg Tablet 650 MG PO (18:34)
[2022-09-12] MEDS: paliperidone ER 6 mg Tablet PO ×2 (20:05→20:09)
[2022-09-12] MEDS: trazodone 100 mg Tablet PO (20:05)
[2022-09-12] MEDS: cetylpyridinium Lozenge 1 EACH MUCOUS MEM (20:12)
[2022-09-12 20:38] VITALS: BP 113/75; PULSE 92; RESP 16; TEMP 36.8; O2SAT 100
[2022-09-13 06:00] VITALS: BP 106/71; PULSE 90; RESP 14; TEMP 36.5; O2SAT 96
[2022-09-13] MEDS: nicotine 2 mg Gum BUCCAL ×4 (08:37→17:54)
[2022-09-13] MEDS: docusate sodium 100 mg Capsule PO (08:50)
[2022-09-13] MEDS: acetaminophen 325 mg Tablet 650 MG PO (09:26)
[2022-09-13 13:55] VITALS: BP 119/80; PULSE 95; RESP 16; TEMP 36.9; O2SAT 99
[2022-09-13 14:00] VITALS: BP 119/80; PULSE 95; RESP 16; TEMP 36.9; O2SAT 99
--- NOTE | 2022-09-13 17:43 | W.PM.NPUPNS ---
Subjective NPU Subjective: Patient presents today reporting that she is feeling a little cabin Fever and hoping to get out of here sooner rather than later. She is excited about the fact that she did get word that she would have her level to interview tomorrow and is hopeful for discharge to some facility thereafter. Otherwise she had some continued somatic complaints but mostly endorsed positive feelings about pending discharge. Mental Status Exam MSE Comments: This is a slender, short white female in hospital scrubs with limited grooming and improving eye contact. No abnormal involuntary motor movements with resolving mild psychomotor retardation appreciated. She was cooperative with exam in no acute distress. Speech was more productive and spontaneous while normal in regards to rate, volume and prosody. Her mood was described as pretty good, her affect remained blunted today, though appearing more bright during engagement. Her thought process appeared linear and logical. Thought content: patient denies suicidal or homicidal ideation. There was no evidence of delusional thinking. She did not appear to be responding to internal stimuli. Recent and remote memory appeared at baseline. She is alert and oriented to person and place and time. Her insight is improving but limited. Her judgment is limited and impulse control appeared limited. Vitals/I&O/Wt Last Vital Signs Temp 98.0 F 09/13/22 22:00 Pulse 87 09/13/22 22:00 Resp 15 09/13/22 22:00 BP 125/83 09/13/22 22:00 Pulse Ox 99 09/13/22 22:00 O2 Del Method Room Air 09/13/22 22:00 Data NPU 08/15/22 20:24 08/15/22 20:24 A&P Assessment and plan (1) Psychosis: (2) Methamphetamine abuse: Plan This is a 22 year old white female who presents in on a 96 hour hold secondary to psychosis with positive UDS fo amphetamines with history of long hospitalizations required to resolve the psychotic symptoms. 1. continue Invega oral to 6mg at night with initiation of Invega IM 234mg, loading dose, given 09/07/2022. 2. Encourage individual, group and milieu therapy 3. Continue q-15 minute check for safety 4. Encourage sober living treatment after discharge at the highest level of care to which she is willing to commit. 5. Guardianship filed, court date, 09/09/22. Will await the assistant grocery store manager decree, but guardianship was granted. 6. OT evaluation from 08/29/22 Flynn suggested continued needs in several areas of managing her home environment independently. Involuntary Hold Information 96 Hour Hold: 96 Hour Involuntary Admission: Yes 96 Hour Hold Ending Date: 08/19/22 96 Hour Hold Ending Time: 19:13 Attestations NPU Medical Necessity Statement*: Inpatient hospitalization is medically necessary and the clinically appropriate intervention at this time. We will monitor medications and make changes as indicated. Likely length of stay is likely dependent upon her guardianship hearing as we will begin seeking placement for patient. Her likely length of stay 2-4 days. Will discharge as soon as placement obtained. Coding Level of Care Code Acute Code for [facility] Fwd Diagnoses Psychosis F29 Methamphetamine abuse F15.10
[2022-09-13] MEDS: magnesium hydroxide 30 mL UDC PO (20:27)
[2022-09-13] MEDS: paliperidone ER 6 mg Tablet PO (21:40)
[2022-09-13] MEDS: trazodone 100 mg Tablet PO (21:40)
[2022-09-13 22:00] VITALS: BP 125/83; PULSE 87; RESP 15; TEMP 36.7; O2SAT 99
[2022-09-14 06:00] VITALS: BP 97/64; PULSE 84; RESP 15; O2SAT 97
[2022-09-14] MEDS: cetylpyridinium Lozenge 1 EACH MUCOUS MEM (12:49)
[2022-09-14 14:00] VITALS: BP 100/66; PULSE 89; RESP 20; TEMP 36.9; O2SAT 98
--- NOTE | 2022-09-14 17:10 | W.PM.NPUPNS ---
Subjective NPU Subjective: Patient presents today reporting that she is feeling okay. She continues to be focused on her discharge with optimism. She had her level 2 interview today and in the findings about she is awaiting word that she has been excepted for discharge. She denies any side effects of the medications and is reported anxious anticipation about leaving. Mental Status Exam MSE Comments: This is a slender, short white female in hospital scrubs with limited grooming and improving eye contact. No abnormal involuntary motor movements with resolving mild psychomotor retardation appreciated. She was cooperative with exam in no acute distress. Speech was more productive and spontaneous while normal in regards to rate, volume and prosody. Her mood was described as pretty good, her affect remained blunted today, though appearing more bright during engagement. Her thought process appeared linear and logical. Thought content: patient denies suicidal or homicidal ideation. There was no evidence of delusional thinking. She did not appear to be responding to internal stimuli. Recent and remote memory appeared at baseline. She is alert and oriented to person and place and time. Her insight is improving but limited. Her judgment is limited and impulse control appeared limited. Vitals/I&O/Wt Last Vital Signs Temp 98.4 F 09/14/22 14:00 Pulse 89 09/14/22 14:00 Resp 20 H 09/14/22 14:00 BP 100/66 09/14/22 14:00 Pulse Ox 98 09/14/22 14:00 O2 Del Method Room Air 09/14/22 14:00 Data NPU 08/15/22 20:24 08/15/22 20:24 A&P Assessment and plan (1) Psychosis: (2) Methamphetamine abuse: Plan This is a 22 year old white female who presents in on a 96 hour hold secondary to psychosis with positive UDS fo amphetamines with history of long hospitalizations required to resolve the psychotic symptoms. 1. continue Invega oral to 6mg at night with initiation of Invega IM 234mg, loading dose, given 09/07/2022. Second loading dose of Invega 156 mg IM to the deltoid due. 2. Encourage individual, group and milieu therapy 3. Continue q-15 minute check for safety 4. Encourage sober living treatment after discharge at the highest level of care to which she is willing to commit. 5. Guardianship filed, court date, 09/09/22. Will await the mixer lever operator decree, but guardianship was granted. 6. OT evaluation from 08/29/22 Flynn suggested continued needs in several areas of managing her home environment independently. Involuntary Hold Information 96 Hour Hold: 96 Hour Involuntary Admission: Yes 96 Hour Hold Ending Date: 08/19/22 96 Hour Hold Ending Time: 19:13 Attestations NPU Medical Necessity Statement*: Inpatient hospitalization is medically necessary and the clinically appropriate intervention at this time. We will monitor medications and make changes as indicated. Likely length of stay is likely dependent upon her guardianship hearing as we will begin seeking placement for patient. Her likely length of stay 1-3 days. Will discharge as soon as placement obtained. Coding Level of Care Code Acute Code for g Fwd Diagnoses Psychosis F29 Methamphetamine abuse F15.10
[2022-09-14] MEDS: nicotine 2 mg Gum BUCCAL (19:21)
[2022-09-14] MEDS: paliperidone ER 6 mg Tablet PO (19:34)
[2022-09-14] MEDS: trazodone 100 mg Tablet PO (19:35)
[2022-09-14] MEDS: acetaminophen 325 mg Tablet 650 MG PO (20:14)
[2022-09-14 21:24] VITALS: BP 122/82; PULSE 96; RESP 16; TEMP 36.8; O2SAT 98
[2022-09-15 06:00] VITALS: BP 103/68; PULSE 88; RESP 12; TEMP 36.6; O2SAT 98
[2022-09-15] MEDS: paliperidone palmitate 156 mg Syringe IM (10:49)
[2022-09-15] MEDS: acetaminophen 325 mg Tablet 650 MG PO (13:32)
[2022-09-15] MEDS: benzocaine 20% 7 gm 1 APPLIC MUCOUS MEM (13:33)
[2022-09-15] MEDS: nicotine 2 mg Gum BUCCAL ×4 (13:56→20:31)
[2022-09-15 14:00] VITALS: BP 101/74; PULSE 68; RESP 18; TEMP 36.9; O2SAT 98
--- NOTE | 2022-09-15 15:43 | W.PM.NPUPNS ---
Subjective NPU Subjective: Patient returns today reporting that she is feeling fine. She reports she is trying to patiently await the acceptance to some facility but she is excited about the idea of having some additional space to roam in instead of these hallways. She denies any problems or side effects of the medications. Mental Status Exam MSE Comments: This is a slender, short white female in hospital scrubs with limited grooming and improving eye contact. No abnormal involuntary motor movements with resolving mild psychomotor retardation appreciated. She was cooperative with exam in no acute distress. Speech was more productive and spontaneous while normal in regards to rate, volume and prosody. Her mood was described as pretty good, just wanting to get out of here, her affect remained blunted today, though appearing more bright during engagement. Her thought process appeared linear and logical. Thought content: patient denies suicidal or homicidal ideation. There was no evidence of delusional thinking. She did not appear to be responding to internal stimuli. Recent and remote memory appeared at baseline. She is alert and oriented to person and place and time. Her insight is improving but limited. Her judgment is limited and impulse control appeared limited. Vitals/I&O/Wt Last Vital Signs Temp 98.1 F 09/15/22 20:03 Pulse 84 09/15/22 20:03 Resp 14 09/15/22 20:03 BP 135/83 09/15/22 20:03 Pulse Ox 99 09/15/22 20:03 O2 Del Method Room Air 09/15/22 20:03 Data NPU 08/15/22 20:24 08/15/22 20:24 A&P Assessment and plan (1) Psychosis: (2) Methamphetamine abuse: Plan This is a 22 year old white female who presents in on a 96 hour hold secondary to psychosis with positive UDS fo amphetamines with history of long hospitalizations required to resolve the psychotic symptoms. 1. continue Invega oral to 6mg at night with initiation of Invega IM 234mg, loading dose, given 09/07/2022. Second loading dose of Invega 156 mg IM to the deltoid given today, 09/15/2022. We will plan on discontinuing oral dosing. 2. Encourage individual, group and milieu therapy 3. Continue q-15 minute check for safety 4. Encourage sober living treatment after discharge at the highest level of care to which she is willing to commit. 5. Guardianship filed, court date, 09/09/22. Will await the per diem registered nurse decree, but guardianship was granted. 6. OT evaluation from 08/29/22 Flynn suggested continued needs in several areas of managing her home environment independently. Involuntary Hold Information 96 Hour Hold: 96 Hour Involuntary Admission: Yes 96 Hour Hold Ending Date: 08/19/22 96 Hour Hold Ending Time: 19:13 Attestations NPU Medical Necessity Statement*: Inpatient hospitalization is medically necessary and the clinically appropriate intervention at this time. We will monitor medications and make changes as indicated. Likely length of stay is likely dependent upon her guardianship hearing as we will begin seeking placement for patient. Her likely length of stay 1-3 days. Will discharge as soon as placement obtained. Coding Level of Care Code Acute Code for g Fwd Diagnoses Psychosis F29 Methamphetamine abuse F15.10
[2022-09-15] MEDS: docusate sodium 100 mg Capsule PO (16:17)
[2022-09-15 20:03] VITALS: BP 135/83; PULSE 84; RESP 14; TEMP 36.7; O2SAT 99
[2022-09-15] MEDS: trazodone 100 mg Tablet PO (20:32)
[2022-09-15] MEDS: paliperidone ER 6 mg Tablet PO (20:38)
[2022-09-16 06:00] VITALS: BP 117/79; PULSE 73; RESP 12; TEMP 36.7; O2SAT 97
[2022-09-16] MEDS: nicotine 2 mg Gum BUCCAL ×5 (09:59→20:14)
[2022-09-16] MEDS: magnesium hydroxide 30 mL UDC PO (13:51)
[2022-09-16 14:00] VITALS: BP 115/76; PULSE 96; RESP 16; TEMP 36.7; O2SAT 96
--- NOTE | 2022-09-16 17:07 | P.NPUPN_ITS ---
Subjective NPU Subjective: Patient is in today continuing to report that she is doing fine the medication without side effects. She identifies that she had no choice but to just wait for the decision for the lod[facility]. Otherwise she is slightly preoccupied but we discussed this off shoot of her boredom. She denies any other changes. Mental Status Exam MSE Comments: This is a slender, short white female in hospital scrubs with limited grooming and improving eye contact. No abnormal involuntary motor movements with re solving mild psychomotor retardation appreciated. She was cooperative with exam in no acute distress. Speech was more productive and spontaneous while normal in regards to rate, volume and prosody. Her mood was described as pretty good, just wanting to get out of here, her affect remained blunted today, though appearing more bright during engagement. Her thought process appeared linear and logical. Thought content: patient denies suicidal or homicidal ideation. There was no evidence of delusional thinking. She did not appear to be responding to internal stimuli. Recent and remote memory appeared at baseline. She is alert and oriented to person and place and time. Her insight is improving but limited. Her judgment is limited and impulse control appeared limited. Vitals/I&O/Wt Last Vital Signs Temp 98.3 F 09/16/22 20:54 Pulse 96 09/16/22 20:54 Resp 16 09/16/22 20:54 BP 118/81 09/16/22 20:54 Pulse Ox 98 09/16/22 20:54 O2 Del Method Room Air 09/16/22 14:00 Data NPU 08/15/22 20:24 08/15/22 20:24 A&P Assessment and plan (1) Psychosis: (2) Methamphetamine abuse: Plan This is a 22 year old white female who presents in on a 96 hour hold secondary to psychosis with positive UDS fo amphetamines with history of long hospitalizations required to resolve the psychotic symptoms. 1. continue Invega oral to 6mg at night with initiation of Invega IM 234mg, loading dose, given 09/07/2022. Second loading dose of Invega 156 mg IM to the deltoid given 09/15/2022. We will plan on discontinuing oral dosing. 2. Encourage individual, group and milieu therapy 3. Continue q-15 minute check for safety 4. Encourage sober living treatment after discharge at the highest level of care to which she is willing to commit. 5. Guardianship filed, court date, 09/09/22. Guardianship was granted. 6. OT evaluation from 08/29/22 Flynn suggested continued needs in several areas of managing her home environment independently. Involuntary Hold Information 96 Hour Hold: 96 Hour Involuntary Admission: Yes 96 Hour Hold Ending Date: 08/19/22 96 Hour Hold Ending Time: 19:13 Attestations NPU Medical Necessity Statement*: Inpatient hospitalization is medically necessary and the clinically appropriate intervention at this time. We will monitor medications and make changes as indicated. Likely length of stay is likely dependent upon her guardianship hearing as we will begin seeking placement for patient. Her likely length of stay 3-4 days. Will discharge as soon as placement obtained. Coding Level of Care Code Acute Code for [facility] Fwd Diagnoses Psychosis F29 Methamphetamine abuse F15.10
[2022-09-16] MEDS: paliperidone ER 6 mg Tablet PO (20:14)
[2022-09-16] MEDS: trazodone 100 mg Tablet PO (20:14)
[2022-09-16 20:54] VITALS: BP 118/81; PULSE 96; RESP 16; TEMP 36.8; O2SAT 98
[2022-09-17 06:00] VITALS: BP 106/74; PULSE 92; RESP 16; TEMP 36.7; O2SAT 96
[2022-09-17] MEDS: nicotine 2 mg Gum BUCCAL ×5 (11:18→20:38)
--- NOTE | 2022-09-17 12:12 | W.PM.NPUPNS ---
Subjective NPU Subjective: Patient presented today reporting that she is doing okay. She worked with the nursing team to assist her with some limited no concerns like feeling constipated. She continues to be anxious anticipating the ability to be discharged to a facility. We agreed to await the answer from the lodges and talked about the fact that it is still possible that the level 2 has not been finalized in the system which may be leading to the delay. We discussed the fact that nothing will happen over the weekend and then we will check into things first thing Monday. She was reasonable with this request. Mental Status Exam MSE Comments: This is a slender, short white female in hospital scrubs with limited grooming and improving eye contact. No abnormal involuntary motor movements with resolving mild psychomotor retardation appreciated. She was cooperative with exam in no acute distress. Speech was more productive and spontaneous while normal in regards to rate, volume and prosody. Her mood was described as pretty good, just wanting to get out of here, her affect remained blunted today, though appearing more bright during engagement. Her thought process appeared linear and logical. Thought content: patient denies suicidal or homicidal ideation. There was no evidence of delusional thinking. She did not appear to be responding to internal stimuli. Recent and remote memory appeared at baseline. She is alert and oriented to person and place and time. Her insight is improving but limited. Her judgment is limited and impulse control appeared limited. Vitals/I&O/Wt Last Vital Signs Temp 98.0 F 09/17/22 06:00 Pulse 92 09/17/22 06:00 Resp 16 09/17/22 06:00 BP 106/74 09/17/22 06:00 Pulse Ox 96 09/17/22 06:00 O2 Del Method Room Air 09/16/22 14:00 Data NPU 08/15/22 20:24 08/15/22 20:24 A&P Assessment and plan (1) Psychosis: (2) Methamphetamine abuse: Plan This is a 22 year old white female who presents in on a 96 hour hold secondary to psychosis with positive UDS fo amphetamines with history of long hospitalizations required to resolve the psychotic symptoms. 1. continue Invega oral to 6mg at night with initiation of Invega IM 234mg, loading dose, given 09/07/2022. Second loading dose of Invega 156 mg IM to the deltoid given 09/15/2022. We will plan on discontinuing oral dosing. 2. Encourage individual, group and milieu therapy 3. Continue q-15 minute check for safety 4. Encourage sober living treatment after discharge at the highest level of care to which she is willing to commit. 5. Guardianship filed, court date, 09/09/22. Guardianship was granted. 6. OT evaluation from 08/29/22 Flynn suggested continued needs in several areas of managing her home environment independently. Involuntary Hold Information 96 Hour Hold: 96 Hour Involuntary Admission: Yes 96 Hour Hold Ending Date: 08/19/22 96 Hour Hold Ending Time: 19:13 Attestations NPU Medical Necessity Statement*: Inpatient hospitalization is medically necessary and the clinically appropriate intervention at this time. We will monitor medications and make changes as indicated. Likely length of stay is likely dependent upon her guardianship hearing as we will begin seeking placement for patient. Her likely length of stay 2-4 days. Will discharge as soon as placement obtained. Coding Level of Care Code Acute Code for [facility] Diagnoses Psychosis F29 Methamphetamine abuse F15.10
[2022-09-17 14:00] VITALS: BP 116/77; PULSE 109; RESP 16; TEMP 36.9; O2SAT 96
[2022-09-17] MEDS: polyethylene glycol 3350 Pkt 17 gm PO (17:21)
[2022-09-17] MEDS: paliperidone ER 6 mg Tablet PO (20:38)
[2022-09-17] MEDS: trazodone 100 mg Tablet PO (20:39)
[2022-09-17 21:29] VITALS: BP 118/80; PULSE 89; RESP 18; TEMP 36.6; O2SAT 97
[2022-09-18 06:00] VITALS: RESP 16
--- NOTE | 2022-09-18 10:30 | P.NPUPN_ITS ---
Subjective NPU Subjective: Patient presents today reporting that she is doing fine. We discussed the situation with the placement and the fact that this movie writer reviewed records and identified that the social work team had sent her referral to numerous places, but then we are still hopeful and awaiting word from the lod[facility] which will be a good fit. She reports that stopping patient but that she is doing her best and very helpful for good news tomorrow. Mental Status Exam MSE Comments: This is a slender, short white female in hospital scrubs with limited grooming and improving eye contact. No abnormal involuntary motor movements with resolving mild psychomotor retardation appreciated. She was cooperative with evelyn carbajal in no acute distress. Speech was more productive and spontaneous while normal in regards to rate, volume and prosody. Her mood was described as pretty good, just wanting to get out of here, her affect remained blunted today, though appearing more bright during engagement. Her thought process appeared linear and logical. Thought content: patient denies suicidal or homicidal ideation. There was no evidence of delusional thinking. She did not appear to be responding to internal stimuli. Recent and remote memory appeared at baseline. She is alert and oriented to person and place and time. Her insight is improving but limited. Her judgment is limited and impulse control appeared limited. Vitals/I&O/Wt Last Vital Signs Temp 97.9 F 09/17/22 21:29 Pulse 89 09/17/22 21:29 Resp 16 09/18/22 06:00 BP 118/80 09/17/22 21:29 Pulse Ox 97 09/17/22 21:29 O2 Del Method Room Air 09/17/22 14:00 Weight last 48 hrs Weight 60.441 kg Data NPU 08/15/22 20:24 08/15/22 20:24 A&P Assessment and plan (1) Psychosis: (2) Methamphetamine abuse: Plan This is a 22 year old white female who presents in on a 96 hour hold secondary to psychosis with positive UDS fo amphetamines with history of long hospitalizations required to resolve the psychotic symptoms. 1. continue Invega oral to 6mg at night with initiation of Invega IM 234mg, loading dose, given 09/07/2022. Second loading dose of Invega 156 mg IM to the deltoid given 09/15/2022. We will plan on discontinuing oral dosing. 2. Encourage individual, group and milieu therapy 3. Continue q-15 minute check for safety 4. Encourage sober living treatment after discharge at the highest level of care to which she is willing to commit. 5. Guardianship filed, court date, 09/09/22. Guardianship was granted. 6. OT evaluation from 08/29/22 Flynn suggested continued needs in several areas of managing her home environment independently. Involuntary Hold Information 96 Hour Hold: 96 Hour Involuntary Admission: Yes 96 Hour Hold Ending Date: 08/19/22 96 Hour Hold Ending Time: 19:13 Attestations NPU Medical Necessity Statement*: Inpatient hospitalization is medically necessary and the clinically appropriate intervention at this time. We will monitor medications and make changes as ind icated. Likely length of stay is likely dependent upon her guardianship hearing as we will begin seeking placement for patient. Her likely length of stay 1-3 days. Will discharge as soon as placement obtained. Coding Level of Care Code Acute Code for [facility] Fwd Diagnoses Psychosis F29 Methamphetamine abuse F15.10
[2022-09-18 14:00] VITALS: BP 108/68; PULSE 106; RESP 16; TEMP 36.4; O2SAT 96
[2022-09-18] MEDS: nicotine 2 mg Gum BUCCAL ×2 (14:20→16:20)
[2022-09-18] MEDS: polyethylene glycol 3350 Pkt 17 gm PO (16:37)
[2022-09-18] MEDS: OLANZapine 5 mg ODT PO (18:20)
[2022-09-18] MEDS: nicotine 4 mg lozenge MUCOUS MEM (18:34)
[2022-09-18] MEDS: magnesium hydroxide 30 mL UDC PO (19:32)
[2022-09-18] MEDS: acetaminophen 325 mg Tablet 650 MG PO (19:37)
--- NOTE | 2022-09-18 19:38 | PC.NURSE ---
pt c/o back pain and constipation, stating she had a very small bm and abd was bothering her. prn tylenol and milk of magnesia given to patient.
[2022-09-18] MEDS: paliperidone ER 6 mg Tablet PO (20:06)
[2022-09-18] MEDS: trazodone 100 mg Tablet PO (20:06)
--- NOTE | 2022-09-18 20:07 | PC.NURSE ---
pt requesting trazedone to help her get to sleep. medication administered, will continue to monitor.
[2022-09-18 20:22] VITALS: BP 106/74; PULSE 117; RESP 18; TEMP 37; O2SAT 97
[2022-09-19 06:00] VITALS: BP 96/69; PULSE 113; RESP 16; TEMP 36.8; O2SAT 96
[2022-09-19] MEDS: nicotine 4 mg lozenge MUCOUS MEM (12:17)
[2022-09-19] MEDS: ondansetron 4 MG Tablet PO ×2 (12:47→20:02)
--- NOTE | 2022-09-19 12:47 | PC.NURSE ---
PRN ZOFRAN 4 MG GIVEN PO PER PT C/O NAUSEA
[2022-09-19] MEDS: meclizine 25 mg tablet PO ×2 (13:40→20:02)
[2022-09-19 14:00] VITALS: BP 131/86; PULSE 102; RESP 16; TEMP 36.6; O2SAT 98
[2022-09-19] MEDS: nicotine 2 mg Gum BUCCAL ×3 (14:56→18:54)
--- NOTE | 2022-09-19 15:24 | P.NPUPN_ITS ---
Subjective NPU Subjective: Patient presented today reporting that she is doing fine. No changes except for continued somatic complaints of various varieties but in the very mild fashion. Concerns of constipation primarily. Otherwise she reports no changes overall and no problems with her medications. Staff reports he is eating and sleeping well. Mental Status Exam MSE Comments: This is a slender, short white female in hospital scrubs with limited grooming and improving eye contact. No abnormal involuntary motor movements with resolving mild psychomotor retardation appreciated. She was cooperative with exam in no acute distress. Speech was more productive and spontaneous while normal in regards to rate, volume and prosody. Her mood was described as pretty good, just wanting to get out of here, her affect remained blunted today, though appearing more bright during engagement. Her thought process appeared linear and logical. Thought content: patient denies suicidal or homicidal ideation. There was no evidence of delusional thinking. She did not appear to be responding to internal stimuli. Recent and remote memory appeared at baseline. She is alert and oriented to person and place and time. Her insight is improving but limited. Her judgment is limited and impulse control appeared limited. Vitals/I&O/Wt Last Vital Signs Temp 97.9 F 09/19/22 20:33 Pulse 97 09/19/22 22:57 Resp 16 09/19/22 20:33 BP 104/69 09/19/22 22:57 Pulse Ox 97 09/19/22 20:33 O2 Del Method Room Air 09/18/22 14:00 Weight last 48 hrs Weight 60.441 kg Data NPU 08/15/22 20:24 08/15/22 20:24 A&P Assessment and plan (1) Psychosis: (2) Methamphetamine abuse: Plan This is a 22 year old white female who presents in on a 96 hour hold secondary to psychosis with positive UDS fo amphetamines with history of long hospitalizations required to resolve the psychotic symptoms. 1. continue Invega oral to 6mg at night with initiation of Invega IM 234mg, loading dose, given 09/07/2022. Second loading dose of Invega 156 mg IM to the deltoid given 09/15/2022. We will plan on discontinuing oral dosing. 2. Encourage individual, group and milieu therapy 3. Continue q-15 minute check for safety 4. Encourage sober living treatment after discharge at the highest level of care to which she is willing to commit. 5. Guardianship filed, court date, 09/09/22. Guardianship was granted. 6. OT evaluation from 08/29/22 Flynn suggested continued needs in several areas of managing her home environment independently. Involuntary Hold Information 96 Hour Hold: 96 Hour Involuntary Admission: Yes 96 Hour Hold Ending Date: 08/19/22 96 Hour Hold Ending Time: 19:13 Attestations NPU Medical Necessity Statement*: Inpatient hospitalization is medically necessary and the clinically appropriate intervention at this time. We will monitor medications and make changes as indicated. Likely length of stay is likely dependent upon her guardianship hearing as we will begin seeking placement for patient. Her likely length of stay 1-3 days. Will discharge as soon as placement obtained. Coding Level of Care Code Acute Code for [facility] Fwd Diagnoses Psychosis F29 Methamphetamine abuse F15.10
[2022-09-19] MEDS: paliperidone ER 6 mg Tablet PO (20:29)
[2022-09-19] MEDS: trazodone 100 mg Tablet PO (20:31)
[2022-09-19 20:33] VITALS: BP 104/69; PULSE 83; RESP 16; TEMP 36.6; O2SAT 97
--- NOTE | 2022-09-19 20:50 | XRR_ITS ---
PROCEDURE INFORMATION: Exam: XR Abdomen Exam date and time: 09/19/2022 8:01 PM Age: 22 years old Clinical indication: Patient HX: C/O constipation TECHNIQUE: Imaging protocol: Radiologic exam of the abdomen. Views: Frontal supine view of the abdomen. 1 View. COMPARISON: US abdomen limited [id number] 03/22/2022 8:27 PM FINDINGS: Gastrointestinal tract: Stool in the sigmoid colon. Minimal gas and stool visible in the rectum. No bowel obstruction. Intraperitoneal space: No visible pneumoperitoneum. Bones/joints: Unremarkable. XR/XR KUB portable [id number] IMPRESSION: Nonspecific nonobstructive bowel gas pattern.
[2022-09-19 22:57] VITALS: BP 104/69; BP 113/75; PULSE 107; PULSE 97
[2022-09-20 06:00] VITALS: BP 115/74; PULSE 87; RESP 16; TEMP 36.4; O2SAT 98
[2022-09-20] MEDS: nicotine 4 mg lozenge MUCOUS MEM ×3 (13:48→20:50)
[2022-09-20 14:00] VITALS: BP 116/74; PULSE 103; RESP 16; TEMP 36.8; O2SAT 98
[2022-09-20] MEDS: magnesium hydroxide 30 mL UDC PO (15:28)
[2022-09-20] MEDS: docusate sodium 100 mg Capsule PO (16:10)
--- NOTE | 2022-09-20 17:54 | P.NPUPN_ITS ---
Subjective NPU Subjective: Patient presents today reporting that she is feeling somewhat better in regards to the fact that everyone is struggling with little to clearance completion in the system. We discussed that there are multiple possibilities for her placement and we just need to the patient. She continues to have somatic preoccupation in the boredom she feels on the unit. We agreed we would consult the medicine on her KUB to see if they would treat her level of constipation and with what. Mental Status Exam MSE Comments: This is a slender, short white female in hospital scrubs with limited grooming and improving eye contact. No abnormal involuntary motor movements with resolving mild psychomotor retardation appreciated. She was cooperative with exam in no acute distress. Speech was more productive and spontaneous while normal in regards to rate, volume and prosody. Her mood was described as pretty good, just wanting to get out of here, her affect remained blunted today, though appearing more bright during engagement. Her thought process appeared linear and logical. Thought content: patient denies suicidal or homicidal ideation. There was no evidence of delusional thinking. She did not appear to be responding to internal stimuli. Recent and remote memory appeared at baseline. She is alert and oriented to person and place and time. Her insight is improving but limited. Her judgment is limited and impulse control appeared limited. Vitals/I&O/Wt Last Vital Signs Temp 98.4 F 09/20/22 20:41 Pulse 98 09/20/22 20:41 Resp 23 H 09/20/22 20:41 BP 115/79 09/20/22 20:41 Pulse Ox 100 09/20/22 20:41 O2 Del Method Room Air 09/20/22 20:41 Data NPU 08/15/22 20:24 08/15/22 20:24 A&P Assessment and plan (1) Psychosis: (2) Methamphetamine abuse: Plan This is a 22 year old white female who presents in on a 96 hour hold secondary to psychosis with positive UDS fo amphetamines with history of long hospi talizations required to resolve the psychotic symptoms. 1. continue Invega oral to 6mg at night with initiation of Invega IM 234mg, loading dose, given 09/07/2022. Second loading dose of Invega 156 mg IM to the deltoid given 09/15/2022. We will plan on discontinuing oral dosing. 2. Encourage individual, group and milieu therapy 3. Continue q-15 minute check for safety 4. Encourage sober living treatment after discharge at the highest level of care to which she is willing to commit. 5. Guardianship filed, court date, 09/09/22. Guardianship was granted. 6. OT evaluation from 08/29/22 Flynn suggested continued needs in several areas of managing her home environment independently. 7. Curbside versus consult hospitalist about KUB/constipation Involuntary Hold Information 96 Hour Hold: 96 Hour Involuntary Admission: Yes 96 Hour Hold Ending Date: 08/19/22 96 Hour Hold Ending Time: 19:13 Attestations NPU Medical Necessity Statement*: Inpatient hospitalization is medically necessary and the clinically appropriate intervention at this time. We will monitor medications and make changes as indicated. Likely length of stay is likely dependent upon her guardianship hearing as we will begin seeking placement for patient. Her likely length of stay 1-3 days. Will discharge as soon as placement obtained. Coding Level of Care Code Acute Code for [facility] Fwd Diagnoses Psychosis F29 Methamphetamine abuse F15.10
[2022-09-20 20:41] VITALS: BP 115/79; PULSE 98; RESP 23; TEMP 36.9; O2SAT 100
[2022-09-20] MEDS: paliperidone ER 6 mg Tablet PO (20:50)
[2022-09-20] MEDS: trazodone 100 mg Tablet PO (20:50)
[2022-09-21 06:00] VITALS: BP 97/63; PULSE 90; RESP 18; TEMP 36.8; O2SAT 97
[2022-09-21] MEDS: nicotine 4 mg lozenge MUCOUS MEM (10:10)
[2022-09-21] MEDS: nicotine 2 mg Gum BUCCAL (12:19)
[2022-09-21] MEDS: ondansetron 4 MG Tablet PO (12:25)
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
[2022-09-21 12:51] VITALS: BP 97/63; PULSE 90; RESP 18; TEMP 36.8; O2SAT 97
== END 2022-09-21 13:10 | disposition home or self-care (01) | DRG 885 ==
LOC: ER 19:17 → NP 08-16 07:08
PROVIDERS: Admitting Provider Psychiatry & Neurology Psychiatry; Emergency Provider Emergency Medicine; Visit Provider Psychiatry & Neurology Psychiatry
DX: F20.0 Paranoid schizophrenia (principal); F15.10 Other stimulant abuse, uncomplicated; K59.00 Constipation, unspecified; F32.A Depression, unspecified
CPT/HCPCS: 36415; 74018; 80053; 80306; 80307; 81001; 81025; 85025; 87491; 87591; 87661; 87806; 96372; 97150; 97165; 97167; 99238; 99285; J8597; Q0162

== ENCOUNTER → 2023-11-15 10:27 | Outpatient (BNVA) | payer MEDICAID, SELFPAY | PROVIDERS: PCP Family Medicine; Visit Provider Podiatrist Foot & Ankle Surgery | DX: M79.671 Pain in right foot (principal); M79.672 Pain in left foot; M21.41 Flat foot [pes planus] (acquired), right foot; M21.42 Flat foot [pes planus] (acquired), left foot; M72.2 Plantar fascial fibromatosis | CPT/HCPCS: 73630 ==

== ENCOUNTER 2024-08-25 16:09 | Emergency (ER) | payer MEDICAID, SELFPAY ==
[2024-08-25 16:24] VITALS: BP 115/71; PULSE 88; RESP 14; TEMP 37; O2SAT 95; BMI 26.0
[2024-08-25 17:32] LABS: Basophils # 0.1 10^3/uL (0.0-0.1); Basophils % 1.1 %; Eosinophils # 0.1 10^3/uL (0.0-0.8); Eosinophils % 2.2 %; Hematocrit 45.3 % (36-47); Lymphocytes # 2.7 10^3/uL (0.8-4.8); Lymphocytes % 42.1 %; Mean Corpuscular HGB Conc 32.9 g/dL (30-55); Mean Corpuscular Hemoglobin 29.7 pg (27-33); Mean Corpuscular Volume 90.4 fl (85-98); Monocytes # 0.3 10^3/uL (0.2-0.9); Monocytes % 4.6 %; Neutrophils # 3.21 10^3/uL (1.8-7.7); Neutrophils % 49.7 %; Nucleated Red Blood Cells % 0 %; Platelet Count 336 10^3/cmm (157-399); Red Blood Count 5.01 10^6/uL (3.85-5.65); Red Cell Distribution Width 12.1 % (12.1-15.1); White Blood Count 6.46 10^3/uL (3.29-11.43)
[2024-08-25 17:38] VITALS: BP 132/91; O2SAT 100
[2024-08-25 17:40] LABS: HCG, Serum Qual Negative (Negative)
[2024-08-25 17:48] LABS: Bilirubin Urine Negative (Negative); Blood Urine Negative (Negative); Glucose Urine UA Negative (Normal); Ketones Urine Negative (Negative); Leukocyte Esterase Urine Negative (Negative); Nitrate Urine Negative (Negative); Protein Urine Negative (Negative); Specific Gravity, Urine 1.022 (1.005-1.030); Urine Appearance Cloudy (CLEAR); Urine Color Yellow (Yellow); pH Urine 7.5 (5-7)
[2024-08-25 17:51] LABS: Add Urine Microscopic? YES; Bacteria Urine Trace /hpf; Hyaline Casts Urine 0-4 /lpf; RBC Urine 0-2 /hpf (0-2); Squamous Epithelial Cell Urine 0-5 /hpf (0-5); WBC Urine 0-5 /hpf (0-5)
[2024-08-25 17:53] LABS: Alanine Aminotransferase 15 U/L (0-33); Albumin Level 4.7 g/dL (3.5-5.2); Alkaline Phosphatase 59 U/L (35-105); Anion Gap 15.9 (5-19); Aspartate Amino Transferase 18 U/L (0-32); Blood Urea Nitrogen 8 mg/dL (6-20); Calcium 9.9 mg/dL (8.5-10.5); Carbon Dioxide 24 mmol/L (22-29); Chloride 101 mmol/L (98-107); Creatinine Clr Calc Pharmacy 115.6459; Globulin 3.5 g/dL (1.3-4.6); Glomerular Filtration Rate 104.6 mL/min (90-130); Glucose 107 mg/dL (65-115); Osmolality Calculated 283 mOsm/kg (285-295); Potassium 3.9 mmol/L (3.5-5.1); Sodium 137 mmol/L (136-145); Total Bilirubin 0.3 mg/dL (0.15-1.2); Total Protein 8.2 g/dL (6.6-8.7)
[2024-08-25 18:22] VITALS: BP 115/74
[2024-08-25 18:45] VITALS: BP 121/76; PULSE 74; O2SAT 98
--- NOTE | 2024-08-25 18:47 | W.ED.NAVMDI ---
HPI - Nausea/Vomiting/Diarrhea General: Chief complaint: Nausea/Vomiting/Diarrhea Stated complaint: hot flashes / Nausea Time Seen by Provider: 08/25/24 17:09 History of Present Illness: This patient is a 24-year-old white female who presents to the emergency department stating that she has been feeling ill for about 2 weeks. She states she had a tooth pulled last week and was placed on clindamycin. She states she has had some nausea and vomiting. She feels hot does not had a fever. She states she is dizzy has had a mild cough. No diarrhea. No dysuria. Associated nausea: Yes Associated symtoms: Reports dizziness and nausea Related Data Home Medications ?Medication ?Instructions ?Recorded ?Confirmed omeprazole 40 mg capsule,delayed 40 mg PO DAILY 09/22/23 08/23/24 release clindamycin HCl 300 mg capsule 300 mg PO TID 08/23/24 08/23/24 (Cleocin HCl) Previous Rx's ?Medication ?Instructions ?Recorded melatonin 3 mg capsule 3 mg PO DIRECTED PRN sleep #30 12/22/23 caps paliperidone 9 mg tablet,extended 9 mg PO QAM #30 tabs 08/23/24 release 24 hr (Invega) ondansetron 4 mg disintegrating 4 mg PO Q4H PRN nausea and 08/25/24 tablet vomiting #20 tabs Allergies Allergy/AdvReac Type Severity Reaction Status Date / Time bee venom protein (honey bee) Allergy Severe ALGY-Anaphy Verified 08/23/24 13:26 laxis hydroxyzine Allergy Severe ALGY-Bliste Verified 08/23/24 13:26 r amoxicillin Allergy Unknown Verified 08/23/24 13:26 lactase (From Lactose Fast AdvReac ALGY-Conges Verified 08/23/24 13:26 Acting Relief) oneil Review of Systems General: Reports: 10 or more systems reviewed and unremarkable except in HPI and below GI: Reports: nausea and vomiting Neuro: Reports: dizziness PFSH ED PFSH: Medical History 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 Methamphetamines, last use 08/15/22 Chronic post-traumatic stress disorder Psychiatric care Surgical History History of placement of ear tubes No significant past surgical history Family History Father Cancer brain Diabetes Grandfather Diabetes paternal Mother Hypertension Heart disease Grandmother Ovarian cancer maternal Other Dementia Lung disease Psychiatric illness Denies family history of Colon cancer Breast cancer Uterine cancer Thyroid disease Stroke Social History Smoking and tobacco/nicotine status: former use of tobacco/nicotine Substance/Drug Use: former Physical Exam Const: COMMON NORMALS: no acute distress, patient oriented x3 and no limitations GENERAL APPEARANCE: cooperative and comfortable HENMT: COMMON NORMALS: normocephalic, atraumatic, Normal nasal mucous membranes and turbinates present, moist oral mucous membranes and oropharynx normal HEAD & SCALP: normal to inspection, normocephalic and atraumatic FACE & SINUS: normal facial exam NOSE: Normal nasal mucous membranes and turbinates present Eye: COMMON NORMALS: Equal, round and reactive pupils present, EOMs intact bilaterally and conjunctivae normal GENERAL EYE: appearance normal, both eyes and all related structures CONJUNCTIVA: Yes conjunctivae normal PUPIL: Yes Equal, round and reactive pupils present Neck/C-Spine: COMMON NORMALS: supple and no JVD Chest: COMMONS NORMALS: normal inspection of the chest Resp: COMMON NORMALS: normal respiratory effort and clear to auscultation bilaterally AUSCULTATION: clear to auscultation bilaterally Cardio: COMMON NORMALS: no JVD, regular rate, regular rhythm, No gallops present (Cardio), No murmurs present (Cardio) and No rub (Cardio) RATE: regular rate RHYTHM: regular rhythm GI: COMMON NORMALS: Normal to inspection, nondistended, normoactive bowel sounds present, Soft to palpation and non-tender AUSCULTATION: Yes normoactive bowel sounds PALPATION: Yes Soft to palpation : COMMON NORMALS: Yes no CVA tenderness BLADDER/KIDNEY EXAM: Yes no CVA tenderness Back/Pelvis: COMMON NORMALS: no CVA tenderness and thoracic and lumbar spine normal to inspection Extremity: COMMON NORMALS: normal to inspection Neuro: COMMON NORMALS: patient oriented x3 and CN's II-XII intact bilaterally Psych: COMMON NORMALS: mental status grossly normal, Normal thought process present and cooperative THOUGHT PROCESS: Normal thought process present Skin: COMMON NORMALS: no rashes or lesions noted, turgor normal and no jaundice GENERAL SKIN EXAM: no rashes or lesions noted and turgor normal Course Vital Signs: Vital signs: Vital Signs Temperature 98.6 F 08/25/24 16:24 Pulse Rate 74 08/25/24 18:45 Respiratory Rate 14 08/25/24 16:24 Blood Pressure 121/76 08/25/24 18:45 Pulse Oximetry 98 08/25/24 18:45 Oxygen Delivery Me thod Room Air 08/25/24 17:38 MDM - Nausea/Vomiting/Diarrhea Medical Decision Making I do not see anything significantly wrong with the patient. All of her labs were normal. I recommended she continue the clindamycin. Push fluids. Follow-up with her primary care physician later this week if she is not back to normal. She was discharged in stable condition. Lab Data 08/25/24 17:07 08/25/24 17:07 Laboratory Results WBC 6.46 10^3/uL (3.29-11.43) 08/25/24 17:07 RBC 5.01 10^6/uL (3.85-5.65) 08/25/24 17:07 Hgb 14.90 g/dL (11.27-16.99) 08/25/24 17:07 Hct 45.3 % (36-47) 08/25/24 17:07 MCV 90.4 fl (85-98) 08/25/24 17:07 MCH 29.7 pg (27-33) 08/25/24 17:07 MCHC 32.9 g/dL (30-55) 08/25/24 17:07 RDW 12.1 % (12.1-15.1) 08/25/24 17:07 Plt Count 336 10^3/cmm (157-399) 08/25/24 17:07 MPV 10.0 fL (7.4-10.4) 08/25/24 17:07 Neut % (Auto) 49.7 % 08/25/24 17:07 Lymph % (Auto) 42.1 % 08/25/24 17:07 Antelope % (Auto) 4.6 % 08/25/24 17:07 Eos % (Auto) 2.2 % 08/25/24 17:07 Baso % (Auto) 1.1 % 08/25/24 17:07 Neut # (Auto) 3.21 10^3/uL (1.8-7.7) 08/25/24 17:07 Lymph # (Auto) 2.7 10^3/uL (0.8-4.8) 08/25/24 17:07 Antelope # (Auto) 0.3 10^3/uL (0.2-0.9) 08/25/24 17:07 Eos # (Auto) 0.1 10^3/uL (0.0-0.8) 08/25/24 17:07 Baso # (Auto) 0.1 10^3/uL (0.0-0.1) 08/25/24 17:07 Nucleated RBC % (auto) 0 % 08/25/24 17:07 Nucleated RBCs # 0.0 /100WBC 08/25/24 17:07 Sodium 137 mmol/L (136-145) 08/25/24 17:07 Potassium 3.9 mmol/L (3.5-5.1) 08/25/24 17:07 Chloride 101 mmol/L (98-107) 08/25/24 17:07 Carbon Dioxide 24 mmol/L (22-29) 08/25/24 17:07 Anion Gap 15.9 (5-19) 08/25/24 17:07 BUN 8 mg/dL (6-20) 08/25/24 17:07 Creatinine 0.7 mg/dL (0.5-0.9) 08/25/24 17:07 GFR Calculation 104.6 mL/min (90-130) 08/25/24 17:07 Glucose 107 mg/dL (65-115) 08/25/24 17:07 Calculated Osmolality 283 mOsm/kg (285-295) L 08/25/24 17:07 Calcium 9.9 mg/dL (8.5-10.5) 08/25/24 17:07 Total Bilirubin 0.3 mg/dL (0.15-1.2) 08/25/24 17:07 AST 18 U/L (0-32) 08/25/24 17:07 ALT 15 U/L (0-33) 08/25/24 17:07 Alkaline Phosphatase 59 U/L (35-105) 08/25/24 17:07 Total Protein 8.2 g/dL (6.6-8.7) 08/25/24 17:07 Albumin 4.7 g/dL (3.5-5.2) 08/25/24 17:07 Globulin 3.5 g/dL (1.3-4.6) 08/25/24 17:07 HCG, Qual Negative (Negative) 08/25/24 17:07 Urine Color Yellow (Yellow) 08/25/24 17:40 Urine Appearance Cloudy (CLEAR) A 08/25/24 17:40 Urine pH 7.5 (5-7) 08/25/24 17:40 Ur Specific [place] 1.022 (1.005-1.030) 08/25/24 17:40 Urine Protein Negative (Negative) 08/25/24 17:40 Urine Glucose (UA) Negative (Normal) 08/25/24 17:40 Urine Ketones Negative (Negative) 08/25/24 17:40 Urine Blood Negative (Negative) 08/25/24 17:40 Urine Nitrate Negative (Negative) 08/25/24 17:40 Urine Bilirubin Negative (Negative) 08/25/24 17:40 Urine Urobilinogen 1.0 mg/dL (Negative) 08/25/24 17:40 Ur Leukocyte Esterase Negative (Negative) 08/25/24 17:40 Urine RBC 0-2 /hpf (0-2) 08/25/24 17:40 Urine WBC 0-5 /hpf (0-5) 08/25/24 17:40 Ur Squamous Epith Cells 0-5 /hpf (0-5) 08/25/24 17:40 Amorphous Sediment Not Reportable 08/25/24 17:40 Urine Bacteria Trace /hpf (NONE) 08/25/24 17:40 Hyaline Casts 0-4 /lpf H 08/25/24 17:40 No radiology studies performed this visit Discharge Plan Discharge Patient Disposition: Home Clinical Impression: Viral syndrome Condition: Stable Prescriptions: New ondansetron 4 mg tablet,disintegrating 4 mg PO Q4H PRN (Reason: nausea and vomiting) Qty: 20 0RF No Action clindamycin HCl [Cleocin HCl] 300 mg capsule 300 mg PO TID paliperidone [Invega] 9 mg tablet extended release 24hr 9 mg PO QAM Qty: 30 6RF Rx Instructions: Take one tablet every morning omeprazole 40 mg capsule,delayed release(DR/EC) 40 mg PO DAILY melatonin 3 mg capsule 3 mg PO DIRECTED PRN (Reason: sleep) Qty: 30 3RF Rx Instructions: May take one capsule 30 min prior to bedtime as needed for sleep Discharge Orders: Discharge ED (Routine); Ordered 08/25/24 Ordered By: Emir Polo Referrals: Kenia Sims MD [Primary Care Provider, [facility]] Patient Instructions: Viral Syndrome (ED) Activity Restrictions/Additional Instructions: Follow-up with your primary care provider with any further concerns. Print Language: Palauan Coding Level of Care Code ED [employer] Agent [employer] for Loulou Campos
== END 2024-08-25 18:45 | disposition home or self-care (01) ==
PROVIDERS: Family Medicine; Emergency Provider Emergency Medicine; PCP Family Medicine
DX: B34.9 Viral infection, unspecified (principal); Z87.891 Personal history of nicotine dependence
CPT/HCPCS: 36415; 80053; 81001; 84703; 85025; 99283

== ENCOUNTER → 2024-10-22 07:17 | Outpatient (BNVA) | payer MEDICAID, SELFPAY | PROVIDERS: PCP Family Medicine; Visit Provider Podiatrist Foot & Ankle Surgery | DX: M21.41 Flat foot [pes planus] (acquired), right foot (principal); M21.42 Flat foot [pes planus] (acquired), left foot | CPT/HCPCS: 99213 ==

== ENCOUNTER → 2024-12-18 10:03 | Outpatient (BNVA) | payer OTHER, SELFPAY | PROVIDERS: PCP Family Medicine; Visit Provider Nurse Practitioner Psychiatric/Mental Health | DX: Z79.899 Other long term (current) drug therapy (principal) | CPT/HCPCS: 80061; 83036 ==

== ENCOUNTER → 2025-01-14 07:37 | Outpatient (BNVA) | payer MEDICAID, SELFPAY | PROVIDERS: PCP Family Medicine; Visit Provider Podiatrist Foot & Ankle Surgery | DX: M21.41 Flat foot [pes planus] (acquired), right foot (principal); M21.42 Flat foot [pes planus] (acquired), left foot | CPT/HCPCS: 99213 ==

== ENCOUNTER 2025-02-18 18:43 | Emergency (ER) | payer MEDICAID, SELFPAY ==
--- OUTSIDE RECORDS SUMMARY | 2025-02-13 09:54 | XMS_ITS | Encounter Summary ---
Author Organization [facility] Address 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] Procedures ID VULVECTOMY SIMPLE PARTIAL Shaun Mckinney DO [address] [address] Phone: tel: fax: Referral ID Status Reason Start Date Expiration Date Visits Re quested Visits Authorized [id number] 01/15/2025 1 1 Encounter Details Date Type Department Care Team (Latest Contact Info) Description 02/13/2025 9:54 AM BOARDING MACHINE OPERATOR - 02/13/2025 2:45 PM [facility] Hospital Encounter [facility] [address] [facility] [address] [place] [address] Shaun Mckinney DO [address] [facility] [address] [place] [address] Labial hypertrophy Discharge Disposition: Home or Self Care Social History Tobacco Use Types Packs/Day Years Used Date Smoking Tobacco: Never Feeling Safe Answer Date Recorded Are you in a relationship wi th someone who hurts you emotionally and/or physically? No 02/13/2025 Comments No Sex and Gender Information Value Date Recorded Sex Assigned at Not on file Legal Sex Female 1:38 PM BOARDING MACHINE OPERATOR Gender Identity Not on file Sexual Orientation Not on file documented as of this encounter Last Filed Vital Signs Vital Sign Reading Time Taken Comments Blood Pressure 116/60 02/13/2025 2:30 PM BOARDING MACHINE OPERATOR Pulse 64 02/13/2025 2:30 PM BOARDING MACHINE OPERATOR Temperature 36.4 C (97.5 F) 02/13/2025 1:45 PM BOARDING MACHINE OPERATOR Respiratory Rate 16 02/13/2025 2:30 PM BOARDING MACHINE OPERATOR Oxygen Saturation 100% 02/13/2025 2:30 PM BOARDING MACHINE OPERATOR Inhaled Oxygen Concentration - - Weight 58 kg (127 lb 12.8 oz) 02/13/2025 10:00 A M BOARDING MACHINE OPERATOR Height 160 cm (5' 3 ) 02/13/2025 10:00 AM BOARDING MACHINE OPERATOR Body Mass Index 22.64 02/13/2025 10:00 AM BOARDING MACHINE OPERATOR documented in this encounter Discharge Instructions * Discharge Instructions* Leigh Arriaza RN - 02/13/2025 1:22 PM BOARDING MACHINE OPERATOR Images from the original note were not included. [place] [id number] [facility], [address] [facility] [address] Office Postoperative Discharge Instructions Activity: You may resume your normal activities as tolerated. Walking, stairs, and showers are okay. Restrictions: No driving for 24 hrs or while taking narcotics. No swimming or tubs. Pelvic rest (nothing in the vagina) for 2 weeks. Diet: You may eat your regular diet if your are hungry. Pain: You may take acetaminophen (Tylenol) (1000 mg every 6 hrs) and ibuprofen (Aleve, Motrin) (400-600 mg every 6 hrs) as needed for pain. Take both acetaminophen and ibuprofen at the same time for best effect. Do not take more than 4000 mg of Tylenol in 24 hrs. If your pain is not controlled with ibuprofen and acetaminophen, you should call the office for further instructions. Constipation: Use may use fwcu-jev-toypwoh stool softeners to prevent constipation which is common after surgery and while taking narcotics. You may try colace, Metamucil, milk of magnesia, and Miralax. Contact the office: Call the office with fever (temperature above 100.3 F), inability to tolerate food or drink, bleeding that is more than light spotting, pus or spreading redness from incision, new chest pain or shortness of breath, increasing abdominal size, increased swelling of feet or legs (especially if one-sided). Call 911 or go to nearest ER if unable to contact us or you feel symptoms require urgent medical attention. YOU ARE URGED TO FOLLOW CAREFULLY THE FOLLOWING INSTRUCTIONS REGARDING ANESTHESIA If you had general or local anesthesia with sedation, please pay particular attention to the following instructions: 1. Do not drink alcoholic beverages-including beer for 24 hours. Alcohol enhances the effects of anesthesia and sedation. 2. Do not drive a motor vehicle, operate machinery or power tools for 24 hours, if a child, no bicycle riding, skateboards, gym sets, etc., for 24 hours. 3. Do not make any important decisions or sign important papers for 24 hours. 4. You may experience lightheadedness, dizziness, and sleepiness following surgery. Please DO NOT STAY ALONE. A responsible adult should be with you for this 24 hour period. 5. Rest at home with moderate activity as tolerated. It may not be necessary to go to bed; however,it is important to rest for 24 hours following general anesthesia. 6. Progress slowly to a regular diet unless your physician has instructed you otherwise. Start withliquids, such as soft drinks, then soup and crackers, gradually working up to solid foods. 7. Certain anesthetics and pain medications may produce nausea and vomiting in certain individuals.If nausea becomes a problem at home, call your physician. In the meantime, rest and sleep on your side to avoid accidentally inhaling material that you may vomit. A DIETARY MANAGER FROM THE SAME DAY SURGERY DEPARTMENT MAY CALL YOU BY TELEPHONE THE NEXT DAY AFTER SURGERY. DO NOT BE ALARMED. THIS IS A ROUTINE CALL TO FIND OUT HOW YOU ARE PROGRESSING AFTER YOUR SURGERY. REGARDING MEDICATIONS: 1. If your physician ordered pain medication, please take it as directed. Do not drive a motor vehicle, operate machinery, or operate power tools while taking this medication. DING MACHINE OPERATOR DING MACHINE OPERATOR documented in this encounter Medications at Time of Discharge oxyCODONE (ROXICODONE) 5 mg tabletIndications :Postoperative pain Take 1 Tablet (5 mg) by mouth every 4 hours as needed for Pain. Max Daily Amount: 30 mg 7 Tablet 02/13/2025 melatonin 3 mg Capsule Take by oral route. documented as of this encounter H&P Notes * Shaun Mckinney, DO - 02/13/2025 10:40 AM CST Preoperative History & Physical CC: Labial hypertrophy HPI: Emmy Hartmann is a 25 y.o. female who presents for surgical management of labial hypertrophy.Please see prior office notes for details of her HPI. OB History Para Term AB Living 2 2 SAB IAB Ectopic Multiple Live Births 2 # Outcome Date GA Lbr Venkata/2nd Weight Sex Type Anes PTL Lv 2 SAB 1 SAB ROS: As above. Denies nausea, vomiting, chest pain, shortness of breath, headache, vision symptoms,changes in bowel or bladder, or unintended changes in weight. No past medical history on file. No past surgical history on file. Social History Socioeconomic History Marital status: Single Spouse name: Not on file Number of children: Not on file Years of education: Not on file Highest education level: Not on file Occupational History Not on file Tobacco Use Smoking status: Never Smokeless tobacco: Not on file Vaping Use Vaping status: Never Used Substance and Sexual Activity Alcohol use: Not on file Drug use: Never Sexual activity: Not Currently Other Topics Concern Not on file Social History Narrative Not on file Health-Related Social Needs Food Insecurity: Not on file Transportation Needs: Not on file Domestic Concerns: Not At Risk (02/13/2025) Feeling Safe Patient has indicated abuse: : No Housing Stability: Not on file No family history on file. No current facility-administered medications on file prior to encounter. Current Outpatient Medications on File Prior to Encounter Medication Sig Dispense Refill melatonin 3 mg Capsule Take by oral route. Allergies Allergen Reactions Hydroxyzine Other (See Comments) Penicillins Other (See Comments) and Rash Product containing penicillin (product) Physical Exam: BP (!) 145/76 Pulse 82 Temp 97.6 ??F (36.4 ??C) (Temporal) Resp 16 Ht 5' 3 (1.6 m) Wt 58kg (127 lb 12.8 oz) LMP 02/05/2025 (Approximate) SpO2 97% BMI 22.64 kg/m?? General: Well-developed, well-nourished female in NAD Neurological/Mental Status: A&Ox3 HEENT: Normocephalic, atraumatic Neck: Supple, no adenopathy Heart: acyanotic Lungs: unlabored respirations Abdomen: Soft, NT, ND Pelvic: deferred to OR Extremities: No clubbing, cyanosis, or edema ASSESSMENT: 25 y.o. female with labial hypertrophy PLAN: Proceed to OR as planned. The risks, benefits, and alternatives of surgery were discussed with the patient, including the risk of bleeding, infection, injury to bowel, bladder, or other pelvic organs, risk of anesthesia, riskof DVT or PE. The patient expressed understanding and wishes to proceed with surgery. Shaun Mckinney DO Dept. of Inbound Sales Manager DING MACHINE OPERATOR documented in this encounter OR Notes * Leanne-OP - Leigh Arriaza RN - 02/13/2025 2:30 PM CST Discharge instructions reviewed with patient and manager food safety verbalizing understanding. Copy given topatient/manager food safety. Patient escorted out with no distress noted. DING MACHINE OPERATOR * Operative Report - Shaun Mckinney DO - 02/13/2025 1:13 PM CST Operative Report : [facility] Patient: Emmy Hartmann / 25 y.o. / female : 2000 Date: 02/13/2025 CSN: [id number] Name of Procedure: Labiaplasty Pre-operative Diagnosis: Labial hypertrophy Post -operative Diagnosis: same Surgeon: Shaun Mckinney DO Anesthesia: General Estimated Blood Loss: <5 mL Complications: None Findings: bilateral labial hypertrophy obstructing the vaginal introitus Procedure: The patient was taken to the OR and general anesthesia was administered. The patient wasplaced in the dorsal lithotomy position and prepped and draped in the normal sterile fashion. A betadine internal prep was then performed. The incision sites were marked bilaterally on the interior and exterior sides of the labia. The right labia was put under tension in a caudad direction and Metzenbaum scissors were used to excise the labia. Specimen sent for pathology. Allis clamps were used to separate the incision edges and Bovie cautery was used to create hemostasis. In a similar fashion the left labia was removed and sent for pathology. Again, Bovie cautery was used to create hemostasis. Interrupted 3-0 polysorb sutures were used to reapproximate the incision edges bilaterally. Hemostasis was noted following the procedure. The incisions were then covered with premarin cream. All instruments were then removed from the patient's vagina. The patient tolerated the procedure well. All instrument, needle and sponge counts were correct. The patient was taken to recovery in stable condition. Shaun Mckinney DO Dept. of Inbound Sales Manager DING MACHINE OPERATOR documented in this encounter Plan of Treatment Upcoming Encounters Date Type Department Care Team (Late st Contact Info) Description 02/27/2025 2:20 PM BOARDING MACHINE OPERATOR Office Visit [facility] [place] [address] [place] [phone] Shaun Mckinney DO [address] [place] [id number] documented as of this encounter Procedures Procedure Name Priority Date/Time Associated Diagnosis Comments PATHOLOGY Pathology 02/13/2025 12:52 PM BOARDING MACHINE OPERATOR Labial hypertrophy Vaginal irritation Dyspareunia in female Labia minora hypertrophy ID EXCISION EXCESSIVE SKIN & SUBQ TISSUE OTHER AREA 02/13/2025 11:55 AM BOARDING MACHINE OPERATOR Labial hypertrophy Vaginal irritation Dyspareunia in female Labia minora hypertrophy POC , URINE Routine 02/13/2025 11:41 AM BOARDING MACHINE OPERATOR documented in this encounter Results * PATHOLOGY (02/13/2025 12:52 PM BOARDING MACHINE OPERATOR) CASE REPORT Surgical Pathology Report Case: [id number] Authorizing Provider: Shaun Mckinney DO Collected: 02/13/2025 12:52 PM Ordering Location: [facility] E Received: 02/13/2025 03:28 [address] Pathologist: Lon Fish MD Specimen: Skin, labia 9:23 AM [facility] FINAL DIAGNOSIS A. Skin, labia, excision - Skin with hyperkeratosis - Negative for dysplasia and malignancy Lon Fish MD [id number] 9:23 AM [facility] at 0923 BOARDING MACHINE OPERATOR GROSS DESCRIPTION A. Received in a container of formalin labeled Hartmann -labia are 2 arenas-brown, wrinkled skin fragments, that measure 3.5 and 3.7 cm in greatest dimension. Sectioning reveals white-arenas, fibrous cut surfaces. No obvious lesions are grossly identified. Manager Leadership Development sections are submitted in A1. Grossed by: Estefania Marquez MS, PA (ASCP) 9:23 AM [facility] MICROSCOPIC DESCRIPTION After review of H&E-stained sections, a p16 immunohistochemical stain is ordered on block A1 and is negative. 9:23 AM [facility] OPERATIVE PROCEDURE 1: LABIAPLASTY 9:23 AM [facility] CLINICAL INFORMATION Labial hypertrophy [N90.60] 9:23 AM [facility] COMMENT The SEA voice-activated dictation system may have been used in the creation of this report. Inherent to this system is the possibility of errors in syntax, grammar, punctuation, or other areas that could impact interpretation. If there are interpretive questions about the report, please contact the performing pathologist. Unless gross only is specified in the diagnosis, the microscopic examination substantiates the above cited diagnosis. The performance characteristics of all immunohistochemical stains cited in this report (if any) were determined by the [facility] of [facility] in compliance with CLIA'88 regulations. Some of these tests rely on the use of analyte specific reagents and are subject to specific labeling requirements by the FDA. All controls show appropriate reactivity. This testing was developed by the [facility]. It has not been cleared or approved by the FDA. The FDA has determined that such clearance or approval is not necessary. 9:23 AM BOARDING MACHINE OPERATOR [facility] Tissue TISSUE SPECIMEN FROM SKIN / Unknown Collection / Unknown 02/13/2025 12:52 PM BOARDING MACHINE OPERATOR 02/13/2025 3:28 PM BOARDING MACHINE OPERATOR Shaun Mckinney DO PATHOLOGY/CYTOLOGY ORDERABLE S Final Result Performing Organization Address [facility] de Phone Number [facility] CLIA # [id number] [address] [id number] * POC , URINE (02/13/2025 11:41 AM BOARDING MACHINE OPERATOR) HCG QUAL URINE Negative Negative 02/13/2025 11:41 AM BOARDING MACHINE OPERATOR [facility] Urine 02/13/2025 11:4 1 AM BOARDING MACHINE OPERATOR 02/13/2025 10:36 AM BOARDING MACHINE OPERATOR Narrative [facility] - 02/13/2025 11:41 AM BOARDING MACHINE OPERATOR Positive : Result is greater than or equal to 25 mIU/mL Negative: Result is less than 25 mIU/mL Invalid: Result is borderline or indeterminate,send to lab for serum test methodology. Shaun Mckinney DO POINT OF CARE TESTING Final Result Performing Organization Address [facility] de Phone Number [facility] CLIA # [id number] [address] [address] documented in this encounter Visit Diagnoses Diagnosis Postoperative pain- Primary Other acute postoperative pain Labial hypertrophy Hypertrophy of labia Vaginal irritation Unspecified noninflammatory disorder of vagina Dyspareunia in female Labia minora hypertrophy Hypertrophy of labia documented in this encounter Administered Medications Inactive Administered Medications - up to 3 most recent administrations Medication Order MAR Action Action Date Dose Rate Site diphenhydrAMINE (BENADRYL) injection 12.5 mg 12.5 mg, IV, POST-PROCEDURE ONCE PRN, 1 dose, Starting on Simran 02/13/25 at 1047, Until Simran 02/13/25 at 1720, Nausea/Emesis, Routine, PACU diphenhydrAMINE (BENADRYL) injection 12.5 mg 12.5 mg, IV, POST-PROCEDURE ONCE PRN, 1 dose, Starting on Simran 02/13/25 at 1048, Until Simran 02/13/25 at 1720, Nausea/Emesis, Routine, PACU fentaNYL (PF) (SUBLIMAZE) 50 mcg/mL injection 50 mcg 50 mcg, IV, POST-PROCEDURE Q 3 MINUTES PRN, 4 doses, Starting on Simran 02/13/25 at 1047, Until Simran 02/13/25 at 1720, Pain, Pain Seveity 1-4/10, Routine, PACU fentaNYL (PF) (SUBLIMAZE) 50 mcg/mL injection 50 mcg 50 mcg, IV, POST-PROCEDURE Q 3 MINUTES PRN, 4 doses, Starting on Simran 02/13/25 at 1048, Until Simran 02/13/25 at 1720, Pain, Pain Seveity 1-4/10, Routine, PACU HYDROmorphone (PF) (DILAUDID) injection 0.5 mg 0.5 mg, IV, POST-PROCEDURE Q 5 MINUTES PRN, 5 doses, Starting on Simran 02/13/25 at 1047, Until Simran 02/13/25 at 1720, Pain, Pain Severity 5-10/10, Routine, PACU HYDROmorphone (PF) (DILAUDID) injection 0.5 mg 0.5 mg, IV, POST-PROCEDURE Q 5 MINUTES PRN, 5 doses, Starting on Simran 02/13/25 at 1048, Until Simran 02/13/25 at 1720, Pain, Pain Severity 5-10/10, Routine, PACU lactated ringers infusion IV, at 40 mL/hr, CONTINUOUS, Starting on Simran 02/13/25 at 1030, Until Simran 02/13/25 at 1720, Routine, Pre-op Continue from Pre-Op 02/13/2025 12:04 PM BOARDING MACHINE OPERATOR 40 mL/hr New Bag 02/13/2025 10:36 AM BOARDING MACHINE OPERATOR 40 mL/hr naloxone (NARCAN) 0.4 mg/mL injection 0.1-0.4 mg 0.1-0.4 mg, IV, SEE ADMIN INSTRUCTIONS, Starting on Simran 02/13/25 at 1047, Until Simran 02/13/25 at 1720, Routine, PACU ondansetron (ZOFRAN) 4 mg/2 mL injection 4 mg 4 mg, IV, POST-PROCEDURE ONCE PRN, 1 dose, Starting on Simran 02/13/25 at 1047, Until Simran 02/13/25 at 1720, Nausea/Emesis, Routine, PACU ondansetron (ZOFRAN) 4 mg/2 mL injection 4 mg 4 mg, IV, POST-PROCEDURE ONCE PRN, 1 dose, Starting on Simran 02/13/25 at 1048, Until Simran 02/13/25 at 1720, Nausea/Emesis, Routine, PACU sodium chloride flush injection 10 mL 10 mL, IV, TWO TIMES DAILY, First dose on Simran 02/13/25 at 1030, Until Discontinued, Routine, Pre-op documented in this encounter Active and Recently Administered Medications Times are shown in BOARDING MACHINE OPERATOR. Scheduled Medication Order 02/11/2025 02/12/2025 02/13/2025 naloxone (NARCAN) 0.4 mg/mL injection 0.1-0.4 mg 0.1-0.4 mg, IV, SEE ADMIN INSTRUCTIONS, Starting on Simran 02/13/25 at 1047, Until Simran 02/13/25 at 1720, Routine, PACU sodium chloride flush injection 10 mL 10 mL, IV, TWO TIMES DAILY, First dose on Simran 02/13/25 at 1030, Until Discontinued, Routine, Pre-op 1030 (Due) Continuous Medication Order 02/11/2025 02/12/2025 02/13/2025 lactated ringers infusion IV, at 40 mL/hr, CONTINUOUS, Starting on Simran 02/13/25 at 1030, Until Simran 02/13/25 at 1720, Routine, Pre-op 1036 (New Bag - Prov ider: Cate Purcell RN)1204 (Continue from Pre-Op - Provider: ISRAEL Manuel)1307 (Stopped - Provider: ISRAEL Manuel) PRN Medication Order 02/11/2025 02/12/2025 02/13/2025 BUPivacaine-EPINEPHrine (PF) (SENSORCAINE MPF WITH EPI) 0.5 %-1:200,000 injection (CANCELED) INTRA-PROCEDURE PRN, Starting on Simran 02/13/25 at 1251, Until Simran 02/13/25 at 1308, Routine, Intra-op 1251 (Given - Provid er: Shaun Mckinney DO) conjugated estrogens (PREMARIN) 0.625 mg/gram vaginal cream (CANCELED) INTRA-PROCEDURE PRN, Starting on Simran 02/13/25 at 1246, Until Simran 02/13/25 at 1308, Routine, Intra-op 1246 (Given - Provid er: Shaun Mckinney DO) diphenhydrAMINE (BENADRYL) injection 12.5 mg 12.5 mg, IV, POST-PROCEDURE ONCE PRN, 1 dose, Starting on Simran 02/13/25 at 1047, Until Simran 02/13/25 at 1720, Nausea/Emesis, Routine, PACU diphenhydrAMINE (BENADRYL) injection 12.5 mg 12.5 mg, IV, POST-PROCEDURE ONCE PRN, 1 dose, Starting on Simran 02/13/25 at 1048, Until Simran 02/13/25 at 1720, Nausea/Emesis, Routine, PACU fentaNYL (PF) (SUBLIMAZE) 50 mcg/mL injection 50 mcg 50 mcg, IV, POST-PROCEDURE Q 3 MINUTES PRN, 4 doses, Starting on Simran 02/13/25 at 1047, Until Simran 02/13/25 at 1720, Pain, Pain Seveity 1-4/10, Routine, PACU fentaNYL (PF) (SUBLIMAZE) 50 mcg/mL injection 50 mcg 50 mcg, IV, POST-PROCEDURE Q 3 MINUTES PRN, 4 doses, Starting on Simran 02/13/25 at 1048, Until Simran 02/13/25 at 1720, Pain, Pain Seveity 1-4/10, Routine, PACU HYDROmorphone (PF) (DILAUDID) injection 0.5 mg 0.5 mg, IV, POST-PROCEDURE Q 5 MINUTES PRN, 5 doses, Starting on Simran 02/13/25 at 1047, Until Simran 02/13/25 at 1720, Pain, Pain Severity 5-10/10, Routine, PACU HYDROmorphone (PF) (DILAUDID) injection 0.5 mg 0.5 mg, IV, POST-PROCEDURE Q 5 MINUTES PRN, 5 doses, Starting on Simran 02/13/25 at 1048, Until Simran 02/13/25 at 1720, Pain, Pain Severity 5-1010, Routine, PACU ondansetron (ZOFRAN) 4 mg/2 mL injection 4 mg 4 mg, IV, POST-PROCEDURE ONCE PRN, 1 dose, Starting on Ismran 02/13/25 at 1047, Until Simran 02/13/25 at 1720, Nausea/Emesis, Routine, PACU ondansetron (ZOFRAN) 4 mg/2 mL injection 4 mg 4 mg, IV, POST-PROCEDURE ONCE PRN, 1 dose, Starting on Simran 02/13/25 at 1048, Until Simran 02/13/25 at 1720, Nausea/Emesis, Routine, PACU documented in this encounter
--- OUTSIDE RECORDS SUMMARY | 2025-02-13 11:55 | XMS_ITS | Encounter Summary ---
Author Organization [facility] Address 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] Procedures IN VULVECTOMY SIMPLE PARTIAL Shaun Mckinney DO [address] [address] Phone: tel: fax: Referral ID Status Reason Start Date Expiration Date Visits Re quested Visits Authorized [id number] 01/15/2025 1 1 Encounter Details Date Type Department Care Team (Late st Contact Info) Description 02/13/2025 11:55 AM INSURANCE MARKETING REP - 02/13/2025 1:22 PM INSURANCE MARKETING REP Surgery [facility] [address] [place] [address] Shaun Mckinney DO [address] [facility] [address] [place] [address] LABIAPLASTY Surgery Details Date/Time Status Location OR Service Patient Class Case Cl ass Case Type Trauma Case? 02/13/2025 11:55 AM Posted [facility] OR 05 Gynecology Outpatient Elective No Panel 1 Procedure LRB Anes Op Region Wound Class Comments LABIAPLASTY N/A General Vagina Clean Contaminated -II ARR 1030 LABIAPLASTY Surgeon Surgeon Role Service Panel Shaun Mckinney, Primary Gynecology 1 documented in this encounter Social History Tobacco Use Types Packs/Day Years Used Date Smoking Tobacco: Never Feeling Safe Answer Date Recorded Are you in a relationship wi th someone who hurts you emotionally and/or physically? No 02/13/2025 Comments No Sex and Gender Information Value Date Recorded Sex Assigned at Not on file Legal Sex Female 1:38 PM INSURANCE MARKETING REP Gender Identity Not on file Sexual Orientation Not on file documented as of this encounter Last Filed Vital Signs Vital Sign Reading Time Taken Comments Blood Pressure 136/81 02/13/2025 1:20 PM INSURANCE MARKETING REP Pulse 99 02/13/2025 1:22 PM INSURANCE MARKETING REP Temperature 36.1 C (97 F) 02/13/2025 1:08 PM INSURANCE MARKETING REP Respiratory Rate 9 02/13/2025 1:22 PM INSURANCE MARKETING REP Oxygen Saturation 100% 02/13/2025 1:22 PM INSURANCE MARKETING REP Inhaled Oxygen Concentration - - Weight 58 kg (127 lb 12.8 oz) 02/13/2025 10:00 A M INSURANCE MARKETING REP Height 160 cm (5' 3 ) 02/13/2025 10:00 AM INSURANCE MARKETING REP Body Mass Index 22.64 02/13/2025 10:00 AM INSURANCE MARKETING REP documented in this encounter Discharge Instructions * Discharge Instructions* Leigh Arriaza RN - 02/13/2025 1:22 PM INSURANCE MARKETING REP Images from the original note were not included. [place] [id number] [facility], [address] [place] [id number] Office Postoperative Discharge Instructions Activity: You may [...] for further instructions. Constipation: Use may use [id number] stool softeners to prevent constipation which is [...] inhaling material that you may vomit. A MUSIC COPYIST FROM THE SAME DAY SURGERY DEPARTMENT MAY [...] operate power tools while taking this medication. RANCE MARKETING REP RANCE MARKETING REP documented in this encounter Medications at Time of Discharge oxyCODONE (ROXICODONE) 5 mg tabletIndications :Postoperative pain Take 1 Tablet (5 mg) by mouth every 4 hours as needed for Pain. Max Daily Amount: 30 mg 7 Tablet 02/13/2025 melatonin 3 mg Capsule Take by oral route. documented as of this encounter H&P Notes * Shaun Mckinney DO - 02/13/2025 10:40 AM CST Preoperative [...] with surgery. Shaun Mckinney DO Dept. of Early Childhood Education Specialist RANCE MARKETING REP documented in this encounter OR Notes * Leanne-OP - Leigh Arriaza RN - 02/13/2025 2:30 PM CST Discharge instructions reviewed with patient and chemical processing equipment repairer verbalizing understanding. Copy given topatient/chemical processing equipment repairer. Patient escorted out with no distress noted. RANCE MARKETING REP * Operative Report - Shaun Mckinney DO - 02/13/2025 1:13 PM CST Operative Report : [facility] Patient: Emmy Rios Hartmann / 25 y.o. / female : 2000 Date: 02/13/2025 CSN: [id number] Name of Procedure: Labiaplasty Pre-operative Diagnosis: Labial [...] stable condition. Shaun Mckinney DO Dept. of Early Childhood Education Specialist RANCE MARKETING REP documented in this encounter Plan of Treatment Upcoming Encounters Date Type Department Care Team (Late st Contact Info) Description 02/27/2025 2:20 PM INSURANCE MARKETING REP Office Visit [facility] OBGARRYN-Eran Myrick Clermont [address] [place] [address] Shaun Mckinney DO [address] [place] [address] documented as of this encounter Procedures Procedure Name Priority Date/Time Associated Diagnosis Comments PATHOLOGY Pathology 02/13/2025 12:52 PM INSURANCE MARKETING REP Labial hypertrophy Vaginal irritation Dyspareunia in female Labia minora hypertrophy IN EXCISION EXCESSIVE SKIN & SUBQ TISSUE OTHER AREA 02/13/2025 11:55 AM INSURANCE MARKETING REP Labial hypertrophy Vaginal irritation Dyspareunia in female Labia minora hypertrophy POC , URINE Routine 02/13/2025 11:41 AM INSURANCE MARKETING REP documented in this encounter Results * PATHOLOGY (02/13/2025 12:52 PM INSURANCE MARKETING REP) CASE REPORT Surgical Pathology Report Case: [id number] Authorizing Provider: Shaun Mckinney DO Collected: 02/13/2025 12:52 PM Ordering Location: [facility] E Received: 02/13/2025 03:28 PM [place] Pathologist: Lon Fish MD Specimen: Skin, labia 9:23 AM [facility] FINAL DIAGNOSIS A. Skin, labia, excision - Skin with hyperkeratosis - Negative for dysplasia and malignancy Lon iFsh MD [id number] 9:23 AM [facility] at 0923 INSURANCE MARKETING REP GROSS DESCRIPTION A. Received in a container of formalin labeled Hartmann -labia are 2 arenas-brown, wrinkled skin fragments, that measure 3.5 and 3.7 cm in greatest dimension. Sectioning reveals white-arenas, fibrous cut surfaces. No obvious lesions are grossly identified. Director Operating Room sections are submitted in A1. Grossed by: Estefania Marquez MS, MARI ([facility]) 9:23 AM [facility] MICROSCOPIC DESCRIPTION After review of H&E-stained sections, a p16 immunohistochemical stain is ordered on block A1 and is negative. 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 Some of these tests rely on the use of analyte specific reagents and are subject to specific labeling requirements by the FDA. All controls show appropriate reactivity. This testing was developed by the [facility] Immunohistochemistry Laboratory of [facility]. It has not been cleared or approved by the FDA. The FDA has determined that such clearance or approval is not necessary. 9:23 AM INSURANCE MARKETING REP [facility] Tissue TISSUE SPECIMEN FROM SKIN / Unknown Collection / Unknown 02/13/2025 12:52 PM INSURANCE MARKETING REP 02/13/2025 3:28 PM INSURANCE MARKETING REP Shaun Mckinney DO PATHOLOGY/CYTOLOGY ORDERABLE S Final Result Performing Organization Address City/[facility]/ZIP Co de Phone Number [facility] CLIA # [id number] [address] [place] [address] * POC , URINE (02/13/2025 11:41 AM INSURANCE MARKETING REP) HCG QUAL URINE Negative Negative 02/13/2025 11:41 AM INSURANCE MARKETING REP [facility] Urine 02/13/2025 11:4 1 AM INSURANCE MARKETING REP 02/13/2025 10:36 AM INSURANCE MARKETING REP Narrative [facility] - 02/13/2025 11:41 AM INSURANCE MARKETING REP Positive : Result is greater than or equal to 25 mIU/mL Negative: Result is less than 25 mIU/mL Invalid: Result is borderline or indeterminate,send to lab for serum test methodology. Shaun Mckinney DO POINT OF CARE TESTING Final Result Performing Organization Address City/[facility]/ZIP Co de Phone Number [facility] CLIA # [id number] [address] [place] [address] documented in this encounter Visit Diagnoses Diagnosis Postoperative pain- Primary Other acute postoperative pain Labial hypertrophy Hypertrophy of labia Vaginal irritation Unspecified noninflammatory disorder of vagina Dyspareunia in female Labia minora hypertrophy Hypertrophy of labia Labial hypertrophy Hypertrophy of labia Vaginal irritation Unspecified noninflammatory disorder of vagina Dyspareunia in female Labia minora hypertrophy Hypertrophy of labia documented in this encounter Administered Medications Inactive Administered Medications - up to 3 most recent administrations Medication Order MAR Action Action Date Dose Rate Site BUPivacaine-EPINEPH rine (PF) (SENSORCAINE MPF WITH EPI) 0.5 %-1:200,000 injection INTRA-PROCEDURE PRN, Starting on Simran 02/13/25 at 1251, Until Simran 02/13/25 at 1308, Routine, Intra-op Given 02/13/2025 12:51 PM INSURANCE MARKETING REP 15 mL Operative Site conjugated estrogens (PREMARIN) 0.625 mg/gram vaginal cream INTRA-PROCEDURE PRN, Starting on Simran 02/13/25 at 1246, Until Simran 02/13/25 at 1308, Routine, Intra-op Given 02/13/2025 12:46 PM INSURANCE MARKETING REP 0.5 Grams Operative Site diphenhydrAMINE (BENADRYL) injection 12.5 mg 12.5 [...] Simran 02/13/25 at 1720, Pain, Pain Seveity 1-07/04, Routine, PACU fentaNYL (PF) (SUBLIMAZE) 50 mcg/mL injection 50 mcg 50 mcg, IV, POST-PROCEDURE Q 3 MINUTES PRN, 4 doses, Starting on Simran 02/13/25 at 1048, Until Simran 02/13/25 at 1720, Pain, Pain Seveity 1-07/04, Routine, PACU HYDROmorphone (PF) (DILAUDID) injection 0.5 mg 0.5 mg, IV, POST-PROCEDURE Q 5 MINUTES PRN, 5 doses, Starting on Simran 02/13/25 at 1047, Until Simran 02/13/25 at 1720, Pain, Pain Severity 5-1010, Routine, PACU HYDROmorphone (PF) (DILAUDID) injection 0.5 mg 0.5 mg, IV, POST-PROCEDURE Q 5 MINUTES PRN, 5 doses, Starting on Simran 02/13/25 at 1048, Until Simran 02/13/25 at 1720, Pain, Pain Severity 5-1010, Routine, PACU lactated ringers infusion IV, at 40 mL/hr, CONTINUOUS, Starting on Simran 02/13/25 at 1030, Until Simran 02/13/25 at 1720, Routine, Pre-op Continue from Pre-Op 02/13/2025 12:04 PM INSURANCE MARKETING REP 40 mL/hr New Bag 02/13/2025 10:36 AM INSURANCE MARKETING REP 40 mL/hr naloxone (NARCAN) 0.4 mg/mL injection [...] Recently Administered Medications Times are shown in INSURANCE MARKETING REP. Scheduled Medication Order 02/11/2025 02/12/2025 02/13/2025 naloxone [...] 1720, Pain, Pain Severity 5-10/10, Routine, PACU ondansetron (ZOFRAN) 4 mg/2 mL [...]
--- OUTSIDE RECORDS SUMMARY | 2025-02-13 12:04 | XMS_ITS | Encounter Summary ---
Author Organization [facility] Address 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] Procedures [place] VULVECTOMY SIMPLE PARTIAL Shaun Mckinney, DO [address] [facility] [address] [place] [address] Phone: tel: fax: Referral ID Status Reason Start Date Expiration Date Visits Re quested Visits Authorized [id number] 01/15/2025 1 1 Encounter Details Date Type Department Care Team (Late st Contact Info) Description 02/13/2025 12:04 PM INTERN Anesthesia Event [facility] [address] [facility] [address] [place] [address] Nikita Morales MD [address] [place] [address] Anesthesia Record Procedure Summary Procedure Name Responsible Anesthesiologist Anesthesia Start Time Anesthesia Stop Time LABIAPLASTY (Vagina) Nikita Morales MD 02/13/25 1204 02/13/25 1310 Events Date Time Event Comment 02/13/2025 1049 1203 In Room This event disp lays the In Room time documented in the Surgical Log. Deleting this event will not remove it from the log but will remove it from the Grid and Graph timeline. 1204 AN Equip Check Anesthesia eq uipment and materials checked in accordance with local policy. 1204 An Start 1205 An Start Data 1216 Pre-Induction Immediate pre- induction anesthetic assessment performed. Vital signs as noted on graphic. 1216 An Induction 1216 An LMA 1216 Anesthesia Ready 1227 Procedure Start This event d isplays the Procedure Start time documented in the Surgical Log. Deleting this event will not remove it from the log but will remove it from the Grid and Graph timeline. 1256 Procedure Stop This event di splays the Procedure Stop time documented in the Surgical Log. Deleting this event will not remove it from the log but will remove it from the Grid and Graph timeline. 1304 Supraglottic Removed Spontan eous respirations. LMA discontinued without difficulty. Oropharynx suctioned as indicated. 1307 Out of Room This event disp lays the Out of Room time documented in the Surgical Log. Deleting this event will not remove it from the log but will remove it from the Grid and Graph timeline. 1307 an stop data 1310 An Stop 1310 Hand-off to Receiving Clinic gurmeet Meds Name Total midazolam (VERSED) 1 mg/mL injection 2 mg fentaNYL (SUBLIMAZE) PF 50 mcg/mL injection 100 mcg lidocaine PF (XYLOCAINE MPF) 1% injectio n 5 mL propofol (DIPRIVAN) 10 mg/mL injection 200 mg dexamethasone (DECADRON) 4 mg/mL injecti on 4 mg diphenhydrAMINE (BENADRYL) 50 mg/mL inje ction 12.5 mg ketorolac (TORADOL) 30 mg/mL injection 15 mg ondansetron (ZOFRAN) 4 mg/2 mL injection 4 mg lactated ringers infusion 0 mL * Agents Name Air O2 O2 * Blood No blood administrations on file. Lines, Drains, and Airways Type Details Placement Removal Wound 02/13/25; 1224; perineum; Surgical 02/13/25 1224 by Maite Jorgensen RN Peripheral IV Pre-Hospital Start: No; Orientation: Left, Posterior; Location: Hand; Device: Angiocath; Needle Length: 1.16 in length; Insertion Attempts: 1; Patient Tolerance: appears comfortable, tolerated well, age-appropriate response; Removal Indication: no longer indicated; Removal Interventions: direct pressure 02/13/25 1030 by Zoey Johnson, ST 02/13/25 1430 by Leigh Arriaza RN Supraglottic Airway Mask Satish: mask ventilation not attempted; Type: LMA; Size: 4; Attempts: 1; Confirmation: satisfactory chest rise, end tidal CO2 02/13/25 1215 by Murphy Sparrow AA-C 02/13/25 1304 by Murphy Sparrow AA-C documented in this encounter Social History Tobacco Use Types Packs/Day Years Used Date Smoking Tobacco: Never Feeling Safe Answer Date Recorded Are you in a relationship wi th someone who hurts you emotionally and/or physically? No 02/13/2025 Comments No Sex and Gender Information Value Date Recorded Sex Assigned at Not on file Legal Sex Female 1:38 PM INTERN Gender Identity Not on file Sexual Orientation Not on file documented as of this encounter OR Notes * Anesthesia Postprocedure Evaluation - Nikita Morales MD - 02/13/2025 2:39 PM CST Post Anesthesia Evaluation Vitals: Vitals Value Taken Time BP 112/61 02/13/25 13:40 Temp 36.4 ??C 02/13/25 13:40 Resp 16 02/13/25 13:40 SpO2 98 % 02/13/25 13:40 Pulse 53 02/13/25 13:40 Heart Rate 54 bpm 02/13/25 13:40 Pain Rating: Pain Rating: Rest: 0 (02/13/25 1000) Presence of Pain: resting quietly (02/13/25 1330) Anesthesia Post Evaluation Patient participation: patient was able to participate in the post op evaluation Level of consciousness: 0 = alert, responsive, answers simple questions appropriately, able to perform simple tasks Airway patency: patent Nausea or Vomiting: none Cardiovascular status: regular rate and rhythm Respiratory status: no respiratory symptoms Hydration status: well hydrated No notable events documented. Nikita Morales MD RN * Anesthesia Handoff - Murphy Sparrow AA-C - 02/13/2025 1:10 PM INTERN Post-Anesthetic transfer of care report elements to appropriate post-anesthesia recovery environment completed in accordance with procedure. I completed my handoff to the receiving nurse during which we: 1. Identified the patient 2. Identified the responsible provider 3. Reviewed the pertinent medical history 4. Discussed the surgical course 5. Reviewed intra-op anesthesia management and issues during anesthesia 6. Set expectations for post-procedure period 7. Orders as necessary and appropriate for continuation of care are present in Epic. 8. Allowed opportunity for questions and acknowledgement of understanding. Vital Signs: Vitals Value Taken Time BP 152/97 02/13/25 13:10 Temp 36.1 ??C 02/13/25 13:08 Resp 17 02/13/25 13:10 SpO2 100 % 02/13/25 13:10 Pulse 136 02/13/25 13:10 Heart Rate 137 bpm 02/13/25 13:10 1:15 PM ISRAEL Manuel RN * Anesthesia Procedure Notes - Murphy Sparrow AA-C - 02/13/2025 12:21 PM CSTAssociated Order(s): Airway Airway Date/Time: 02/13/2025 12:15 PM Location: OR Plan: elective intubation Patient Identity Confirmed by: Verbally with patient and armband Airway: not difficult Staffing Performed: INSIDE UPHOLSTERER/CAA Authorized by: Nikita Morales MD Performed by: Murphy Sparrow AA-C Agricultural Service Worker: Nikita Morales MD Indications and Patient Condition: Indications for Airway Management: Anesthesia Sedation Level: general anesthesia Preoxygenated: yes Patient Position: Sniffing Mask Difficulty Assessment: 0 - not attempted Plan to extubate at end of case: Yes Final Airway Details: Final Airway Type: Supraglottic airway Final Supraglottic Airway: LMA Lubricant used: Yes LMA size: 4 Tube secured with: Tape Placement Verified by: end tidal CO2 and chest rise Number of Attempts at Approach: 1 Additional Procedure Information: atraumatic RN * Anesthesia Preprocedure Evaluation - Nikita Morales MD - 02/13/2025 10:48 AM CST Relevant Problems No relevant active problems Anesthesia Evaluation Anesthesia Plan ASA Final: 2 General Preanesthesia Evaluation mEmy Hartmann is a 25 y.o. female Date: 02/13/2025 Time: 10:49 AM Interview: Preop Discussed with: Patient. Patient is NPO. GERD: Not clinically significant. Preoperative Diagnosis @ORPREDX@ Scheduled Procedure LABIAPLASTY Allergies Allergen Reactions Hydroxyzine Other (See Comments) Penicillins Other (See Comments) and Rash Product containing penicillin (product) No past medical history on file. No past surgical history on file. No current facility-administered medications on file prior to encounter. Current Outpatient Medications on File Prior to Encounter Medication Sig Dispense Refill melatonin 3 mg Capsule Take by oral route. Physical Exam: Airway Class: II (soft palate, uvula, fauces visible) Dentition/Gums: intact Pulmonary: Clear to auscultation bilaterally, no wheezes or crackles. Cardiac: Regular rate and rhythm, Normal S1, S2. Pertinent lab: Results for orders placed or performed during the hospital encounter of 02/13/25 (from the past 24 hours) POC , URINE Result Value Ref Range HCG QUAL URINE Negative Negative The anesthesia care team model was discussed. The risks and benefits of the proposed anesthetic have been discussed with patient. Risks included but were not limited to aspiration, airway/cardiac complications, medication/anesthesia reactions. Anesthesia guideline orders initiated. All questions were answered and understanding was expressed. Monitors: Standard ASA monitors Nikita Morales MD RN documented in this encounter Miscellaneous Notes * Addendum Note - Gypsy Delgado CRNA - 02/16/2025 10:44 PM CST Addendum created 02/16/252243 by Gypsy Delgado CRNA Intraprocedure Staff edited RN documented in this encounter Plan of Treatment Upcoming Encounters Date Type Department Care Team (Late st Contact Info) Description 02/27/2025 2:20 PM INTERN Office Visit [facility] Mark Myrick Zavala [address] [place] [address] Shaun Mckinney DO [address] [place] [address] documented as of this encounter Procedures Procedure Name Priority Date/Time Associated Diagnosis Comments [place] ANES INSERT SUPRAGLOTTIC AIRWAY Routine 02/13/2025 12:15 PM INTERN documented in this encounter Results * NJ ANES INSERT SUPRAGLOTTIC AIRWAY (02/13/2025 12:15 PM INTERN) Narrative Murphy Sparrow AA-C - 02/13/2025 12:15 PM INTERN Murphy Sparrow AA-C 02/13/2025 12:21 PM Airway Date/Time: 02/13/2025 12:15 PM Location: OR Plan: elective intubation Patient Identity Confirmed by: Verbally with patient and armband Airway: not difficult Staffing Performed: INSIDE UPHOLSTERER/CAA Authorized by: Nikita Morales MD Performed by: Murphy Sparrow AA-C Agricultural Service Worker: Nikita Morales MD Indications and Patient Condition: Indications for Airway Management: Anesthesia Sedation Level: general anesthesia Preoxygenated: yes Patient Position: Sniffing Mask Difficulty Assessment: 0 - not attempted Plan to extubate at end of case: Yes Final Airway Details: Final Airway Type: Supraglottic airway Final Supraglottic Airway: LMA Lubricant used: Yes LMA size: 4 Tube secured with: Tape Placement Verified by: end tidal CO2 and chest rise Number of Attempts at Approach: 1 Additional Procedure Information: atraumatic Nikita Morales MD PROCEDURE/MINOR SURGICAL O RDERABLES Final Result documented in this encounter Visit Diagnoses Not on filedocumented in this encounter Administered Medications Inactive Administered Medications - up to 3 most recent administrations Medication Order MAR Action Action Date Dose Rate Site dexAMETHasone (DECADRON) injection IV, INTRA-PROCEDURE PRN, Starting on Simran 02/13/25 at 1221, Until Simran 02/13/25 at 1315, Routine, Anesthesia Intra-op Given 02/13/2025 12:21 PM INTERN 4 mg diphenhydrAMINE (BENADRYL) injection IV, INTRA-PROCEDURE PRN, Starting on Simran 02/13/25 at 1221, Until Simran 02/13/25 at 1315, Routine, Anesthesia Intra-op Given 02/13/2025 12:21 PM INTERN 12.5 mg fentaNYL (PF) (SUBLIMAZE) 50 mcg/mL injection IV, INTRA-PROCEDURE PRN, Starting on Simran 02/13/25 at 1216, Until Simran 02/13/25 at 1315, Routine, Anesthesia Intra-op Given 02/13/2025 12:16 PM INTERN 100 mcg ketorolac (TORADOL) injection IV, INTRA-PROCEDURE PRN, Starting on Simran 02/13/25 at 1256, Until Simran 02/13/25 at 1315, Routine, Anesthesia Intra-op Given 02/13/2025 12:56 PM INTERN 15 mg lactated ringers infusion IV, at 40 mL/hr, CONTINUOUS, Starting on Simran 02/13/25 at 1030, Until Simran 02/13/25 at 1720, Routine, Pre-op Continue from Pre-Op 02/13/2025 12:04 PM INTERN 40 mL/hr New Bag 02/13/2025 10:36 AM INTERN 40 mL/hr lidocaine PF 1% (XYLOCAINE MPF) injection Infiltration, INTRA-PROCEDURE PRN, Starting on Simran 02/13/25 at 1216, Until Simran 02/13/25 at 1315, Routine, Anesthesia Intra-op Given 02/13/2025 12:16 PM INTERN 5 mL midazolam (VERSED) injection IV, INTRA-PROCEDURE PRN, Starting on Simran 02/13/25 at 1201, Until Simran 02/13/25 at 1315, Routine, Anesthesia Intra-op Given 02/13/2025 12:01 PM INTERN 2 mg ondansetron (ZOFRAN) 4 mg/2 mL injection IV, INTRA-PROCEDURE PRN, Starting on Simran 02/13/25 at 1221, Until Simran 02/13/25 at 1315, Routine, Anesthesia Intra-op Given 02/13/2025 12:21 PM INTERN 4 mg propofoL (DIPRIVAN) injection IV, INTRA-PROCEDURE PRN, Starting on Simran 02/13/25 at 1216, Until Simran 02/13/25 at 1315, Anesthesia Intra-op Given 02/13/2025 12:16 PM INTERN 200 mg documented in this encounter
[2025-02-18 18:46] VITALS: BP 116/77; PULSE 69; RESP 14; TEMP 36.7; O2SAT 99; BMI 22.4
--- OUTSIDE RECORDS SUMMARY | 2025-02-18 18:48 | XMS_ITS | Encounter Summary ---
Author Organization [facility] Address [address] Pop: [place] [address] Care Team Providers Care Patient Observer Name Role Phone Unavailable Primary Care Provider Unavailabl e Encounter Details Date Type Department Care Team (Latest Contact Info) Description 02/12/2025 Travel Social History Tobacco Use Types Packs/Day Years Used Date Smoking Tobacco: Never Feeling Safe Answer Date Recorded Are you in a relationship wi th someone who hurts you emotionally and/or physically? No 02/13/2025 Comments No Sex and Gender Information Value Date Recorded Sex Assigned at Not on file Legal Sex Female 1:38 PM DIRECTOR PATIENT ACCOUNTING Gender Identity Not on file Sexual Orientation Not on file documented as of this encounter Plan of Treatment Upcoming Encounters Date Type Department Care Team (Late st Contact Info) Description 02/27/2025 2:20 PM DIRECTOR PATIENT ACCOUNTING Office Visit [facility] Mark Myrick [place] [address] [place] [phone] Shaun Mckinney DO [address] [place] [phone] documented as of this encounter Visit Diagnoses Not on filedocumented in this encounter
--- OUTSIDE RECORDS SUMMARY | 2025-02-18 18:48 | XMS_ITS | Encounter Summary ---
Author Organization [facility] Address [address] [place] [address] Care Team Providers Care Human Resources Generalist Name Role Phone Unavailable Primary Care Provider Unavailabl e Encounter Details Date Type Department Care Team (Late Contact Info) Description 11/22/2024 Telephone [facility] Mark [place] [address] [place] [address] Shaun Mckinney DO [address] [place] [address] Social History Tobacco Use Types Packs/Day Years Used Date Smoking Tobacco: Never Assessed Comments Unknown Sex and Gender Information Value Date Recorded Sex Assigned at Not on file Legal 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
--- OUTSIDE RECORDS SUMMARY | 2025-02-18 18:48 | XMS_ITS | Continuity of Care Document ---
Author Organization [facility] [place], [facility] ([facility]) Address [address] [place] [address] Care Team Providers Care Certified Activities Director Name Role Phone SIMSMILVIAKENIA Primary Care Provider [facility] evelyn [facility] Assessment No assessment recorded. Plan of Treatment Reminders Order Date Submit Date Provider Last Modified By Organization Details Last Modified Time Details Appointments None recorded. Lab pharyngeal pathogens DNA and RNA panel, GRACIELA+non-pro be, throat 2024 025 [facility] ([facility]), [address] [place], [address], 08:35:20 Referral None recorded. Procedures None recorded. Surgeries None recorded. Imaging None recorded. Medication Orders None recorded. Patient TargetsNo targets recorded. Patient InstructionsNo instructions recorded. Reason for Referral None Reported. Results Created Date Observation Date Name Description Value Unit Range Abnormal Flag Note LastModifiedBy Organization Detail LastModifiedTime 12/01/1911/30/2024 phary ngeal patho gens DNA and RNA panel , GRACIELA+n on-pr obe, throa t Strep A negati ve Not Available [facility] ([facility]) [address] [place], [address], 11/30/2024 08:10:38 12/01/1911/30/2024 phary ngeal patho gens DNA and RNA panel , GRACIELA+n on-pr obe, throa t Rhinovirus positi ve Not Available [facility] ([facility]) [address] [place], [address], 11/30/2024 08:10:38 12/01/19 25 11/30/2024 phary ngeal patho gens DNA and RNA panel , GRACIELA+n on-pr obe, throa t RSV negati ve Not Available [facility] ([facility]) [address] [place] [address], [address], 11/30/2024 08:10:38 12/01/19 25 11/30/2024 phary ngeal patho gens DNA and RNA panel , GRACIELA+n on-pr obe, throa t Influenza A negati ve Not Available [facility] ([facility]) [address] [place] [address], [phone], 11/30/2024 08:10:38 12/01/19 25 11/30/2024 phary ngeal patho gens DNA and RNA panel , GRACIELA+n on-pr obe, throa t Influenza B negati ve Not Available [facility] ([facility]) [address] [place] [address], [phone], 11/30/2024 08:10:38 Result Notes None recorded. Problems Name Problem SNOMED Code Status Onset Date Resolution Date Notes Provider Name and Address Organization Details Recorded Time Asthma 270274912 Active 2020 Asthma; 10/03/19 21 10:30AM by Liss Arriaza, Office Visit; Promoted ; acuity set as *; PRICILA gaston [facility] 15:17:19 Dysfunct ion of bilatera l eustachi an tubes 54614955644 10841 Completed 202205/28/2024 PRICILA gaston [facility] 15:17:24 Bipolar disorder 51194416 Active 2023 JOVANNA MICKI MENENDEZ [facility] 4 08:25:52 Gastroes ophageal reflux disease 291018010 Active 2023 JOVANNA MENENDEZ [facility] 4 08:26:03 Oppositi onal defiant disorder 04610845 Active 2023 [facility] 5 15:17:27 Acute pharyngi tis 708002539 Completed 202305/28/2024 [facility] 5 15:17:12 Rib pain 162460072 Completed 202405/28/2024 [facility] 5 15:17:31 Dizzines s 189245542 Active 2024 [facility] 5 16:44:03 Allergic rhinitis 47655638 Active 2024 [facility] 5 16:44:00 Problem Notes None recorded. Procedures Surgical History Date Name Laterality Status Provider Name and Address Organization Details Recorded Time eustachian tuboplasty completed [facility] 05/28/2024 15:18:01 Imaging Results None recorded. Procedure Notes None recorded. Medical Equipment None Reported. Allergies Allergen ID Allergen Name Allergen Category Reaction Reaction Severity Criticality Documentation Date Start Date Code Code System Note Provider Name and Address Organization Details Recorded Time 41561 Product containin g penicilli n (product) medicatio n rash Not available Not available 10/22/2022 04105 8005 SNOMED React ion: Rash; Comme nt: Recor ded 10/02 10:30 AM by Rik Almendarez e Visit ; Promo oneil; Signi ficchris ce: *; ; Not Available [facility] 3 02:24:58 77886 amoxicill in medicatio n Not available Not available Not available 03/16/2023 723 RxNorm Tosha Nuñez alek [facility] 3 16:36:31 08559 hydroxyzi ne Not available Not available Not available Not available 03/28/2024 5553 RxNorm Landy Beal alek [facility] 5 17:02:48 Medications Name Sig Start Date Stop Date Status Note LastModified by Organization Details LastModified Time clindamycin HCl 300 mg capsule take 1 capsule BY MOUTH THREE TIMES DAILY 08/27 completed Not Available Not Available Not Available trazodone 50 mg tablet TAKE ONE TABLET BY MOUTH AT BEDTIME NEEDED FOR SLEEP 04/04 completed Not Available Not Available Not Available oxybutynin chloride ER 10 mg tablet,exte nded release 24 hr TAKE 1 TABLET BY MOUTH EVERY DAY 11/30 completed Not Available Not Available Not Available azithromyci n 250 mg tablet TAKE 2 TABLETS BY MOUTH ON DAY 1, AND THEN TAKE 1 TABLET BY MOUTH ONCE A DAY ON DAY 2 THROUGH DAY 5 03/01 completed Not Available Not Available Not Available ibuprofen 800 mg tablet TAKE 1 TABLET BY MOUTH THREE TIMES DAILY UNTIL GONE 03/06 completed Not Available Not Available Not Available tizanidine 4 mg tablet Take 1 tablet every 6 hours by oral route. 04/16 completed Not Available Not Available Not Available hydrocodone 5 mg-acetamin ophen 325 mg tablet TAKE 1 TABLET BY MOUTH EVERY 4 TO 6 HOURS NEEDED FOR PAIN 08/27 completed Not Available Not Available Not Available famotidine 40 mg tablet TAKE 1 TABLET BY MOUTH EVERY DAY active Not Available Not Available No t Available prednisone 20 mg tablet TAKE 2 TABLETS BY MOUTH EVERY DAY FOR FIVE DAYS 06/19 completed Not Available Not Available Not Available propranolol ER 60 mg capsule,24 hr,extended release take 1 capsule BY MOUTH EVERY DAY active Not Available Not Available No t Available clindamycin HCl 150 mg capsule Take 1 capsule every 6 hours by oral route. 08/27 completed Not Available Not Available Not Available hydroxyzine pamoate 50 mg capsule TAKE 1 CAPSULE BY MOUTH ONCE DAILY AT BEDTIME NEEDED FOR ANXIETY 08/07 completed Not Available Not Available Not Available olanzapine 10 mg tablet TAKE 1 TABLET BY MOUTH ONCE DAILY AT 9PM 03/06 completed Not Available Not Available Not Available omeprazole 40 mg capsule,del ayed release take 1 capsule BY MOUTH EVERY DAY 01/09 completed Not Available Not Available Not Available triamcinolo ne acetonide 0.1 % topical cream APPLY A THIN LAYER TO THE AFFECTED AREA(S) BY TOPICAL ROUTE 2 TIMES PER DAY 03/06 completed Not Available Not Available Not Available Mobic 15 mg tablet Take 1 tablet every day by oral route. 04/16 completed Not Available Not Available Not Available propranolol 10 mg tablet TAKE 1 TABLET BY MOUTH ONCE DAILY NEEDED FOR ANXIETY 11/28 completed Not Available Not Available Not Available promethazin e 12.5 mg rectal suppository Insert 1 supposito ry twice a day by rectal route as needed for 10 days. 09/13 completed Not Available Not Available Not Available trazodone 100 mg tablet TAKE 1 TABLET BY MOUTH EVERY NIGHT AT BEDTIME NEEDED FOR SLEEP 04/04 completed Not Available Not Available Not Available meclizine 25 mg tablet 04/04 completed Not Available Not Available Not Available trazodone 150 mg tablet TAKE 1 TABLET BY MOUTH ONCE DAILY 30-60 MINUTES PRIOR TO BEDTIME NEEDED FOR SLEEP 08/07 completed Not Available Not Available Not Available ibuprofen 400 mg tablet 04/04 completed Not Available Not Available Not Available oxybutynin chloride ER 5 mg tablet,exte nded release 24 hr TAKE 1 TABLET BY MOUTH DAILY 09/25 completed Not Available Not Available Not Available olanzapine 15 mg tablet TAKE TWO TABLETS BY MOUTH AT BEDTIME 04/04 completed Not Available Not Available Not Available Zyprexa 5 mg tablet Take 1 tablet as needed by oral route. 07/10 completed Not Available Not Available Not Available ibuprofen 600 mg tablet TAKE 1 TABLET BY MOUTH THREE TIMES DAILY for 10 days 04/16 completed Not Available Not Available Not Available methylpredn isolone 4 mg tablets in a dose pack FOLLOW PACKAGE DIRECTION S 04/04 completed Not Available Not Available Not Available ondansetron 4 mg disintegrat ing tablet Place 1 tablet 3 times a day by transling ual route as needed for 7 days. 09/05 completed Not Available Not Available Not Available fluticasone propionate 50 mcg/actuati on nasal spray,suspe nsion USE 1 SPRAY INTRANASA L EVERY DAY active Not Available Not Available No t Available olanzapine 5 mg disintegrat ing tablet DISSOLVE 1 TABLET IN MOUTH TWICE DAILY NEEDED FOR SEVERE ANXIETY/A GITATION 03/06 completed Not Available Not Available Not Available hydroxyzine pamoate 25 mg capsule TAKE TWO CAPSULES BY MOUTH EVERY 6 HOURS NEEDED FOR anxiety 04/04 completed Not Available Not Available Not Available Zyprexa 03/06 completed Not Available Not Available Not Available paliperidon e ER 9 mg tablet,exte nded release 24 hr TAKE 1 TABLET BY MOUTH EVERY MORNING active Not Available Not Available No t Available Invega Sustenna 156 mg/mL intramuscul ar syringe 09/24 completed Not Available Not Available Not Available Vitamin D2 03/06 completed Not Available Not Available Not Available melatonin 3 mg capsule Take by oral route. active Not Available Not Available No t Available Vitals Date Recorded Body height Body mass index (BMI) Body weight Body temperature Heart rate Oxygen saturation Systolic And Diastolic Provider Name and Address Organization Details Last Updated DateTime 5 162.56 cm 23.3 kg/m2 82252.5 6 g 98.4 [degF] 76 /min 97 % 110/64 mm[Hg] Demetrice Justice [facility] 08:12:29 Social History Question Answer Notes LastModified by [email or web address] Details LastModified Time Tobacco Smoking Status Former Smoker JOVANNA gaston [facility] 08/22/2023 15:19:46 What Was The Date Of Your Most Recent Tobacco Screening? 11/30/2024 [email or web address] Information not available 11/30/2024 Sex: Unknown Functional Status Question Answer Note LastModified by [email or web address] Details LastModified Time Do you use any illicit or recreational drugs? No Information not available 04/04/2023 What is your level of alcohol consumption? None Information not available 04/04/2023 Mental Status None recorded. Family History Relationship Description Onset Age of this Age Resolved Age Notes LastModified by Organization Details LastModified Time Paternal Grandmother Malignant neoplasm of breast [email or web address] Not available 11/2023 16:05:25 Father Hypertensive disorder [email or web address] Not available 11/2023 16:05:53 Medical History Condition Response Coronary Artery Disease N Other N Gout N Kidney Stones N Blood Diseases N Hyperthyroidism N Breast Cancer N Blood Transfusion N Depression N Hypothyroidism N Lung Disease N COPD N Defects or Inherited Disease N Developmental or Behavioral Disorders N Breast Problem N Difficulty Swallowing N Anesthesia Complications N Meniere's disease N Anxiety Disorder N Muscle, Joint, or Bone Problems N Vision or Eye Problems N Arthritis N Polyps N Infertility N Cancer N Varicosities N Stroke N Endometriosis N Bladder or Kidney Problems N High Cholesterol N Liver Disease N Fibromyalgia N Headaches N Kidney Disease N Allergies/Hayfever N Heart Problems N Ear or Hearing Problems N Hospitalizations N Thyroid Problems N GI Problems N ADD/ADHD N Skin Problems N Eating Disorder N Anemia N Constipation N Mental Illness N Ovarian Cancer N Diabetes N Bedwetting N Seizures/Epilepsy N Tuberculosis N Eczema N Diverticulitis N Abuse/Domestic Violence N Asthma N Reflux/GERD N Hepatitis N Heart Disease N Pulmonary Embolism N Pre-Eclampsia N Hypertension N Chronic Ear Infections N Osteoporosis N Chicken Pox N Autism Spectrum Disorder (ASD) N Thrombophilias N Gynecological History Statement/Question Response Abnormal Pap N Date of Last Pap Smear Current Control Method None Date of LMP Obstetrics History GPAL:G 1 P 0 0 1 0 Type Value Spontaneous 1 Living 0 Total 1 Immunizations Vaccine Type Date Status Note Provider Nam e and Address Organization Details Recorded Time IPV 3 [facility] 14:14:42 IPV 3 completed JOVANNA gaston [facility], [place] 07/11/2023 14:14:42 IPV 8 completed [facility] 14:14:42 MMR 8 completed JOVANNA MENENDEZ [facility], [facility] 07/11/2023 14:14:42 Tdap 6 completed JOVANNA MENENDEZ [facility], [facility] 07/11/2023 14:14:42 varicella 4 completed JOVANNA MICKI MENENDEZ [facility] 07/11/2023 14:14:42 varicella 8 completed JOVANNA MENENDEZ [facility] 07/11/2023 14:14:42 Hep B, adolescent or pediatric 3 completed JOVANNA MENENDEZ [facility] 07/11/2023 14:14:42 Hib (PRP-T) 3 completed JOVANNA MENENDEZ [facility] 07/11/2023 14:14:42 Hib (PRP-T) 4 completed JOVANNA MICKI MENENDEZ [facility] 07/11/2023 14:14:42 Hib (PRP-T) 3 completed JOVANNA MENENDEZ [facility] 07/11/2023 14:14:42 Hib (PRP-T) 3 completed JOVANNA MENENDEZ [facility] 07/11/2023 14:14:42 meningococcal MCV4P 6 completed JOVANNA MENENDEZ [facility] 07/11/2023 14:14:42 DTaP 3 completed JOVANNA MENENDEZ [facility] 07/11/2023 14:14:42 DTaP 4 completed JOVANNA MENENDEZ [facility] 07/11/2023 14:14:42 DTaP 3 completed JOVANNA MENENDEZ [facility], [facility] 07/11/2023 14:14:42 DTaP 8 completed JOVANNA MENENDEZ [facility], [facility] 07/11/2023 14:14:42 DTaP-Hep B-IPV 3 completed JOVANNA gaston, [facility] 07/11/2023 14:14:42 Influenza, split virus, quadrivalent, PF [facility]/11[facility]23 14:14:42 Influenza, split virus, quadrivalent, PF 6 completed JOVANNA gaston, [facility] 07/11/2023 14:14:42 Past Encounters Encounter ID Performer Location Encounter Start Date Encounter Closed Date Diagnosis/Indication Diagnosis SNOMED-CT Code Diagnosis ICD10 Code Diagnosis IMO Codes Diagnosis Note [id number] Kenia Sims MD [facility] [address] [place] [phone] 10/31/2024 12:03:34 11/11/2024 11:28:36 Hypertrophy of labia 4097735343 101 N90.60 5492373 There is no associated inflammati on or evidence of irritation . The patient may seek cosmetic surgery as desired. This is the patient's second visit for the same request. I advised second opinion. Referral placed. 10/31/2024 [id number] JAMES VALENTINO [facility] [address] [place] [phone] 11/30/2024 08:02:56 11/30/2024 12:41:45 Sore throat 628944013 J02.9 09573 Disease ca used by Rhinovirus 79770373 B34.8 90243 Discussed use of otc medication s for symptom management .Push oral fluids and rest.If you develop fever, sob, or start feeling worse then return for re-evaluat ion. Health Concerns Section Related Observation LastModified by Organization Detai ls LastModified Time None Recorded Concern Status LastModified by Organization Details LastModified Time None Recorded Payers Encounter Date Sequence Insurance Name Policy Number Policy Hale Covered Member ID Hale Member ID Guarantor Name 11/30/2024 1 [place] Emmy Hartmann [id number] Emmy Hartmann Notes Date Note Type Note Provider Name and Address Organization Details Recorded Time 11/30/2024 text/html ROS as noted in the HPI walk in ptPT has a sore throat since yesterday. No other symptoms. No meds taken for this. Denies any exposures. Feels well otherwise. 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
--- OUTSIDE RECORDS SUMMARY | 2025-02-18 18:48 | XMS_ITS | Encounter Summary ---
Author Organization [facility] Address [address] [place] [address] Care Team Providers Care Automobile Painter Name Role Phone Unavailable Primary Care Provider Unavailabl e Reason for Visit * Reason Onset Date Comments questions about cream given after surgery/ katherine 02/14/2025 Patient has questions about the cream that was given to her after surgery Does she need to just use it at bedtime or should she be using it more during the day? Lenghth of time that she would need to keep using? She thought she was told 7 days but is unsure the length of time that she should use it. Please message via [employer] Encounter Details Date Type Department Care Team (Late st Contact Info) Description 02/14/2025 Telephone [facility] Mark Myrick [place] [address] [place] [address] Shaun Mckinney DO [address] [facility] [address] [place] [address] questions about cream given after surgery/ katherine (Patient has questions about the cream that was given to her after surgery Does she need to just use it at bedtime or should she be using it more during the day? Lenghth of time that she would need to keep using? She thought she was told 7 days but is unsure the length of time that she should use it. Please message via [employer] ) Social History Tobacco Use Types Packs/Day Years Used Date Smoking Tobacco: Never Feeling Safe Answer Date Recorded Are you in a relationship wi th someone who hurts you emotionally and/or physically? 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
--- OUTSIDE RECORDS SUMMARY | 2025-02-18 18:48 | XMS_ITS | Continuity of Care Document ---
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 Plan of Treatment Reminders Order Date Submit Date Provider Last Modified By Organization Details Last Modified Time Details Appointments None recorded. Lab pin[facility] exam [facility]24 [facility], [address] [place] [address], [facility] [address] [place], [address], 15:35:02 Referral None recorded. Procedures None recorded. Surgeries None recorded. Imaging None recorded. Medication Orders propranolol ER 60 mg capsule,24 hr,extended release 2024 [facility] [address], [address], 15:35:37 famotidine 40 mg tablet [address] [facility], [place], [address] [place] [address], [address], 12:29:23 Patient TargetsNo targets recorded. Patient Instructions Encounter Date Encounter Id Patient Instructions Last Modified By Organization Details Last Modified Time 01/09/2025 [id number] - Continue magnesium choloids, and begin MiraLax and Colace daily for constipation. - Notify the office if constipation symptoms persist or worsen. - Start acid-reducing medication for nausea as directed for 2-4 weeks. - Take propranolol daily for headache prevention and follow up if headaches persist or worsen. - Complete the pinworm test as directed and report back with results. - Avoid ibuprofen leading up to and after the upcoming surgery. - Follow up with the clinic as previously scheduled or sooner if symptoms intensify. [email or web address] Not available 01/09/2025 11:55:43 Reason for Referral None Reported. Results Created Date Observation Date Name Description Value Unit Range Abnormal Flag Note LastModifiedBy Organization Detail LastModifiedTime 01/11/2001/12/2025 PINWO RM EXAMI NATIO N pinworm examination SEE NOTE PINWO RM EXAMI NATIO N Micro Numbe r: [id number] Test Statu s: Final Speci men Sourc e: Not given Speci men Quali ty: Adequ ate Pinwo rm Resul t 1: No enter obius vermi cular is seen. Refer ence Range : No Enter obius vermi cular is seen Not Available [facility]ER[facility] [employer] [facility] [address] [place], [address], 01/12/2025 15:35:02 Result Notes None recorded. Problems Name Problem SNOMED Code Status Onset Date Resolution Date Notes Provider Name and Address Organization Details Recorded Time Asthma 286213368 Active 2020 Asthma; 10/03/19 21 10:30AM by Liss Arriaza, Office Visit; Promoted ; acuity set as *; PRICILA gaston [facility] 5 15:17:19 Dysfunct ion of bilatera l eustachi an tubes 56702306042 02995 Completed 202205/28/2024 PR[facility]ILA gaston [facility] 5 15:17:24 Bipolar disorder 91590473 Active 2023 JOVANNA gaston [facility] 4 08:25:52 Gastroes ophageal reflux disease 533141379 Active 2023 JOVANNA SWEET MENENDEZ [facility] 4 08:26:03 Oppositi onal defiant disorder 39168666 Active 2023 [facility] 5 15:17:27 Acute pharyngi tis 271985837 Completed 202305/28/2024 [facility] 5 15:17:12 Rib pain 571697626 Completed 202405/28/2024 [facility] 5 15:17:31 Dizzines s 135264395 Active [address]24 [facility] 5 16:44:03 Allergic rhinitis 36359184 Active [address]24 [facility] 5 16:44:00 Problem Notes None recorded. Procedures Surgical History Date Name Laterality Status Provider Name and Address Organization Details Recorded Time eustachian tuboplasty completed [facility] 05/28/2024 15:18:01 Imaging Results None recorded. Procedure Notes None recorded. Medical Equipment None Reported. Allergies Allergen ID Allergen Name Allergen Category Reaction Reaction Severity Criticality Documentation Date Start Date Code Code System Note Provider Name and Address Organization Details Recorded Time 12231 Product containin g penicilli n (product) medicatio n rash Not available Not available 10/22/2022 45141 8001 SNOMED React ion: Rash; Comme nt: Recor ded 10/02 10:30 AM by Rik Almendarez Visit ; Promo oneil; Opal gregory ce: *; ; Not Available [facility] 3 02:24:58 78095 amoxicill in medicatio n Not available Not available Not available 03/16/2023 723 Rx[facility] Tosha Nuñez null, [facility] 3 16:36:31 00014 hydroxyzi ne Not available Not available Not available Not available 03/28/2024 5553 RxNorm Landy Beal alek [facility] 5 17:02:48 Medications Name Sig Start Date [...] mass index (BMI) Body weight Body temperature Oxygen saturation Heart rate Systolic And Diastolic Provider Name and Address Organization Details Last Updated DateTime 5 162.56 cm 22.1 kg/m2 87426.4 2 g 97.8 [degF] 98 % 82 /min 112/72 mm[Hg] PRICILA ARMENTA [facility] 5 11:06:20 Date Recorded Body height Body mass index (BMI) Body weight Body temperature Oxygen saturation Heart rate Systolic And Diastolic Provider Name and Address Organization Details Last Updated DateTime 5 162.56 cm 22.1 kg/m2 20283.4 2 g 98.1 [degF] 97 % 64 /min 90/60 mm[Hg] JOVANNA MENENDEZ [facility] 5 14:50:40 Social History Question Answer Notes LastModified by Organizat ion Details LastModified Time Tobacco Smoking Status Former Smoker JOVANNA MENENDEZ [facility] 08/22/2023 15:19:46 What Was The Date Of Your Most Recent Tobacco Screening? 11/30/2024 [email or web address] Information not available 11/30/2024 Sex: Unknown Functional Status Question Answer Note LastModified by Organizat ion Details LastModified Time Do you use any illicit or recreational drugs? No [email or web address] Information not available 04/04/2023 What is your level of alcohol consumption? None Information not available 04/04/2023 Mental Status None recorded. Family History Relationship Description Onset Age of this Age Resolved Age Notes LastModified by Organization Details LastModified Time Paternal Grandmother Malignant neoplasm of breast [email or web address] Not available 11/2023 16:05:25 Father Hypertensive disorder [email or web address] Not available 11/2023 16:05:53 Medical History Condition Response Coronary Artery Disease N Other N Gout N Kidney Stones N Blood Diseases N Hyperthyroidism N Breast Cancer N Blood Transfusion N Hypothyroidism N Lung Disease N COPD N Depression N Defects or Inherited Disease N Developmental or Behavioral Disorders N Breast Problem N Difficulty Swallowing N Anesthesia Complications N Meniere's disease N Anxiety Disorder N Muscle, Joint, or Bone Problems N Vision or Eye Problems N Arthritis N Infertility N Polyps N Cancer N Stroke N Varicosities N Endometriosis N Bladder or Kidney Problems [...] N Heart Disease N Pulmonary Embolism N Chronic Ear Infections N Pre-Eclampsia N Hypertension N Chicken Pox N Autism Spectrum Disorder (ASD) N Osteoporosis N Thrombophilias N Gynecological History Statement/Question Response Abnormal Pap N Date of Last Pap Smear Current Control Method None Date of LMP Obstetrics History GPAL:G 1 P 0 0 1 0 Type Value Spontaneous 1 Living 0 Total 1 Immunizations Vaccine Type Date Status Note Provider Nam e and Address Organization Details Recorded Time IPV 3 completed [facility]ANNA gaston [facility] 07/11/2023 14:14:42 IPV 3 completed JOVANNA gaston [facility] 07/11/2023 14:14:42 IPV 8 completed MICKI MENENDEZ [facility] 07/11/2023 14:14:42 MMR 8 completed MICKI SHON [facility] 07/11/2023 14:14:42 Tdap 6 completed [facility] MENENDEZ [facility] 07/11/2023 14:14:42 varicella 4 completed [facility] 07/11/2023 14:14:42 varicella 8 completed MICKI SHON [facility] 07/11/2023 14:14:42 Hep B, adolescent or pediatric 3 completed JOVANNA MICKI MENENDEZ [facility] 07/11/2023 14:14:42 Hib (PRP-T) 3 completed [facility] MENENDEZ [facility] 07/11/2023 14:14:42 Hib (PRP-T) 4 completed MICKI SHON [facility] 07/11/2023 14:14:42 Hib (PRP-T) 3 completed JOVANNA MICKI SHON [facility] 07/11/2023 14:14:42 Hib (PRP-T) 3 completed [facility] MENENDEZ [facility] 07/11/2023 14:14:42 meningococcal MCV4P 6 completed JOVANNA MICKI MENENDEZ [facility] 07/11/2023 14:14:42 D[facility]P 3 [facility]/11[facility]2023 14:14:42 DTaP 4 completed JOVANNA MICKI MENENDEZ [facility] 07/11/2023 14:14:42 DTaP 3 completed JOVANNA MENENDEZ [facility], [facility] 07/11/2023 14:14:42 DTaP 8 completed JOVANNA MICKI MENENDEZ [facility] 07/11/2023 14:14:42 DTaP-Hep B-IPV 3 completed JOVANNA MICKI MENENDEZ [facility] 07/11/2023 14:14:42 Influenza, split virus, quadrivalent, PF 6 [facility]/11[facility]23 14:14:42 Influenza, split virus, quadrivalent, PF 6 completed JOVANNA MENENDEZ [facility] 07/11/2023 14:14:42 Past Encounters Encounter ID Performer Location Encounter Start Date Encounter Closed Date Diagnosis/Indication Diagnosis SNOMED-CT Code Diagnosis ICD10 Code Diagnosis IMO Codes Diagnosis Note [id number] Kenia Sims MD [facility] ([facility]) [address] [place] [phone] 01/09/2025 11:01:27 01/14/2025 15:19:24 Pruritus ani 94506894 L29.0 930201 - Test for pinworms and plan treatment if necessary. Nausea 580976931 R11.0 23209 - Initiate a trial of acid-reduc ing medication for symptom relief. Frequent headache 872054 003 R51.9 88705589 - Trial propranolo l daily to manage headaches, non-NSAID analgesics when needed. Chronic constipation 236 258432 K59.09 062396 - Continue magnesium and start daily MiraLax and Colace. Health Concerns Section Related Observation LastModified by Organization Detai ls LastModified Time None Recorded Concern Status LastModified by Organization Details LastModified Time None Recorded Payers Encounter Date Sequence Insurance Name Policy Number Policy Hale Covered Member ID Hale Member ID Guarantor Name 01/09/2025 1 [place] Emmy Hartmann [id number] Emmy Hartmann Notes Date Note Type Note Provider Name and Address Organization Details Recorded Time 01/09/2025 text/html The patient is a 24-year-old female presenting with management concerns for chronic constipation, frequent headaches, nausea, and pruritus ani. Her chronic constipation has seen partial relief with magnesium choloids. Headaches intensify at night and upon waking, find partial relief with ice packs, and reduce minimally when caffeine is consumed, though she's aiming to diminish caffeine consumption. Her nausea tends now to follow meals; she has abstained from typical remedies like Pepto-Bismol lately. Rectal itchiness has been a disturbance in her sleep. Kenia Sims MD [address] [place] [address], [phone], [facility] 01/14/2025 14:03:32 01/14/2025 text/html ROS as noted in the HPI Anal itching persistsShe has not tried any hemorrhoid creamRecent pinworm tape test was negative Kenia Sims MD [address] [place] [address], [phone], [facility] 01/20/2025 10:55:50 OBGyn Episode No OBEpisode recorded.
--- OUTSIDE RECORDS SUMMARY | 2025-02-18 18:49 | XMS_ITS | Continuity of Care Document ---
Author Organization [facility]NA [facility], [facility] ([facility]) Address [address] [place] [address] Care Team Providers Care Resident Surgeon Name Role Phone ESTUARDO KENIA Primary Care Provider [facility] Assessment No assessment recorded. Plan of Treatment Reminders Order Date Submit Date Provider Last Modified By Organization Details Last Modified Time Details Appointments None record ed. Lab None record ed. Referral None record ed. Procedures None record ed. Surgeries None record ed. Imaging None record ed. Medication Orders None record ed. Patient TargetsNo targets recorded. Patient InstructionsNo instructions recorded. Reason for Referral None Reported. Results Created Date Observation Date Name Description Value Unit Range Abnormal Flag Note LastModifiedBy Organization Detail LastModifiedTime 01/11/2001/12/2025 PINWO RM EXAMI NATIO N pinworm examination SEE NOTE PINWO RM EXAMI NATIO N Micro Numbe r: [id number] Test Statu s: Final Speci men Sourc e: Not given Speci men Quali ty: Adequ ate Pinwo rm Resul t 1: No enter obius vermi cular is seen. Refer ence Range : No Enter obius vermi cular is seen Not Available [employer] [facility] [address] [place], [address], 01/12/2025 15:35:02 01/11/2001/12/2025 PINWO RM EXAMI NATIO N pinworm examination SEE NOTE PINWO RM EXAMI NATIO N Micro Numbe r: [id number] Test Statu s: Final Speci men Sourc e: Other (spec kendra) Speci men Quali ty: Adequ ate Pinwo rm Resul t 1: No enter obius vermi cular is seen. Refer ence Range : No Enter obius vermi cular is seen Not Available [employer] [facility] [address] , [place], [address], 01/12/2025 15:35:04 Result Notes None recorded. Problems Name Problem SNOMED Code Status Onset Date Resolution Date Notes Provider Name and Address Organization Details Recorded Time Asthma 802769443 Active 2020 Asthma; 10/03/19 10:30AM by Liss Arriaza, Office Visit; Promoted ; acuity set as *; PRICILA gaston [facility] 5 15:17:19 Dysfunct ion of bilatera l eustachi an tubes 26485927860 09328 Completed 202205/28/2024 [facility] 15:17:24 Bipolar disorder 19203431 Active 2023 JOVANNA MENENDEZ [facility] 4 08:25:52 Gastroes ophageal reflux disease 112308959 Active 2023 JOVANNA MENENDEZ [facility] 4 08:26:03 Oppositi onal defiant disorder 17612963 Active 2023 PRICILA ARMENTA [facility] 5 15:17:27 Acute pharyngi tis 740248474 Completed 202305/28/2024 PRICILA ARMENTA [facility] 5 15:17:12 Rib pain 158262509 Completed 202405/28/2024 PRICILA ARMENTA [facility] 5 15:17:31 Dizzines s 608732827 Active 2024 [facility] 5 16:44:03 Allergic rhinitis 37027716 Active 2024 [facility] 5 16:44:00 Problem Notes None recorded. Procedures Surgical History Date Name Laterality Status Provider Name and Address Organization Details Recorded Time eustachian tuboplasty completed [facility] 05/28/2024 15:18:01 Imaging Results None recorded. Procedure Notes None recorded. Medical Equipment None Reported. Allergies Allergen ID Allergen Name Allergen Category Reaction Reaction Severity Criticality Documentation Date Start Date Code Code System Note Provider Name and Address Organization Details Recorded Time 30151 Product containin g penicilli n (product) medicatio n rash Not available Not available 10/22/2022 66453 8001 SNOMED React ion: Rash; Comme nt: Recor ded 10/02 10:30 AM by Bryant Arriaza Offic e Visit ; Promo oneil; Signi fican ce: *; ; Not Available [facility] 3 02:24:58 53451 amoxicill in medicatio n Not available Not available Not available 03/16/2023 723 RxNorm Tosha Nuñez [facility] 3 16:36:31 01526 hydroxyzi ne Not available Not available Not available Not available 03/28/2024 5553 RxNorm Landy Beal [facility] 5 17:02:48 Medications Name Sig Start [...] Updated DateTime 5 162.56 cm 22.1 kg/m2 72508.4 2 g 98.1 [degF] 97 % 64 /min 90/60 mm[Hg] JOVANNA MENENDEZ [facility] 5 14:50:40 Social History Question Answer Notes LastModified by [employer] Details LastModified Time Tobacco Smoking Status Former Smoker JOVANNA MENENDEZ [facility] 08/22/2023 15:19:46 What Was The Date Of Your Most Recent Tobacco Screening? 11/30/2024 [id number] Information not available 11/30/2024 Sex: Unknown Functional Status Question Answer Note LastModified by [facility] Details LastModified Time Do you use any illicit or recreational drugs? No [email or web address] Information not available 04/04/2023 What is your level of alcohol consumption? None [email or web address] Information not available 04/04/2023 Mental Status None recorded. Family History Relationship Description Onset Age of this Age Resolved Age Notes LastModified by Organization Details LastModified Time Paternal Grandmother Malignant neoplasm of breast [email or web address] Not available 11/2023 16:05:25 Father Hypertensive disorder [email or web address] Not available 11/2023 16:05:53 Medical History Condition [...] Details Recorded Time IPV 3 completed JOVANNA MENENDEZ [facility] 07/11/2023 14:14:42 IPV 3 completed JOVANNA MENENDEZ [facility] 07/11/2023 14:14:42 IPV 8 completed JOVANNA MENENDEZ [facility] 07/11/2023 14:14:42 MMR 8 completed JOVANNA MENENDEZ [facility] 07/11/2023 14:14:42 Tdap 6 completed JOVANNA MENENDEZ [facility] 07/11/2023 14:14:42 varicella 4 completed JOVANNA MENENDEZ [facility] 07/11/2023 14:14:42 varicella 8 completed JOVANNA MENENDEZ [facility] 07/11/2023 14:14:42 Hep B, adolescent or pediatric 3 completed JOVANNA MENENDEZ [facility] 07/11/2023 14:14:42 Hib (PRP-T) 3 completed JOVANNA MENENDEZ [facility] 07/11/2023 14:14:42 Hib (PRP-T) 4 completed MICKI SHON [facility] 07/11/2023 14:14:42 Hib (PRP-T) 3 completed MICKI SHON [facility] 07/11/2023 14:14:42 Hib (PRP-T) 3 completed MICKI SHON [facility] 07/11/2023 14:14:42 meningococcal MCV4P 6 completed MICKI SHON [facility] 07/11/2023 14:14:42 DTaP 3 completed MICKI SHON [facility] 07/11/2023 14:14:42 DTaP 4 completed MICKI SHON [facility] 07/11/2023 14:14:42 DTaP 3 completed MICKI SHON [facility] 07/11/2023 14:14:42 DTaP 8 completed MICKI SHON [facility] 07/11/2023 14:14:42 DTaP-Hep B-IPV 3 completed MICKI SHON [facility] 07/11/2023 14:14:42 Influenza, split virus, quadrivalent, PF 6 completed MICKI SHON [facility] 07/11/2023 14:14:42 Influenza, split virus, quadrivalent, PF 6 completed MICKI MENENDEZ [facility] 07/11/2023 14:14:42 Past Encounters Encounter ID Performer Location Encounter Start Date Encounter Closed Date Diagnosis/Indication Diagnosis SNOMED-CT Code Diagnosis ICD10 Code Diagnosis IMO Codes Diagnosis Note [id number] Kenia Sims MD [facility] ([facility]) [address] [place] [phone] 01/09/2025 11:01:27 01/14/2025 15:19:24 Pruritus ani 47246469 L29.0 410928 - Test for pinworms and plan treatment if necessary. Nausea 938640872 R11.0 60737 - Initiate a trial of acid-reduc ing medication for symptom relief. Frequent headache 260762 003 R51.9 84936138 - Trial propranolo l daily to manage headaches, non-NSAID analgesics when needed. Chronic constipation 236 426073 K59.09 721604 - Continue magnesium and start daily MiraLax and Colace. [id number] Kenia Sims MD [facility] ([facility]) [address] [place] [phone] 01/14/2025 14:46:24 01/20/2025 13:52:21 Pruritus ani 98467876 L29.0 184822 Possibly related to constipati on and small tears. Patient was advised to use hemorrhoid cream for symptom relief. Constipation 47661589 K5 9.09 25891904 - I discussed with the patient that if she is already constipate d MiraLAX and Colace are not very effective. That is when she should use milk of magnesia and senna to have a large soft bowel movement. Afterwards she should continue to take MiraLAX and/or Colace to help her stay regular. Health Concerns Section Related Observation LastModified by Organization Detai ls LastModified Time None Recorded Concern Status LastModified by Organization Details LastModified Time None Recorded Payers Encounter Date Sequence Insurance Name Policy Number Policy Hale Covered Member ID Hale Member ID Guarantor Name 01/14/2025 1 [place] Emmy Hartmann [id number] Emmy Hartmann Notes Date Note Type Note Provider Name and Address Organization Details Recorded Time 01/14/2025 text/html ROS as noted in the HPI Anal itching persistsShe has not tried any hemorrhoid creamRecent pinworm tape test was negative Kenia Sims, MD [address] [place], [address], [facility], [place] 01/20/2025 10:55:50 OBGyn Episode No OBEpisode recorded.
--- OUTSIDE RECORDS SUMMARY | 2025-02-18 18:49 | XMS_ITS | Data Portability ---
Author Organization [facility], [place], [facility] Address [address] [place] [address] Care Team Providers Care Elementary Principal Name Role Phone KENIA MARTE Primary Care Provider Rosie JACOBS [facility] Behavior al Health Assessment No assessment recorded. Plan of Treatment Reminders Order Date Submit Date Provider Last Modified By Organization Details Last Modified Time Details Appointments None recorded. Lab pinworm exam 2024 025 [facility], [address] [place] [address] [address] [place], [address], 5 15:35:02 pharyngeal pathogens DNA and RNA panel, GRACIELA+non-pro be, throat 2024 025 [facility] ([facility]), [address] [place], [address], 5 08:35:20 urinalysis, dipstick 2024 025 [facility]), [address] [place], [address], 5 14:49:52 Referral gynecologis t referral 2024 025 [email or web address] Not available 12:28:14 Procedures None recorded. Surgeries None recorded. Imaging None recorded. Medication Orders propranolol ER 60 mg capsule,24 hr,extended release 2024 [facility], [address] [place] [address], [address], 15:35:37 famotidine 40 mg tablet 2024 [facility], [address] [place] [address], [address], 12:29:23 omeprazole 40 mg capsule,del ayed release 2024 [facility], [address] [place] [address], [address], 11:13:50 oxybutynin chloride ER 10 mg tablet,exte nded release 24 hr 2024 [facility], [address] [place] [address], [address], 08:54:05 Patient TargetsNo targets recorded. Patient Instructions Encounter Date Encounter Id Patient Instructions Last Modified By Organization Details Last Modified Time 01/09/2025 [id number] - Continue magnesium choloids, and begin MiraLax [...] Not available 01/09/2025 11:55:43 Reason for Referral Audiology Director Referral for Hy pertrophy of labia Referring Physician: Kenia Marte, Family Medicine, Encounter Date: 10/31/2024 Results Created Date Observation Date Name Description Value Unit Range Abnormal Flag Note LastModifiedBy Organization Detail LastModifiedTime 06/03/20 25 08/28/2024 HEPAT ITIS PANEL , GENER AL (REFL ) hepatitis A Ab, total NON-RE ACTIVE non-re active normal For addit ional infor deysi santamaria e refer to http: //[facility] bianca guerra stdia gnost ics.c om/fa q/FAQ 202 (This link is being provi ded for infor matio nal/ educa jorge l purpo ses only. ) Not Available [facility] [address] [address] [place], [address], 08/28/2024 07:41:54 08/28/19 25 08/28/2024 HEPAT ITIS PANEL , GENER AL (REFL ) hepatitis B surface antibody ql NON-RE ACTIVE non-re active normal Not Available [facility] [address] [address] [place], [address], 08/28/2024 07:41:54 08/28/19 25 08/28/2024 HEPAT ITIS PANEL , GENER AL (REFL ) hepatitis B surface antigen NON-RE ACTIVE non-re active normal For addit ional deysi crook e refer to http: //albert guerra [facility]ia gnost ics.c om/fa q/FAQ (This link is being provi ded for infor matio nal/ educa jorge l purpo ses only. ) Not Available [facility] [address] [address] [place], [address], 08/28/2024 07:41:54 08/28/1908/28/2024 HEPAT ITIS PANEL , GENER AL (REFL ) hepatitis B core Ab total NON-RE ACTIVE non-re active normal For addit ional infor deysi santamaria e refer to http: //albert elkins.oj stdia gnost ics.c om/fa q/FAQ (This link is being provi ded for infor matio nal/ educa jorge l purpo ses only. ) Not Available [facility] [address] [address] [place], [address], 08/28/2024 07:41:54 08/28/19 25 08/28/2024 HEPAT ITIS PANEL , GENER AL (REFL ) hepatitis C antibody (refl) NON-RE ACTIVE non-re active normal HCV antib elizabeth was non-r eacti ve. There is no labor atory evide nce of HCV infec tion. In most cases , no furth er actio n is requi red. Howev er, if recen t HCV expos ure is suspe cted, a test for HCV RNA (test code 82686 ) is sugge sted. For addit ional infor judy jo e refer to http: //[facility] bianca tavarezque stdia gnost ics.c om/fa q/FAQ 22v1 (This link is being provi ded for infor judy aldana/ educa jorge l purpo ses only. ) Not Available [facility] [address] [place], [address], 08/28/2024 07:41:54 08/28/19 25 08/27/2024 pregn sahra test, urine HCG negati ve Not Available [facility] ([facility]) [address] [place] [address], [address], 08/27/2024 13:33:08 09/26/19 25 09/25/2024 urina lysis , dipst ick Leukocytes Negati ve Not Available [facility] ([facility]) [address] [place] [address], [address], 09/25/2024 16:33:04 09/26/19 25 09/25/2024 urina lysis , dipst ick Nitrite negati ve Not Available [facility] ([facility]) [address] [place], [address], 09/25/2024 16:33:04 09/26/19 25 09/25/2024 urina lysis , dipst ick Urobilinogen .2 Not Available [facility] ([facility]) [address] [place], [address], 09/25/2024 16:33:04 09/26/19 25 09/25/2024 urina lysis , dipst ick Protein Trace Not Available [facility] ([facility]) [address] [place], [address], 09/25/2024 16:33:04 09/26/19 25 09/25/2024 urina lysis , dipst ick pH 8.5 Not Available [facility] ([facility]) [address] [place], [address], 09/25/2024 16:33:04 09/26/19 25 09/25/2024 urina lysis , dipst ick Blood Negati ve Not Available [facility] ([facility]) [address] [place], [address], 09/25/2024 16:33:04 09/26/19 25 09/25/2024 urina lysis , dipst ick Specific Hamer 1.010 Not Available [facility] ( [facility]) [address] [place], [address], 09/25/2024 16:33:04 09/26/19 25 09/25/2024 urina lysis , dipst ick Ketone Negati ve Not Available [facility] ([facility]) [address] [place], [address], 09/25/2024 16:33:04 09/26/19 25 09/25/2024 urina lysis , dipst ick Bilirubin Negati ve Not Available [facility] ([facility]) [address] [place], [address], 09/25/2024 16:33:04 09/26/19 25 09/25/2024 urina lysis , dipst ick Glucose Negati ve Not Available [facility] ([facility]) [address] [place], [address], 09/25/2024 16:33:04 09/26/19 25 09/25/2024 urina lysis , dipst ick Appearance Clear Not Available [facility] [address] [place], [address], 09/25/2024 16:33:04 09/26/19 25 09/25/2024 urina lysis , dipst ick Color Yellow Not Available [facility] ([facility]) [address] [place], [address], 09/25/2024 16:33:04 12/01/19 25 11/30/2024 phary ngeal patho gens DNA and RNA panel , GRACIELA+n on-pr obe, throa t Strep A negati ve Not Available [facility] ([facility]) [address] [place] [address], [address], 11/30/2024 08:10:38 12/01/19 25 11/30/2024 phary ngeal patho gens DNA and RNA panel , GRACIELA+n on-pr obe, throa t Rhinovirus positi ve Not Available [facility] ([facility]) [address] [place] [address], [address], 11/30/2024 08:10:38 12/01/19 25 11/30/2024 phary ngeal patho gens DNA and RNA panel , GRACIELA+n on-pr obe, throa t RSV negati ve Not Available [facility] ([facility]) [address] [place] [address], [address], 11/30/2024 08:10:38 12/01/19 25 11/30/2024 phary ngeal patho gens DNA and RNA panel , GRACIELA+n on-pr obe, throa t Influenza A negati ve Not Available [facility] ([facility]) [address] [place] [address], [address], 11/30/2024 08:10:38 12/01/19 25 11/30/2024 phary ngeal patho gens DNA and RNA panel , GRACIELA+n on-pr obe, throa t Influenza B negati ve Not Available [facility] ([facility]) [address] [place], [address], 11/30/2024 08:10:38 01/11/2001/12/2025 PINWO RM EXAMI NATIO N pinworm examination SEE NOTE PINWO RM EXAMI NATIO N Micro Numbe r: [id number] Test Statu s: Final Speci men Sourc e: Not given Speci men Quali ty: Adequ ate Pinwo rm Resul t 1: No enter obius vermi cular is seen. Refer ence Range : No Enter obius vermi cular is seen Not Available [facility] [address] [place], [address], 01/12/2025 15:35:02 01/11/20 25 01/12/2025 PINWO RM EXAMI NATIO N pinworm examination SEE NOTE PINWO RM EXAMI NATIO N Micro Numbe r: [id number] Test Statu s: Final Speci men Sourc e: Other (spec kendra) Speci men Quali ty: Adequ ate Pinwo rm Resul t 1: No enter obius vermi cular is seen. Refer ence Range : No Enter obius vermi cular is seen Not Available [facility] [address] [place], [address], 01/12/2025 15:35:04 Result Notes None recorded. Problems Name Problem SNOMED Code Status Onset Date Resolution Date Notes Provider Name and Address Organization Details Recorded Time Asthma 904652647 Active 2020 Asthma; 10/03/19 21 10:30AM by Liss Arriaza, Office Visit; Promoted ; acuity set as *; PRICILA [place]on [place] [facility]andra 15:17:19 Dysfunct ion of bilatera l eustachi an tubes 87340109021 17018 Completed 202205/28/2024 PRICILAStfeani ARMENTA [facility] 5 15:17:24 Bipolar disorder 59451302 Active 2023 JOVANNA MENENDEZ [facility] 4 08:25:52 Gastroes ophageal reflux disease 387982959 Active 2023 JOVANNA MENENDEZ [facility] 4 08:26:03 Oppositi onal defiant disorder 83052070 Active 2023 PRICILA ARMENTA [facility] 5 15:17:27 Acute pharyngi tis 914343910 Completed 202305/28/2024 [facility]an [facility] 5 15:17:12 Rib pain 980892221 Completed 202405/28/2024 [facility] 5 15:17:31 Dizzines s 068870241 Active 2024 [facility]an [facility] 5 16:44:03 Allergic rhinitis 94697763 Active 2024 [facility]ILASan [facility] 5 16:44:00 Problem Notes None recorded. Procedures Surgical History Date Name Laterality Status Provider Name and Address Organization Details Recorded Time eustachian tuboplasty completed [facility] 05/28/2024 15:18:01 Imaging Results None recorded. Procedure Notes None recorded. Medical Equipment None Reported. Allergies Allergen ID Allergen Name Allergen Category Reaction Reaction Severity Criticality Documentation Date Start Date Code Code System Note Provider Name and Address Organization Details Recorded Time 13628 Product containin g penicilli n (product) medicatio n rash Not available Not available 10/22/2022 58665 8001 SNOMED React ion: Rash; Comme nt: Recor ded 10/02 10:30 AM by Rik Almendarez Visit ; Millie riggs; Opal gregory ce: *; ; Not Available [facility] 3 02:24:58 81901 amoxicill in medicatio n Not available Not available Not available 03/16/2023 723 RxNorm Tosha gaston [facility] 3 16:36:31 43082 hydroxyzi ne Not available Not available Not available Not available 03/28/2024 5553 RxNorm [facility] 5 17:02:48 Medications Name Sig Start [...] Details Last Updated DateTime 5 162.56 cm 24.4 kg/m2 42311.1 2 g 98.8 [degF] 98 % 94 /min 115/80 mm[Hg] JOVANNA MENENDEZ [facility].. 5 16:00:55 Date Recorded Body height Body mass index (BMI) Body weight Body temperature Oxygen saturation Heart rate Systolic And Diastolic Provider Name and Address Organization Details Last Updated DateTime 5 162.56 cm 23.2 kg/m2 93271.9 7 g 98.6 [degF] 97 % 94 /min 90/60 mm[Hg] JOVANNA SWEET SHON [facility] 5 12:13:05 Date Recorded Body height Body mass index (BMI) Body weight Body temperature Heart rate Oxygen saturation Systolic And Diastolic Provider Name and Address Organization Details Last Updated DateTime 5 162.56 cm 23.3 kg/m2 88268.5 6 g 98.4 [degF] 76 /min 97 % 110/64 mm[Hg] Demetrice Vinh [facility] 5 08:12:29 Date Recorded Body height Body mass index (BMI) Body weight Body temperature Oxygen saturation Heart rate Systolic And Diastolic Provider Name and Address Organization Details Last Updated DateTime 5 162.56 cm 22.1 kg/m2 41971.4 2 g 97.8 [degF] 98 % 82 /min 112/72 mm[Hg] PRICILA ARMENTA [facility] 5 11:06:20 Date Recorded Body height Body mass index (BMI) Body weight Body temperature Oxygen saturation Heart rate Systolic And Diastolic Provider Name and Address Organization Details Last Updated DateTime 5 162.56 cm 22.1 kg/m2 23629.4 2 g 98.1 [degF] 97 % 64 /min 90/60 mm[Hg] JOVANNA SWEET SHON [facility] 5 14:50:40 Social History Question Answer Notes LastModified by [employer] Details LastModified Time Tobacco Smoking Status Former Smoker JOVANNA MCCALLH SHON [facility] 08/22/2023 15:19:46 What Was The Date Of Your Most Recent Tobacco Screening? 11/30/2024 [email or web address] Information not available 11/30/2024 Sex: Unknown Functional Status Question Answer Note LastModified by [employer] Details LastModified Time Do you use any illicit or recreational drugs? No [email or web address] Information not available 04/04/2023 What is your level of alcohol consumption? None [email or web address] Information not available 04/04/2023 Mental Status None recorded. Family History Relationship Description Onset Age of this Age Resolved Age Notes LastModified by Organization Details LastModified Time Paternal Grandmother Malignant neoplasm of breast [email or web address] Not available 11/2023 16:05:25 Father Hypertensive disorder [email or web address] Not available 11/2023 16:05:53 Medical History Condition Response Coronary Artery Disease N Other N Gout N Kidney Stones N Blood Diseases N Hyperthyroidism N Breast Cancer N Blood Transfusion N Hypothyroidism N Depression N COPD N Lung Disease N Defects or Inherited Disease N Developmental or Behavioral Disorders N Breast Problem N Difficulty Swallowing N Anesthesia Complications N Anxiety Disorder N Meniere's disease N Muscle, Joint, or Bone Problems N Vision or Eye Problems N Arthritis N Polyps N Infertility N Cancer N Varicosities N Stroke N Endometriosis N Bladder or Kidney Problems N High Cholesterol N Liver Disease N Headaches N Fibromyalgia N Kidney Disease N Allergies/Hayfever N Heart [...] Recorded Time IPV 3 completed [facility] 07/11/2023 14:14:42 IPV 3 completed JOVANNA gaston [facility], [place] 07/11/2023 14:14:42 IPV 8 completed [facility] 07/11/2023 14:14:42 MMR 8 completed JOVANNA MICKI MENENDEZ [facility] 07/11/2023 14:14:42 Tdap 6 completed JOVANNA MICKI MENENDEZ [facility] 07/11/2023 14:14:42 varicella 4 completed JOVANNA MICKI MEENNDEZ [facility] 07/11/2023 14:14:42 varicella 8 completed JOVANNA MICKI MENENDEZ [facility] 07/11/2023 14:14:42 Hep B, adolescent or pediatric 3 completed JOVANNA MICKI MENENDEZ [facility] 07/11/2023 14:14:42 Hib (PRP-T) 3 completed JOVANNA MICKI MENENDEZ [facility] 07/11/2023 14:14:42 Hib (PRP-T) 4 completed JOVANNA MENENDEZ [facility] 07/11/2023 14:14:42 Hib (PRP-T) 3 completed JOVANNA MICKI MENENDEZ [facility] 07/11/2023 14:14:42 Hib (PRP-T) 3 completed JOVANNA MICKI MENENDEZ [facility] 07/11/2023 14:14:42 meningococcal MCV4P 6 completed JOVANNA MENENDEZ [facility] 07/11/2023 14:14:42 DTaP 3 completed JOVANNA MICKI MENENDEZ [facility] 07/11/2023 14:14:42 DTaP 4 completed MICKI MENENDEZ [facility] 07/11/2023 14:14:42 DTaP 3 completed JOVANNA gaston, [facility] 07/11/2023 14:14:42 DTaP 8 completed JOVANNA gaston, [facility] 07/11/2023 14:14:42 DTaP-Hep B-IPV 3 completed JOVANNA gaston, [facility] 07/11/2023 14:14:42 Influenza, split virus, quadrivalent, PF 6 completed JOVANNA SWEET MENENDEZ alek, [facility] 07/11/2023 14:14:42 Influenza, split virus, quadrivalent, PF 6 completed JOVANNA SWEET MENENDEZ alek, [facility] 07/11/2023 14:14:42 Past Encounters Encounter ID Performer Location Encounter Start Date Encounter Closed Date Diagnosis/Indication Diagnosis SNOMED-CT Code Diagnosis ICD10 Code Diagnosis IMO Codes Diagnosis Note [id number] Emanuel Mcdonald MD [facility] ([facility]) [address] [place] [id number] 5 03/16/2023 16:23:34 03/23/2023 11:28:58 Dysfunction of bilateral eustachian tubes 7171373992 255736 H69.93 Continue with Flonase. Start Medrol Dosepak. No ear infection and exam is consistent with eustachian tube dysfunctio n. [id number] Kenia Marte MD [facility] ([facility]) [address] [place] [id number] 5 04/04/2023 10:36:43 04/04/2023 12:22:30 Schizophrenia 24108888 F20.9 per psych Bipolar disorder 6170102 4 F31.9 per psych Screening for malignant neoplasm of cervix 271766276 Z12.4 I advised pt update pap since it has been couple years since her last and she is 23. Seen in [facility] 30 0451021 Z76.89 [id number] Kenia Marte MD [facility] ([facility]) [address] [place] [id number] 5 04/25/2023 11:52:56 04/25/2023 13:07:35 Pain of ear 361030484 H92.09 on flonase. hx of tubes, scarring on TMs but otherwise wnl. Pain in bi lateral feet 1657217869 9606575 M79.671 M79.672 Bilateral foot pain with history of orthotic insoles. Sent with a paper script to [facility] [id number] Kenia Marte MD [facility] ([facility]) [address] [place] [id number] 5 07/11/2023 14:09:20 07/11/2023 14:47:06 Nausea and vomiting 93366109 R11.2 f/u if hemetemasi s does not resolve.so unds like her first episode could have been related to her tooth being pulled. [id number] Kenia Marte MD [facility] ([facility]) [address] [place] [id number] 5 08/08/2023 13:51:08 08/08/2023 14:46:03 Pain of bilateral knee joints 1977817562 94152 M25.561 M25.562 I suspect muscle tightness pulling on attachemen ts. Advised 1-2 times daily stretching with a knobby foam roller. [id number] Kenia Marte MD [facility] ([facility]) [address] [place] [id number] 5 08/22/2023 15:10:14 08/22/2023 15:49:42 Dyspnea 488737483 R06.00 Atypical chest pain 1025 28216 R07.89 Dental caries 70999121 K 02.9 pt was advised to see a dentist. she says she has an appointmen t with one. [id number] Kenia Marte MD [facility] ([facility]) [address] [place] [id number] 5 09/25/2023 15:34:01 09/25/2023 17:27:13 Low back pain 884606323 M54.50 used to go to PT for her hip, tried anal for the first time, that messed up her hip....it hurts further up, hard to make my bed....mally schmitt age 16 did PT for hip and it helped.demetris dout given on low back stretches and exercises. pt was advised to do them twice daily. Irregular periods 215376 07 N92.6 Pt. said when she inserts a tampon that her periods stop. Ingrowing toenail 784146 009 L60.0 I recently just cut them off....but its going to grow back Mental disorder 88603228 F99 Pt has more than bipolar disorder. High risk sexual behavior 580979681 Z72.51 I advised she f/u for pap. I recommende d control but pt declined. I have concerns for her not being on any control. We tried to contact [facility] to see if they could encourage control but they refused to discuss anything without a records release. [id number] Kenia Marte MD [facility] ([facility]) [address] [place] [id number] 5 11/29/2023 10:09:31 11/29/2023 11:22:11 Increased frequency of urination 341337430 R35.0 Overactive urinary bladder 241085599 N32.81 trial of med. f/u 1 month. [id number] Kenia Marte MD [facility] ([facility]) [address] [place] [id number] 5 12/04/2023 15:47:55 12/13/2023 21:47:26 Low back pain 886298056 M54.50 handout given on low back stretches and exercises. pt was advised to do them twice daily. Pain of breast 14436793 N64.4 Likely fibrocysti c breast syndrome as it is bilateral and comes and goes. Monitor. [id number] Darryl Solares DO [facility] ([facility]) [address] [place] [address] [id number] 5 12/18/2023 17:16:52 12/18/2023 18:04:13 Acute pharyngitis 920839316 J02.9 Rapid strep is negative today.I counsled on symptoms, likely viral illness. home today. rest, fluids, motrin, vitamins. Will give wait and see Antiboitic . If symptoms are worse over the next 2-3 days, or getting worse then start antibiotic s. If still getting worse after antibiotic s or if severe symptoms, return to clinic or go to ER. [id number] NEHEMIAH CONTRERAS [facility] ([facility]) [address] [place] [address] [id number] 5 12/29/2023 13:00:20 01/10/2024 07:38:20 Headache 90893439 R51.9 Dysuria 79666204 R30.0 [id number] SILVER REDD [facility] ([facility]) [address] [place] [address] [id number] 5 03/01/2024 14:24:36 03/05/2024 15:10:36 Pruritic rash 13132254 L28.2 Discussed use of topical cream. No signs of infection. If the rash starts to spread, you develop fever, elbow swelling/p ain or symptoms worsen then f/u [id number] Kenia Marte MD [facility] ([facility]) [address] [place] [address] [id number] 5 03/06/2024 15:14:38 03/06/2024 17:29:31 Heartburn 88552983 R12 recommende d to take daily to prevent symptoms. 03/06/24 [id number] GUERLINE FRANK APRN [facility] ([facility]) [address] [place] [address] [id number] 5 03/25/2024 13:19:58 03/27/2024 08:33:53 Nausea 024590119 R11.0 Acid reflux 117552288 K2 1.9 Headache 21167757 R51.9 [id number] Emanuel Mcdonald MD [facility] ([facility]) [address] [place] [address] [id number] 5 03/28/2024 16:55:31 03/30/2024 18:57:49 Rib pain 301402302 R07.81 X-rays were obtained of the right ribs and did not demonstrat e any acute fracture. Low suspicion for fracture based on mechanism of injury. We do anti-infla mmatory medication and muscle relaxers to help with pain. Encouraged the patient to do deep breathing exercises and follow-up with PCP if symptoms do not improve. 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 The patient may seek cosmetic surgery as desired. [id number] Kenia Marte MD [facility] ([facility]) [address] [place] [address] [id number] 5 05/06/2024 14:29:46 05/09/2024 07:19:41 Strain of muscle of right groin region 9434058064 8581300 S76.011A pt given handout on groin strain stretches and exercises to perform 1-2 times daily. may take OTC ibuprofen/ tylenol prn. [id number] Kenia Marte MD [facility] ([facility]) [address] [place] [address] [id number] 5 05/16/2024 15:18:27 05/16/2024 16:30:24 Dysuria 30336651 R30.0 u/a not really indicative of infection. pt is here for the bladder med she was on before. Overactive urinary bladder [id number] N32.81 pt requests refill of the med. it did help. 05/16/24 [id number] Kenia Marte MD [facility] ([facility]) [address] [place] [address] [phone] 5 05/28/2024 13:51:52 05/30/2024 07:27:13 Intolerance to lactose [id number] E73.9 It is unclear if the patient actually has any lactose intoleranc e. Since she typically did not drink any regular lactose milk I advised that she introduce it into her diet slowly. If she develops gastrointe stinal symptoms within a couple hours of ingesting it then she may be considered to be lactose intoleranc e. Reassuranc e that it is okay for her to do some trial and error to see what works best for her. [id number] JAMES VALENTINO [facility] ([facility]) [address] [place] [address] [phone] 5 06/03/2024 12:48:28 06/03/2024 13:16:56 Pruritic disorder [id number] L29.9 Discussed use of prednisone daily and benadryl at night. No rash found on skin or signs of jaundice. Return if you develop new symptoms. [id number] Kenia Marte MD [facility] ([facility]) [address] [place] [address] [phone] 5 06/19/2024 10:43:55 06/20/2024 11:51:06 Hyperglycemia 94288831 R73.9 actually sounds more like hypoglycem ia though pt scheduled the appt with concern for dm. Pt states she is fasting this morning but she just took a peppermint out of her mouth. She says she just put it in....I advised she come back for fasting labs. [id number] Emanuel Mcdonald MD [facility] ([facility]) [address] [place] [address] [phone] 5 08/15/2024 10:01:50 08/20/2024 12:16:58 Dizziness [id number] R42 71577 Patient does have significan t amount of middle ear fluid. And this is likely contributi ng to the dizziness. Allergic rhinitis 123146 04 J30.9 [id number] Recommend treatment for allergies at this time. Follow-up with PCP if symptoms do not improve. [id number] Kenia Marte MD [facility] ([facility]) [address] [place] [address] [phone] 5 08/22/2024 13:44:29 08/22/2024 17:38:49 Nausea 456557411 R11.0 11679 Weight decreased 2308050 01 R63.4 39239 Pt is taking a pill for this - she says it works. She does not believe it is contributi ng to her symptoms cause she was on it for months before the symptoms started... .I advised she stop it anyway in case it is contributi ng. Infection of tooth 22869 8007 K04.7 160546 on clinda. site appears to be healing well left upper molar. 08/22/24 [id number] Kenia Marte MD [facility] ([facility]) [address] [place] [address] [phone] 5 08/27/2024 12:50:20 08/27/2024 14:43:18 Exposure to organism 017084835 Z20.828 [id number] pt requests Hepatitis testing. Nausea and vomiting 1693 1999 R11.2 7246193034 pt is keeping fluids down fine, 1 lb weight gain, advance to bland diet as tolerated. nreviewed ER records and labs. 08/27/24 [id number] Kenia Marte MD [facility] ([facility]) [address] [place] [address] [phone] 5 09/25/2024 15:52:30 09/30/2024 13:53:19 Otalgia of right ear 0899563962 H92.01 53085067 Exam within normal limits. 09/25/2024 Frequent headache 287438 003 R51.9 11054661 Upper back neck and scalp massage, and heat, stretching . Reassuranc e that the patient's head injury from 5 years ago was minor and not a contributi ng factor. 09/25/2024 Increased frequency of urination 602714694 R35.0 766880 UA was not indicative of infection. We will increase her bladder medication . 09/25/2024 Overactive urinary bladder 367815622 N32.81 pt requests refill of the med. it did help. 05/16/24 Patient thinks the medicine is no longer working. We will increase the dose from 5 mg to 10 mg. 09/25/2024 Acid reflux 398580263 K2 1.9 Refill provided 09/25/2024 Pain of right wrist 3169 826890 92249 M25.531 247189 I advised patient use a cock up wrist splint at night. 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 The patient may seek cosmetic surgery as desired. This is the patient's second visit for the same request. I advised second opinion. Referral placed. 10/31/2024 [id number] JAMES VALENTINO [facility] ([facility]) [address] [place] [address] [phone] 5 11/30/2024 08:02:56 11/30/2024 12:41:45 Sore throat 442305663 J02.9 61644 Disease ca used by Rhinovirus 05651995 B34.8 95094 Discussed use of otc medication s for symptom management .Push oral fluids and rest.If you develop fever, sob, or start feeling worse then return for re-evaluat ion. [id number] Kenia Marte MD [facility] ([facility]) [address] [place] [address] [phone] 5 01/09/2025 11:01:27 01/14/2025 15:19:24 Pruritus ani 50570031 L29.0 250738 - Test for pinworms and plan treatment if necessary. Nausea 788389247 R11.0 83535 - Initiate a trial of acid-reduc ing medication for symptom relief. Frequent headache 188440 003 R51.9 95046157 - Trial propranolo l daily to manage headaches, non-NSAID analgesics when needed. Chronic constipation 236 685117 K59.09 171566 - Continue magnesium and start daily MiraLax and Colace. [id number] Kenia Marte MD [facility] ([facility]) [address] [place] [address] [phone] 5 01/14/2025 14:46:24 01/20/2025 13:52:21 Pruritus ani 09812501 L29.0 112593 Possibly related to constipati on and small tears. Patient was advised to use hemorrhoid cream for symptom relief. Constipation 24653898 K5 9.09 19966206 - I discussed with the patient that [...] by Organization Details LastModified Time None Recorded Advance Directives Directive None Recorded Payers Insurance Date Sequence Insurance Name Policy Number Policy Hale Covered Member ID Hale Member ID Guarantor Name 08/23/2024 [facility] (MEDICAID HMO) Emmy Rios Hartmann [id number] Emmy Rios Hartmann 03/16/2023 1 *SELF PAY* Lyle Rios Hartmann 08/23/2024 1 [facility] (MEDICAID HMO) Emmy Rios Hartmann [id number] Emmy Rios Hartmann 08/23/2024 [facility] (MEDICAID HMO) Emmy Rios Hartmann [id number] Emmy Rios Hartmann 01/08/2025 [place] [facility]IT[facility]) Emmy Rios Hartmann [id number] Emmy Rios Hartmann 01/08/2025 1 [place] Emmy Rios Hartmann [id number] Emmy Rios Hartmann Notes Date Note Type Note Provider Name and Address Organization Details Recorded Time 09/25/2024 text/html Ear Pain Brief HPIReported by PatientHPIFor quality, patient reportsdischarge clear (serous). For location, patient reportsright. For severity, patient reportsno fever. For associated symptoms, patient reportsno nasal congestion.ROS as noted in the HPI Originally I had ear pain but I wanted to talk about something else, when I was 19 I hit my head on the pavement and I never got checked out for it but now my head has been bothering me when I lay down at night or lay back on something. When I initially hit my head the people that saw it said I was out for a minute but I feel like I got right up. never seen at ER or Dr for it. The past couple of days I feel like the bladder medicine has stopped working. I feel like I am holding it and cannot go all the way. Is there any wrist exercises I can do? My wrist has been hurting and I have to work and lift things Is one of the common symptoms of the omeprazole heat interolance? I just cannot stand the heat right now Kenia Marte MD [address] [place] [address], [phone], [facility], L.L.CKiana 09/26/2024 14:40:41 10/31/2024 text/html Vaginal/Vulvar ProblemReported by PatientHPIFor associated symptoms, patient reportsvaginal irritation,vaginal pain,vulvar itching/irritation, andpelvic pain. For location, patient reportsright labiaandleft labia. For quality, patient reportspainful,tender, swelling,irritation, anddry. For context, patient reportsnot sexually active.ROS as noted in the HPI I told the nurse that you had looked at me before and I didn't think I needed and exam again. My back hurts because I have to try to sit correctly so I don't sit on it and if I do sit on it, it hurts. I found a group on facebook of ladies who had already had this done and wanted to see what their experiences were. They all said to see a doctor to get clearance and get it covered. I found a place in [place] that would do this. Kenia Marte MD [address] [place] [address], [phone], [facility] 11/09/2024 11:52:06 11/30/2024 text/html ROS as noted in the HPI walk in ptPT has a sore throat since yesterday. No other symptoms. No meds taken for this. Denies any exposures. Feels well otherwise. JAMES VALENTINO [address] [place] [address], [phone], [facility] 11/30/2024 11:55:22 01/09/2025 text/html The patient is a 24-year-old [...] been a disturbance in her sleep. Kenia Marte MD [address] [place] [address], [phone], [facility], [place] 01/14/2025 14:03:32 01/14/2025 text/html ROS as noted in the HPI Anal itching persistsShe has not tried any hemorrhoid creamRecent pinworm tape test was negative Kenia Marte MD [address] [place] [address], [phone], [facility] Suman, LKianaLAlejandra 01/20/2025 10:55:50 OBGyn Episode No OBEpisode recorded.
--- OUTSIDE RECORDS SUMMARY | 2025-02-18 18:49 | XMS_ITS | Clinical Summary ---
Author Organization [facility] Address [address] Pop: [place] [address] Care Team Providers Care Burnt Lime Drawer Name Role Phone Unavailable Primary Care Provider Unavailabl e Allergies Active Allergy Reactions Criticality Noted Date Comments Hydroxyzine Other (See Comments) 02/12/2025 Penicillins Other (See Comments),Rash Low 02/12/2025 Product containing penicillin (product) Medications melatonin 3 mg Capsule Take by oral route. Active oxyCODONE (ROXICODONE) 5 mg tabletIndicatio ns:Postoperativ e pain Take 1 Tablet (5 mg) by mouth every 4 hours as needed for Pain. Max Daily Amount: 30 mg 7 Tablet 5 Active oxyCODONE (ROXICODONE) 5 mg tabletIndicatio ns:Postoperativ e pain Take 1 Tablet (5 mg) by mouth every 4 hours as needed for Pain. 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 Please message via [email or web address] ) 02/13/2025 12:04 PM HEAVY MACHINERY ASSEMBLER Anesthesia Event [facility] [address] [place] [address] [facility] [address] [place] [phone] Nikita Morales MD 02/13/2025 11:55 AM HEAVY MACHINERY ASSEMBLER - 02/13/2025 1:22 PM HEAVY MACHINERY ASSEMBLER Surgery [facility] [address] [place] [address] [facility] [address] [place] [phone] Shaun Mckinney, DO LABIAPLASTY 02/13/2025 9:54 AM HEAVY MACHINERY ASSEMBLER - 02/13/2025 2:45 PM HEAVY MACHINERY ASSEMBLER Hospital Encounter [facility] [address] [place] [address] [facility] [address] [place] [phone] Shaun Mckinney, DO Labial hypertrophy Discharge Disposition: Home or Self Care 02/12/2025 Travel 01/28/2025 9:36 AM HEAVY MACHINERY ASSEMBLER - 01/28/2025 11:59 PM HEAVY MACHINERY ASSEMBLER Hospital Encounter [facility] Pre Admission Testing [facility] [place] [address] [place] [address] Shaun Mckinney, Discharge Disposition: Home or Self Care 01/28/2025 9:00 AM HEAVY MACHINERY ASSEMBLER History & Physical [facility] [place] [address] [place] [phone] Shaun Mckinney, DO Preop examination (Primary Dx); Labial hypertrophy 01/21/2025 Telephone [facility]-[place] [address] [place] [phone] Shaun Mckinney, DO surgery change (Moved surgery to a earlier date ) 01/15/2025 Telephone [facility]YN[facility] [address] [place] [address] Gypsy Richards, RN Information 01/15/2025 Orders Only [facility] OBTARIK-[place] Ramez Margarita [address] [place] [address] Shaun Mckinney, DO 01/14/2025 External Device Data STL ABSTRACTION Provider, Abstract 01/13/2025 [facility] [place] [address] [place] [address] Shaun Mckinney, Pre-op testing (Primary Dx) 01/08/2025 10:45 AM CD[facility] [address] [place] [phone] Shaun Mckinney, Labial hypertrophy (Primary Dx); Vaginal irritation; Dyspareunia in female; Labia minora hypertrophy 12/10/2024 External Device Data STL ABSTRACTION Provider, Abstract 11/26/2024 External Device Data STL ABSTRACTION Provider, Abstract 11/26/2024 External Device Data STL ABSTRACTION Provider, Abstract 11/26/2024 External Device Data STL ABSTRACTION Provider, Abstract 11/22/2024 [facility] [address] [place] [phone] Shaun Mckinney, from Last 3 Months Social History Tobacco Use Types Packs/Day Years Used Date Smoking Tobacco: Never Tobacco Cessation:Counseling Given: Not Answered Feeling Safe Answer Date Recorded Are you in a relationship wi th someone who hurts you emotionally and/or physically? No 02/13/2025 Comments No Sex and Gender Information Value Date Recorded Sex Assigned at Not on file Legal Sex Female 1:38 PM HEAVY MACHINERY ASSEMBLER Gender Identity Not on file Sexual Orientation Not on file Last Filed Vital Signs Vital Sign Reading Time Taken Comments Blood Pressure 116/60 02/13/2025 2:30 PM HEAVY MACHINERY ASSEMBLER Pulse 64 02/13/2025 2:30 PM HEAVY MACHINERY ASSEMBLER Temperature 36.4 C (97.5 F) 02/13/2025 1:45 PM HEAVY MACHINERY ASSEMBLER Respiratory Rate 16 02/13/2025 2:30 PM HEAVY MACHINERY ASSEMBLER Oxygen Saturation 100% 02/13/2025 2:30 PM HEAVY MACHINERY ASSEMBLER Inhaled Oxygen Concentration - - Weight 58 kg (127 lb 12.8 oz) 02/13/2025 10:00 A M HEAVY MACHINERY ASSEMBLER Height 160 cm (5' 3 ) 02/13/2025 10:00 AM HEAVY MACHINERY ASSEMBLER Body Mass Index 22.64 02/13/2025 10:00 AM HEAVY MACHINERY ASSEMBLER Plan of Treatment Upcoming Encounters Date Type Department Care Team (Late st Contact Info) Description 02/27/2025 2:20 PM HEAVY MACHINERY ASSEMBLER Office Visit [facility] HARJEETEran [place] [address] [place] [address] Shaun Mckinney DO [address] [place] [address] Health Maintenance Due Date Last Done Comments HEPATITIS B VACCINES (3 of 3 - 3-dose series) 2002 2002, 2002 CHLAMYDIA SCREENING (ANNUAL) 11-24 YEARS 2013 HPV VACCINES (1 - 3-dose series) 2017 CERVICAL CANCER SCREENING 2023 HPV/Cotest (21-29) 2023 PAP SMEAR 2023 INFLUENZA VACCINE (#1) 2024 01/21/2016 DTAP/TDAP/TD VACCINES (7 - T d or Tdap) 01/20/2026 01/21/2016, 03/25/2008, 05/22/2003, Additional history exists Procedures Procedure Name Priority Date/Time Associated Diagnosis Comments PATHOLOGY Pathology 02/13/2025 12:52 PM HEAVY MACHINERY ASSEMBLER Labial hypertrophy Vaginal irritation Dyspareunia in female Labia minora hypertrophy FL ANES INSERT SUPRAGLOTTIC AIRWAY Routine 02/13/2025 12:15 PM HEAVY MACHINERY ASSEMBLER FL EXCISION EXCESSIVE SKIN & SUBQ TISSUE OTHER AREA 02/13/2025 11:55 AM HEAVY MACHINERY ASSEMBLER Labial hypertrophy Vaginal irritation Dyspareunia in female Labia minora hypertrophy POC , URINE Routine 02/13/2025 11:41 AM HEAVY MACHINERY ASSEMBLER TYPE AND SCREEN Routine 01/28/2025 9:47 AM HEAVY MACHINERY ASSEMBLER Pre-op testing CBC WITHOUT DIFFERENTIAL Routine 01/28/2025 9:47 AM HEAVY MACHINERY ASSEMBLER Pre-op testing VERIFICATION BLOOD GROUP Stat 01/28/2025 9:45 AM HEAVY MACHINERY ASSEMBLER from Last 3 Months Results * PATHOLOGY (02/13/2025 12:52 PM HEAVY MACHINERY ASSEMBLER) CASE REPORT Surgical Pathology Report Case: [id number] Authorizing Provider: Shaun Mckinney DO Collected: 02/13/2025 12:52 PM Ordering Location: [facility] E Received: 02/13/2025 03:28 PM [place] Pathologist: Lon Fish MD Specimen: Skin, labia 9:23 AM [facility] FINAL DIAGNOSIS A. Skin, labia, excision - Skin with hyperkeratosis - Negative for dysplasia and malignancy Lon Fish MD [id number] 9:23 AM [facility] at 0923 HEAVY MACHINERY ASSEMBLER GROSS DESCRIPTION A. Received in a container of formalin labeled Hartmann -labia are 2 arenas-brown, wrinkled skin fragments, that measure 3.5 and 3.7 cm in greatest dimension. Sectioning reveals white-arenas, fibrous cut surfaces. No obvious lesions are grossly identified. Nursing Unit Coordinator sections are submitted in A1. Grossed by: Estefania Marquez MS, PA ([facility])CM 9:23 AM [facility] MICROSCOPIC DESCRIPTION After review of H&E-stained sections, a p16 immunohistochemical stain is ordered on block A1 and is negative. 9:23 AM [facility] OPERATIVE PROCEDURE 1: LABIAPLASTY 9:23 AM [facility] CLINICAL INFORMATION Labial hypertrophy [N90.60] 9:23 AM [facility] COMMENT The [employer]elTree voice-activated dictation system may have been used [...] determined by the Diagnostic Immunohistochemistry Laboratory of [facility] in compliance with CLIA'88 regulations. Some of these tests rely on the use of analyte specific reagents and are subject to specific labeling requirements by the FDA. All controls show appropriate reactivity. This testing was developed by the [facility]ohist[facility] of [facility]. It has not been cleared or approved by the FDA. The FDA has determined that such clearance or approval is not necessary. 9:23 AM HEAVY MACHINERY ASSEMBLER [facility] Tissue TISSUE SPECIMEN FROM SKIN / Unknown Collection / Unknown 02/13/2025 12:52 PM HEAVY MACHINERY ASSEMBLER 02/13/2025 3:28 PM HEAVY MACHINERY ASSEMBLER us Shaun Mckinney DO PATHOLOGY/CYTOLOGY ORDERABLE S Final Result Performing Organization Address City/State/[facility] Co de Phone Number [facility] # [id number] [address] [place] [phone] * [place] ANES INSERT SUPRAGLOTTIC AIRWAY (02/13/2025 12:15 PM HEAVY MACHINERY ASSEMBLER) Narrative Murphy Sparrow AA-C - 02/13/2025 12:15 PM HEAVY MACHINERY ASSEMBLER Murphy Sparrow AA-C 02/13/2025 12:21 PM Airway Date/Time: 02/13/2025 12:15 PM Location: OR Plan: elective intubation Patient Identity Confirmed by: Verbally with patient and armband Airway: not difficult Staffing Performed: CREDIT AND LOAN COLLECTIONS SUPERVISOR/CAA Authorized by: Nikita Morales MD Performed by: Murphy Sparrow AA-C Senior Cytogenetics Laboratory Director: Nikita Morales MD Indications and Patient Condition: [...] at Approach: 1 Additional Procedure Information: atraumatic us Nikita Morales MD PROCEDURE/MINOR SURGICAL O RDERABLES Final Result * POC , URINE (02/13/2025 11:41 AM HEAVY MACHINERY ASSEMBLER) Pathologist [facility] HCG QUAL URINE Negative Negative 02/13/2025 11:41 AM [facility] Urine 02/13/2025 11:4 1 AM HEAVY MACHINERY ASSEMBLER 02/13/2025 10:36 AM HEAVY MACHINERY ASSEMBLER Narrative [facility] - 02/13/2025 11:41 AM HEAVY MACHINERY ASSEMBLER Positive : Result is greater than or equal to 25 mIU/mL Negative: Result is less than 25 mIU/mL Invalid: Result is borderline or indeterminate,send to lab for serum test methodology. Shaun Mckinney DO POINT OF CARE TESTING Final Result [facility] CLIA # [id number] [address] [place] [address] * (ABNORMAL) CBC WITHOUT DIFFERENTIAL (01/28/2025 9:47 AM HEAVY MACHINERY ASSEMBLER) [facility] WBC 5.2 4.5 - 11.0 K/uL 01/28/2025 11:30 AM [facility] RBC 4.13(L) 4.20 - 5.40 M/uL 01/28/2025 11:30 AM [facility] HEMOGLOBIN 12.4 12.0 - 16.0 g/dL 01/28/2025 11:30 AM [facility] HEMATOCRIT 37.0 36.0 - 46.0 % 01/28/2025 11:30 AM [facility] MCV 89.6 84.0 - 103.0 fL 01/28/2025 11:30 AM [facility] MCH 30.0 27.0 - 34.0 pg 01/28/2025 11:30 AM [facility] MCHC 33.5 30.0 - 35.0 g/dL 01/28/2025 11:30 AM [facility] PLATELETS 296 140 - 440 K/uL 01/28/2025 11:30 AM [facility] MPV 10.6 8.9 - 12.8 fL 01/28/2025 11:30 AM [facility] RDW 12.4 11.0 - 14.5 % 01/28/2025 11:30 AM [facility] RDW-STDEV 40.7 37.0 - 54.0 fL 01/28/2025 11:30 AM [facility] Blood Venipuncture / Unknown 01/28/2025 9:47 AM HEAVY MACHINERY ASSEMBLER 01/28/2025 11:22 AM HEAVY MACHINERY ASSEMBLER us Shaun Mckinney DO HEMATOLOGY ORDERABLES Final Result Performing Organization Address [facility] de Phone Number [facility] CLIA # [id number] [address] [place] [address] * TYPE AND SCREEN (01/28/2025 9:47 AM HEAVY MACHINERY ASSEMBLER) ABO GROUP A 01/28/2025 1:10 PM [facility] RH (D) TYPE Positive 01/28/2025 1:10 PM [facility] ANTIBODY SCREEN Negative 01/28/2025 1:10 PM [facility] Blood Venipuncture / Unknown 01/28/2025 9:47 AM HEAVY MACHINERY ASSEMBLER 01/28/2025 11:15 AM HEAVY MACHINERY ASSEMBLER us Shaun Mckinney DO BLOOD BANK ORDERABLES Edited Result - Final Performing Organization Address City/[facility]/ZIP Co de Phone Number [facility] CLIA#[id number] [address] [place], [place] [id number] [place] [address] * VERIFICATION BLOOD GROUP (01/28/2025 9:45 AM HEAVY MACHINERY ASSEMBLER) ABO GROUP A 01/28/2025 12:04 PM HEAVY MACHINERY ASSEMBLER [facility] RH (D) TYPE Positive 01/28/2025 12:04 PM HEAVY MACHINERY ASSEMBLER [facility] Blood Venipuncture / Unknown 01/28/2025 9:45 AM HEAVY MACHINERY ASSEMBLER 01/28/2025 11:47 AM HEAVY MACHINERY ASSEMBLER Shaun Mckinney DO BLOOD BANK ORDERABLES Final Result [facility] CLIA#[id number] [address] [place] [phone], from Last 3 Months Insurance MEDICAID [place]
[2025-02-18 19:21] LABS: Glucose Urine UA Negative (Normal); Nitrate Urine Negative (Negative); Specific Gravity, Urine 1.009 (1.005-1.030)
[2025-02-18 19:26] LABS: Add Urine Microscopic? YES
[2025-02-18 19:28] LABS: Hematocrit 41.4 % (36-47); Hemoglobin 13.60 g/dL (11.27-16.99); Mean Corpuscular HGB Conc 32.9 g/dL (30-55); Mean Corpuscular Hemoglobin 29.2 pg (27-33); Mean Corpuscular Volume 89.0 fl (85-98); Nucleated Red Blood Cells % 0 %; Platelet Count 329 10^3/cmm (157-399); Red Blood Count 4.65 10^6/uL (3.85-5.65); White Blood Count 6.77 10^3/uL (3.29-11.43)
[2025-02-18 19:39] LABS: Alanine Aminotransferase 14 U/L (0-33); Albumin Level 4.5 g/dL (3.5-5.2); Alkaline Phosphatase 63 U/L (35-105); Anion Gap 13.1 (5-19); Aspartate Amino Transferase 13 U/L (0-32); Blood Urea Nitrogen 12 mg/dL (6-20); Calcium 9.3 mg/dL (8.5-10.5); Carbon Dioxide 26 mmol/L (22-29); Chloride 101 mmol/L (98-107); Globulin 3.2 g/dL (1.3-4.6); Glucose 97 mg/dL (65-115); Osmolality Calculated 282 mOsm/kg (285-295); Potassium 4.1 mmol/L (3.5-5.1); Sodium 136 mmol/L (136-145); Total Protein 7.7 g/dL (6.6-8.7)
[2025-02-18 19:56] VITALS: BP 115/76; PULSE 67; RESP 18; O2SAT 99
--- NOTE | 2025-02-18 20:25 | ED_ITS ---
HPI - Female Genitourinary 2 General: Chief complaint: Urogenital-Female Stated complaint: Post surgery 4 days ago, possible infection Time Seen by Provider: 02/18/25 19:41 History of Present Illness: Patient is a 25-year-old female that had labioplasty due to a extra-large labia, that unfolded, when she was trying to learn how to place tampons at 14 years old, and had dryness. She was having pain with even sitting, and therefore labioplasty has taken place. She presents to the ED with increased amount of smell. This is waxed and waned on her symptoms. She has been in contact with primary [employer] [facility]/Dr. Mckinney. She thought this was better. She has not seen him since 4 days ago when she had the procedure. She has not had any fevers. She does have pain with voiding. No redness. No sensation changes other than the association of pain. She has not had intercourse Associated symptoms: Reports abdominal pain; Deny headache(s) or nausea Related Data Home Medications ?Medication ?Instructions ?Recorded ?Confirmed omeprazole 40 mg capsule,delayed 40 mg PO DAILY 01/14/25 release Previous Rx's ?Medication ?Instructions ?Recorded melatonin 3 mg capsule 3 mg PO DIRECTED PRN slee p #30 12/22/23 caps ondansetron 4 mg disintegrating 4 mg PO Q4H PRN nausea and 08/25/24 tablet vomiting #20 tabs sole supports #1 ea 11/04/24 paliperidone 9 mg tablet,extended 9 mg PO QAM #30 tabs 12/18/24 release 24 hr (Invega) cefdinir 300 mg capsule 300 mg PO BID 10 days #20 ca ps 02/18/25 Allergies Allergy/AdvReac Type Severity Reaction Status Date / Time bee venom protein (honey bee) Allergy Severe ALGY-Anaphy Verified 02/18/25 18:52 laxis hydroxyzine Allergy Severe ALGY-Bliste Verified 02/18/25 18:52 r amoxicillin Allergy Unknown Verified 02/18/25 18:52 Penicillins Allergy ALGY-Anaphy Verified 02/18/25 18:53 laxis lactase (From Lactose Fast AdvReac ALGY-Conges Verified 02/18/25 18:52 Acting Relief) oneil Review of Systems 2 General: Reports: 10 or more systems reviewed and unremarkable except in HPI and below Const: Denies: fever(s), chills, body aches, fatigue or malaise Eyes: Denies: change in vision or blurry vision ENMT: Denies: throat pain or mouth pain Card: Denies: chest pain or palpitations Resp: Denies: dyspnea or non-productive cough GI: Reports: abdominal pain; Denies: nausea or vomiting : Reports: difficulty voiding, dysuria, vaginal odor (Changing underwear multiple times a day, and washing with warm water) and other (No redness); Denies: flank pain, urinary incontinence or vaginal bleeding Musc: Denies: neck pain, back pain or extremity pain Skin/Breast: Reports: skin tenderness; Denies: rash or pruritus Neuro: Denies: headache(s) or numbness in extremities Psych: Denies: anxiety or depression PFSH ED 2 PFSH: Medical History (Updated 02/18/25 @ 20:25 by MARI Rodas) 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 Methamphetamines, last use 08/15/22 Chronic post-traumatic stress disorder Psychiatric care Surgical History History of placement of ear tubes No significant past surgical history Family History Father Cancer brain Diabetes Grandfather Diabetes paternal Mother Hypertension Heart disease Grandmother Ovarian cancer maternal Other Dementia Lung disease Psychiatric illness Denies family history of Colon cancer Breast cancer Uterine cancer Thyroid disease Stroke Social History Smoking and tobacco/nicotine status: former use of tobacco/nicotine Substance/Drug Use: former Physical Exam 2 Const: COMMON NORMALS: no acute distress, average body habitus and patient oriented x3 HENMT: COMMON NORMALS: normocephalic and atraumatic HEAD & SCALP: n ormocephalic and atraumatic Neck/C-Spine: COMMON NORMALS: full ROM and no lymphadenopathy Lymph: LYMPHATIC: no lymphadenopathy noted Chest: COMMONS NORMALS: normal inspection of the chest and normal palpation of entire chest wall Resp: COMMON NORMALS: normal respiratory effort, No retractions and No use of accessory muscles Cardio: COMMON NORMALS: regular rate and regular rhythm RATE: regular rate RHYTHM: regular rhythm GI: COMMON NORMALS: Normal to inspection, nondistended, normoactive bowel sounds present, Soft to palpation, non-tender and No hepatosplenomegaly present PALPATION: Yes Soft to palpation and Yes No hepatosplenomegaly present : COMMON NORMALS: Yes no CVA tenderness BLADDER/KIDNEY EXAM: Yes no CVA tenderness OTHER: External labia with sutures, without surrounding redness, smell noted. No drainage. Back/Pelvis: COMMON NORMALS: no CVA tenderness and thoracic and lumbar spine normal to inspection Neuro: COMMON NORMALS: patient oriented x3, CN's II-XII intact bilaterally and moves all extremities Psych: COMMON NORMALS: mental status grossly normal, Normal thought process present and cooperative THOUGHT PROCESS: Normal thought process present Skin: COMMON NORMALS: no rashes or lesions noted, no wounds and turgor normal GENERAL SKIN EXAM: no rashes or lesions noted and turgor normal Course 2 Vital Signs: Vital signs: Vital Signs Temperature 98.1 F 02/18/25 18:46 Pulse Rate 65 02/18/25 20:53 Respiratory Rate 18 02/18/25 19:56 Blood Pressure 107/63 02/18/25 20:53 Pulse Oximetry 100 02/18/25 20:53 Oxygen Delivery Me thod Room Air 02/18/25 20:53 MDM - Female Medical Decision Making Patient is a pleasant 25-year-old female, had labioplasty due to pain when sitting, and presents to the ED with odor. She changes her underwear multiple times a day, and washes this area carefully with warm water. Patient stated that her doctor did not want her to take a bath x 2 weeks. She has been in contact with primary [employer] [facility], Dr. Mckinney. She thought this was improving, and then smell was deteriorating. She changed her underwear just prior to coming to the hospital. She is following all of her instructions. She does have pain with voiding. She did have some bacteria/pyuria on urine analysis. On physical examination, this is not super remarkable. She does have asymmetry with the left labia slightly bigger than the right, however both are trimmed nicely, intact, with sutures noted. There is no surrounding redness. At this time, we will have her check with Dr. Mckinney again, since if there is a primary surgical complication, the patient should be going through the primary surgeon, treat with Rocephin x 1 IM, and cefdinir. Urine culture will be pending. Patient will talk to her doctor regarding a sitz bath, washing of this area, drying, or cool blow dryer, which should be appropriate with what I am viewing at this time. She has not had any intercourse since surgery. All of her questions answered to best my ability. Lab Data 02/18/25 19:16 02/18/25 19:16 Laboratory Results WBC 6.77 10^3/uL (3.29-11.43) 02/18/25 19:16 RBC 4.65 10^6/uL (3.85-5.65) 02/18/25 19:16 Hgb 13.60 g/dL (11.27-16.99) 02/18/25 19:16 Hct 41.4 % (36-47) 02/18/25 19:16 MCV 89.0 fl (85-98) 02/18/25 19:16 MCH 29.2 pg (27-33) 02/18/25 19:16 MCHC 32.9 g/dL (30-55) 02/18/25 19:16 RDW 12.1 % (12.1-15.1) 02/18/25 19:16 Plt Count 329 10^3/cmm (157-399) 02/18/25 19:16 MPV 10.0 fL (7.4-10.4) 02/18/25 19:16 Neut % (Auto) 44.8 % 02/18/25 19:16 Lymph % (Auto) 47.9 % 02/18/25 19:16 [place] % (Auto) 3.8 % 02/18/25 19:16 Eos % (Auto) 2.4 % 02/18/25 19:16 Baso % (Auto) 1.0 % 02/18/25 19:16 Neut # (Auto) 3.03 10^3/uL (1.8-7.7) 02/18/25 19:16 Lymph # (Auto) 3.2 10^3/uL (0.8-4.8) 02/18/25 19:16 [place] # (Auto) 0.3 10^3/uL (0.2-0.9) 02/18/25 19:16 Eos # (Auto) 0.2 10^3/uL (0.0-0.8) 02/18/25 19:16 Baso # (Auto) 0.1 10^3/uL (0.0-0.1) 02/18/25 19:16 Nucleated RBC % (auto) 0 % 02/18/25 19:16 Nucleated RBCs # 0.0 /100WBC 02/18/25 19:16 Sodium 136 mmol/L (136-145) 02/18/25 19:16 Potassium 4.1 mmol/L (3.5-5.1) 02/18/25 19:16 Chloride 101 mmol/L (98-107) 02/18/25 19:16 Carbon Dioxide 26 mmol/L (22-29) 02/18/25 19:16 Anion Gap 13.1 (5-19) 02/18/25 19:16 BUN 12 mg/dL (6-20) 02/18/25 19:16 Creatinine 0.7 mg/dL (0.5-0.9) 02/18/25 19:16 GFR Calculation 103.7 mL/min (90-130) 02/18/25 19:16 Glucose 97 mg/dL (65-115) 02/18/25 19:16 Calculated Osmolality 282 mOsm/kg (285-295) L 02/18/25 19:16 Calcium 9.3 mg/dL (8.5-10.5) 02/18/25 19:16 Total Bilirubin 0.2 mg/dL (0.15-1.2) 02/18/25 19:16 AST 13 U/L (0-32) 02/18/25 19:16 ALT 14 U/L (0-33) 02/18/25 19:16 Alkaline Phosphatase 63 U/L (35-105) 02/18/25 19:16 Total Protein 7.7 g/dL (6.6-8.7) 02/18/25 19:16 Albumin 4.5 g/dL (3.5-5.2) 02/18/25 19:16 Globulin 3.2 g/dL (1.3-4.6) 02/18/25 19:16 Urine Color Yellow (Yellow) 02/18/25 18:54 Urine Appearance Clear (CLEAR) 02/18/25 18:54 Urine pH 6.5 (5-7) 02/18/25 18:54 Ur Specific [place] 1.009 (1.005-1.030) 02/18/25 18:54 Urine Protein Negative (Negative) 02/18/25 18:54 Urine Glucose (UA) Negative (Normal) 02/18/25 18:54 Urine Ketones Negative (Negative) 02/18/25 18:54 Urine Blood Negative (Negative) 02/18/25 18:54 Urine Nitrate Negative (Negative) 02/18/25 18:54 Urine Bilirubin Negative (Negative) 02/18/25 18:54 Urine Urobilinogen 0.2 mg/dL (Negative) 02/18/25 18:54 Ur Leukocyte Esterase 1+ (Negative) A 02/18/25 18:54 Urine RBC 0-2 /hpf (0-2) 02/18/25 18:54 Urine WBC 0-5 /hpf (0-5) 02/18/25 18:54 Ur Squamous Epith Cells 0-5 /hpf (0-5) 02/18/25 18:54 Amorphous Sediment Not Reportable 02/18/25 18:54 Urine Bacteria 1+ /hpf (NONE) H 02/18/25 18:54 Hyaline Casts 1.65 /lpf 02/18/25 18:54 All radiology interpretation(s) finalized by discharge Discharge Plan Discharge Patient Disposition: Home Clinical Impression: Pyuria Condition: Stable Prescriptions: New cefdinir 300 mg capsule 300 mg PO BID 10 Days Qty: 20 0RF No Action paliperidone [Invega] 9 mg tablet extended release 24hr 9 mg PO QAM Qty: 30 6RF Rx Instructions: Take one tablet every morning omeprazole 40 mg capsule,delayed release(DR/EC) 40 mg PO DAILY melatonin 3 mg capsule 3 mg PO DIRECTED PRN (Reason: sleep) Qty: 30 3RF Rx Instructions: May take one capsule 30 min prior to bedtime as needed for sleep (DME) sole supports See Rx Instructions .Route .MEDSUPPLY Qty: 1 0RF Rx Instructions: As directed ondansetron 4 mg tablet,disintegrating 4 mg PO Q4H PRN (Reason: nausea and vomiting) Qty: 20 0RF Discharge Orders: Discharge ED (Routine); Ordered 02/18/25 Ordered By: Belinda Shabazz Referrals: Kenia Sims MD [Primary Care Provider, Family Practice] Discharge Diet: Usual diet Discharge Activity: Resume usual activity Patient Instructions: Urinary Tract Infection in Women (ED), Patient Portal & Patricio Instructions, Sitz Bath Activity Restrictions/Additional Instructions: Follow the instructions from your recent surgery. - Ask your doctor about your sitz bath. Send him a message to see if you can see Dr. Mckinney tomorrow. - In the interim, utilize a warm water with baby stay improved to wash this area, pat dry, or blow dry - If you have redness, discharge change, return to ED, however preferably to Dr. Mckinney since he did your primary surgery. - Antibiotics are at the pharmacy. Use as prescribed. Take a probiotic, or eat active culture yogurt to avoid infectious diarrhera - Your urine is being cultured. In the interim, you will have antibiotics at the pharmacy: Cefdinir Thank you for choosing [facility] for your healthcare needs today. You have been screened and evaluated and felt safe for discharge. Health conditions do change or evolve sometimes and as such it is important that you follow up with your Primary Doctor to be re checked, 3-5 days is a general good time frame for follow up. You are always welcome to return to the ED for re assessment if your symptoms are worsening or you have new concerns Print Language: Persian Coding Level of Care Code ED Tools Programmer for Loulou Campos
[2025-02-18 20:53] VITALS: BP 107/63; PULSE 65; O2SAT 100
[2025-02-18 21:08] VITALS: BP 112/72; PULSE 69; O2SAT 99
== END 2025-02-18 21:14 | disposition home or self-care (01) ==
PROVIDERS: Emergency Medicine; Emergency Provider Physician Assistant; PCP Family Medicine
DX: R82.81 Pyuria (principal); Z98.890 Other specified postprocedural states; Z87.891 Personal history of nicotine dependence
CPT/HCPCS: 36415; 80053; 81001; 85025; 87086; 99284; J0696; J9999